=== PATIENT | male | born 1950 | race Caucasian/White ===

== ENCOUNTER 2017-10-17 14:59 | Emergency (ER) | payer OTHER ==
[~2017-10-17] VITALS: Ht 177.8 cm; Wt 132.4 kg
[~2017-10-17 14:59] MED LIST: AUGMENTIN PO; SKINCRE34 TOP; WARF-246 PO
[2017-10-17 15:04] VITALS: TEMP 36.5; Ht 177.8 cm; Wt 132.4 kg
[2017-10-17] MEDS ORDERED: ONDANSETRON INJ 2 MG/ML 2 ML VIAL IV STA (15:18)
[2017-10-17] MEDS ORDERED: MoRPHine SULFATE 10 MG/ML CARP/VIAL IV STA (15:18)
[2017-10-17] MEDS ORDERED: MoRPHine SULFATE 2 MG/ML CARP ONE (15:22)
[2017-10-17] MEDS ORDERED: MoRPHine SULFATE 4 MG/ML 1 ML CARP\\VIAL ONE (15:23)
[2017-10-17] MEDS ORDERED: WARF5TAB7 PO (15:37)
[2017-10-17] MEDS ORDERED: WARF10TA4 PO (15:37)
[2017-10-17 15:54] LABS: BASO % 0.4 %; BASO ABS # 0.03 K/uL (0-0.2); EOS % 2.2 %; EOS ABS # 0.17 K/uL (0-0.5); HEMATOCRIT 41.7 % (42-52); HEMOGLOBIN 13.4 g/dL (14.0-18.0); IG# 0.02 K/uL (0.00-0.02); LYMPH ABS # 1.06 K/uL (1.2-3.4); MEAN CELL VOLUME 94.6 fL (80-100); MEAN CORPUSCULAR HEMOGLOBIN 30.4 pg (25-34); MEAN CORPUSCULAR HGB CONC 32.1 g/dl (32-36); MEAN PLATELET VOLUME 9.9 fL (7.4-10.4); MONO % 7.3 %; MONO ABS # 0.55 K/uL (0.11-0.59); NEUT % 75.8 %; NEUT ABS # 5.75 K/uL (1.4-6.5); PLATELET COUNT 375 K/uL (130-400); RED CELL DISTRIBUTION WIDTH CV 13.1 % (11.5-14.5); RED CELL DISTRIBUTION WIDTH SD 45.7 fL (36.4-46.3); WHITE BLOOD COUNT 7.58 K/uL (4.8-10.8)
[2017-10-17 16:11] LABS: CALCIUM 9.2 mg/dl (8.5-10.1); CREATININE 1.72 mg/dl (0.60-1.40); POTASSIUM 4.3 mmol/L (3.5-5.1)
[2017-10-17 16:19] LABS: INR 3.7 (0.9-1.1)
[2017-10-17 16:23] LABS: PTT PATIENT 69.5 SECONDS (21.0-31.0)
--- NOTE | 2017-10-17 16:25 | DIAGNOSTIC IMAGING REPORT ---
RIGHT LOWER EXTREMITY VENOUS DOPPLER CLINICAL HISTORY: Right leg pain and swelling. COMPARISON STUDY: Right lower extremity venous Doppler January 27 2013. TECHNIQUE: Sonography of the deep venous system of the right lower extremity was performed. Compression and augmentation were evaluated. FINDINGS: Note is made of nonocclusive thrombus within the right femoral vein. Of note, thrombus was shown within this vessel on exam of January 27, 2013. This vessel is not distended. This thrombus is age indeterminate. No additional sites of deep venous thrombus were identified within the right lower extremity although evaluation was difficult given suboptimal penetration related to body habitus. IMPRESSION: Nonocclusive deep venous thrombus within the right femoral vein. This thrombus is age indeterminate as thrombus was shown within this vessel on exam of January 27, 2013. Electronically signed by: Ramin Conley M.D. 10/17/2017 4:24 PM Dictated Date/Time: 10/17/2017 4:22 PM
[2017-10-17] MEDS ORDERED: CEFTRIAXONE SOD INJ 1 GM ADDVIAL IV STA (16:38)
--- NOTE | 2017-10-17 16:46 | EMERGENCY ROOM VISIT NOTE ---
ED Visit Note First contact with patient: 15:09 Patient was seen by our PA/RESOURCE DIRECTOR. I was involved in the patient's care and did evaluate the patient myself. I was involved in the care throughout the ER stay. The patient presents with right leg swelling and pain. Ultrasound of the leg does not show any new DVT. There is no current fever and there is no leukocytosis. Clinically he appears to have an early right leg cellulitis. He will be treated with antibiotics and will have close outpatient follow-up. If worsening, he should return.
[2017-10-17 16:51] VITALS: BP 145/82; PULSE 65; O2SAT 97
[2017-10-17] MEDS ORDERED: CEPH500C2 PO (17:02)
[2017-10-17] MEDS ORDERED: HYDR-5688 PO (17:02)
--- NOTE | 2017-10-17 17:03 | EMERGENCY ROOM VISIT NOTE ---
History First contact with patient: 15:09 Chief Complaint: LEG PAIN,LEG INJURY Stated Complaint: PAIN IN R LOWER LEG,REFERRED BY MD History of Present Illness The patient is a 67 year old male who presents to the Emergency Room being referred here by Dr. Rodriguez with complaints of right lower leg pain and swelling. The patient states he always has swelling in his right lower leg. He admits to history of clots in that leg for which she is on Coumadin. He does not know when his last clot was diagnosed. The patient states that his last INR was October 12 and states he thought it was low but does not know the actual number. The patient states that since October 05 he has noticed increased swelling and pain in his right lower leg which has been getting progressively worse. He went to his family doctor today who sent him over here to the emergency room for further evaluation. The patient denies any fever, chest pain or shortness of breath. Review of Systems 10 system review was performed and was negative unless stated otherwise history of present illness. Past Medical/Surgical History Medical Problems: (1) ABDOMINAL SURGERY (2) Chronic kidney disease stage 3 (3) Deep venous thrombosis (4) Germ cell tumor (5) Hernia repair (6) Mass of testicle Family History Patient reports no known family medical history. Social History Smoking Status: Never Smoker Alcohol Use: occasionally Drug Use: none Marital Status: single Housing Status: lives alone Occupation Status: employed Current/Historical Medications Scheduled Warfarin Sod (Jantoven), 5 MG PO DIRECTED Warfarin Sod (Jantoven), 10 MG PO DIRECTED Physical Exam Vital Signs Date Time Temp Pulse Resp B/P (MAP) Pulse Ox O2 Delivery O2 Flow Rate FiO2 10/17/17 16:51 65 20 145/82 97 Room Air 10/17/17 15:04 36.5 73 20 149/101 97 Room Air 10.0 Physical Exam GENERAL: Morbidly obese 67-year-old male appears in no acute distress. MENTAL Status: Alert and oriented 3. NECK: Supple, no lymphadenopathy noted. No carotid bruits noted. LUNGS: Clear auscultation without wheezes rales or rhonchi. CARDIAC: Regular rate and rhythm without murmur. Pulses is full and equal throughout. LOWER EXTREMITIES: Left lower leg without erythema or edema. Calf is nontender. Right lower leg with significant erythema and edema extending from the ankle up to the knee. There is also noted discoloration and dry skin consistent with venous stasis. There is some dry cracked open areas. Patient has tenderness to palpation throughout the entire lower leg with increased tenderness to palpation over the proximal posterior aspect. Medical Decision & Procedures ER Provider Diagnostic Interpretation: RIGHT LOWER EXTREMITY VENOUS DOPPLER CLINICAL HISTORY: Right leg pain and swelling. COMPARISON STUDY: Right lower extremity venous Doppler January 27 2013. TECHNIQUE: Sonography of the deep venous system of the right lower extremity was performed. Compression and augmentation were evaluated. FINDINGS: Note is made of nonocclusive thrombus within the right femoral vein. Of note, thrombus was shown within this vessel on exam of January 27, 2013. This vessel is not distended. This thrombus is age indeterminate. No additional sites of deep venous thrombus were identified within the right lower extremity although evaluation was difficult given suboptimal penetration related to body habitus. IMPRESSION: Nonocclusive deep venous thrombus within the right femoral vein. This thrombus is age indeterminate as thrombus was shown within this vessel on exam of January 27, 2013. Electronically signed by: Ramin Conley M.D. 10/17/2017 4:24 PM Laboratory Results 10/17/17 15:30 Red Blood Count 4.41, Mean Corpuscular Volume 94.6, Mean Corpuscular Hemoglobin 30.4, Mean Corpuscular Hemoglobin Concent 32.1, Mean Platelet Volume 9.9, Neutrophils (%) (Auto) 75.8, Lymphocytes (%) (Auto) 14.0, Monocytes (%) (Auto) 7.3, Eosinophils (%) (Auto) 2.2, Basophils (%) (Auto) 0.4, Neutrophils # (Auto) 5.75, Lymphocytes # (Auto) 1.06, Monocytes # (Auto) 0.55, Eosinophils # (Auto) 0.17, Basophils # (Auto) 0.03 10/17/17 15:30 Test 10/17/17 15:30 White Blood Count 7.58 K/uL (4.8-10.8) Red Blood Count 4.41 M/uL (4.7-6.1) Hemoglobin 13.4 g/dL (14.0-18.0) Hematocrit 41.7 % (42-52) Mean Corpuscular Volume 94.6 fL (80-100) Mean Corpuscular Hemoglobin 30.4 pg (25-34) Mean Corpuscular Hemoglobin Concent 32.1 g/dl (32-36) Platelet Count 375 K/uL (130-400) Mean Platelet Volume 9.9 fL (7.4-10.4) Neutrophils (%) (Auto) 75.8 % Lymphocytes (%) (Auto) 14.0 % Monocytes (%) (Auto) 7.3 % Eosinophils (%) (Auto) 2.2 % Basophils (%) (Auto) 0.4 % Neutrophils # (Auto) 5.75 K/uL (1.4-6.5) Lymphocytes # (Auto) 1.06 K/uL (1.2-3.4) Monocytes # (Auto) 0.55 K/uL (0.11-0.59) Eosinophils # (Auto) 0.17 K/uL (0-0.5) Basophils # (Auto) 0.03 K/uL (0-0.2) RDW Standard Deviation 45.7 fL (36.4-46.3) RDW Coefficient of Variation 13.1 % (11.5-14.5) Immature Granulocyte % (Auto) 0.3 % Immature Granulocyte # (Auto) 0.02 K/uL (0.00-0.02) Prothrombin Time 37.5 SECONDS (9.0-12.0) Prothromb Time International Ratio 3.7 (0.9-1.1) Activated Partial Thromboplast Time 69.5 SECONDS (21.0-31.0) Partial Thromboplastin Ratio 2.7 Anion Gap 9.0 mmol/L (3-11) Est Creatinine Clear Calc Drug Dose 58.6 ml/min Estimated GFR () 47.3 Estimated GFR (Non- 40.8 BUN/Creatinine Ratio 12.6 (10-20) Calcium Level 9.2 mg/dl (8.5-10.1) Medications Administered Medications (Trade) Dose Ordered Sig/[place] Route Start Time Stop Time Status Last Admin Dose Admin Morphine Sulfate (MoRPHine SULFATE INJ) 6 mg NOW STAT IV 10/17/17 15:18 10/17/17 15:20 DC 10/17/17 15:18 6 MG Ondansetron HCl (Zofran Inj) 4 mg NOW STAT IV 10/17/17 15:18 10/17/17 15:20 DC 10/17/17 15:18 4 MG Ceftriaxone Sodium (Rocephin Inj) 1 gm NOW STAT IV 10/17/17 16:38 10/17/17 16:41 DC 10/17/17 16:50 1 GM ED Course The patient was evaluated. The patient's EMR medication list were reviewed. IV access was obtained. CBC and differential, renal profile and coags were ordered. The patient was given morphine 6 mg IV for pain and morphine 4 mg IV for associated nausea. Venous Doppler of the right lower extremity was ordered interpreted by the radiologist as above with a nonocclusive thrombus noted in the femoral vein which was there on prior ultrasound of 2012. Limited exam secondary to patient's size.. Labs are reviewed. The patient's white count was normal. Hemoglobin and hematocrit were slightly low. Patient's BUN was elevated at 20 and creatinine elevated at 1.7 to consistent with the patient's renal failure. INR was 3.7. The patient was independently evaluated by Dr. Lyman who agree with treatment plan. The patient was given Rocephin 1 g IV. The patient was discharged home in stable condition. Medical Decision Differential diagnosis include cellulitis, DVT, superficial phlebitis, venous stasis, stasis dermatitis [place] Drug Monitoring Program Search Results: patient reviewed within database Medication Reconcilliation Current Medication List: was personally reviewed by wi Blood Pressure Screening Patient's blood pressure: Elevated blood pressure Blood pressure disposition: Elevated BP felt to be situational Impression Primary Impression: Cellulitis of right leg Departure Information Dispostion Home / Self-Care Condition GOOD Prescriptions Cephalexin Monohydrate (KEFLEX) 500 Mg Cap 500 MG PO QID for 10 Days, #40 CAP Prov: Debbie Sarabia PA-C 10/17/17 Hydrocodone/Acetaminophen 5MG/325MG ([place] 5MG/325MG) Tab 1-2 TABLET PO Q6 Y for Pain, #20 TAB For Initial Treatment Prov: Debbie Sarabia PA-C 10/17/17 Referrals Rosalie Rosales DO (PCP) Forms HOME CARE DOCUMENTATION FORM, IMPORTANT VISIT INFORMATION Patient Instructions Cellulitis - [facility], [facility] Additional Instructions Keep leg elevated above heart as much as possible. Take [place] as needed for pain. Do not drive while taking the [place]. Call the Coumadin clinic or whoever follows her Coumadin levels and tell them that your INR was 3.7 for further directions on how to take your Coumadin. Take Keflex as prescribed. Follow-up with Dr. Rodriguez in 2 days for recheck. If you experience any high fevers, worsening of symptoms, return to the ER. Off work until evaluated by Dr. Rodriguez.
== END 2017-10-17 17:30 | disposition home or self-care (01) ==
LOC: C.EDB 15:00
DX: L03.115 Cellulitis of right lower limb (principal); Z86.718 Personal history of other venous thrombosis and embolism; N18.3 Chronic kidney disease, stage 3 (moderate); Z79.01 Long term (current) use of anticoagulants

== ENCOUNTER 2018-10-11 11:00 | Inpatient (IN) ==
[2018-10-11 11:40] LABS: Basophils # (auto) 0.01 K/uL (0-0.2); Basophils % (auto) 0.1 %; Hematocrit (blood only) 43.3 % (42-52); Hemoglobin 13.7 g/dL (14.0-18.0); Immature Granulocytes # (auto) 0.01 K/uL (0.00-0.02); Immature Granulocytes % (auto) 0.1 %; Lymphocytes # (auto) 0.45 K/uL (1.2-3.4); Lymphocytes % (auto) 5.3 %; Mean Corpuscular Hgb Conc 31.6 g/dL (32-36); Mean Corpuscular Volume 95.4 fL (80-100); Mean Platelet Volume 10.5 fL (7.4-10.4); Monocytes # (auto) 0.58 K/uL (0.11-0.59); Monocytes % (auto) 6.8 %; Neutrophils # (auto) 7.42 K/uL (1.4-6.5); Neutrophils % (auto) 87.7 %; Platelet Count 206 K/uL (130-400); RDW Coefficient of Variation 13.3 % (11.5-14.5); RDW Standard Deviation 46.1 fL (36.4-46.3); Red Blood Count 4.54 M/uL (4.7-6.1); White Blood Count 8.47 K/uL (4.8-10.8)
[2018-10-11 11:47] LABS: Alanine Aminotransferase 35 U/L (12-78); Albumin Level 3.6 gm/dl (3.4-5.0); Aspartate Aminotransferase 81 U/L (15-37); BUN Creatinine Ratio 11.9 (10-20); Blood Urea Nitrogen 18 mg/dl (7-18); Calcium 8.9 mg/dl (8.5-10.1); Carbon Dioxide 27 mmol/L (21-32); Chloride 104 mmol/L (98-107); Est GFR (African American) 53.7; Est GFR (Non-African American) 46.3; Glucose 145 mg/dl (70-99); Sodium 138 mmol/L (136-145)
[2018-10-11 11:49] LABS: INR 1.3 (0.9-1.1); Partial Thromboplastin Ratio 1.2; Partial Thromboplastin Time 30.8 Seconds (21.0-31.0); Prothrombin Time 13.2 Seconds (9.0-12.0)
--- NOTE | 2018-10-11 11:50 | XRay Report ---
XR chest 1V portable CLINICAL HISTORY: chest pain dyspnea COMPARISON STUDY: 07/14/2015 FINDINGS: Mild stable cardiomegaly. Prominent pulmonary vasculature. Diaphragms smooth. IMPRESSION: Developing congestive heart failure. The above report was generated using voice recognition software. It may contain grammatical, syntax or spelling errors. Electronically signed by: Jamil Sarabia M.D. 10/11/2018 11:49 AM
[2018-10-11 11:57] LABS: Albumin Globulin Ratio 0.8 (0.9-2); Alkaline Phosphatase 65 U/L (45-117); Bilirubin,Total 0.5 mg/dl (0.2-1); Globulin 4.5 gm/dl (2.5-4.0); Total Protein 8.1 gm/dl (6.4-8.2)
[2018-10-11] MEDS ORDERED: ONDANSETRON INJ 2 MG/ML 2 ML VIAL IV STA (12:05)
[2018-10-11] MEDS ORDERED: MoRPHine SULFATE 2 MG/ML CARP IV STA (12:05)
[2018-10-11] MEDS ORDERED: FUROSEMIDE 40 MG/4 ML VIAL IV STA (12:05)
[2018-10-11] MEDS ORDERED: NITROGLYCERIN 2% OINTMENT 30GM TUBE EXT STA (12:05)
[2018-10-11] MEDS ORDERED: HEPARIN 25000 UNIT/500 ML D5W IV ONE (12:41)
[2018-10-11] MEDS ORDERED: HEPARIN SQ 5000 UNIT HEART ALERT CARP ONE (12:41)
[2018-10-11] MEDS ORDERED: MIDAZOLAM HCL 1 MG/ML 2ML VIAL ONE (13:33)
[2018-10-11] MEDS ORDERED: HEPARIN (PORCINE) 1000 UNIT/ML 10 ML (CATH LAB USE ONLY) ONE (13:33)
[2018-10-11] MEDS ORDERED: fentaNYL citrate 100 MCG/2 ML VIAL ONE (13:33)
[2018-10-11] MEDS ORDERED: NiCARDipine HCL INJ 2.5 MG/ML 10 ML AMP ONE (13:33)
[2018-10-11] MEDS ORDERED: NITROGLYCERIN/D5W 100MCG/ML 20ML SYR ONE (13:33)
--- NOTE | 2018-10-11 13:34 | History & Physical Report ---
Date of Service October 11, 2018 Assessment & Plan (1) Myocardial infarct: Pt presents with worsening chest pain over past week, constant over past 24 hours with markedly elevated troponin at 39.9 consistent with a NSTEMI. Discussed case with Dr. Bryant - pt to go to photo lab manager today. - Await further recommendations after cath - likely will go to ICU for observation post-cath but defer to interventional cardiology - Heparin drip started in ED - Received aspirin, nitro, morphine - Received furosemide 20 mg IV in ED due to evidence of CHF Present on Admission?: Yes (2) Cardiomyopathy: Likely ischemic cardiomyopathy. Cont current medical management per cardiology. (3) Lymphedema: Ongoing chronic issue - per pt unchanged from baseline Present on Admission?: Yes (4) Chronic deep vein thrombosis (DVT) of right lower extremity: On Coumadin outpatient but INR subtherapeutic - Continue heparin drip as above - Restart Coumadin after cath Present on Admission?: Yes (5) CKD (chronic kidney disease) stage 3, GFR 30-59 ml/min: Creatinine slightly elevated above baseline of 1.3-1.4 today - will need to monitor closely after dye load from cath today - Repeat labs in AM Present on Admission?: Yes (1) Cardiomyopathy: Plan: Plan - Chhaya Kevin PA-C: Patient discussed with attending physician, Dr. Pereyra. Plan of care reviewed and as outlined above. Pt for cardiac cath this afternoon. Additional recommendations to follow. Jennifer Kevin PA-C History of Present Illness Primary Care Provider: PCP - Rosalie Rosales 68 y/o male presents to the ED today with constant chest pain x 24 hours, intermittent chest pain x 1 week, found to have an elevated troponin of 39.9, and now being admitted with a diagnosis of NSTEMI. Pt reports intermittent chest pain in the left substernal area that he attributed to heartburn for the past week - pain would occur after eating or with exertion then resolve with rest. Over the past few days he has developed dyspnea on exertion as well as cough productive of white foamy phlegm. Yesterday, the chest pain became constant and has slowly been worsening since then. Associated malaise, lightheadedness, nausea, bloating and loss of appetite. Due to the severity of symptoms, he came in for evaluation this morning although admits he should have come in last night as "it was a rough night" due to the symptoms. Pt denies prior history of cardiac disease, hypertension, dyslipidemia, CVA, DM. He does have a history of chronic RLE DVT with associated lymphedema. He is on chronic Coumadin therapy but INR in the ED is subtherapeutic. This RLE edema has apparently not been any worse than usual. Denies fevers, sweats, vomiting, diarrhea, constipation, hematochezia, hematuria, dysuria. He did have some chills last night. He denies any family history of cardiac disease. Allergies Allergy/AdvReac Type Severity Reaction Status Date / Time No Known Allergies Allergy Unverified 10/17/17 15:37 Home Medications Home Medications Medication Instructions Recorded Confirmed Type warfarin 5 mg PO 3XWK 10/11/18 10/11/18 History warfarin 5 mg PO Q OTHER DAY 10/11/18 10/11/18 History Past Med/Surg History Medical History GENEVA (acute kidney injury) (Acute) Abnormal liver enzymes (Acute) Germ cell tumor (Chronic 01/27/13) Mass of testicle (Resolved 01/27/13) "REMOVED " CKD (chronic kidney disease) stage 3, GFR 30-59 ml/min (Chronic) Chronic deep vein thrombosis (DVT) of right lower extremity (Chronic) Lymphedema (Chronic) Peripheral vascular disease (Chronic) Surgical History History of colonoscopy with polypectomy (Chronic) adenomatous polyp, diverticulosis - Oct 2015 History of orchiectomy (Chronic) History of umbilical hernia repair (Chronic) Social History Current Living Situation: Alone current occupational status: employed Other Information That Helps Us Care for You: No Feels Safe at Home: Yes Safety Concerns: Feels Safe At This Time Smoking Status: Never smoker Hx Alcohol Use: Yes Alcohol type: beer Alcohol Intake Frequency: a few times a week Hx Substance Use: No Beliefs That Will Affect Care: None Preferred Language: Marshallese Communication Ability: Effective Review of Systems All systems reviewed & are unremarkable except as noted in HPI & below Constitutional: + chills, + fatigue, + malaise, + weakness and + anorexia; no fever and no sweats Eyes: no diplopia, not seeing flashes and no worsening vision Ear, Nose, Mouth, Throat: no nasal congestion, no epistaxis, no sore throat and no dysphagia Respiratory: + cough, + dyspnea on exertion, + sputum production and + wheezing ; no hemoptysis Cardiovascular: + chest pain at rest, + chest pain with activity, + orthopnea, + lightheadedness and + edema; no paroxysmal nocturnal dyspnea, no palpitations and no syncope Gastrointestinal: + abdominal pain (generalized abdominal discomfort), + bloating, + heartburn and + nausea; no vomiting, no hematemesis, no dysphagia, no diarrhea/loose stools, no blood in stools and no melena Genitourinary (Male): no dysuria, no urinary frequency and no hematuria Musculoskeletal: + swelling (chronic RLE edema); no back pain Neurologic: + generalized weakness; no tingling, no numbness, no syncope, no headache(s) and no confusion Chronic anticoagulation due to history of chronic RLE DVT Physical Exam 2 Vital Signs (Past 24 Hours): Last Vital Signs Temp 36.5 C 10/11/18 11:04 Pulse 78 10/11/18 13:02 Resp 20 10/11/18 13:02 BP 120/85 10/11/18 13:02 Pulse Ox 93 10/11/18 13:02 Constitutional: well developed, well nourished and + obese; no acute distress Eyes: PERRL, conjunctivae normal, anicteric sclerae ENMT: external ear and nose normal, oropharynx normal Neck: trachea midline Respiratory: able to speak in complete sentences Auscultation: + crackles ( bibasilar); no rales and no rhonchi Cardiovascular: Distant heart sounds but regular. No murmur, gallop or rub. Gastrointestinal (Abdomen): Inspection/Auscultation: + abdomen distended and normal bowel sounds Percussion/Palpation: + abdomen tender (mild diffuse) Musculoskeletal: RLE with chronic stasis changes and pitting edema - no calf tenderness bilaterally. Neurologic: no focal motor deficits Results & Data Laboratory Results Laboratory Results - last 24 hr 10/11/18 10/11/18 10/11/18 11:15 11:15 11:15 WBC 8.47 RBC 4.54 L Hgb 13.7 L Hct 43.3 MCV 95.4 MCH 30.2 MCHC 31.6 L RDW Std Deviation 46.1 RDW Coeff of Juan 13.3 Plt Count 206 MPV 10.5 H Immature Gran % (Auto) 0.1 Neut % (Auto) 87.7 Lymph % (Auto) 5.3 [place] % (Auto) 6.8 Eos % (Auto) 0.0 Baso % (Auto) 0.1 Immature Gran # (Auto) 0.01 Neut # (Auto) 7.42 H Lymph # (Auto) 0.45 L [place] # (Auto) 0.58 Eos # (Auto) 0.00 Baso # (Auto) 0.01 PT 13.2 H INR 1.3 H APTT 30.8 PTT Ratio 1.2 Sodium 138 Potassium 4.0 Chloride 104 Carbon Dioxide 27 Anion Gap 8.0 BUN 18 Creatinine 1.54 H Est Cr Clr Drug Dosing Not Reportable Est GFR ( Amer) 53.7 Est GFR (Non-Af Amer) 46.3 BUN/Creatinine Ratio 11.9 Glucose 145 H Calcium 8.9 Total Bilirubin 0.5 AST 81 H ALT 35 Alkaline Phosphatase 65 Troponin I 39.900 H* Total Protein 8.1 Albumin 3.6 Globulin 4.5 H Albumin/Globulin Ratio 0.8 L Diagnostic Findings Chest X-ray 10/11/18 - IMPRESSION: Developing congestive heart failure. Medications Administered Discontinued Medications Furosemide (Lasix) 20 mg IV NOW STA Stop: 10/11/18 12:06 Last Admin: 10/11/18 12:27 Dose: 20 mg Heparin Sodium (Beef Lung) (Heparin Sod 5000u Heart Alert) Confirm Administered Dose 5,000 units .ROUTE .STK-MED ONE Stop: 10/11/18 12:42 Last Admin: 10/11/18 12:45 Dose: 5,000 units Heparin Sodium/Dextrose (Heparin Sodium/Dextrose) Confirm Administered Dose 25, 000 units IV .STK-MED ONE Stop: 10/11/18 12:42 Last Admin: 10/11/18 12:45 Dose: 1,850 units Morphine Sulfate (Morphine Sulfate) 2 mg IV NOW STA Stop: 10/11/18 12:06 Last Admin: 10/11/18 12:26 Dose: 2 mg Nitroglycerin (Nitro-Bid 2%) 0.5 inch EXT NOW STA Stop: 10/11/18 12:06 Last Admin: 10/11/18 12:25 Dose: 0.5 inch Ondansetron HCl (Zofran) 4 mg IV NOW STA Stop: 10/11/18 12:06 Last Admin: 10/11/18 12:27 Dose: 4 mg Code Status & VTE Plan Code Status Full resuscitation VTE Prophylaxis Plan VTE Prophylaxis will be ordered: Yes Critical Care Time Critical Care Time: No Supervising Physician Co-Signing Physician Notes I have seen the patient and have discussed the care plan with the provider above. I agree with the assessment and plan as stated. Cont to monitor overnight in the ICU post SE to prox LAD lesion. Follow Cardiology recs. ICU team to manage any initial issues with volume overload. DO Roddy _ (1) Myocardial infarct Myocardial infarction type: non-ST elevation myocardial infarction Qualified Code(s): I21.4 - Non-ST elevation (NSTEMI) myocardial infarction (2) Chronic deep vein thrombosis (DVT) of right lower extremity Affected thrombotic vein of extremity: other lower extremity vein Qualified Code(s): I82.591 - Chronic embolism and thrombosis of other specified deep vein of right lower extremity
[2018-10-11] MEDS ORDERED: ASPIRIN 81 MG CHEW ONE (13:46)
--- NOTE | 2018-10-11 13:48 | Cardiology Consultation ---
Date of Consultation October 11, 2018 Assessment & Plan (1) Myocardial infarct: Patient presents with stuttering history of chest pressure and chest tightness of one weeks duration with significantly elevated troponins echocardiogram consistent with type III LAD distribution wall motion abnormality. He continues to have chest pressure symptoms or complaints EKGs do not demonstrate acute ST elevation no developing Q waves are present in the anterior leads. Plan continue heparin refer to [facility] Blanking Press Adjuster today for further diagnostic imaging and intervention as warranted. Plan on initiating beta-katelyn as course progresses. Will follow renal function regarding initiation of BOBBI inhibitor, lipid-lowering therapy to follow (2) CKD (chronic kidney disease): History of Present Illness Reason for Consultation: Myocardial infarction History of Present Illness Patient is a 68-year-old male with past history of DVT, chronic right lower extremity lymphedema, obesity and chronic renal insufficiency. 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 Presented to the emergency room due to chest pain and shortness of breath initial troponin elevated at 39.9 EKGs reflecting Q waves anteriorly. Patient continues to have chest discomfort described as a tightness across his chest rated 6-8 out of 10 with mild dyspnea. Further review of systems he notes low-grade cough no overt orthopnea. Denies prior history of cardiac disease rheumatic fever scarlet fever heart murmur notes no history of TIA or stroke notes no bleeding difficulties he is chronically anticoagulated with warfarin but INR on presentation was subtherapeutic. Feels his weight has been gradually increasing but no acute change since July. Notes no fevers chills overtly productive cough notes no melena hematochezia dysuria hematuria. Review of records reveals elevated lipids in the past no prior history of diabetes or hypertension. 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) Mass of testicle (Resolved 01/27/13) "REMOVED " Social History Current Living Situation: Alone current occupational status: employed Other Information That Helps Us Care for You: No Feels Safe at Home: Yes Safety Concerns: Feels Safe At This Time Smoking Status: Never smoker Hx Alcohol Use: Yes Alcohol type: beer Alcohol Intake Frequency: a few times a week Hx Substance Use: No Beliefs That Will Affect Care: None Preferred Language: Croatian Communication Ability: Effective Review of Systems Are as per HPI and otherwise negative Physical Exam 2 Vital Signs (Past 24 Hours): Last Vital Signs Temp 36.5 C 10/11/18 11:04 Pulse 76 10/11/18 13:10 Resp 18 10/11/18 13:10 BP 111/78 10/11/18 13:10 Pulse Ox 93 10/11/18 13:10 Constitutional: + obese ENMT: external ear and nose normal, oropharynx normal Neck: + thick neck No distinct jugular venous distention Respiratory: Auscultation: + crackles (Few scattered crackles basilar) Cardiovascular: Rate/Rhythm: regular rate and regular rhythm Heart sounds are distant there is no audible murmur rub Gastrointestinal (Abdomen): Obese no palpable aortic enlargement or hepatosplenomegaly Musculoskeletal: no cyanosis or clubbing, extremities motor strength 5/5 Skin: Chronic stasis changes of the right lower extremity with intact pulses Neurologic: PERRL, EOMI, accommodation nl, no face palsy, no dysarthria Results & Data Laboratory Results Laboratory Results - last 24 hr 10/11/18 10/11/18 10/11/18 11:15 11:15 11:15 WBC 8.47 RBC 4.54 L Hgb 13.7 L Hct 43.3 MCV 95.4 MCH 30.2 MCHC 31.6 L RDW Std Deviation 46.1 RDW Coeff of Juan 13.3 Plt Count 206 MPV 10.5 H Immature Gran % (Auto) 0.1 Neut % (Auto) 87.7 Lymph % (Auto) 5.3 [place] % (Auto) 6.8 Eos % (Auto) 0.0 Baso % (Auto) 0.1 Immature Gran # (Auto) 0.01 Neut # (Auto) 7.42 H Lymph # (Auto) 0.45 L [place] # (Auto) 0.58 Eos # (Auto) 0.00 Baso # (Auto) 0.01 PT 13.2 H INR 1.3 H APTT 30.8 PTT Ratio 1.2 Sodium 138 Potassium 4.0 Chloride 104 Carbon Dioxide 27 Anion Gap 8.0 BUN 18 Creatinine 1.54 H Est Cr Clr Drug Dosing Not Reportable Est GFR ( Amer) 53.7 Est GFR (Non-Af Amer) 46.3 BUN/Creatinine Ratio 11.9 Glucose 145 H Calcium 8.9 Total Bilirubin 0.5 AST 81 H ALT 35 Alkaline Phosphatase 65 Troponin I 39.900 H* Total Protein 8.1 Albumin 3.6 Globulin 4.5 H Albumin/Globulin Ratio 0.8 L Diagnostic Findings Echocardiogram 10/11/2018: The left ventricle is borderline dilated. There is normal left ventricular wall thickness. There is extensive wall motion abnormality present consistent with type III LAD distribution injury There is a large sized apical, septal, anteroseptal, and inferior wall motion abnormality with hypokinesis to akinesis of the segments. There is no significant valvular disease Mild aortic root dilatation. There is no pericardial effusion
[2018-10-11] MEDS ORDERED: EPTIFIBATIDE 2 MG/ML 10 ML VIAL (CATH LAB USE ONLY) ONE (14:54)
[2018-10-11] MEDS ORDERED: EPTIFIBATIDE 0.75 MG/ML 75MG VIAL (CATH LAB USE ONLY) ONE (14:54)
[2018-10-11] MEDS ORDERED: TICAGRELOR 90 MG TAB PO ONE (15:04)
--- NOTE | 2018-10-11 15:09 | Post Anesthesia Assessment ---
Date of Service October 11, 2018 Post Sedation Assessment Vital Signs Temp Pulse Pulse Resp BP BP Pulse Ox 10/11/18 13:10 76 18 111/78 93 10/11/18 13:02 78 20 120/85 93 10/11/18 11:29 93 10/11/18 11:04 36.5 C 76 20 136/92 99 Recovery Score Activity: Moves 4 extremities Respiration: Deep Breath/Cough Circulation: +/-20% PreAnes Value Consciousness: Fully Awake Oxygen Saturation: O2 needed for >90% Discharge Sedation Level of Care: Fast Track Phase II Post Sedation Plan On clinical assessment, the patient appears to have tolerated the sedation without complications. Patient is recovering as anticipated. Patient will continue to be monitored by nursing and may be discharged when sedation discharge criteria are met per below protocol. Upon Completions of procedure and additional 15 minutes continue every 5 minute vital signs and the P.A.R. score; then discharge to a Phase I or Fast Track to Phase II per the following guidelines: * Discharge Patient to appropriate Phase II area if PAR is 8 or greater or return to pre- procedure baseline. The post - procedure orders will be as directed. * If PAR score is less than 8 or not return to pre-procedure baseline then patient will follow Phase I monitoring till PAR is reached for Phase II. The Phase I may be done in procedure room or may call to secure a Phase I area. * �If naloxone or flumazenil are used for reversal, hold in Phase I for continued monitoring from when last reversal dose was given for a minimum of 60 minutes or longer pending the nurse and/or physician discretion of patient condition before discharge to Phase II.� Please call the Sedation Physician to re-evaluate and complete post-note for discharge to Phase II area. Do NOT discharge from procedure sedation or Phase 1 until post- sedation evaluation note is complete by procedure /sedation MD Sedation Discharge Instructions to be given to the patient at discharge to home.
--- NOTE | 2018-10-11 15:09 | Pre Anesthesia Assessment ---
Date of Service October 11, 2018 Pre Sedation Assessment Vital Signs Temp Pulse Pulse Resp BP BP Pulse Ox 10/11/18 13:10 76 18 111/78 93 10/11/18 13:02 78 20 120/85 93 10/11/18 11:29 93 10/11/18 11:04 36.5 C 76 20 136/92 99 Cardiovascular RRR, no murmur, no edema Respiratory normal respiratory effort, lungs clear to auscultation Pre-Sedation Airway Assessment Smoking Status: Never smoker Procedure Planning Contraindications for Sedation: none Current Medications Reviewed: Yes Notes The planned sedation has been discussed with the patient. Informed Consent was obtained. I have identified the patient, determined the appropriateness of sedation and have assessed the patient immediately prior to the procedure. All medicine(s) and interventions are by my order.
--- NOTE | 2018-10-11 15:22 | Cardiac Catheterization ---
Cardiac Cath Procedure Full Procedure Date October 11, 2018 Pre-Procedure Diagnosis Pre-Procedure Diagnosis: Non STEMI AUC Score AUC Score: 9 Post-Procedure Diagnosis Post-Procedure Diagnosis: Severe CAD, Successful PCI and Elevated Intracardiac Pressures Procedure(s) Performed Procedure(s) Performed: Coronary Angiography, Left Heart Cath, Drug Eluting Stent and IVUS Stone Planer Dong Elliott MD Scroll Assembler(s) Diaz Estimated Blood Loss Estimated Blood Loss: 20 Medication(s) Medication(s): Aspirin, Fentanyl, Heparin, Integrilin, Lidocaine 1%, Nitroglycerin and Versed Summary of Findings Indication: High-risk NSTEMI Access: 6 [place] right radial artery Catheters: [place], EBU 3.5 guide Findings: LM -large caliber vessel, angiographically normal LAD -large caliber vessel, 100% proximal occlusion. Mild to moderate mid segment disease after reestablished flow Circumflex -large caliber vessel gives off large, high first OM, luminal irregularities RCA -dominant, mild diffuse proximal disease, 4050% mid segment disease at takeoff of acute marginal, distal luminal irregularities LVEDP -37 -- PCI -- Antithrombotic therapy: Heparin, Integrilin, ticagrelor Procedure: Left main cannulated with EBU 3.5 guide Some difficulty passing wire across organized clot, attempts made with BMW, ferry pilot 50. Eventually able to cross the lesion with long whisper wire with the aid of 2.0 over the wire balloon. Wire passed into distal vessel and intracoronary position confirmed with injection through over the wire balloon Proximal LAD lesion predilated with 2.0 and 2.5 compliant balloons Dilated lesion stented with 4.0 x 22 [place] drug-eluting stent Post stent DIANA II flow with mild to moderate stenosis in the mid segment. IVUS confirmed no edge dissection, moderate mildly calcified plaque in the mid segment. Stent well apposed, underexpanded proximally Stent post-dilated with 4.5 noncompliant balloon IC vasodilators administered for spasm. Integrilin started for thrombus burden Post procedure DIANA 3 flow, stent well expanded with minimal residual stenosis and no apparent cardiac complications. Arterial Closure: TR band Summary: 1. Late presenting High-risk NSTEMI/Occluded proximal LAD 2. Mild to moderate single-vessel non-culprit coronary artery disease -40-50% mid RCA 3. Elevated intracardiac filling pressure 4. Successful PCI of proximal to mid LAD with single drug-eluting stent (4.0 x 22 mm [place]; postdilated with 4.5 NC balloon). Recommendations: Admit to ICU for continued monitoring Continue Integrilin for 8 hours Loaded with ticagrelor 180 mg in cytogenetics laboratory manager Continue dual-antiplatelet therapy for at least 1 year. IV diuretics for elevated filling pressures Trend troponins until peak, Check Echo Uptitrate beta-katelyn/BOBBI as BP allows High-dose statin Consult cardiac Rehab Hemodynamics Rest Ao:: 106/77/91 Final Ao: 98/70/83 LV: 105/37 Recommendations Recommendations: PCI without planned CABG Specimens Specimens: None Radiation Exposure (mGy) 5715 Contrast (mls) 175 visi Fluids (cc crystalloids) Fluids (cc crystalloids): 17 Drains Drains: None Anesthesia moderate Procedural Complication(s) None Disposition ICU ACC Data: Injection Maintenance Technician Cardiac Status Clinical evaluation leading to the procedure CAD Presenation: STEMI Anginal Classification: CCS IV Heart Failure: NYHA Class: CCS II Cardiogenic Shock within 24 Hours: No Cardiac Arrest within 24 Hours: No Imaging Studies Past 6 Months: No Stress Studies Past 6 Months: No Diagnostic Physicians Name: Dong Elliott MD Status: Emergency Closure Device Percutaneous Entry Location: Radial Closure Device: Radial Band Recommendations: PCI without planned CABG PCI Indication: PCI for STEMI - Stable First Noted: Subsequent EKG Lesion Segment Name: Proximal LAD Culprit Artery: Yes Stenosis Prior to Rx (%): 100 Chronic Total Occlusion: No IVUS: Yes FFR: No Pre-Procedure DIANA Flow: 0 Previously Treated Lesion: No Lesion Complexity: Non-High/Non-C Lesion Length (mm): 18 Thrombus Present: Yes Bifurcation Lesion: No Guidewire Across Lesion: Post-Procedure DIANA Flow: 3 Devices(s) Deployed: Yes Yes Intraprocedure Events Significant Disection: No Perforation: No
[2018-10-11] MEDS ORDERED: ONDANSETRON INJ 2 MG/ML 2 ML VIAL IV PRN (15:27)
[2018-10-11] MEDS ORDERED: EPTIFIBATIDE BOLUS/DRIP IV STA (15:27)
[2018-10-11] MEDS ORDERED: ACETAMINOPHEN 325 MG TAB PO PRN ×2 (15:32→15:45)
[2018-10-11] MEDS ORDERED: HEPARIN STANDARD DEXTROSE 25,000 UNITS/500 ML IV SCH (15:39)
[2018-10-11] MEDS ORDERED: HEPARIN IV BOLUS 8,000 UNITS in SYRINGE 0 ML IV ONE (15:41)
[2018-10-11] MEDS ORDERED: EPTIFIBATIDE 75 MG/100 ML VIAL IV SCH ×2 (16:00→16:45)
--- NOTE | 2018-10-11 19:20 | Critical Care Consultation ---
Date of Consultation October 11, 2018 Assessment & Plan (1) Myocardial infarct: Impression: 1. ST elevation SD, status post SE to the LAD. 2. History of DVT, maintained on Coumadin prior to this admission. 3. Acute chest pain syndrome due to acute SD, currently the patient chest pain is improving. 4. Morbid obesity. 5. Chronic lower extremity edema. Likely related to cardiomyopathy. 6. History of germ cell tumor. 7. History of recurrent cellulitis. Plan: 1. Continue post PCI care per Dr. Elliott, appreciated. 2. Antiplatelet therapy. 3. Beta-blockers once tolerable. 4. Restart Coumadin once approved by cardiology. 5. Oral intake. 6. Bowel regimen. 7. Monitor in the ICU. 8. Discussed with the staff on rounds. All data been reviewed personally. Critical care time spent with the patient was 45 minutes. History of Present Illness Reason for Consultation: ST elevation SD. Requesting Physician: Dr. Elliott. Attending Physician: Dong Elliott MD History of Present Illness Dear Dr. Elliott: Thank you for the kind referral Mr. Odell to critical care service. This is 68- year-old gentleman with a history of morbid obesity, lower extremity edema with recurrent cellulitis, history of germ cells tumor status post orchiectomy, history of recurrent DVT on Coumadin, presented to the hospital with chest pain , accompanied with increasing shortness of breath and difficulty ambulating. The patient was found to have pulmonary edema positive troponin and elevated ST segment in the lateral lead. The patient underwent a PCI and had SE to the LAD. The patient brought back again to the ICU on Integrilin which was finished , and started on antiplatelet therapy. When I interviewed the patient, denies any shortness of breath, he is feeling much better, he does not have any discomfort but chest pain has been down to 4 out of 10 from 10 out of 10. No cough no hemoptysis, he did not have any bowel movement but he feels bloated. He denies any abdominal pain. He does have chronic increased swelling in his lower extremities. No dizziness or near syncopal episodes, no rash, no swelling in other joints. The patient denies any weakness in part of his body and no neurosensory deficit. His past medical history as mentioned above. His surgical history including orchiectomy. And family history does not contribute to his current illness, both parents lived until the age of 92 and his mother still alive. He is non-smoker, not diabetic and does not have a history of hypertension. He still working 2 jobs as a part-time. Review of system apart from the above was unremarkable including 14 systems. 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 (Chronic) Lymphedema (Chronic) Peripheral vascular disease (Chronic) Surgical History History of colonoscopy with polypectomy (Chronic) adenomatous polyp, diverticulosis - Oct 2015 History of orchiectomy (Chronic) History of umbilical hernia repair (Chronic) Social History Current Living Situation: Alone current occupational status: employed Other Information That Helps Us Care for You: No Feels Safe at Home: Yes Safety Concerns: Feels Safe At This Time Smoking Status: Never smoker Hx Alcohol Use: Yes Alcohol type: beer Alcohol Intake Frequency: a few times a week Hx Substance Use: No Beliefs That Will Affect Care: None Preferred Language: French Communication Ability: Effective Review of Systems See above. Physical Exam 2 Vital Signs (Past 24 Hours): Last Vital Signs Temp 36.5 C 10/11/18 15:31 Pulse 79 10/11/18 17:31 Resp 26 H 10/11/18 17:31 BP 93/74 L 10/11/18 17:31 Pulse Ox 96 10/11/18 17:31 Physical Exam: Vital signs are stable, S1-S2 regular rate and rhythm, distant breath sounds bilaterally, abdomen obese tympanic but soft, nontender, bowel sounds are positive, edema in the periphery noted. Neurologically he is nonfocal. No rash. No visual disturbances. Results & Data Laboratory Results His labs were reviewed personally. Diagnostic Findings Chest x-ray consistent with increased cardiac silhouette and pulmonary vascular congestion. _ (1) Myocardial infarct Myocardial infarction type: non-ST elevation myocardial infarction Involved coronary artery: Qualified Code(s): I21.4 - Non-ST elevation (NSTEMI) myocardial infarction
--- NOTE | 2018-10-11 19:22 | Emergency Department Note ---
Entered by Rolando Davis acting as a scribe for ED Provider Note CHIEF COMPLAINT: Chest Pain HISTORY OF PRESENT ILLNESS: The patient is a 68 year old male who presents to the Emergency Room with complaints of intermittent chest pain for the past several days. The patient states that he first experienced a discomfort in his chest about 1 week ago after he got home from work. He describes the sensation as a "tightness" but thought the pain could be related to GERD. He adds that he works evening shifts and gets home and eats dinner at 12 o'clock midnight, this is when his pain has onset the majority of the time. The pain onset last night, and was still present when he woke up this morning. The tightness has persisted throughout the day and is still currently present. The patient is on Coumadin. Pt denies LOC, headache, fevers, chills, diaphoresis, visual changes, neck pain , vomiting, abdominal pain, back pain, melena, hematochezia, urinary symptoms, numbness, weakness, lymphadenopathy, rash, or other complaints. REVIEW OF SYSTEMS: See HPI for pertinent positives and negatives. A total of ten systems were reviewed and were otherwise negative. PMHx/PSHx: GENEVA Cellulitis Germ cell tumor Testicle mass SOCIAL HISTORY: Patient lives at home. PHYSICAL EXAM: GENERAL: Awake, alert, well-appearing, in no distress HENT: Normocephalic, atraumatic. Oropharynx unremarkable. EYES: PERRL. Normal conjunctiva. Sclera non-icteric. NECK: Inspection normal. Non-tender. Supple. No nuchal rigidity. FROM. No masses. RESPIRATORY: Clear to auscultation. No wheezes. No rales. Normal respiratory effort. CARDIAC: Normal rate. Normal rhythm. No murmurs. No rubs. Extremities warm and well perfused. Pulses equal. No JVD. GI: Soft, non-distended. No tenderness to palpation. No rebound or guarding. No masses. RECTAL: Deferred. MUSCULOSKELETAL: Atraumatic. Chest examination reveals no tenderness. The back is symmetrical on inspection without obvious abnormality. There is no CVA tenderness to palpation. No joint edema. LOWER EXTREMITIES: There is 2+ edema on the right, 1+ on the left. There is chronic venous stasis changes on the right. baseline per patient. NEURO: Normal sensorium. No sensory or motor deficits noted. SKIN: No rash or jaundice noted. EMERGENCY DEPARTMENT COURSE: 1200: Past medical records reviewed. The patient was evaluated in room C8, and a complete history and physical examination were performed. 1214: I discussed the case with Chhaya [facility] Hospitalist SHARI. She evaluate the patient for further treatment. 1216: I reviewed the patient's case with Dr. Manny Manning Cardiology. He will evaluate the patient for further management. 1234: Dr. Bryant is at bedside. The patient states that he has no pain at this time. He is agreeable to inpatient stay for further work-up. MEDICAL DECISION MAKING: Prior records/ancillary studies reviewed. Triage Nursing notes reviewed and agree them. The patient's history was concerning for chest pain. Differential diagnosis: Etiologies such as cardiac ischemia, aortic dissection, pulmonary embolism, pneumonia, pneumothorax, musculoskeletal, infections, pericarditis, myocarditis , esophageal rupture, gastrointestinal, as well as others were entertained. Physical examination: As above. ER treatment provided: IV morphine IV Zofran IV heparin IV Lasix On reassessment the patient felt better. Diagnostic interpretation by me: The electrocardiogram was negative for pathologic change. The labs revealed a market elevation of his cardiac troponin at 39. This is concerning for myocardial infarction. CBC unremarkable. Chemistry panel unremarkable except for mild hyperglycemia. Imaging studies: Chest x-ray shows some mild pulmonary edema. The patient has suffered a significant myocardial infarction. Further treatment in the hospital will be necessary. Consultation: Consult patient was placed with cardiology. A consultation was placed with the hospitalist. The case was discussed and diagnostics were reviewed. The patient was evaluated in the ER for further treatment. IMPRESSION: NSTEMI PLAN: Admitted to [facility] Service CRITICAL CARE: I have personally spent greater than 30 minutes of critical care time in the direct management of this patient. This includes bedside care, interpretation of diagnostic studies, and testing, discussion with consultants, patient, and other required patient management activities. This 30 minutes is in excess of all separately billable procedures. The scribe's documentation has been prepared under my direction and personally reviewed by me in its entirety. I confirm that the note above accurately reflects all work, treatment, procedures, and medical decision making performed by me. 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) Mass of testicle (Resolved 01/27/13) "REMOVED " CKD (chronic kidney disease) stage 3, GFR 30-59 ml/min (Chronic) Chronic deep vein thrombosis (DVT) of right lower extremity (Chronic) Lymphedema (Chronic) Peripheral vascular disease (Chronic) Surgical History History of colonoscopy with polypectomy (Chronic) adenomatous polyp, diverticulosis - Oct 2015 History of orchiectomy (Chronic) History of umbilical hernia repair (Chronic) Social History Current Living Situation: Alone current occupational status: employed Other Information That Helps Us Care for You: No Feels Safe at Home: Yes Safety Concerns: Feels Safe At This Time Smoking Status: Never smoker Hx Alcohol Use: Yes Alcohol type: beer Alcohol Intake Frequency: a few times a week Hx Substance Use: No Beliefs That Will Affect Care: None Preferred Language: Pashto Communication Ability: Effective Results & Data Vital Signs Vital Signs - 24 hr 10/11/18 11:04 10/11/18 11:21 10/11/18 11:29 Temperature 36.5 C Temperature Source Oral Sepsis Recent Fever Within 48 Hours No Sepsis New/Unexplained Change in Mental Status No Sepsis Action Taken by Nursing No Action Required Pulse Rate 76 Pulse Rate [Left] Respiratory Rate 20 Respiratory Effort / Characteristics Non-Labored Respiratory Depth Normal Respiratory Pattern Regular Blood Pressure 136/92 Blood Pressure [Right Arm] Blood Pressure Mean 106 Blood Pressure Mean [Right Arm] Pulse Oximetry 99 93 Oxygen Delivery Method Room Air Room Air Room Air Oxygen Flow Rate 10/11/18 12:24 10/11/18 13:02 10/11/18 13:10 Temperature Temperature Source Sepsis Recent Fever Within 48 Hours Sepsis New/Unexplained Change in Mental Status Sepsis Action Taken by Nursing Pulse Rate Pulse Rate [Left] 78 76 Respiratory Rate 20 18 Respiratory Effort / Characteristics Non-Labored Spontaneous Respiratory Depth Normal Respiratory Pattern Regular Blood Pressure Blood Pressure [Right Arm] 120/85 111/78 Blood Pressure Mean Blood Pressure Mean [Right Arm] 96 89 Pulse Oximetry 93 93 Oxygen Delivery Method Room Air Room Air Room Air Oxygen Flow Rate 10/11/18 15:14 10/11/18 15:31 10/11/18 15:47 Temperature 36.5 C Temperature Source Sepsis Recent Fever Within 48 Hours Sepsis New/Unexplained Change in Mental Status Sepsis Action Taken by Nursing Pulse Rate 64 75 78 Pulse Rate [Left] Respiratory Rate 14 21 19 Respiratory Effort / Characteristics Non-Labored Spontaneous Respiratory Depth Normal Respiratory Pattern Blood Pressure 94/67 L 94/70 L Blood Pressure [Right Arm] 102/81 Blood Pressure Mean 76 78 Blood Pressure Mean [Right Arm] Pulse Oximetry 94 Oxygen Delivery Method Room Air Oxygen Flow Rate 10/11/18 16:00 10/11/18 16:01 10/11/18 16:16 Temperature Temperature Source Sepsis Recent Fever Within 48 Hours Sepsis New/Unexplained Change in Mental Status Sepsis Action Taken by Nursing Pulse Rate 77 77 Pulse Rate [Left] Respiratory Rate 15 23 Respiratory Effort / Characteristics Non-Labored Spontaneous Respiratory Depth Respiratory Pattern Regular Blood Pressure 90/73 L 96/71 L Blood Pressure [Right Arm] Blood Pressure Mean 78 79 Blood Pressure Mean [Right Arm] Pulse Oximetry 60 L 80 L Oxygen Delivery Method Nasal Cannula Oxygen Flow Rate 2 10/11/18 16:31 10/11/18 16:46 10/11/18 17:02 Temperature Temperature Source Sepsis Recent Fever Within 48 Hours Sepsis New/Unexplained Change in Mental Status Sepsis Action Taken by Nursing Pulse Rate 77 78 90 Pulse Rate [Left] Respiratory Rate 27 H 19 17 Respiratory Effort / Characteristics Respiratory Depth Respiratory Pattern Blood Pressure 108/75 116/79 137/80 Blood Pressure [Right Arm] Blood Pressure Mean 86 91 99 Blood Pressure Mean [Right Arm] Pulse Oximetry 89 L 91 100 Oxygen Delivery Method Oxygen Flow Rate 10/11/18 17:16 10/11/18 17:31 Temperature Temperature Source Sepsis Recent Fever Within 48 Hours Sepsis New/Unexplained Change in Mental Status Sepsis Action Taken by Nursing Pulse Rate 82 79 Pulse Rate [Left] Respiratory Rate 24 26 H Respiratory Effort / Characteristics Respiratory Depth Respiratory Pattern Blood Pressure 107/83 93/74 L Blood Pressure [Right Arm] Blood Pressure Mean 91 80 Blood Pressure Mean [Right Arm] Pulse Oximetry 91 96 Oxygen Delivery Method Oxygen Flow Rate Home Medications Current Medication List: was personally reviewed by me Laboratory Data Attestation: I reviewed the patient's lab results. Result diagrams: 10/11/18 11:15 10/11/18 11:15 Lab Results 10/11/18 10/11/18 10/11/18 Range/Units 11:15 11:15 11:15 WBC 8.47 (4.8-10.8) K/uL RBC 4.54 L (4.7-6.1) M/uL Hgb 13.7 L (14.0-18.0) g/dL Hct 43.3 (42-52) % MCV 95.4 (80-100) fL MCH 30.2 (25-34) pg MCHC 31.6 L (32-36) g/dL RDW Std Deviation 46.1 (36.4-46.3) fL RDW Coeff of Juan 13.3 (11.5-14.5) % Plt Count 206 (130-400) K/uL MPV 10.5 H (7.4-10.4) fL Immature Gran % (Auto) 0.1 % Neut % (Auto) 87.7 % Lymph % (Auto) 5.3 % Divide % (Auto) 6.8 % Eos % (Auto) 0.0 % Baso % (Auto) 0.1 % Immature Gran # (Auto) 0.01 (0.00-0.02) K/uL Neut # (Auto) 7.42 H (1.4-6.5) K/uL Lymph # (Auto) 0.45 L (1.2-3.4) K/uL Divide # (Auto) 0.58 (0.11-0.59) K/uL Eos # (Auto) 0.00 (0-0.5) K/uL Baso # (Auto) 0.01 (0-0.2) K/uL PT 13.2 H (9.0-12.0) Seconds INR 1.3 H (0.9-1.1) APTT 30.8 (21.0-31.0) Seconds PTT Ratio 1.2 Activ Coag Time Kaolin (94-140) SECONDS Sodium 138 (136-145) mmol/L Potassium 4.0 (3.5-5.1) mmol/L Chloride 104 (98-107) mmol/L Carbon Dioxide 27 (21-32) mmol/L Anion Gap 8.0 (3-11) BUN 18 (7-18) mg/dl Creatinine 1.54 H (0.6-1.4) mg/dl Est Cr Clr Drug Dosing Not Reportable Est GFR ( Amer) 53.7 Est GFR (Non-Af Amer) 46.3 BUN/Creatinine Ratio 11.9 (10-20) Glucose 145 H (70-99) mg/dl Calcium 8.9 (8.5-10.1) mg/dl Total Bilirubin 0.5 (0.2-1) mg/dl AST 81 H (15-37) U/L ALT 35 (12-78) U/L Alkaline Phosphatase 65 (45-117) U/L Troponin I 39.900 H* (0-0.045) ng/ml Total Protein 8.1 (6.4-8.2) gm/dl Albumin 3.6 (3.4-5.0) gm/dl Globulin 4.5 H (2.5-4.0) gm/dl Albumin/Globulin Ratio 0.8 L (0.9-2) Nasal Screen MRSA (PCR) (Negative) 10/11/18 10/11/18 Range/Units 14:37 15:20 WBC (4.8-10.8) K/uL RBC (4.7-6.1) M/uL Hgb (14.0-18.0) g/dL Hct (42-52) % MCV (80-100) fL MCH (25-34) pg MCHC (32-36) g/dL RDW Std Deviation (36.4-46.3) fL RDW Coeff of Juan (11.5-14.5) % Plt Count (130-400) K/uL MPV (7.4-10.4) fL Immature Gran % (Auto) % Neut % (Auto) % Lymph % (Auto) % Divide % (Auto) % Eos % (Auto) % Baso % (Auto) % Immature Gran # (Auto) (0.00-0.02) K/uL Neut # (Auto) (1.4-6.5) K/uL Lymph # (Auto) (1.2-3.4) K/uL Divide # (Auto) (0.11-0.59) K/uL Eos # (Auto) (0-0.5) K/uL Baso # (Auto) (0-0.2) K/uL PT (9.0-12.0) Seconds INR (0.9-1.1) APTT (21.0-31.0) Seconds PTT Ratio Activ Coag Time Kaolin 186 H (94-140) SECONDS Sodium (136-145) mmol/L Potassium (3.5-5.1) mmol/L Chloride (98-107) mmol/L Carbon Dioxide (21-32) mmol/L Anion Gap (3-11) BUN (7-18) mg/dl Creatinine (0.6-1.4) mg/dl Est Cr Clr Drug Dosing Est GFR ( Amer) Est GFR (Non-Af Amer) BUN/Creatinine Ratio (10-20) Glucose (70-99) mg/dl Calcium (8.5-10.1) mg/dl Total Bilirubin (0.2-1) mg/dl AST (15-37) U/L ALT (12-78) U/L Alkaline Phosphatase (45-117) U/L Troponin I (0-0.045) ng/ml Total Protein (6.4-8.2) gm/dl Albumin (3.4-5.0) gm/dl Globulin (2.5-4.0) gm/dl Albumin/Globulin Ratio (0.9-2) Nasal Screen MRSA (PCR) Negative (Negative) Administered Medications Eptifibatide (Integrilin) 75 mg in 100 mls @ 20 mls/hr IV .Q5H REPLACED BY [facility]; Protocol Stop: 10/11/18 21:30 Last Admin: 10/11/18 17:28 Dose: 20 ml/hr, 20 mls/hr Discontinued Medications Aspirin (Aspirin) Confirm Administered Dose 324 mg .ROUTE .STK-MED ONE Stop: 10/11/18 13:47 Last Admin: 10/11/18 15:02 Dose: 324 mg Eptifibatide (Integrilin (Customer Experience Professional Use Only)) Confirm Administered Dose 75 mg .ROUTE .STK-MED ONE Stop: 10/11/18 14:55 Last Admin: 10/11/18 15:02 Dose: 75 mg Eptifibatide (Integrilin (Customer Experience Professional Use Only)) Confirm Administered Dose 40 mg .ROUTE .STK-MED ONE Stop: 10/11/18 14:55 Last Admin: 10/11/18 15:03 Dose: 40 mg Fentanyl Citrate (Fentanyl Citrate) Confirm Administered Dose 100 mcg .ROUTE .STK-MED ONE Stop: 10/11/18 13:34 Last Admin: 10/11/18 15:04 Dose: 150 mcg Furosemide (Lasix) 20 mg IV NOW STA Stop: 10/11/18 12:06 Last Admin: 10/11/18 12:27 Dose: 20 mg Heparin Sodium (Beef Lung) (Heparin Sod 5000u Heart Alert) Confirm Administered Dose 5,000 units .ROUTE .STK-MED ONE Stop: 10/11/18 12:42 Last Admin: 10/11/18 12:45 Dose: 5,000 units Heparin Sodium (Porcine) (Heparin Iv Bolus (Customer Experience Professional Use Only)) Confirm Administered Dose 10,000 units .ROUTE .STK-MED ONE Stop: 10/11/18 13:34 Last Admin: 10/11/18 15:03 Dose: 7,000 units Heparin Sodium/Dextrose () 1 ea N/A NOW ; Protocol Stop: 10/11/18 12:06 Last Admin: 10/11/18 16:25 Dose: Not Given Heparin Sodium/Dextrose (Heparin Sodium/Dextrose) Confirm Administered Dose 25, 000 units IV .ST-MED ONE Stop: 10/11/18 12:42 Last Admin: 10/11/18 12:45 Dose: 1,850 units Heparin Sodium/Sodium Chloride (Heparin Sod/Nss 2 Units/Ml) Confirm Administered Dose 3,000 units IV .ST-MED ONE Stop: 10/11/18 13:34 Last Admin: 10/11/18 15:02 Dose: 3,000 units Midazolam HCl (Versed) Confirm Administered Dose 2 mg .ROUTE .STK-MED ONE Stop: 10/11/18 13:34 Last Admin: 10/11/18 15:03 Dose: 4 mg Morphine Sulfate (Morphine Sulfate) 2 mg IV NOW STA Stop: 10/11/18 12:06 Last Admin: 10/11/18 12:26 Dose: 2 mg Nicardipine HCl (Cardene) Confirm Administered Dose 25 mg .ROUTE .STK-MED ONE Stop: 10/11/18 13:34 Last Admin: 10/11/18 15:01 Dose: 25 mg Nitroglycerin (Nitro-Bid 2%) 0.5 inch EXT NOW STA Stop: 10/11/18 12:06 Last Admin: 10/11/18 12:25 Dose: 0.5 inch Nitroglycerin/Dextrose (Nitroglycerin/D5w 100 Mcg/Ml 20ml Syringe) Confirm Administered Dose 2,000 mcg .ROUTE .STK-MED ONE Stop: 10/11/18 13:34 Last Admin: 10/11/18 15:02 Dose: 2,000 mcg Ondansetron HCl (Zofran) 4 mg IV NOW STA Stop: 10/11/18 12:06 Last Admin: 10/11/18 12:27 Dose: 4 mg Ticagrelor (Brilinta) Confirm Administered Dose 180 mg PO .STK-MED ONE Stop: 10/11/18 15:05 Last Admin: 10/11/18 15:05 Dose: 180 mg Imaging Data Attestation: I personally reviewed and interpreted this imaging study as follows : Radiologist's Impression: XR chest 1V portable CLINICAL HISTORY: chest pain dyspnea COMPARISON STUDY: 07/14/2015 FINDINGS: Mild stable cardiomegaly. Prominent pulmonary vasculature. Diaphragms smooth. IMPRESSION: Developing congestive heart failure. The above report was generated using voice recognition software. It may contain grammatical, syntax or spelling errors. Electronically signed by: Jamil Sarabia M.D. 10/11/2018 11:49 AM ECG Data Attestation: I personally reviewed and interpreted this ECG as follows: Indication: chest pain Rate (beats per minute): 72 Rhythm: normal sinus Findings: + Q waves (Anterior) and + T-wave inversion (lateral) Comparison ECG Date: no prior available Blood Pressure Blood Pressure Findings: Normal blood pressure Discharge Plan Visit Data Chief Complaint: Chest Pain Stated Complaint: CHEST PAIN, FLUID BUILD UP, CHILLS ED Provider: Shorty Story Discharge Problem: Non-ST elevation MT (NSTEMI) Patient Disposition: Being Evaluated by Hospitalist Discharge Instructions Interventions: ED Discharge Assessment Last Done: 10/11/18 13:42 The scribe's documentation has been prepared under my direction and personally reviewed by me in its entirety. I confirm that the note above accurately reflects all work, treatment, procedures, and medical decision making performed by me.
[2018-10-11] MEDS: METOPROLOL TARTRATE 25 MG TAB PO SCH (20:49)
[2018-10-12 03:36] LABS: Basophils # (auto) 0.02 K/uL (0-0.2); Basophils % (auto) 0.2 %; Eosinophils # (auto) 0.04 K/uL (0-0.5); Eosinophils % (auto) 0.4 %; Hematocrit (blood only) 41.1 % (42-52); Hemoglobin 12.9 g/dL (14.0-18.0); Immature Granulocytes # (auto) 0.02 K/uL (0.00-0.02); Immature Granulocytes % (auto) 0.2 %; Lymphocytes # (auto) 0.55 K/uL (1.2-3.4); Lymphocytes % (auto) 5.5 %; Mean Corpuscular Hgb Conc 31.4 g/dL (32-36); Mean Platelet Volume 10.2 fL (7.4-10.4); Monocytes # (auto) 1.12 K/uL (0.11-0.59); Monocytes % (auto) 11.2 %; Neutrophils # (auto) 8.21 K/uL (1.4-6.5); Neutrophils % (auto) 82.5 %; Platelet Count 168 K/uL (130-400); RDW Coefficient of Variation 13.5 % (11.5-14.5); Red Blood Count 4.28 M/uL (4.7-6.1); White Blood Count 9.96 K/uL (4.8-10.8)
[2018-10-12 06:25] LABS: Estimated Average Glucose 128 mg/dl
[2018-10-12 07:59] LABS: BUN Creatinine Ratio 12.8 (10-20); Calcium 8.7 mg/dl (8.5-10.1); Creatinine Clr Calc Pharmacy 71.4 ml/min; Est GFR (African American) 57.3; Est GFR (Non-African American) 49.4; Potassium 4.2 mmol/L (3.5-5.1)
[2018-10-12] MEDS ORDERED: CLOPIDOGREL BISULFATE 300 MG TAB PO ONE (08:00)
[2018-10-12] MEDS ORDERED: FUROSEMIDE 40 MG in SYRINGE 0 ML IV ONE (09:00)
[2018-10-12] MEDS ORDERED: LISINOPRIL 5 MG TAB PO SCH (09:00)
[2018-10-12] MEDS ORDERED: TICAGRELOR 90 MG TAB PO SCH (09:00)
[2018-10-12] MEDS: METOPROLOL TARTRATE 25 MG TAB PO SCH ×2 (09:17→21:14)
[2018-10-12] MEDS: ASPIRIN 81 MG ECTAB PO SCH (09:18)
[2018-10-12] MEDS: ATORVASTATIN 40 MG TAB PO SCH (09:18)
--- NOTE | 2018-10-12 09:35 | Cardiology Progress Note ---
Date of Service October 12, 2018 Assessment & Plan (1) Myocardial infarct: Patient to the Reed [employer] yesterday demonstrating bluntly occluded proximal left anterior descending and under went successful stenting. Echocardiogram and cath data demonstrated increased left trigger end-diastolic pressures and significant wall motion abnormality, LV dysfunction Plan initiate therapies as already begun beta-katelyn BOBBI inhibitor single dose of IV furosemide given this morning patient may ultimately require more but blood pressure tentative anticipate hospitalization at least 2-3 days more given size of infarction LV dysfunction (2) CKD (chronic kidney disease): Subjective Patient was seen, examined chart medications telemetry reviewed. Chest pain is eased overnight slept relatively well does feel some breathlessness with minimal movement in bed. Notes abdominal bloating. Notes no tachypalpitations syncope or near syncope notes no fevers or chills bleeding issues. Right radial access sites healing Physical Exam 2 Vital Signs (Past 24 Hours): Last Vital Signs Temp 37.2 C 10/12/18 00:00 Pulse 76 10/12/18 06:01 Resp 21 10/12/18 06:01 BP 101/76 10/12/18 06:01 Pulse Ox 97 10/12/18 06:01 Constitutional: + obese ENMT: external ear and nose normal, oropharynx normal Neck: + thick neck Respiratory: Auscultation: + crackles (Few scattered crackles basilar) and + wheezes (Scattered wheezes anterior) Cardiovascular: Rate/Rhythm: regular rate and regular rhythm Heart Sounds: normal S1 and normal S2; no cardiac rub Gastrointestinal (Abdomen): Soft obese with moderate distention Musculoskeletal: no cyanosis or clubbing, extremities motor strength 5/5 Neurologic: PERRL, EOMI, accommodation nl, no face palsy, no dysarthria _ (1) Myocardial infarct Myocardial infarction type: non-ST elevation myocardial infarction Involved coronary artery: Qualified Code(s): I21.4 - Non-ST elevation (NSTEMI) myocardial infarction
--- NOTE | 2018-10-12 15:46 | Hospitalist Progress Note ---
Date of Service October 12, 2018 Assessment & Plan (1) Cardiomyopathy: Cont current medical management per cardiology incl statin, asa, lis 5, metop 12.5mg bid, Lasix IV. (2) NSTEMI (non-ST elevated myocardial infarction): s/p SE to prox LAD. Cont statin, ASA, ticagrelor, BB, lis. (3) CKD (chronic kidney disease), stage III: AT base, avoid nephrotoxic substances. Cath with contrast yesterday. (4) Chronic deep vein thrombosis (DVT): Likely noncompliant with coumadin as INR was subtherapeutic. DVT was several years ago. Restart warfarin. (5) DVT prophylaxis: Lovenox for prophylaxis of DVT in setting of subtherapeutic INR. Full Code Dispo-cont ICU Laurie Pereyra DO [facility] Hospitalist Subjective 68 yo M nonsmoker who presents with NSTEMI s/p cath with two stents. Difficulty walking around today, denies chest pain or and SOB with exertio. Physical Exam 2 Vital Signs (Past 24 Hours): Last Vital Signs Temp 37.2 C 10/12/18 12:00 Pulse 73 10/12/18 14:00 Resp 22 10/12/18 14:00 BP 84/47 L 10/12/18 14:00 Pulse Ox 92 10/12/18 14:00 GEN: obese, NAD HEENT: MMM CV: reg rate and rhythm, S1/2 heard LUNGS: CTAB ABD: NTND, soft EXT: Lymphedema of the right leg Results & Data Laboratory Results Short CBC 10/12/18 Range/Units 03:25 WBC 9.96 (4.8-10.8) K/uL Hgb 12.9 L (14.0-18.0) g/dL Hct 41.1 L (42-52) % Plt Count 168 (130-400) K/uL BMP 10/12/18 07:28 Sodium 139 Potassium 4.2 Chloride 105 Carbon Dioxide 27 BUN 19 H Creatinine 1.46 H Glucose 119 H Calcium 8.7 Cardiac Enzymes 10/11/18 10/12/18 Range/Units 21:31 03:25 Troponin I > 200.000 H* 145.000 H* (0-0.045) ng/ml Medications Administered Current Inpatient Medications Acetaminophen (Tylenol) 650 mg PO Q4H PRN PRN Reason: Pain or Fever Stop: 11/10/18 15:44 Aspirin (Ecotrin) [facility] [place] Stop: 11/11/18 08:59 Last Admin: 10/12/18 09:18 Dose: 81 mg Atorvastatin Calcium (Lipitor) 80 mg PO QAM [facility] Stop: 11/11/18 08:59 Last Admin: 10/12/18 09:18 Dose: 80 mg Enoxaparin Sodium (Lovenox) 40 mg SQ [facility] Stop: 11/12/18 08:59 Lactulose (Chronulac) 30 gm PO Q8H PRN PRN Reason: bloating Stop: 11/11/18 19:02 Last Admin: 10/12/18 21:13 Dose: 30 gm Lisinopril (Zestril) 5 mg PO [facility] Stop: 11/11/18 08:59 Last Admin: 10/12/18 09:17 Dose: 5 mg Metoprolol Tartrate (Lopressor) 12.5 mg PO BID [facility] Stop: 11/10/18 20:59 Last Admin: 10/12/18 21:14 Dose: Not Given Ondansetron HCl (Zofran) 4 mg IV Q6H PRN PRN Reason: Nausea And Vomiting Stop: 11/10/18 15:26 Warfarin Sodium (Coumadin) 5 mg PO DAILY@1600 [facility] Stop: 11/12/18 15:59 _ (1) Cardiomyopathy Cardiomyopathy type: ischemic Qualified Code(s): I25.5 - Ischemic cardiomyopathy
--- NOTE | 2018-10-12 18:55 | Critical Care Progress Note ---
Date of Service October 12, 2018 Assessment & Plan (1) Myocardial infarct: Impression: 1. ST elevation ND, status post SE to the LAD. 2. History of DVT, maintained on Coumadin prior to this admission. 3. Acute chest pain syndrome due to acute ND, currently the patient chest pain is improving. 4. Morbid obesity. 5. Chronic lower extremity edema. Likely related to cardiomyopathy. 6. History of germ cell tumor. 7. History of recurrent cellulitis. Plan: 1. Continue post PCI care per Dr. Elliott, appreciated. 2. Antiplatelet therapy. 3. The patient blood pressure dropped down to 70 systolic, beta-blockers and BOBBI inhibitor placed on hold. 4. Restart Coumadin once approved by cardiology. 5. Oral intake. 6. Lactulose for bowel movement. 7. Monitor in the ICU. 8. Discussed with the staff on rounds. All data been reviewed personally. Discussed with Dr. Pereyra, appreciated. Critical care time spent with the patient was 45 minutes. Subjective The patient denies any symptoms today in the morning, he does not have any more chest pain, he feels a little bloated, no bowel movement, he has been urinating frequently, no nausea or vomiting, no indigestion. Continues to have swelling in his lower extremities. No new symptoms. Review of system otherwise was unremarkable. Physical Exam 2 Vital Signs (Past 24 Hours): Last Vital Signs Temp 37.1 C 10/12/18 16:00 Pulse 79 10/12/18 17:00 Resp 18 10/12/18 17:00 BP 70/46 L 10/12/18 17:00 Pulse Ox 93 10/12/18 17:00 Physical Exam: Vital signs are stable, blood pressure is borderline, later his blood pressure started going down to 76/48 with a map of 53, respiratory rate remains at 22, he put out approximately 1800 mL of urine after Lasix. Abdomen remains benign soft, S1-S2 systolic ejection murmur, distant breath sounds bilaterally, neurologically he is intact. Results & Data Laboratory Results His labs were reviewed personally, BUN/creatinine has been stable. Diagnostic Findings Chest x-ray was reviewed, showed increased cardiac silhouette. I do not appreciate significant pulmonary vascular congestion. _ (1) Myocardial infarct Myocardial infarction type: non-ST elevation myocardial infarction Involved coronary artery: Qualified Code(s): I21.4 - Non-ST elevation (NSTEMI) myocardial infarction
[2018-10-12] MEDS ORDERED: LACTULOSE SYRUP 30 GM/45 ML UDP PO PRN (19:03)
[2018-10-12] MEDS ORDERED: SODIUM CHLORIDE 0.9% 1000ML 500 ML IV ONE (21:08)
[2018-10-13 05:21] LABS: INR 1.3 (0.9-1.1); Prothrombin Time 13.2 Seconds (9.0-12.0)
[2018-10-13 05:40] LABS: BUN Creatinine Ratio 12.2 (10-20); Calcium 8.4 mg/dl (8.5-10.1); Creatinine Clr Calc Pharmacy 36.3 ml/min; Est GFR (African American) 25.3; Est GFR (Non-African American) 21.8; Potassium 3.9 mmol/L (3.5-5.1)
[2018-10-13] MEDS ORDERED: ENOXAPARIN INJ 40 MG/0.4 ML SYR SQ SCH (09:00)
[2018-10-13] MEDS ORDERED: CLOPIDOGREL BISULFATE 75 MG TAB PO SCH (09:00)
--- NOTE | 2018-10-13 09:01 | Cardiology Progress Note ---
Date of Service October 13, 2018 Assessment & Plan (1) Low cardiac output syndrome: Patient suffered an extensive anteroapical myocardial infarction and now with low blood pressures and poor tolerance of appropriate medical therapies. Renal function has declined after single dose of furosemide and lisinopril. He has marginal pulse pressure exam reflective of mild congestive heart failure I am concerned that patient may further deteriorate and recommended transfer to tertiary care center. Arrangements made through [facility] transfer team , Dr. Angeles, cardiology (2) Myocardial infarct: Patient presented with late presentation chest pain occluded left anterior descending receiving drug-eluting stent to the LAD proximal segment but with slow reflow after flow reestablished Echocardiogram reflects severe LAD distribution infarct with severe LV dysfunction EF 15-20% (3) GENEVA (acute kidney injury): Substantial decline in renal function possibly in response to diuretics and BOBBI inhibitor versus low cardiac output state (4) Chronic deep vein thrombosis (DVT): Previously on Xarelto. Will need chronic anticoagulation either with warfarin or Xarelto in combination with antiplatelet therapies Subjective Breathless today abdominal bloating no further chest pain. Blood pressures been hypotensive throughout the night creatinine has doubled. Low pulse pressure on blood pressures Physical Exam 2 Vital Signs (Past 24 Hours): Last Vital Signs Temp 36.8 C 10/13/18 04:00 Pulse 78 10/13/18 06:04 Resp 20 10/13/18 06:04 BP 78/59 L 10/13/18 06:04 Pulse Ox 93 10/13/18 06:04 Constitutional: + ill appearing and + obese ENMT: external ear and nose normal, oropharynx normal Neck: + thick neck Respiratory: Auscultation: + crackles and + rales (Bibasilar poor inspiratory effort) Cardiovascular: Rate/Rhythm: regular rate and regular rhythm Heart Sounds: + gallop (S3 gallops present) Extremities: + edema (1-2+ edema with chronic stasis changes in the right lower extremity) Gastrointestinal (Abdomen): Percussion/Palpation: abdomen soft; abdomen nontender Results & Data Laboratory Results Laboratory Results - last 24 hr 10/12/18 10/13/18 10/13/18 12:39 04:45 04:45 PT 13.2 H INR 1.3 H Sodium 138 Potassium 3.9 Chloride 106 Carbon Dioxide 27 Anion Gap 5.0 BUN 35 H D Creatinine 2.87 H D Est Cr Clr Drug Dosing 36.3 Est GFR ( Amer) 25.3 Est GFR (Non-Af Amer) 21.8 BUN/Creatinine Ratio 12.2 Glucose 104 H POC Glucose 128 H Calcium 8.4 L _ (1) Myocardial infarct Myocardial infarction type: non-ST elevation myocardial infarction Involved coronary artery: Qualified Code(s): I21.4 - Non-ST elevation (NSTEMI) myocardial infarction
[2018-10-13] MEDS: METOPROLOL TARTRATE 25 MG TAB PO SCH ×2 (09:41→20:44)
[2018-10-13] MEDS: ASPIRIN 81 MG ECTAB PO SCH (09:41)
[2018-10-13] MEDS: ATORVASTATIN 40 MG TAB PO SCH (09:41)
--- NOTE | 2018-10-13 10:58 | Hospitalist Progress Note ---
Date of Service October 13, 2018 Assessment & Plan (1) Low cardiac output syndrome: Hypotension throughout the afternoon and night last night. Not requiring pressors, and had only small doses of lisinopril and lasix. Cardiology prefers transfer to tertiary care center as patient is very high risk for complications and if he deteriorates, may need services that are not available here. Transfer [place] [facility] [place] for today. (2) NSTEMI (non-ST elevated myocardial infarction): s/p SE to prox LAD. Cont statin, ASA, Plavix. (3) GENEVA (acute kidney injury): Worsened cardiac function from STage III CKD at baseline. Concern for developing heart failure as a cause. Transfer to [facility] and recs per cardiology and ICU team. (4) Chronic deep vein thrombosis (DVT): this was diagnosed several years ago, he has had a subtherapeutic inr and cannot receive Lovenox in setting of GENEVA for DVT prophylaxis. Defer to ICU team to add heparin for DVT prophylaxis, and reinstitution of anticoagulation can occur today with warfarin. SCDs Full Code Dispo-transfer to [facility] today DO Nigel Jennings Hospitalist Subjective 68 yo M s/p SE to prox LAD for NSTEMI. Poor EF on echo range of 15%. Pt feels short of breath and states that it is hard to get comfortable. He feels swollen and denies any chest pain. Physical Exam 2 Vital Signs (Past 24 Hours): Last Vital Signs Temp 37.1 C 10/13/18 08:00 Pulse 71 10/13/18 10:00 Resp 16 10/13/18 10:00 BP 106/48 L 10/13/18 10:00 Pulse Ox 93 10/13/18 10:00 GEN: obese, NAD HEENT: MMM CV: reg rate and rhythm, S1/2 heard LUNGS: CTAB ABD: NTND, soft, protuberant EXT: Lymphedema of the right leg, no pitting edema Results & Data Laboratory Results [facility] 10/13/18 04:45 Sodium 138 Potassium 3.9 Chloride 106 Carbon Dioxide 27 BUN 35 H D Creatinine 2.87 H D Glucose 104 H Calcium 8.4 L Medications Administered Current Inpatient Medications Acetaminophen (Tylenol) 650 mg PO Q4H PRN PRN Reason: Pain or Fever Stop: 11/10/18 15:44 Aspirin (Ecotrin) 81 mg PO QAM ANTHONY Stop: 11/11/18 08:59 Last Admin: 10/13/18 09:41 Dose: 81 mg Atorvastatin Calcium (Lipitor) 80 mg PO [facility] Stop: 11/11/18 08:59 Last Admin: 10/13/18 09:41 Dose: 80 mg Clopidogrel Bisulfate (Plavix) 75 mg PO [facility] Stop: 11/12/18 08:59 Last Admin: 10/13/18 09:41 Dose: 75 mg Lactulose (Chronulac) 30 gm PO Q8H PRN PRN Reason: bloating Stop: 11/11/18 19:02 Last Admin: 10/12/18 21:13 Dose: 30 gm Lisinopril (Zestril) 5 mg PO [facility] Stop: 11/11/18 08:59 Last Admin: 10/12/18 09:17 Dose: 5 mg Metoprolol Tartrate (Lopressor) 12.5 mg PO BID [facility] Stop: 11/10/18 20:59 Last Admin: 10/13/18 09:41 Dose: Not Given Ondansetron HCl (Zofran) 4 mg IV Q6H PRN PRN Reason: Nausea And Vomiting Stop: 11/10/18 15:26 Warfarin Sodium (Coumadin) 5 mg PO DAILY@1600 [facility] Stop: 11/12/18 15:59
--- NOTE | 2018-10-13 11:16 | Communication Note ---
Date of Service: October 13, 2018 HOSPITAL COURSE: Current Inpatient Medications Acetaminophen (Tylenol) 650 mg PO Q4H PRN PRN Reason: Pain or Fever Stop: 11/10/18 15:44 [facility] Stop: 11/11/18 08:59 Last Admin: 10/13/18 09:41 Dose: 81 mg Atorvastatin Calcium (Lipitor) [facility] Stop: 11/11/18 08:59 Last Admin: 10/13/18 09:41 Dose: 80 mg Clopidogrel Bisulfate (Plavix) [facility] Stop: 11/12/18 08:59 Last Admin: 10/13/18 09:41 Dose: 75 mg Lactulose (Chronulac) 30 gm PO Q8H PRN PRN Reason: bloating Stop: 11/11/18 19:02 Last Admin: 10/12/18 21:13 Dose: 30 gm Lisinopril (Zestril) [facility] Stop: 11/11/18 08:59 Last Admin: 10/12/18 09:17 Dose: 5 mg Metoprolol Tartrate (Lopressor) 12.5 mg PO BID [facility] Stop: 11/10/18 20:59 Last Admin: 10/13/18 09:41 Dose: Not Given Ondansetron HCl (Zofran) 4 mg IV Q6H PRN PRN Reason: Nausea And Vomiting Stop: 11/10/18 15:26 Warfarin Sodium (Coumadin) 5 mg PO DAILY@1600 [facility] Stop: 11/12/18 15:59 68 yo M presented to the ER with one week of chest pressure associated with shortness of breath, which had become progressively worse. Troponin on arrival was 39.9. EKGs reflected q waves anteriorly. He reported some weight gain gradually over the past couple of months. He was hemodynamically stable and afebrile but with persistent chest pain. CBC was normal, INR was 1.3 despite being on coumadin for chronic DVT of the leg, BMP was normal with a creatinine around his baseline at 1.5. Cardiology was consulted and performed an echo revealing extensive wall motion abnormality in the LAD distribution and large apical, septal, anteroseptal and inferior wall motion abnormalities with hypokinesis to akinesis of the segments; significant LV dysfunction was present in the range of 15%. No significant valvular disease was noted. He was immediately taken to cardiac catheterization where he received a SE to the proximal LAD. He was recovered in the ICU. Medical management was initiated with a beta katelyn, ACEI and one dose of IV furosemide. He became notably hypotensive in response, dropping to 70 systolic but not requiring pressor therapy. With low blood pressure and poor tolerance of appropriate medical therapies in addition to renal function decline to creat 2.87 on HD2, there was concern that he would further deteriorate. Transfer to a tertiary care center was recommended. His chronic anticoagulation with warfarin was restarted without bridging therapy on HD2 and transfer was set up to [facility].
[2018-10-13] MEDS ORDERED: WARFARIN SOD 5 MG TAB PO SCH ×2 (16:00)
[2018-10-13 17:03] VITALS: TEMP 98.2
--- NOTE | 2018-10-13 17:46 | Critical Care Progress Note ---
Date of Service October 13, 2018 Assessment & Plan (1) Myocardial infarct: Impression: 1. ST elevation SC, status post SE to the LAD. 2. History of DVT, maintained on Coumadin prior to this admission. 3. Acute chest pain syndrome due to acute SC, currently the patient chest pain is improving. 4. Morbid obesity. 5. Chronic lower extremity edema. Likely related to cardiomyopathy. 6. History of germ cell tumor. 7. History of recurrent cellulitis. Plan: 1. Continue post PCI care per Dr. Elliott, appreciated. 2. Antiplatelet therapy. 3. Support the blood pressure with boluses of fluid. 4. Continue Coumadin for history of DVT. 5. Oral intake. 6. Lactulose for bowel movement. 7. Monitor in the ICU. 8. Discussed with Dr. Bryant, plan to transfer the patient to [facility] in case he would need left ventricular assisted device given his poor cardiomyopathy post SC. 9. GI prophylaxis. 10. Discussed with the staff on rounds and details. Critical care time spent with the patient was 35 minutes. Subjective The patient remains asymptomatic, he continues to have bloating in his abdomen, he does not have any nausea or vomiting, he did have a bowel movement. No chest pain and no shortness of breath, no sputum production or cough. Physical Exam 2 Vital Signs (Past 24 Hours): Last Vital Signs Temp 36.8 C 10/13/18 16:01 Pulse 67 10/13/18 17:00 Resp 20 10/13/18 17:00 BP 88/62 L 10/13/18 17:00 Pulse Ox 95 10/13/18 17:00 Physical Exam: Vital signs are stable, blood pressure has been drifting down although responsive to IV fluid. S1-S2 regular rate and rhythm, distant breath sounds bilaterally, abdomen is soft but tympanic, nontender, edema 1+ in the periphery. Neurologically he is intact. Results & Data Laboratory Results His labs were reviewed. Diagnostic Findings Chest x-ray showed pulmonary vascular congestion is minimal but cardiomegaly was noted. Echocardiogram showed dilated cardiomyopathy post SC. _ (1) Myocardial infarct Myocardial infarction type: non-ST elevation myocardial infarction Involved coronary artery: Qualified Code(s): I21.4 - Non-ST elevation (NSTEMI) myocardial infarction
[2018-10-13 21:08] VITALS: BP 97/70; PULSE 73; O2SAT 93
--- NOTE | 2018-10-19 13:56 | Discharge Summary ---
Date of Service October 19, 2018 Admission HPI Per Admitting Provider 68 y/o male presents to the ED today with constant chest pain x 24 hours, intermittent chest pain x 1 week, found to have an elevated troponin of 39.9, and now being admitted with a diagnosis of NSTEMI. Pt reports intermittent chest pain in the left substernal area that he attributed to heartburn for the past week - pain would occur after eating or with exertion then resolve with rest. Over the past few days he has developed dyspnea on exertion as well as cough productive of white foamy phlegm. Yesterday, the chest pain became constant and has slowly been worsening since then. Associated malaise, lightheadedness, nausea, bloating and loss of appetite. Due to the severity of symptoms, he came in for evaluation this morning although admits he should have come in last night as "it was a rough night" due to the symptoms. Pt denies prior history of cardiac disease, hypertension, dyslipidemia, CVA, DM. He does have a history of chronic RLE DVT with associated lymphedema. He is on chronic Coumadin therapy but INR in the ED is subtherapeutic. This RLE edema has apparently not been any worse than usual. Denies fevers, sweats, vomiting, diarrhea, constipation, hematochezia, hematuria, dysuria. He did have some chills last night. He denies any family history of cardiac disease. Admission Exam Per Admitting Provider GEN: well developed, well nourished and + obese; no acute distress Eyes: PERRL, conjunctivae normal, anicteric sclerae ENMT: external ear and nose normal, oropharynx normal Neck: trachea midline Respiratory: able to speak in complete sentences Auscultation: + crackles ( bibasilar); no rales and no rhonchi Cardiovascular: Distant heart sounds but regular. No murmur, gallop or rub. Gastrointestinal (Abdomen): Inspection/Auscultation: + abdomen distended and normal bowel sounds Percussion/Palpation: + abdomen tender (mild diffuse) Musculoskeletal: RLE with chronic stasis changes and pitting edema - no calf tenderness bilaterally. Neurologic: no focal motor deficits Principal Diagnosis Low cardiac output syndrome NSTEMI 2/2 CAD, s/p SE to prox LAD chronic DVT Discharge Exam GEN: obese, NAD HEENT: MMM CV: reg rate and rhythm, S1/2 heard LUNGS: CTAB ABD: NTND, soft, protuberant EXT: Lymphedema of the right leg, no pitting edema Discharge Data Allergies Allergy/AdvReac Type Severity Reaction Status Date / Time No Known Allergies Allergy Unverified 10/17/17 15:37 Consultations 10/11/18 13:34 ED Decision to Admit Stat 10/11/18 14:44 Consult Mercantile Agent Routine 10/11/18 15:34 Consult Cardiac Rehabilitation Routine 10/11/18 15:45 Consult Cardiology Routine 10/13/18 11:09 Burn CD for patient Stat Procedures Performed Operation Date: 10/11/18 13:00 Actual Procedures p Cath, Left with Cors and Vent - Dong Elliott MD s Cineradiography w/Routine Exam - Dong Elliott MD s Aspiration/PCI w/SE for Stemi - Dong Elliott MD s IVUS Coronary Single Vessel - Dong Elliott MD Ordered Studies 10/11/18 13:23 CL Cath Imgs for PACS use only Stat 10/11/18 15:20 CL IVUS Coronary Single Vessel Routine Hospital Course (1) Low cardiac output syndrome: (2) NSTEMI (non-ST elevated myocardial infarction): (3) GENEVA (acute kidney injury): (4) Chronic deep vein thrombosis (DVT): INPATIENT MEDS AT TIME OF TRANSFER: Acetaminophen (Tylenol) 650 mg PO Q4H PRN PRN Reason: Pain or Fever Stop: 11/10/18 15:44 Aspirin (Ecotrin) 81 mg PO [facility] Stop: 11/11/18 08:59 Last Admin: 10/13/18 09:41 Dose: 81 mg Atorvastatin Calcium (Lipitor) 80 mg PO [facility] Stop: 11/11/18 08:59 Last Admin: 10/13/18 09:41 Dose: 80 mg Clopidogrel Bisulfate (Plavix) 75 mg PO [facility] Stop: 11/12/18 08:59 Last Admin: 10/13/18 09:41 Dose: 75 mg Lactulose (Chronulac) 30 gm PO Q8H PRN PRN Reason: bloating Stop: 11/11/18 19:02 Last Admin: 10/12/18 21:13 Dose: 30 gm Lisinopril (Zestril) 5 mg PO [facility] Stop: 11/11/18 08:59 Last Admin: 10/12/18 09:17 Dose: 5 mg Metoprolol Tartrate (Lopressor) 12.5 mg PO BID [facility] Stop: 11/10/18 20:59 Last Admin: 10/13/18 09:41 Dose: Not Given Ondansetron HCl (Zofran) 4 mg IV Q6H PRN PRN Reason: Nausea And Vomiting Stop: 11/10/18 15:26 Warfarin Sodium (Coumadin) 5 mg PO DAILY@1600 [facility] Stop: 11/12/18 15:59 HOSPITAL COURSE: 68 yo M presented to the ER with one week of chest pressure associated with shortness of breath, which had become progressively worse. Troponin on arrival was 39.9. EKGs reflected q waves anteriorly. He reported some weight gain gradually over the past couple of months. He was hemodynamically stable and afebrile but with persistent chest pain. CBC was normal, INR was 1.3 despite being on coumadin for chronic DVT of the leg, BMP was normal with a creatinine around his baseline at 1.5. Cardiology was consulted and performed an echo revealing extensive wall motion abnormality in the LAD distribution and large apical, septal, anteroseptal and inferior wall motion abnormalities with hypokinesis to akinesis of the segments; significant LV dysfunction was present in the range of 15%. No significant valvular disease was noted. He was immediately taken to cardiac catheterization where he received a SE to the proximal LAD. He was recovered in the ICU. Medical management was initiated with a beta katelyn, ACEI and one dose of IV furosemide. He became notably hypotensive in response, dropping to 70 systolic but not requiring pressor therapy. With low blood pressure and poor tolerance of appropriate medical therapies in addition to renal function decline to creat 2.87 on HD2, there was concern that he would further deteriorate. Transfer to a tertiary care center was recommended. His chronic anticoagulation with warfarin was restarted without bridging therapy on HD2 and transfer was set up to [facility]. Total Time Total Time Spent Total Time Spent (In Minutes): 60 Total Time Includes: Examination of the Patient, Discharge Planning, Medication Reconciliation and Communication With Other Providers Discharge Plan Discharge Items Patient Disposition: Transfer Acute Care Hospital Reason For Visit: CATH Discharge Diagnosis: Low cardiac output syndrome NSTEMI 2/2 CAD, s/p SE to prox LAD chronic DVT Condition: Fair Discharge Goals: Improve disease control and Therapeutic intervention Activity: As commented below Activity Comment: per receiving institution Lifting: Gradually increase as tolerated Exercise/Sports: Gradually increase as tolerated Non-emergency contact: Primary Care Provider and Head Wood Grinder Call non-emergency contact if: you have any medication questions, your symptoms worsen, your pain is not controlled and you have a fever Follow-up/Referrals: Rosalie Rosales [Primary Care Provider] - Diet: Heart Healthy Addtl Provider Instructions: Please refer to Hospital Course note regarding discharge medication list. New prescriptions were not called in at this time, as you are being transferred to another facility where changes might happen. It is recommended that you follow-up with your primary care provider within one week of discharge from the hospital. It was a pleasure taking care of you! Please call if you have any questions or problems. You can reach a [facility] hospitalist on duty at [facility] 24 hours a day by calling [phone]. Take care of yourself. Laurie Pereyra DO [facility] Hospitalist Prescriptions: Continue warfarin 10 mg Tablet 5 mg PO [id number] RF: 0 warfarin 5 mg Tablet 5 mg PO Q OTHER DAY RF: 0 Stand-Alone Forms: Call Back Authorization, [facility] Discharge Orders: Discharge Order (Routine); Ordered 10/13/18 Ordered By: Laurie Pereyra Admission Data Admit Date/Time: 10/11/18 14:42 Attending Provider: Dong Elliott Admit Provider: Dong Elliott Primary Care Provider: Rosalie Rosales Other Providers: Laurie Pereyra ; Tito Bryant ; Lizabeth Olivares Service: Intensive Care Unit Other Interventions: Discharge Summary Assessment (RN) Last Done: 10/13/18 13:50 DC Date/Time DO NOT enter until pt leaves facility: 10/13/18 22:13
== END 2018-10-13 22:13 | disposition short-term general hospital (02) | DRG 247 ==
LOC: ED 11:00 → CC 13:45 → 1E 13:59

== ENCOUNTER 2021-02-09 10:47 | Inpatient (IN) ==
--- NOTE | 2021-02-09 11:33 | XRay Report ---
XR chest 1V portable HISTORY: 70 years-old Male weakness acute weakness COMPARISON: Chest radiograph 10/11/2018 TECHNIQUE: Portable AP view of the chest FINDINGS: Cardiac silhouette is enlarged. Single lead left subclavian pacer/AICD. No pneumothorax, pleural effu caio, airspace consolidation or overt pulmonary edema. Healed remote right-sided rib fractures. Degen erative changes of the shoulders and spine. IMPRESSION: Cardiomegaly without acute process. ACT 112: Negative or not required by law. The above report was generated using voice recognition software. It may contain grammatical, syntax o r spelling errors. Electronically signed by: Miguelito Tabares M.D. 02/09/2021 11:31 AM
[2021-02-09 11:40] LABS: Basophils # (auto) 0.02 K/uL (0-0.2); Basophils % (auto) 0.4 %; Hematocrit (blood only) 51.4 % (42-52); Hemoglobin 16.7 g/dL (14.0-18.0); Immature Granulocytes # (auto) 0.01 K/uL (0.00-0.02); Immature Granulocytes % (auto) 0.2 %; Lymphocytes # (auto) 0.76 K/uL (1.2-3.4); Lymphocytes % (auto) 16.9 %; Mean Corpuscular Hemoglobin 30.2 pg (25-34); Mean Corpuscular Hgb Conc 32.5 g/dL (32-36); Mean Corpuscular Volume 92.9 fL (80-100); Mean Platelet Volume 10.8 fL (7.4-10.4); Monocytes # (auto) 0.68 K/uL (0.11-0.59); Monocytes % (auto) 15.1 %; Neutrophils # (auto) 3.03 K/uL (1.4-6.5); Neutrophils % (auto) 67.4 %; Platelet Count 145 K/uL (130-400); RDW Coefficient of Variation 14.2 % (11.5-14.5); RDW Standard Deviation 48.5 fL (36.4-46.3); Red Blood Count 5.53 M/uL (4.7-6.1)
[2021-02-09 11:56] LABS: Albumin Level 3.5 gm/dl (3.4-5.0); BUN Creatinine Ratio 10.8 (10-20); Calcium 8.6 mg/dl (8.5-10.1); Creatinine Clr Calc Pharmacy 46.7 ml/min; Est GFR (African American) 37.2; Est GFR (Non-African American) 32.1; Potassium 4.2 mmol/L (3.5-5.1)
[2021-02-09] MEDS ORDERED: SODIUM CHLORIDE 0.9% 1000ML 1,000 ML IV ONE (12:07)
--- NOTE | 2021-02-09 12:11 | Emergency Department Note ---
Impression & Plan COVID-19, Leukopenia, Elevated troponin, GENEVA (acute kidney injury) ED Provider Note NAME: DOUG LOPEZ AGE: 70 SEX: M : 1950 ARRIVES VIA: Walk-In INFORMANT: Patient ED PROVIDER(S): Don Roach DO CHIEF COMPLAINT: Weak HPI: Patient is a 70-year-old male with a past medical history CKD, NSTEMI, cardiomyopathy with a pacemaker, previous DVTs, A. fib on Coumadin presents the ER for weakness. Symptoms started on around the with a cough and congestio n. He denies any chest pain or shortness of breath. No belly pain but admits to diarrhea. No fevers. No dysuria, urgency, or frequency. He notes has been gradually getting weaker over the past several days. He is extremely tired when walking around. His son came to visit and now that his son has the same symptoms. Has not been tested for Covid. Admits right calf is always larger than left. ROS: See above HPI for pertinent positives & negatives. A total of 10 systems reviewed and were otherwise negative. PAST MEDICAL HISTORY:See Below PAST SURGICAL HISTORY:See Below FAMILY HISTORY:See Below SOCIAL HISTORY:See Below HOME MEDICATIONS:See Below ALLERGIES:See Below VITALS:See Below PHYSICAL EXAMINATION: GENERAL: Sitting up in bed, alert, well appearing, well nourished, no distress, non-toxic EYE EXAM: normal conjunctiva. OROPHARYNX: no exudate, no erythema, lips, buccal mucosa, and tongue normal and mucous membranes are dry NECK: supple, no nuchal rigidity, no adenopathy, non-tender LUNGS: Clear to auscultation. Normal chest wall mechanics HEART: no murmurs, S1 normal and S2 normal ABDOMEN: abdomen soft, non-tender, normo-active bowel sounds, no masses, no rebound or guarding. UPPER EXTREMITIES: upper extremities are grossly normal. LOWER EXTREMITIES: No pitting edema. Right calf larger than left NEURO EXAM: Normal sensorium, cranial nerves II-XII grossly intact, normal speech, no gross weakness of arms, no gross weakness of legs. MEDICAL DECISION MAKING: Patient is a 70-year-old male who presents the ER for cough, congestion and incr eased weakness. IV was established blood was obtained. EKG showed A. fib. He has been in since 2019. Patient was interrogated. Labs show mild leukopenia 4.5 thousand. No significant anemia. INR was unremarkable. BMP with a creatinine of 2 slightly up from baseline of 1.5. LFTs bilirubin was unremarkable. Troponin was detectable at 0.14. TSH was unremarkable. UA was unremarkable. Covid was positive. Patient was given fluids. Updated bedside discussed with hospitalist for further evaluation. Patient was given oral aspirin as well. Triage Nursing notes reviewed. Limited review of prior medical records performed Vital Signs: reviewed and remarkable for no significant abnormalities Differential diagnosis: Infection, dehydration, metabolic abnormality, hypo/hyperglycemia, electrolyte disturbance, anemia, hypoxia, cardiac sources, intracerebral event, toxicologic, neurologic, as well as other pathologies. ER treatment provided: See below Diagnostics interpreted by me: ECG: A. fib rate of 68 Left axis No PVCs T wave inversion in the septal leads QTC 414 Cardiac Monitoring: An order was placed for continuous cardiac monitoring. The monitor shows a rate of 62 with sinus rhythm. Laboratory studies: As stated above and show below. 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) Lymphedema Mass of testicle (01/27/13) "REMOVED " NSTEMI (non-ST elevated myocardial infarction) Peripheral vascular disease Permanent atrial fibrillation Pre-diabetes Surgical History (Updated 02/09/21 @ 13:25 by Nemo Dyer PA-C) AICD (automatic cardioverter/defibrillator) present History of colonoscopy with polypectomy adenomatous polyp, diverticulosis - Oct 2015 History of orchiectomy History of umbilical hernia repair Family History Father Pulmonary embolism Sister Thyroid cancer Social History (Updated 02/09/21 @ 14:05 by Nemo Dyer PA-C) Smoking Status: Never smoker Hx Alcohol Use: No Hx Substance Use: No Preferred Language: Mohawk Communication Ability: Effective Beliefs That Will Affect Care: None marital status: Current Living Situation: Alone current occupational status: employed Other Information That Helps Us Care for You: No Feels Safe at Home: Yes Safety Concerns: Feels Safe At This Time Assistive Devices: Denture - Upper and Denture - Lower Allergies Allergies Allergy/AdvReac Type Severity Reaction Status Date / Time No Known Allergies Allergy Unverified 02/09/21 13:35 Home Meds Home Medications Medication Instructions Recorded Confirmed aspirin 81 mg PO QAM 02/09/21 02/09/21 atorvastatin 80 mg PO QDL 02/09/21 02/09/21 furosemide 40 mg PO QAM 02/09/21 02/09/21 metoprolol succinate 25 mg PO QAM 02/09/21 02/09/21 warfarin 5 mg PO SUTUTHSA 02/09/21 02/09/21 warfarin 10 mg PO MOWEFR 02/09/21 02/09/21 Results & Data (ED) Vital Signs Vital Signs - 24 hr 02/09/21 10:51 02/09/21 11:53 02/09/21 11:56 Temperature 36.8 C Temperature Source Temporal Artery Scan Pulse Rate 89 76 77 Pulse Rate from SpO2 Sensor 73 73 Respiratory Rate 20 19 19 Blood Pressure 125/76 109/70 Blood Pressure Mean 92 83 Pulse Oximetry 95 94 91 Oxygen Delivery Method Room Air Sepsis Recent Fever Within 48 Hours No Sepsis New/Unexplained Change in Mental Status N/A Sepsis Action Taken by Nursing No Action Required 02/09/21 12:00 02/09/21 12:30 02/09/21 12:31 Temperature 37.1 C Temperature Source Pulse Rate 68 88 73 Pulse Rate from SpO2 Sensor 73 75 71 Respiratory Rate 17 22 18 Blood Pressure 110/73 113/75 Blood Pressure Mean 85 87 Pulse Oximetry 91 94 96 Oxygen Delivery Method Room Air Sepsis Recent Fever Within 48 Hours Sepsis New/Unexplained Change in Mental Status Sepsis Action Taken by Nursing 02/09/21 12:32 02/09/21 13:00 Temperature Temperature Source Pulse Rate 99 H 72 Pulse Rate from SpO2 Sensor 71 70 Respiratory Rate 22 18 Blood Pressure 103/68 Blood Pressure Mean 79 Pulse Oximetry 94 96 Oxygen Delivery Method Sepsis Recent Fever Within 48 Hours Sepsis New/Unexplained Change in Mental Status Sepsis Action Taken by Nursing Laboratory Data Result diagrams: 02/09/21 11:23 02/09/21 11:23 Lab Results 02/09/21 02/09/21 02/09/21 Range/Units 11:23 11:23 11:23 WBC 4.50 L (4.8-10.8) K/uL RBC 5.53 (4.7-6.1) M/uL Hgb 16.7 (14.0-18.0) g/dL Hct 51.4 (42-52) % MCV 92.9 (80-100) fL MCH 30.2 (25-34) pg MCHC 32.5 (32-36) g/dL RDW Std Deviation 48.5 H (36.4-46.3) fL RDW Coeff of Juan 14.2 (11.5-14.5) % Plt Count 145 (130-400) K/uL MPV 10.8 H (7.4-10.4) fL Immature Gran % (Auto) 0.2 % Neut % (Auto) 67.4 % Lymph % (Auto) 16.9 % Eagle % (Auto) 15.1 % Eos % (Auto) 0.0 % Baso % (Auto) 0.4 % Neut # (Auto) 3.03 (1.4-6.5) K/uL Lymph # (Auto) 0.76 L (1.2-3.4) K/uL Eagle # (Auto) 0.68 H (0.11-0.59) K/uL Eos # (Auto) 0.00 (0-0.5) K/uL Baso # (Auto) 0.02 (0-0.2) K/uL Immature Gran # (Auto) 0.01 (0.00-0.02) K/uL ESR (0-20) mm/hr PT 10.9 (9.0-12.0) Seconds INR 1.1 (0.9-1.1) Sodium 137 (136-145) mmol/L Potassium 4.2 (3.5-5.1) mmol/L Chloride 102 (98-107) mmol/L Carbon Dioxide 27 (21-32) mmol/L Anion Gap 8.0 (3-11) BUN 22 H (7-18) mg/dl Creatinine 2.06 H (0.6-1.4) mg/dl Est Cr Clr Drug Dosing 46.7 ml/min Est GFR ( Amer) 37.2 Est GFR (Non-Af Amer) 32.1 BUN/Creatinine Ratio 10.8 (10-20) Glucose 120 H (70-99) mg/dl Calcium 8.6 (8.5-10.1) mg/dl Total Bilirubin 0.9 (0.2-1) mg/dl AST 23 (15-37) U/L ALT 22 (12-78) U/L Alkaline Phosphatase 71 (45-117) U/L Troponin I 0.140 H* (0-0.045) ng/ml C-Reactive Protein (0-0.29) mg/dl Total Protein 7.8 (6.4-8.2) gm/dl Albumin 3.5 (3.4-5.0) gm/dl Globulin 4.3 H (2.5-4.0) gm/dl Albumin/Globulin Ratio 0.8 L (0.9-2) Procalcitonin TSH 2.310 (0.300-4.500) uIu/ml Urine Color Urine Appearance (Clear) Urine pH (4.5-7.5) Ur Specific Langley (1.000-1.030) Urine Protein (Negative) Urine Glucose (UA) (Negative) Urine Ketones (Negative) Urine Blood (Negative) Urine Nitrite (Negative) Urine Bilirubin (Negative) Urine Urobilinogen (Negative) Ur Leukocyte Esterase (Negative) Urine WBC (Auto) (0-5) /hpf Urine RBC (Auto) (0-4) /hpf U Hyaline Cast (Auto) (0-5) /lpf U Epithel Cells (Auto) (0-5) /lpf Urine Bacteria (Auto) (Negative) Ur Renal Epithelial Cell COVID-19 Eval Order SARS-CoV-2 (PCR) (Negative) Influenza Type A (PCR) (Neg) Influenza Type B (PCR) (Neg) RSV (RT-PCR) (Neg) 02/09/21 02/09/21 02/09/21 Range/Units 11:23 11:23 11:30 WBC (4.8-10.8) K/uL RBC (4.7-6.1) M/uL Hgb (14.0-18.0) g/dL Hct (42-52) % MCV (80-100) fL MCH (25-34) pg MCHC (32-36) g/dL RDW Std Deviation (36.4-46.3) fL RDW Coeff of Juan (11.5-14.5) % Plt Count (130-400) K/uL MPV (7.4-10.4) fL Immature Gran % (Auto) % Neut % (Auto) % Lymph % (Auto) % Eagle % (Auto) % Eos % (Auto) % Baso % (Auto) % Neut # (Auto) (1.4-6.5) K/uL Lymph # (Auto) (1.2-3.4) K/uL Eagle # (Auto) (0.11-0.59) K/uL Eos # (Auto) (0-0.5) K/uL Baso # (Auto) (0-0.2) K/uL Immature Gran # (Auto) (0.00-0.02) K/uL ESR 65 H (0-20) mm/hr PT (9.0-12.0) Seconds INR (0.9-1.1) Sodium (136-145) mmol/L Potassium (3.5-5.1) mmol/L Chloride (98-107) mmol/L Carbon Dioxide (21-32) mmol/L Anion Gap (3-11) BUN (7-18) mg/dl Creatinine (0.6-1.4) mg/dl Est Cr Clr Drug Dosing ml/min Est GFR ( Amer) Est GFR (Non-Af Amer) BUN/Creatinine Ratio (10-20) Glucose (70-99) mg/dl Calcium (8.5-10.1) mg/dl Total Bilirubin (0.2-1) mg/dl AST (15-37) U/L ALT (12-78) U/L Alkaline Phosphatase (45-117) U/L Troponin I (0-0.045) ng/ml C-Reactive Protein 2.35 H (0-0.29) mg/dl Total Protein (6.4-8.2) gm/dl Albumin (3.4-5.0) gm/dl Globulin (2.5-4.0) gm/dl Albumin/Globulin Ratio (0.9-2) Procalcitonin Cancelled TSH (0.300-4.500) uIu/ml Urine Color Urine Appearance (Clear) Urine pH (4.5-7.5) Ur Specific Langley (1.000-1.030) Urine Protein (Negative) Urine Glucose (UA) (Negative) Urine Ketones (Negative) Urine Blood (Negative) Urine Nitrite (Negative) Urine Bilirubin (Negative) Urine Urobilinogen (Negative) Ur Leukocyte Esterase (Negative) Urine WBC (Auto) (0-5) /hpf Urine RBC (Auto) (0-4) /hpf U Hyaline Cast (Auto) (0-5) /lpf U Epithel Cells (Auto) (0-5) /lpf Urine Bacteria (Auto) (Negative) Ur Renal Epithelial Cell COVID-19 Eval Order SARS-CoV-2 (PCR) (Negative) Influenza Type A (PCR) (Neg) Influenza Type B (PCR) (Neg) RSV (RT-PCR) (Neg) 02/09/21 02/09/21 02/09/21 Range/Units 12:25 12:25 12:25 WBC (4.8-10.8) K/uL RBC (4.7-6.1) M/uL Hgb (14.0-18.0) g/dL Hct (42-52) % MCV (80-100) fL MCH (25-34) pg MCHC (32-36) g/dL RDW Std Deviation (36.4-46.3) fL RDW Coeff of Juan (11.5-14.5) % Plt Count (130-400) K/uL MPV (7.4-10.4) fL Immature Gran % (Auto) % Neut % (Auto) % Lymph % (Auto) % Eagle % (Auto) % Eos % (Auto) % Baso % (Auto) % Neut # (Auto) (1.4-6.5) K/uL Lymph # (Auto) (1.2-3.4) K/uL Eagle # (Auto) (0.11-0.59) K/uL Eos # (Auto) (0-0.5) K/uL Baso # (Auto) (0-0.2) K/uL Immature Gran # (Auto) (0.00-0.02) K/uL ESR (0-20) mm/hr PT (9.0-12.0) Seconds INR (0.9-1.1) Sodium (136-145) mmol/L Potassium (3.5-5.1) mmol/L Chloride (98-107) mmol/L Carbon Dioxide (21-32) mmol/L Anion Gap (3-11) BUN (7-18) mg/dl Creatinine (0.6-1.4) mg/dl Est Cr Clr Drug Dosing ml/min Est GFR ( Amer) Est GFR (Non-Af Amer) BUN/Creatinine Ratio (10-20) Glucose (70-99) mg/dl Calcium (8.5-10.1) mg/dl Total Bilirubin (0.2-1) mg/dl AST (15-37) U/L ALT (12-78) U/L Alkaline Phosphatase (45-117) U/L Troponin I (0-0.045) ng/ml C-Reactive Protein (0-0.29) mg/dl Total Protein (6.4-8.2) gm/dl Albumin (3.4-5.0) gm/dl Globulin (2.5-4.0) gm/dl Albumin/Globulin Ratio (0.9-2) Procalcitonin TSH (0.300-4.500) uIu/ml Urine Color Dark Yellow Urine Appearance Clear (Clear) Urine pH 5.5 (4.5-7.5) Ur Specific Langley 1.016 (1.000-1.030) Urine Protein 1+ H (Negative) Urine Glucose (UA) Negative (Negative) Urine Ketones Trace H (Negative) Urine Blood Negative (Negative) Urine Nitrite Negative (Negative) Urine Bilirubin Negative (Negative) Urine Urobilinogen Negative (Negative) Ur Leukocyte Esterase Negative (Negative) Urine WBC (Auto) 5-10 H (0-5) /hpf Urine RBC (Auto) 0-4 (0-4) /hpf U Hyaline Cast (Auto) 1-5 (0-5) /lpf U Epithel Cells (Auto) >30 H (0-5) /lpf Urine Bacteria (Auto) Negative (Negative) Ur Renal Epithelial Cell Not Reportable COVID-19 Eval Order CovFluRsv at [facility] SARS-CoV-2 (PCR) POSITIVE A* (Negative) Influenza Type A (PCR) Negative (Neg) Influenza Type B (PCR) Negative (Neg) RSV (RT-PCR) Negative (Neg) Administered Medications Heparin Sodium/Dextrose (Heparin Sodium/Dextrose) 25,000 units in 500 mls @ 35 mls/hr IV .[id number] ANTHONY; Protocol Stop: 03/11/21 13:58 Last Admin: 02/09/21 15:20 Dose: 1,750 units/hr, 35 mls/hr Documented by: [id number] Cosigned by: [id number] Warfarin Sodium (Warfarin Sod 10 Mg Tab) 10 mg PO [id number] ANTHONY Stop: 03/11/21 15:59 Last Admin: 02/09/21 16:07 Dose: 10 mg Documented by: [id number] Discontinued Medications Aspirin (Aspirin Chew 324 Mg) 324 mg PO NOW STA Stop: 02/09/21 12:14 Last Admin: 02/09/21 12:25 Dose: 324 mg Documented by: [id number] Heparin Sodium/Dextrose (Heparin Iv Adult Wt-Based Standard *No* Bolus Protocol) 1 ea IV ONE ONE; Protocol Stop: 02/09/21 13:45 Last Admin: 02/09/21 15:20 Dose: Not Given Documented by: [id number] Sodium Chloride (Nss 1000ml) 1,000 mls @ 999 mls/hr IV .[id number] ONE Stop: 02/09/21 13:07 Last Infusion: 02/09/21 13:32 Dose: 0 mls/hr Documented by: [id number] Admin: 02/09/21 12:22 Dose: 999 mls/hr Documented by: [id number] Imaging Data Radiologist's Impression: Chest X-Ray 02/09/21 10:54 XR chest 1V portable HISTORY: 70 years-old Male weakness acute weakness COMPARISON: Chest radiograph 10/11/2018 TECHNIQUE: Portable AP view of the chest FINDINGS: Cardiac silhouette is enlarged. Single lead left subclavian pacer/AICD. No pneumothorax, pleural effusion, airspace consolidation or overt pulmonary edema. Healed remote right-sided rib fractures. Degenerative changes of the shoulders and spine. IMPRESSION: Cardiomegaly without acute process. ACT 112: Negative or not required by law. The above report was generated using voice recognition software. It may contain grammatical, syntax or spelling errors. Electronically signed by: Miguelito Tabares M.D. 02/09/2021 11:31 AM Discharge Plan Visit Data Chief Complaint: Weakness Stated Complaint: VERY WEAK ED Provider: Don Roach Discharge Problem: COVID-19, Leukopenia, Elevated troponin, GENEVA (acute kidney injury) Patient Disposition: Admitted As Inpatient Discharge Instructions Interventions: ED Discharge Assessment Last Done: 02/09/21 14:18 Discharge Problem: Leukopenia Qualifiers: Leukopenia type: unspecified Qualified Code(s): D72.819 - Decreased white blood cell count, unspecified
[2021-02-09 12:12] LABS: Albumin Globulin Ratio 0.8 (0.9-2); Bilirubin,Total 0.9 mg/dl (0.2-1); Globulin 4.3 gm/dl (2.5-4.0); Thyroid Stimulating Hormone 2.31 uIu/ml (0.300-4.500); Total Protein 7.8 gm/dl (6.4-8.2); Troponin I 0.14 ng/ml (0-0.045)
[2021-02-09] MEDS ORDERED: ASPIRIN CHEW 324 MG PO STA (12:13)
[2021-02-09 12:23] LABS: INR 1.1 (0.9-1.1); Prothrombin Time 10.9 Seconds (9.0-12.0)
[2021-02-09 12:43] LABS: Appearance Urine Clear (Clear); Bacteria Urine Automated Negative (Negative); Bilirubin Urine Negative (Negative); Blood Urine Negative (Negative); Color Urine Dark Yellow; Epithelial Cell Urine Auto >30 /lpf (0-5); Glucose Urine UA Negative (Negative); Ketones Urine Trace (Negative); Leukocyte Esterase Urine Negative (Negative); Nitrite Urine Negative (Negative); Protein Urine 1+ (Negative); RBC Urine Automated 0-4 /hpf (0-4); Specific Gravity Urine 1.016 (1.000-1.030); Urobilinogen Urine Negative (Negative); pH Urine 5.5 (4.5-7.5)
--- NOTE | 2021-02-09 12:46 | Electrocardiogram Report ---
Test Reason : Blood Pressure : / mmHG Vent. 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
[2021-02-09 13:20] LABS: Influenza A virus by PCR Negative (Neg); Influenza B virus by PCR Negative (Neg); RSV by PCR Negative (Neg)
--- NOTE | 2021-02-09 13:28 | History & Physical Report ---
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 Pt presents with covid like illness x 9-10 days with cough, sinus congestion, general malaise and weakness. Overall Poor appetite. Denies aubrey CP or SOB, no ecg changes. Pt is to be on warfarin for afib and dvt although has not taken for ~ 7 days. Admit to PCU - covid unit Pt does not meet criteria for covid-19 treatment monitor o2 saturations, encourage incentive spirometry tessalon perles and muccinex for cough cycle troponins consult cardiology - they will determine need for echo repeat ekg recent pacer/aicd interrogation done 01/27 start IV Heparin bridge - resume warfarin (4) Acute worsening of stage 3 chronic kidney disease: baseline cr 1.4-1.5 in early 2018, no previous lab work bun/cr 2 and 2.06 received 1 L of IVF in ED hold lasix - repeat bmp in a.m. will not give any additional fluid at this this time due to HRrEF and COVID (5) CAD (coronary artery disease): (6) Chronic HFrEF (heart failure with reduced ejection fraction): Last echo 11/20/2018 revealed LVEF 30%, large sized apical, anteroseptal, anterior septal, anterior, inferior and lateral wall motion abnormality with hypokinesis to akinesis, moderate mitral regurg Follows Dr. Torres, but appears in EPIC pt noncompliant in follow ups AICD in place, recent interrogation on 01/27 revealed 100% burden of atrial fibrillation hx of SE to LAD no aubrey chest pain, ecg unchanged except for afib continue metoprolol, ASA hold lasix 2/2 to GENEVA cycle trops daily weights, strict I and O (7) Permanent atrial fibrillation: rate controlled on metoprolol prescribed coumadin; however INR 1.1 today - noncompliant start IV heparin gtt resume warfarin 10mg MoWeFR and 5mg all other days (8) Pre-diabetes: last a1c 10/30/18 6.2 obtain a1c bsg 120 in ED monitor fbs (9) Chronic deep vein thrombosis (DVT): with chronic RLE lymphedema heparin gtt/ bridge to warfarin as above (10) DVT prophylaxis: Heparin gtt/warfarin Dispo:PCU PCP: Connie FULL CODE Pt was seen and collaborated with Dr. Ortiz, please see addendum History of Present Illness Chief Complaint: Weakness times several days. 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 Patient complains of upper respiratory-like symptoms that began on January 31 with a cough and sinus congestion. Cough is productive of purulent sputum and sinus congestion with white drainage. He further complains of chest discomfort when he coughs. He denies any chest pain at rest, SOB, VALENTINE or orthopnea. He complaints of getting weak over the past several days. His son at home has similar symptoms. He has not yet had a Covid testing. Overall poor appetite and poor liquid intake. He states he has been eating popsicles, drinking water and grapefruit juice, but much less than usual. He denies any loss of taste or smell. He further denies any lightheadedness, dizziness, syncope, palpitations, nausea, vomiting, diarrhea and abdominal pain. He admits to not taking his coumadin for ~ 7 days stating he was out of it. He admits to taking his metoprolol and lasix this morning but missed those for a few days as well. In ED patient remained hemodynamically stable. Lab work notable for mild leukopenia 4.5k, elevated BUN and creatinine at 22 and 2.06, troponin 0.140. Urinalysis was negative for infection. Chest x-ray revealed cardiomegaly but no acute process. COVID screen was +. Allergies Allergy/AdvReac Type Severity Reaction Status Date / Time No Known Allergies Allergy Unverified 02/09/21 13:35 Home Medications Medication Instructions Recorded Confirmed Type aspirin 81 mg PO QAM 02/09/21 02/09/21 History atorvastatin 80 mg PO QDL 02/09/21 02/09/21 History furosemide 40 mg PO QAM 02/09/21 02/09/21 History metoprolol succinate 25 mg PO QAM 02/09/21 02/09/21 History warfarin 5 mg PO SUTUTHSA 02/09/21 02/09/21 History warfarin 10 mg PO MOWEFR 02/09/21 02/09/21 History Past Med/Surg History Medical History Abnormal liver enzymes CAD (coronary artery disease) Chronic deep vein thrombosis (DVT) of right lower extremity Chronic HFrEF (heart failure with reduced ejection fraction) CKD (chronic kidney disease) stage 3, GFR 30-59 ml/min Generalized weakness 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) Lymphedema Mass of testicle (01/27/13) R testicular Germ cell tumor removed 2009 NSTEMI (non-ST elevated myocardial infarction) Peripheral vascular disease Permanent atrial fibrillation Pre-diabetes Surgical History AICD (automatic cardioverter/defibrillator) present History of colonoscopy with polypectomy adenomatous polyp, diverticulosis - Oct 2015 History of orchiectomy R 2009 History of umbilical hernia repair Mass of kidney of unknown nature s/p 2009 excision, lupe- renal by report Family History Father Pulmonary embolism Sister Thyroid cancer Social History Smoking Status: Never smoker Hx Alcohol Use: No Hx Substance Use: No Preferred Language: Zambian Communication Ability: Effective Beliefs That Will Affect Care: None marital status: Current Living Situation: Alone current occupational status: employed Other Information That Helps Us Care for You: No Feels Safe at Home: Yes Safety Concerns: Feels Safe At This Time Assistive Devices: Denture - Upper and Denture - Lower Review of Systems Review of Systems: All systems reviewed & are unremarkable except as noted in HPI & below Physical Exam Physical Exam: Physical exam: General: Ill-appearing, no apparent distress, alert awake winded x3 HEENT: PERRLA, EOMI, Heart: Irregular no carotid bruit, no JVD, no lower extremity edema Lungs: Diminished breath sound, no wheeze or rales Abdomen: Soft nontender, no organomegaly Extremity: No cyanosis, no deformity, generalized weakness er Neuro: No focal neurological deficit normal speech, normal visual field, Psych: Alert awake oriented x3, normal affect Results & Data Results & Data ([facility]) Vital Signs (Past 12 Hours) Vital Signs Temp Pulse Resp BP Pulse Ox 02/09/21 12:31 73 18 113/75 96 02/09/21 12:30 88 22 94 02/09/21 12:00 37.1 C 68 17 110/73 91 02/09/21 11:56 77 19 91 02/09/21 11:53 76 19 109/70 94 02/09/21 10:51 36.8 C 89 20 125/76 95 Diagnostic Findings Chest X-Ray 02/09/21 10:54 XR chest 1V portable HISTORY: 70 years-old Male weakness acute weakness COMPARISON: Chest radiograph 10/11/2018 TECHNIQUE: Portable AP view of the chest FINDINGS: Cardiac silhouette is enlarged. Single lead left subclavian pacer/AICD. No pneumothorax, pleural effusion, airspace consolidation or overt pulmonary edema. Healed remote right-sided rib fractures. Degenerative changes of the shoulders and spine. IMPRESSION: Cardiomegaly without acute process. ACT 112: Negative or not required by law. The above report was generated using voice recognition software. It may contain grammatical, syntax or spelling errors. Electronically signed by: Miguelito Tabares M.D. 02/09/2021 11:31 AM Medications Administered Discontinued Medications Aspirin (Aspirin Chew 324 Mg) 324 mg PO NOW STA Stop: 02/09/21 12:14 Last Admin: 02/09/21 12:25 Dose: 324 mg Documented by: [id number] Sodium Chloride (Nss 1000ml) 1,000 mls @ 999 mls/hr IV .Q1H1M ONE Stop: 02/09/21 13:07 Last Admin: 02/09/21 12:22 Dose: 999 mls/hr Documented by: [id number] ECG Rate (beats per minute): 68 Rhythm: atrial fibrillation Findings: + LAFB COVID-19 Results Results COVID-19 Adm Lab Results: RBC 5.23 M/uL (4.7-6.1) 02/10/21 WBC 4.12 K/uL (4.8-10.8) L 02/10/21 Hgb 15.4 g/dL (14.0-18.0) 02/10/21 Hct 48.6 % (42-52) 02/10/21 Plt Count 107 K/uL (130-400) L 02/10/21 Neutrophils (%) (Auto) 72.2 % 02/10/21 Lymphocytes (%) (Auto) 15.5 % 02/10/21 Monocytes # (Auto) 0.50 K/uL (0.11-0.59) 02/10/21 Eosinophils # (Auto) 0.00 K/uL (0-0.5) 02/10/21 Immature Granulocyte % (Auto) 0.0 % 02/10/21 Neutrophils # (Auto) 2.97 K/uL (1.4-6.5) 02/10/21 Lymphocytes # (Auto) 0.64 K/uL (1.2-3.4) L 02/10/21 Monocytes # (Auto) 0.50 K/uL (0.11-0.59) 02/10/21 Eosinophils # (Auto) 0.00 K/uL (0-0.5) 02/10/21 Basophils # (Auto) 0.01 K/uL (0-0.2) 02/10/21 Immature Granulocyte # (Auto) 0.00 K/uL (0.00-0.02) 02/10/21 Na 137 mmol/L (136-145) 02/10/21 K 3.9 mmol/L (3.5-5.1) 02/10/21 Cl 103 mmol/L (98-107) 02/10/21 CO2 27 mmol/L (21-32) 02/10/21 Anion Gap 7.0 (3-11) 02/10/21 BUN 23 mg/dl (7-18) H 02/10/21 Creatinine 1.72 mg/dl (0.6-1.4) H 02/10/21 BUN/Creatinine Ratio 13.4 (10-20) 02/10/21 Glucose Level 105 mg/dl (70-99) H 02/10/21 Ca 8.3 mg/dl (8.5-10.1) L 02/10/21 Total Bilirubin 0.7 mg/dl (0.2-1) 02/10/21 AST/SGOT 24 U/L (15-37) 02/10/21 ALT/SGPT 19 U/L (12-78) 02/10/21 Alkaline Phosphatase 58 U/L (45-117) 02/10/21 Total Protein 6.7 gm/dl (6.4-8.2) 02/10/21 Albumin 2.9 gm/dl (3.4-5.0) L 02/10/21 Globulin 3.8 gm/dl (2.5-4.0) 02/10/21 Albumin/Globulin Ratio 0.8 (0.9-2) L 02/10/21 Troponin I 0.125 ng/ml (0-0.045) H* 02/09/21 CRP 2.35 mg/dl (0-0.29) H 02/09/21 Procalcitonin < 0.05 ng/ml (0-0.5) 02/09/21 PTT 69.1 Seconds (21.0-31.0) H* 02/10/21 INR 1.2 (0.9-1.1) H 02/10/21 Triglycerides Level 71 mg/dl (0-150) 02/10/21 COVID-19 PCR POSITIVE (Negative) A* 02/09/21 Influenza Virus Type A (PCR) Negative (Neg) 02/09/21 Influenza Virus Type B (PCR) Negative (Neg) 02/09/21 Chest X-Ray 02/09/21 Code Status & VTE Plan Code Status Full Code VTE Prophylaxis Plan VTE Prophylaxis will be ordered: No Supervising Physician Co-Signing Physician Notes Patient seen and examined, care coordinated with Nemo Romero PA-C This is a 70-year-old male with complex past medical history of severe ischemic cardiomyopathy, status post AICD, chronic A. fib, on Coumadin anticoagulation, Presented to ER with past several days of flulike symptoms poor p.o. intake. Noted to be COVID-19 positive, patient is not hypoxic chest x-ray shows no evidence of infiltrate, Physical exam: As outlined above Assessment plan: Acute renal failure/on CKD stage III: Possible secondary to poor p.o. intake, viral illness Patient reports he has not been eating or drinking for last 7 days Patient received 1 L of IV fluids in ER, given underlying ischemic cardiomyopathy we will hold any further IV fluid infusion Hold patient's home diuretics dose Repeat BMP in a.m., nephrology consulted Avoid NSAIDs and contrast studies Chronic CHF with ischemic cardiomyopathy/systolic dysfunction does not appear to be volume overloaded, more clinically dry secondary to poor p.o. 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 fib, DVT: Has not been able to take Coumadin for past several days, her p.o. fluid intake, INR 1 Started on Coumadin and IV heparin bridge Code status: Full code PT OT evaluation ordered for significant deconditioning Please refer to further documentation by Nemo Romero PA-C for the documentation of other medical issues Ekta Ortiz MD
[2021-02-09] MEDS ORDERED: Heparin IV Adult Wt-Based Standard *NO* Bolus Protocol IV ONE (13:44)
[2021-02-09 13:45] LABS: SARS CoV2 RNA(COVID-19) InHosp POSITIVE (Negative)
[2021-02-09] MEDS ORDERED: ONDANSETRON INJ 2 MG/ML 2 ML VIAL IV PRN (14:43)
[2021-02-09] MEDS ORDERED: ALBUTEROL HFA 8 GM INHALER INH PRN (14:43)
[2021-02-09] MEDS ORDERED: POLYETHYLENE (MIRALAX) 17 GM PACK PO PRN (14:43)
[2021-02-09] MEDS: HEPARIN SODIUM/DEXTROSE 25,000 UNITS/500 ML BAG IV SCH (15:20)
[2021-02-09] MEDS: WARFARIN SOD 10 MG TAB PO SCH (16:07)
[2021-02-09] MEDS ORDERED: MAGNESIUM SULFATE / D5W 1 GM/100 ML BAG IV ONE (18:52)
[2021-02-09] MEDS ORDERED: POTASSIUM CHLORIDE 10 MEQ TABCR PO STA (18:52)
[2021-02-09] MEDS: BENZONATATE 100 MG CAPSULE PO SCH (21:07)
[2021-02-09] MEDS: guaiFENesin 600 MG TABCR PO SCH (21:07)
[2021-02-09 23:29] LABS: Partial Thromboplastin Ratio 3.7
[2021-02-09 23:31] LABS: Partial Thromboplastin Time 98.5 Seconds (21.0-31.0)
[2021-02-10] MEDS ORDERED: ZOLPIDEM TARTRATE 5 MG TAB PO STA ×2 (00:45→21:55)
[2021-02-10] MEDS: HEPARIN SODIUM/DEXTROSE 25,000 UNITS/500 ML BAG IV SCH (05:39)
[2021-02-10 07:03] LABS: Basophils # (auto) 0.01 K/uL (0-0.2); Basophils % (auto) 0.2 %; Hematocrit (blood only) 48.6 % (42-52); Hemoglobin 15.4 g/dL (14.0-18.0); Lymphocytes # (auto) 0.64 K/uL (1.2-3.4); Lymphocytes % (auto) 15.5 %; Mean Corpuscular Hemoglobin 29.4 pg (25-34); Mean Corpuscular Hgb Conc 31.7 g/dL (32-36); Mean Corpuscular Volume 92.9 fL (80-100); Mean Platelet Volume 10.8 fL (7.4-10.4); Monocytes % (auto) 12.1 %; Neutrophils # (auto) 2.97 K/uL (1.4-6.5); Neutrophils % (auto) 72.2 %; Platelet Count 107 K/uL (130-400); RDW Coefficient of Variation 14.2 % (11.5-14.5); RDW Standard Deviation 48.5 fL (36.4-46.3); Red Blood Count 5.23 M/uL (4.7-6.1); White Blood Count 4.12 K/uL (4.8-10.8)
[2021-02-10 07:31] LABS: Albumin Level 2.9 gm/dl (3.4-5.0); BUN Creatinine Ratio 13.4 (10-20); Calcium 8.3 mg/dl (8.5-10.1); Est GFR (African American) 46.3; Potassium 3.9 mmol/L (3.5-5.1)
[2021-02-10 07:32] LABS: INR 1.2 (0.9-1.1); Partial Thromboplastin Ratio 4.6; Prothrombin Time 11.8 Seconds (9.0-12.0)
[2021-02-10 07:35] LABS: Albumin Globulin Ratio 0.8 (0.9-2); Bilirubin,Total 0.7 mg/dl (0.2-1); Globulin 3.8 gm/dl (2.5-4.0); Total Protein 6.7 gm/dl (6.4-8.2)
[2021-02-10 07:38] LABS: Partial Thromboplastin Time 120.3 Seconds (21.0-31.0)
[2021-02-10 08:02] LABS: Estimated Average Glucose 128 mg/dl; Hemoglobin A1C 6.1 % (4.5-5.6)
[2021-02-10] MEDS: guaiFENesin 600 MG TABCR PO SCH ×2 (08:41→20:02)
[2021-02-10] MEDS: ASPIRIN 81 MG ECTAB PO SCH (08:42)
[2021-02-10] MEDS: BENZONATATE 100 MG CAPSULE PO SCH ×3 (08:42→20:06)
[2021-02-10] MEDS: METOPROLOL SUCC 25MG EXT REL TAB PO SCH (08:42)
[2021-02-10] MEDS ORDERED: LOPERAMIDE HCL 2 MG CAP PO PRN (08:44)
--- NOTE | 2021-02-10 10:37 | Nephrology Consultation ---
Date of Consultation February 10, 2021 Assessment & Plan (1) Acute worsening of stage 3 chronic kidney disease: little recent data on which to assess his current baseline; last known one was mid to high ones. presented w/ creatinine 2.1, down to 1.7 today. prerenal GENEVA on CKD 3B. chemistries and voluem status acceptble urine remarkable for no uti, for ketones, for scant inflammation. -continue supportive care, including continuing to avoid nephrotoxins -will follow with you and ensure outpatient CKD clinic f/u -daily bmp -avoid BP extremes Present on Admission?: Yes (2) COVID-19: C19 + with sx >> continue supportive care; monitor particularly for hypoxia Present on Admission?: Yes History of Present Illness Reason for Consultation: Acute on chronic renal failure Requesting Physician: Dr. Ortiz Attending Physician: Ekta Ortiz MD History of Present Illness 70-year-old male whom I am asked to evaluate for acute on chronic renal failure was admitted yesterday with positive Covid testing after presenting with several days of generalized weakness, cough, poor p.o. intake. His presenting creatinine was 2.1. Few recent outpatient data available but generally in the mid to high ones at baseline (most recent labs 2018). He does not currently meet criteria for Covid therapy but is being watched closely in the Covid unit. Past medical history includes coronary artery disease status post 2018 STEMI with LAD recannulation and drug-eluting stent complicated by reduced ejection fraction initially 15% then improved to 30 to 35% more recently, paroxysmal atrial fibrillation, class II obesity, historically nonproteinuric CKD 3A attributed to chemotherapy for a 2010 germ cell tumor in his testicle status post right orchiectomy and excision of R perirenal mass (not a partial nephrectomy) w/ R renal atrophy, chronic lymphedema due in part to chronic DVTs on anticoagulation with Coumadin. This morning his creatinine is 1.7. He is on room air. His systolics have ranged from 80s and 90s since yesterday afternoon after presenting with systolics in the 110s. He had not taken his Coumadin for several days prior to admission and is currently on a heparin drip. He still feels exhausted at the time I evaluated him just after noon today. no sob, no worsening edema, no voiding concerns. Allergies Allergy/AdvReac Type Severity Reaction Status Date / Time No Known Allergies Allergy Unverified 02/09/21 13:35 Home Medications Medication Instructions Recorded Confirmed Type aspirin 81 mg PO QAM 02/09/21 02/09/21 History atorvastatin 80 mg PO QDL 02/09/21 02/09/21 History furosemide 40 mg PO QAM 02/09/21 02/09/21 History metoprolol succinate 25 mg PO QAM 02/09/21 02/09/21 History warfarin 5 mg PO SUTUTHSA 02/09/21 02/09/21 History warfarin 10 mg PO MOWEFR 02/09/21 02/09/21 History Patient History Medical History Abnormal liver enzymes CAD (coronary artery disease) Chronic deep vein thrombosis (DVT) of right lower extremity Chronic HFrEF (heart failure with reduced ejection fraction) CKD (chronic kidney disease) stage 3, GFR 30-59 ml/min Generalized weakness 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) Lymphedema Mass of testicle (01/27/13) R testicular Germ cell tumor removed 2009 NSTEMI (non-ST elevated myocardial infarction) Peripheral vascular disease Permanent atrial fibrillation Pre-diabetes Surgical History AICD (automatic cardioverter/defibrillator) present History of colonoscopy with polypectomy adenomatous polyp, diverticulosis - Oct 2015 History of orchiectomy R 2009 History of umbilical hernia repair Mass of kidney of unknown nature s/p 2009 excision, lupe- renal by report Family History Father Pulmonary embolism Sister Thyroid cancer Social History Smoking Status: Never smoker Hx Alcohol Use: No Hx Substance Use: No Preferred Language: Chilean Communication Ability: Effective Beliefs That Will Affect Care: None marital status: Current Living Situation: Alone current occupational status: employed Other Information That Helps Us Care for You: No Feels Safe at Home: Yes Safety Concerns: Feels Safe At This Time Assistive Devices: Denture - Upper and Denture - Lower Review of Systems Review of Systems: All systems reviewed & are unremarkable except as noted in HPI & below Physical Exam Constitutional: well developed and well nourished; no acute distress on RA, looks tired Eyes: EOM intact bilaterally ENMT: Ears: no external ear abnormality Nose: no external nose abnormality Mouth: + dry oral mucous membranes Neck: no nuchal rigidity Respiratory: normal respiratory effort Auscultation: lungs clear to auscultation bilaterally and + diminished lung sounds Cardiovascular: Rate/Rhythm: regular rate and regular rhythm Extremities: + edema (trace R indurated edema in sleeve) Gastrointestinal (Abdomen): Inspection/Auscultation: normal bowel sounds; a bdomen not distended Percussion/Palpation: abdomen soft; abdomen nontender Musculoskeletal: Extremities: strength 5/5 throughout Skin: no rashes, warm and dry Neurologic: bedoya, fluent speech, no tremor Psychiatric: Orientation: alert and oriented x 3 Speech: normal rate/rhythm/volume of speech Affect: + flat affect Results & Data ([facility]) Vital Signs (Past 12 Hours) Vital Signs Temp Pulse Resp BP BP Pulse Ox 02/10/21 07:53 37.7 C H 74 20 96/66 L 93 02/10/21 03:27 38.8 C H 80 20 111/70 89 L 02/09/21 23:01 37.5 C 71 20 82/48 L 92 Laboratory Results 02/10/21 06:27 02/10/21 06:27 Urinalysis from admission: Clear dark yellow urine specific gravity 1016, pH 5.5, 1+ protein, trace ketones, 5-10 WBC per high-powered field and greater than 30 epithelial cells per low powered field. All other indices negative
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
[2021-02-10] MEDS: ATORVASTATIN 40 MG TAB PO SCH (12:00)
[2021-02-10 15:49] LABS: Partial Thromboplastin Ratio 2.6
[2021-02-10 15:53] LABS: Partial Thromboplastin Time 69.1 Seconds (21.0-31.0)
[2021-02-10] MEDS: WARFARIN SOD 5 MG TAB PO SCH (16:11)
--- NOTE | 2021-02-10 16:23 | Hospitalist Progress Note ---
Date of Service February 10, 2021 Assessment & Plan (1) SARS-CoV-2 positive: No complaint of cough or hypoxia no fever or chills, chest x-ray shows no evidence of infiltrate No indication for treatment (2) Generalized weakness: Possible secondary to viral illness poor p.o. intake. PT OT evaluation (3) Elevated troponin: Acute renal failure/on CKD stage III: Due to secondary to poor p.o. intake, viral illness Patient reports he has not been eating or drinking for last 7 days Home diuretics dose kept on hold Avoid NSAIDs and contrast studies Neurology consulted, appreciate input Chronic CHF with ischemic cardiomyopathy/systolic dysfunction does not appear to be volume overloaded, clinically dry secondary to poor p.o. intake/dehydration Received IV fluids in ER, will monitor volume status, hold diuretics Echo is not ordered to limit Covid infection, also it will not spinning frame changer [facility] consulted patient is well-known to the service Mild elevation of troponin: Chronically elevated, no complaint chest pain, doubt any acute coronary event ordered for serial level, Without any anginal symptoms, echo is not ordered Appreciate input from cardiology, no evidence of acute coronary event Fever: Blood culture and urine culture ordered, Procalcitonin negative, will hold off antibiotic now, As needed Tylenol, continue to monitor History of A. fib, DVT: Has not been able to take Coumadin for past several days, her p.o. fluid intake, INR 1 Continue on Coumadin and IV heparin bridge Patient will need in-hospital stay till INR is therapeutic, history of noncompliance, cannot do Lovenox bridge secondary to renal failure Code status: Full code Disposition: Expected to be discharged home when medically stable PT OT evaluation ordered for significant deconditioning Social service consult for discharge planning (4) Acute worsening of stage 3 chronic kidney disease: baseline cr 1.4-1.5 in early 2018, no previous lab work bun/cr 2 and 2.06 received 1 L of IVF in ED hold lasix - repeat bmp in a.m. will not give any additional fluid at this this time due to HRrEF and COVID (5) CAD (coronary artery disease): (6) Chronic HFrEF (heart failure with reduced ejection fraction): Last echo 11/20/2018 revealed LVEF 30%, large sized apical, anteroseptal, anterior septal, anterior, inferior and lateral wall motion abnormality with hypokinesis to akinesis, moderate mitral regurg Follows Dr. Torres, but appears in EPIC pt noncompliant in follow ups AICD in place, recent interrogation on 01/27 revealed 100% burden of atrial fibrillation hx of SE to LAD no aubrey chest pain, ecg unchanged except for afib continue metoprolol, ASA hold lasix 2/2 to GENEVA cycle trops daily weights, strict I and O (7) Permanent atrial fibrillation: rate controlled on metoprolol prescribed coumadin; however INR 1.1 today - noncompliant start IV heparin gtt resume warfarin 10mg MoWeFR and 5mg all other days (8) Pre-diabetes: last a1c 10/30/18 6.2 obtain a1c bsg 120 in ED monitor fbs (9) Chronic deep vein thrombosis (DVT): with chronic RLE lymphedema heparin gtt/ bridge to warfarin as above (10) DVT prophylaxis: Heparin gtt/warfarin Dispo:PCU PCP: Connie FULL CODE Pt was seen and collaborated with Dr. Ortiz, please see addendum Admission and Anticipated Discharge Date Admission Date: February 09, 2021 Supervising Physician Co-Signing Physician Notes Patient seen and examined, care coordinated with Nemo Romero PA-C This is a 70-year-old male with complex past medical history of severe ischemic cardiomyopathy, status post AICD, chronic A. fib, on Coumadin anticoagulation, Presented to ER with past several days of flulike symptoms poor p.o. intake. Noted to be COVID-19 positive, patient is not hypoxic chest x-ray shows no evidence of infiltrate, Physical exam: As outlined above Assessment plan: Acute renal failure/on CKD stage III: Possible secondary to poor p.o. intake, viral illness Patient reports he has not been eating or drinking for last 7 days Patient received 1 L of IV fluids in ER, given underlying ischemic cardiomyopathy we will hold any further IV fluid infusion Hold patient's home diuretics dose Repeat BMP in a.m., nephrology consulted Avoid NSAIDs and contrast studies Chronic CHF with ischemic cardiomyopathy/systolic dysfunction does not appear to be volume overloaded, more clinically dry secondary to poor p.o. intake/dehydration Received IV fluids, will monitor volume status, hold diuretics Echo is not ordered to limit Covid infection, also it will not spinning frame changer [facility] consulted patient is well-known to the service Mild elevation of troponin: Chronically elevated, no complaint chest pain, doubt any acute coronary event ordered for serial level, Without any anginal symptoms, echo is not ordered Cardiology consulted History of A. fib, DVT: Has not been able to take Coumadin for past several days, her p.o. fluid intake, INR 1 Started on Coumadin and IV heparin bridge Code status: Full code PT OT evaluation ordered for significant deconditioning Please refer to further documentation by Nemo Romero PA-C for the documentation of other medical issues Ekta Ortiz MD Subjective Patient reports feeling well, no complaint of orthopnea, no shortness of breath no cough, Intermittent episodes of temperature spike/fever noted, Does not have any body aches or pain, had 2-3 episodes of loose watery diarrhea, without any abdominal pain Procalcitonin is negative, ordered for blood culture, urine culture Review of Systems Review of Systems: All systems reviewed & are unremarkable except as noted in Subjective Physical Exam Physical Exam: Physical exam: General: Ill-appearing, no apparent distress, alert awake winded x3 HEENT: PERRLA, EOMI, Heart: Irregular no carotid bruit, no JVD, no lower extremity edema Lungs: Diminished breath sound, no wheeze or rales Abdomen: Soft nontender, no organomegaly Extremity: No cyanosis, no deformity, generalized weakness er Neuro: No focal neurological deficit normal speech, normal visual field, Psych: Alert awake oriented x3, normal affect Results & Data Results & Data ([facility]) Vital Signs (Past 12 Hours) Vital Signs Temp Pulse Resp BP BP Pulse Ox 02/10/21 15:09 37.6 C H 64 20 107/75 89 L 02/10/21 11:26 37.2 C 79 20 105/68 90 02/10/21 07:53 37.7 C H 74 20 96/66 L 93
[2021-02-10] MEDS: ACETAMINOPHEN 325 MG TAB PO PRN (17:20)
[2021-02-10] MEDS ORDERED: ACETAMINOPHEN 500 MG TAB PO ONE (17:30)
[2021-02-10 23:46] LABS: Partial Thromboplastin Ratio 3.2
[2021-02-10 23:48] LABS: Partial Thromboplastin Time 83.4 Seconds (21.0-31.0)
[2021-02-11] MEDS ORDERED: ZOLPIDEM TARTRATE 5 MG TAB ONE (00:46)
[2021-02-11] MEDS: HEPARIN SODIUM/DEXTROSE 25,000 UNITS/500 ML BAG IV SCH ×2 (05:58→15:15)
[2021-02-11 06:17] LABS: Basophils # (auto) 0.01 K/uL (0-0.2); Basophils % (auto) 0.2 %; Eosinophils # (auto) 0.01 K/uL (0-0.5); Eosinophils % (auto) 0.2 %; Hemoglobin 15.8 g/dL (14.0-18.0); Immature Granulocytes # (auto) 0.01 K/uL (0.00-0.02); Immature Granulocytes % (auto) 0.2 %; Lymphocytes % (auto) 13.9 %; Mean Corpuscular Hemoglobin 29.9 pg (25-34); Mean Corpuscular Hgb Conc 32.2 g/dL (32-36); Mean Corpuscular Volume 92.6 fL (80-100); Monocytes # (auto) 0.41 K/uL (0.11-0.59); Monocytes % (auto) 9.5 %; Neutrophils # (auto) 3.27 K/uL (1.4-6.5); Platelet Count 106 K/uL (130-400); RDW Coefficient of Variation 14.1 % (11.5-14.5); RDW Standard Deviation 48.4 fL (36.4-46.3); Red Blood Count 5.29 M/uL (4.7-6.1); White Blood Count 4.31 K/uL (4.8-10.8)
[2021-02-11 06:31] LABS: INR 1.4 (0.9-1.1); Prothrombin Time 13.6 Seconds (9.0-12.0)
[2021-02-11 06:37] LABS: RBC Morphology Unremarkable
[2021-02-11 06:42] LABS: Partial Thromboplastin Ratio 3.2
[2021-02-11 06:49] LABS: Calcium 8.1 mg/dl (8.5-10.1); Creatinine Clr Calc Pharmacy 58.6 ml/min; Est GFR (African American) 50.9; Potassium 4.2 mmol/L (3.5-5.1)
[2021-02-11] MEDS: ASPIRIN 81 MG ECTAB PO SCH (08:49)
[2021-02-11] MEDS: METOPROLOL SUCC 25MG EXT REL TAB PO SCH (08:50)
[2021-02-11] MEDS: guaiFENesin 600 MG TABCR PO SCH ×2 (08:50→19:52)
[2021-02-11] MEDS: BENZONATATE 100 MG CAPSULE PO SCH ×3 (08:52→19:51)
--- NOTE | 2021-02-11 10:04 | XRay Report ---
XR chest 1V portable CLINICAL HISTORY: Hypoxia COMPARISON STUDY: Chest radiograph February 09, 2021. FINDINGS: Left subclavian pacer/AICD is in place. Moderate cardiomegaly is unchanged. There is no pne umothorax or pleural effusion. Patient is rotated. There is no evidence for pulmonary edema or pneumo wil. The appearance of the chest is unchanged. IMPRESSION: No acute cardiopulmonary findings. No change in appearance of the chest. ACT 112: Negative or not required by law. Electronically signed by: Ramin Conley M.D. 02/11/2021 10:03 AM
[2021-02-11] MEDS: ATORVASTATIN 40 MG TAB PO SCH (12:25)
[2021-02-11 15:04] LABS: Partial Thromboplastin Ratio 2.9
[2021-02-11 15:14] LABS: Partial Thromboplastin Time 76.5 Seconds (21.0-31.0)
[2021-02-11] MEDS ORDERED: FUROSEMIDE 20 MG in SYRINGE 0 ML IV ONE (15:28)
[2021-02-11] MEDS ORDERED: REMDESIVIR 200 MG in SODIUM CHLORIDE 0.9% 210 ML IV ONE (15:30)
[2021-02-11] MEDS ORDERED: traZODone HCL 50 MG TAB PO PRN (15:32)
--- NOTE | 2021-02-11 15:33 | Hospitalist Progress Note ---
Date of Service February 11, 2021 Assessment & Plan (1) SARS-CoV-2 positive: COVID 19 infection Hypoxia secondary to above CXR:No acute cardiopulmonary findings. No change in appearance of the chest. Presented with fever, cough, diarrhea, poor oral intake Blood Cx: pending Started on remdesivir, dexamethasone Monitor inflammatory markers Supplemental oxygen as needed Patient agrees with current management (2) Generalized weakness: secondary to viral illness poor p.o. intake. PT OT (3) Elevated troponin: Acute Kidney Injury on CKD III Baseline Cr Likely mid to high 1s Cr: 2.06>1.59 Avoid Nephrotoxic agents as able Monitor renal function Appreciate Nephrology Input Chronic systolic CHF H/O Ischemic cardiomyopathy S/P AICD Echo not requested given Covid infection Appreciate Cardiology Input Monitor volume status Mild elevation of troponin: Chronically elevated In setting of renal insufficiency, CHF Denies anginal symptoms Appreciate Cardiology Input H/O A. fib, DVT: Patient has not been able to take Coumadin for past several days Continue metoprolol Continue IV heparin drip INR in therapeutic range Continue Coumadin Monitor INR on plan for (4) Acute worsening of stage 3 chronic kidney disease: Management as above (5) CAD (coronary artery disease): H/O SE to LAD Continue aspirin, Lipitor, metoprolol (6) Chronic HFrEF (heart failure with reduced ejection fraction): Last echo 11/20/2018 revealed LVEF 30%, large sized apical, anteroseptal, anterior septal, anterior, inferior and lateral wall motion abnormality with hypokinesis to akinesis, moderate mitral regurg Follows Dr. Torres Continue diuretics as per nephrology Appreciate cardiology, nephrology input Monitor I's and O's, daily weight, volume status (7) Permanent atrial fibrillation: Management (8) Pre-diabetes: HbA1c 6.1 (9) Chronic deep vein thrombosis (DVT): Management as above (10) DVT prophylaxis: Coumadin CODE STATUS FULL CODE Admission and Anticipated Discharge Date Admission Date: February 10, 2021 Subjective Patient is seen and examined at bedside States having non expectorant cough Reports having [id number] times per day Also states having insomnia Denies chest pain, shortness of breath, dizziness, abdominal pain Offers no other complaints Review of Systems Review of Systems: All systems reviewed & are unremarkable except as noted in HPI & below Physical Exam Physical Exam: Physical Exam: Vitals signs as noted above General Appearance:Obese, no apparent distress Head: normocephalic, Atraumatic Eyes: normal inspection, EOMI Neck: supple, Trachea midline Respiratory/Chest: Decreased breath sounds, CTA Cardiovascular: Irregularly irregular, no murmur Abdomen/GI:Soft, Non tender, Bowel sounds present Extremities/Musculoskeletal:normal inspection, B/L LE edema, RLE chronic venous stasis changes, + lymphedema Neurologic/Psych:AAOX3, grossly no focal neurological deficits Skin: normal color, warm Results & Data Results & Data ([facility]) Vital Signs (Past 12 Hours) Vital Signs Temp Pulse Pulse Resp BP Pulse Ox 02/11/21 15:21 37.8 C H 75 20 104/72 90 02/11/21 11:40 37.3 C 73 20 104/76 90 02/11/21 07:48 36.7 C 73 20 98/71 L 87 L 02/11/21 07:00 77 Laboratory Results Short CBC 02/11/21 Range/Units 05:56 WBC 4.31 L (4.8-10.8) K/uL Hgb 15.8 (14.0-18.0) g/dL Hct 49.0 (42-52) % Plt Count 106 L (130-400) K/uL BMP 02/11/21 05:56 Sodium 136 Potassium 4.2 Chloride 105 Carbon Dioxide 26 BUN 21 H Creatinine 1.59 H Glucose 116 H Calcium 8.1 L
[2021-02-11] MEDS ORDERED: FUROSEMIDE 40 MG/4 ML VIAL IV ONE (15:45)
[2021-02-11] MEDS: SODIUM CHLORIDE 0.9% 10ML FLUSH IV SCH (16:00)
[2021-02-11] MEDS: dexAMETHasone 6 MG in SYRINGE 0 ML IV SCH (16:00)
[2021-02-11] MEDS: WARFARIN SOD 10 MG TAB PO SCH (16:06)
[2021-02-11] MEDS: ACETAMINOPHEN 325 MG TAB PO PRN (16:33)
[2021-02-11 18:26] LABS: Appearance Urine Clear (Clear); Bacteria Urine Automated Negative (Negative); Bilirubin Urine Negative (Negative); Blood Urine Trace (Negative); Color Urine Yellow; Epithelial Cell Urine Auto 0-5 /lpf (0-5); Glucose Urine UA Negative (Negative); Ketones Urine Negative (Negative); Leukocyte Esterase Urine Trace (Negative); Nitrite Urine Negative (Negative); Protein Urine Negative (Negative); RBC Urine Automated 0-4 /hpf (0-4); Urobilinogen Urine Negative (Negative); pH Urine 5.5 (4.5-7.5)
[2021-02-11 20:53] LABS: Partial Thromboplastin Ratio 2.8
[2021-02-11 21:16] LABS: Partial Thromboplastin Time 73.5 Seconds (21.0-31.0)
[2021-02-12 04:35] LABS: Hematocrit (blood only) 50.6 % (42-52); Hemoglobin 16.7 g/dL (14.0-18.0); Mean Corpuscular Hemoglobin 30.3 pg (25-34); Mean Corpuscular Volume 91.8 fL (80-100); Mean Platelet Volume 11.7 fL (7.4-10.4); Platelet Count 125 K/uL (130-400); RDW Coefficient of Variation 13.8 % (11.5-14.5); RDW Standard Deviation 46.7 fL (36.4-46.3); Red Blood Count 5.51 M/uL (4.7-6.1); White Blood Count 1.94 K/uL (4.8-10.8)
[2021-02-12 04:53] LABS: BUN Creatinine Ratio 14.6 (10-20); C Reactive Protein 4.57 mg/dl (0-0.29); Calcium 8.1 mg/dl (8.5-10.1); Creatinine Clr Calc Pharmacy 54.8 ml/min; Est GFR (Non-African American) 40.5; Potassium 4.4 mmol/L (3.5-5.1)
[2021-02-12 04:55] LABS: Partial Thromboplastin Ratio 2.8
[2021-02-12 05:10] LABS: Partial Thromboplastin Time 74.6 Seconds (21.0-31.0)
[2021-02-12] MEDS ORDERED: HEPARIN GTT~STOP ORDER ONE (08:45)
[2021-02-12] MEDS: FUROSEMIDE 40 MG TAB PO SCH (08:53)
[2021-02-12] MEDS: guaiFENesin 600 MG TABCR PO SCH ×2 (08:53→21:14)
[2021-02-12] MEDS: dexAMETHasone 6 MG in SYRINGE 0 ML IV SCH (08:53)
[2021-02-12] MEDS: ASPIRIN 81 MG ECTAB PO SCH (08:53)
[2021-02-12] MEDS: BENZONATATE 100 MG CAPSULE PO SCH ×3 (08:55→21:14)
[2021-02-12] MEDS: HEPARIN SODIUM/DEXTROSE 25,000 UNITS/500 ML BAG IV SCH (10:12)
[2021-02-12] MEDS: METOPROLOL SUCC 25MG EXT REL TAB PO SCH (10:22)
[2021-02-12 12:18] LABS: Partial Thromboplastin Ratio 1.6; Partial Thromboplastin Time 41.4 Seconds (21.0-31.0)
[2021-02-12] MEDS: ATORVASTATIN 40 MG TAB PO SCH (12:52)
[2021-02-12] MEDS: REMDESIVIR 100 MG in SODIUM CHLORIDE 0.9% 230 ML IV SCH (12:53)
[2021-02-12] MEDS: WARFARIN SOD 5 MG TAB PO SCH (16:30)
[2021-02-12] MEDS: SODIUM CHLORIDE 0.9% 10ML FLUSH IV SCH (16:32)
--- NOTE | 2021-02-12 17:20 | Hospitalist Progress Note ---
Date of Service February 12, 2021 Assessment & Plan (1) SARS-CoV-2 positive: COVID 19 infection Hypoxia secondary to above CXR:No acute cardiopulmonary findings. No change in appearance of the chest. Presented with fever, cough, diarrhea, poor oral intake Blood Cx: No growth to date Continue remdesivir, dexamethasone Day #2 Monitor inflammatory markers Supplemental oxygen as needed Monitor LFTs, renal function (2) Generalized weakness: secondary to viral illness poor p.o. intake. PT OT (3) Elevated troponin: Acute Kidney Injury on CKD III Baseline Cr Likely mid to high 1s Cr: 2.06>1.59>1.7 Avoid Nephrotoxic agents as able Monitor renal function Appreciate Nephrology Input Chronic systolic CHF H/O Ischemic cardiomyopathy S/P AICD Echo not requested given Covid infection Appreciate Cardiology Input Monitor volume status Continue Lasix Mild elevation of troponin: Chronically elevated In setting of renal insufficiency, CHF Denies anginal symptoms Appreciate Cardiology Input H/O A. fib, DVT: Patient has not been able to take Coumadin for past several days Continue metoprolol Continue Coumadin Monitor INR:2.0 (4) Acute worsening of stage 3 chronic kidney disease: Management as above (5) CAD (coronary artery disease): H/O SE to LAD Continue aspirin, Lipitor, metoprolol (6) Chronic HFrEF (heart failure with reduced ejection fraction): Last echo 11/20/2018 revealed LVEF 30%, large sized apical, anteroseptal, anterior septal, anterior, inferior and lateral wall motion abnormality with hypokinesis to akinesis, moderate mitral regurg Follows Dr. Torres Continue diuretics as per nephrology Appreciate cardiology, nephrology input Monitor I's and O's, daily weight, volume status (7) Permanent atrial fibrillation: Management (8) Pre-diabetes: HbA1c 6.1 (9) Chronic deep vein thrombosis (DVT): Management as above (10) DVT prophylaxis: Coumadin CODE STATUS FULL CODE Admission and Anticipated Discharge Date Admission Date: February 10, 2021 Subjective Patient is seen and examined at bedside States feeling better today Afebrile today Cough, diarrhea improving Appetite improving as well Denies chest pain, shortness of breath, dizziness, abdominal pain Offers no other complaints Review of Systems Review of Systems: All systems reviewed & are unremarkable except as noted in HPI & below Physical Exam Physical Exam: Physical Exam: Vitals signs as noted above General Appearance:Obese, no apparent distress Head: normocephalic, Atraumatic Eyes: normal inspection, EOMI Neck: supple, Trachea midline Respiratory/Chest: Decreased breath sounds, CTA Cardiovascular: Irregularly irregular, no murmur Abdomen/GI:Soft, Non tender, Bowel sounds present Extremities/Musculoskeletal:normal inspection, B/L LE edema, RLE chronic venous stasis changes, + lymphedema Neurologic/Psych:AAOX3, grossly no focal neurological deficits Skin: normal color, warm Results & Data Results & Data ([facility]) Vital Signs (Past 12 Hours) Vital Signs Temp Pulse Resp BP BP Pulse Ox 02/12/21 15:41 36.3 C L 52 L 20 115/83 93 02/12/21 11:19 36.6 C 65 20 128/79 90 02/12/21 07:47 36.3 C L 63 18 112/72 90 Laboratory Results Short CBC 02/12/21 Range/Units 03:55 WBC 1.94 L (4.8-10.8) K/uL Hgb 16.7 (14.0-18.0) g/dL Hct 50.6 (42-52) % Plt Count 125 L (130-400) K/uL BMP 02/12/21 03:55 Sodium 137 Potassium 4.4 Chloride 107 Carbon Dioxide 26 BUN 25 H Creatinine 1.70 H Glucose 137 H Calcium 8.1 L Urine 02/11/21 Range/Units 18:00 Urine Color Yellow Urine Appearance Clear (Clear) Urine pH 5.5 (4.5-7.5) Ur Specific [place] 1.010 (1.000-1.030) Urine Protein Negative (Negative) Urine Glucose (UA) Negative (Negative)
[2021-02-13 06:46] LABS: Hematocrit (blood only) 50.5 % (42-52); Hemoglobin 16.6 g/dL (14.0-18.0); Mean Corpuscular Hemoglobin 30.3 pg (25-34); Mean Corpuscular Hgb Conc 32.9 g/dL (32-36); Mean Corpuscular Volume 92.2 fL (80-100); Mean Platelet Volume 11.7 fL (7.4-10.4); Platelet Count 133 K/uL (130-400); RDW Coefficient of Variation 13.7 % (11.5-14.5); RDW Standard Deviation 46.3 fL (36.4-46.3); Red Blood Count 5.48 M/uL (4.7-6.1); White Blood Count 4.89 K/uL (4.8-10.8)
[2021-02-13 06:52] LABS: INR 2.9 (0.9-1.1); Prothrombin Time 27.2 Seconds (9.0-12.0)
[2021-02-13 07:19] LABS: Calcium 8.3 mg/dl (8.5-10.1); Creatinine Clr Calc Pharmacy 54.4 ml/min; Est GFR (African American) 45.4; Est GFR (Non-African American) 39.1; Potassium 4.5 mmol/L (3.5-5.1)
[2021-02-13] MEDS: dexAMETHasone 6 MG in SYRINGE 0 ML IV SCH (07:43)
[2021-02-13] MEDS: METOPROLOL SUCC 25MG EXT REL TAB PO SCH (07:43)
[2021-02-13] MEDS: guaiFENesin 600 MG TABCR PO SCH ×2 (07:44→19:36)
[2021-02-13] MEDS: FUROSEMIDE 40 MG TAB PO SCH (07:44)
[2021-02-13] MEDS: ASPIRIN 81 MG ECTAB PO SCH (07:45)
[2021-02-13] MEDS: BENZONATATE 100 MG CAPSULE PO SCH ×3 (07:49→19:39)
[2021-02-13] MEDS: REMDESIVIR 100 MG in SODIUM CHLORIDE 0.9% 230 ML IV SCH (11:38)
[2021-02-13] MEDS: SODIUM CHLORIDE 0.9% 10ML FLUSH IV SCH (11:40)
[2021-02-13] MEDS: ATORVASTATIN 40 MG TAB PO SCH (11:43)
[2021-02-13] MEDS ORDERED: WARFARIN SOD 2.5 MG TAB PO SCH (16:00)
[2021-02-13] MEDS ORDERED: FUROSEMIDE 20 MG TAB PO ONE (17:05)
--- NOTE | 2021-02-13 17:07 | Hospitalist Progress Note ---
Date of Service February 13, 2021 Assessment & Plan (1) SARS-CoV-2 positive: COVID 19 infection Hypoxia secondary to above CXR:No acute cardiopulmonary findings. No change in appearance of the chest. Presented with fever, cough, diarrhea, poor oral intake Blood Cx: No growth to date Continue remdesivir, dexamethasone Day #3 Monitor inflammatory markers Supplemental oxygen as needed Monitor LFTs, renal function Plan to get 2 step tomorrow Encouraged to prone (2) Generalized weakness: secondary to viral illness poor p.o. intake. PT OT (3) Elevated troponin: Acute Kidney Injury on CKD III Baseline Cr Likely mid to high 1s Cr: 2.06>1.59>1.7 Avoid Nephrotoxic agents as able Monitor renal function Appreciate Nephrology Input Chronic systolic CHF H/O Ischemic cardiomyopathy S/P AICD Echo not requested given Covid infection Appreciate Cardiology Input Monitor volume status Continue Lasix Will give additional 20 mg Lasix today Mild elevation of troponin: Chronically elevated In setting of renal insufficiency, CHF Denies anginal symptoms Appreciate Cardiology Input H/O A. fib, DVT: Patient has not been able to take Coumadin for past several days Continue metoprolol Monitor INR:2.9 Decrease Coumadin to 2.5 mg today (4) Acute worsening of stage 3 chronic kidney disease: Management as above (5) CAD (coronary artery disease): H/O SE to LAD Continue aspirin, Lipitor, metoprolol (6) Chronic HFrEF (heart failure with reduced ejection fraction): Last echo 11/20/2018 revealed LVEF 30%, large sized apical, anteroseptal, anterior septal, anterior, inferior and lateral wall motion abnormality with hypokinesis to akinesis, moderate mitral regurg Follows Dr. Torres Continue diuretics as per nephrology Appreciate cardiology, nephrology input Monitor I's and O's, daily weight, volume status (7) Permanent atrial fibrillation: Management (8) Pre-diabetes: HbA1c 6.1 (9) Chronic deep vein thrombosis (DVT): Management as above (10) DVT prophylaxis: Coumadin CODE STATUS FULL CODE Admission and Anticipated Discharge Date Admission Date: February 10, 2021 Subjective Patient is seen and examined at bedside No diarrhea today Continues to have poor sleep Has intermittent cough Denies chest pain, shortness of breath, dizziness, abdominal pain Review of Systems Review of Systems: All systems reviewed & are unremarkable except as noted in HPI & below Physical Exam Physical Exam: Physical Exam: Vitals signs as noted above General Appearance:Obese, no apparent distress Head: normocephalic, Atraumatic Eyes: normal inspection, EOMI Neck: supple, Trachea midline Respiratory/Chest: Decreased breath sounds, CTA Cardiovascular: Irregularly irregular, no murmur Abdomen/GI:Soft, Non tender, Bowel sounds present Extremities/Musculoskeletal:normal inspection, B/L LE edema, RLE chronic venous stasis changes, + lymphedema Neurologic/Psych:AAOX3, grossly no focal neurological deficits Skin: normal color, warm Results & Data Results & Data ([facility]) Vital Signs (Past 12 Hours) Vital Signs Temp Pulse Resp BP BP Pulse Ox 02/13/21 16:27 36.4 C L 60 18 122/80 92 02/13/21 11:19 36.5 C 65 16 118/80 92 02/13/21 08:14 36.6 C 63 18 111/87 93 Laboratory Results Short CBC 02/13/21 Range/Units 05:39 WBC 4.89 (4.8-10.8) K/uL Hgb 16.6 (14.0-18.0) g/dL Hct 50.5 (42-52) % Plt Count 133 (130-400) K/uL BMP 02/13/21 05:39 Sodium 141 Potassium 4.5 Chloride 108 H Carbon Dioxide 27 BUN 37 H Creatinine 1.75 H Glucose 129 H Calcium 8.3 L Liver Function 02/13/21 Range/Units 05:39 AST 30 (15-37) U/L ALT 27 (12-78) U/L
[2021-02-14 06:32] LABS: Hematocrit (blood only) 50.6 % (42-52); Hemoglobin 16.5 g/dL (14.0-18.0); Mean Corpuscular Hgb Conc 32.6 g/dL (32-36); Platelet Count 147 K/uL (130-400); RDW Coefficient of Variation 13.6 % (11.5-14.5); RDW Standard Deviation 45.9 fL (36.4-46.3); White Blood Count 6.98 K/uL (4.8-10.8)
[2021-02-14 06:50] LABS: INR 3.1 (0.9-1.1); Prothrombin Time 28.7 Seconds (9.0-12.0)
[2021-02-14 07:00] LABS: Calcium 8.1 mg/dl (8.5-10.1); Creatinine Clr Calc Pharmacy 60.5 ml/min; Est GFR (African American) 51.3; Est GFR (Non-African American) 44.3; Potassium 4.3 mmol/L (3.5-5.1)
[2021-02-14] MEDS: FUROSEMIDE 40 MG TAB PO SCH (07:55)
[2021-02-14] MEDS: ASPIRIN 81 MG ECTAB PO SCH (07:55)
[2021-02-14] MEDS: METOPROLOL SUCC 25MG EXT REL TAB PO SCH (07:56)
[2021-02-14] MEDS: guaiFENesin 600 MG TABCR PO SCH (07:56)
[2021-02-14] MEDS: BENZONATATE 100 MG CAPSULE PO SCH ×2 (07:59→13:37)
[2021-02-14] MEDS: dexAMETHasone 6 MG in SYRINGE 0 ML IV SCH (08:02)
[2021-02-14] MEDS: ATORVASTATIN 40 MG TAB PO SCH (11:14)
[2021-02-14] MEDS: REMDESIVIR 100 MG in SODIUM CHLORIDE 0.9% 230 ML IV SCH (11:14)
[2021-02-14] MEDS: SODIUM CHLORIDE 0.9% 10ML FLUSH IV SCH (12:16)
--- NOTE | 2021-02-14 12:36 | Hospitalist Progress Note ---
Date of Service February 14, 2021 Assessment & Plan (1) SARS-CoV-2 positive: COVID 19 infection Hypoxia secondary to above CXR:No acute cardiopulmonary findings. No change in appearance of the chest. Presented with fever, cough, diarrhea, poor oral intake Blood Cx: No growth to date Continue remdesivir, dexamethasone Day #4 Monitor inflammatory markers Supplemental oxygen as needed Monitor LFTs, renal function 2 step: Did not qualify for oxygen (2) Generalized weakness: secondary to viral illness poor p.o. intake. PT OT (3) Elevated troponin: Acute Kidney Injury on CKD III Baseline Cr Likely mid to high 1s Cr: 2.06>1.59>1.7> 1.5 Avoid Nephrotoxic agents as able Monitor renal function Appreciate Nephrology Input Chronic systolic CHF H/O Ischemic cardiomyopathy S/P AICD Echo not requested given Covid infection Appreciate Cardiology Input Monitor volume status Continue Lasix Mild elevation of troponin: Chronically elevated In setting of renal insufficiency, CHF Denies anginal symptoms Appreciate Cardiology Input H/O A. fib, DVT: Patient has not been able to take Coumadin for past several days Continue metoprolol Monitor INR: 3.1 Adjust Coumadin dosing as needed Advised to follow-up with Coumadin clinic upon discharge (4) Acute worsening of stage 3 chronic kidney disease: Management as above (5) CAD (coronary artery disease): H/O SE to LAD Continue aspirin, Lipitor, metoprolol (6) Chronic HFrEF (heart failure with reduced ejection fraction): Last echo 11/20/2018 revealed LVEF 30%, large sized apical, anteroseptal, anterior septal, anterior, inferior and lateral wall motion abnormality with hypokinesis to akinesis, moderate mitral regurg Follows Dr. Torres Continue diuretics as per nephrology Appreciate cardiology, nephrology input Monitor I's and O's, daily weight, volume status (7) Permanent atrial fibrillation: Management (8) Pre-diabetes: HbA1c 6.1 (9) Chronic deep vein thrombosis (DVT): Management as above (10) DVT prophylaxis: Coumadin CODE STATUS FULL CODE Admission and Anticipated Discharge Date Admission Date: February 10, 2021 Subjective Patient is seen and examined at bedside States feeling well No new complaints Saturating well on room air Had 2 step earlier today: Did not qualify for supplemental oxygen Cough continues to improve Denies chest pain, shortness of breath, dizziness, abdominal pain Review of Systems Review of Systems: All systems reviewed & are unremarkable except as noted in HPI & below Physical Exam Physical Exam: Physical Exam: Vitals signs as noted above General Appearance:Obese, no apparent distress Head: normocephalic, Atraumatic Eyes: normal inspection, EOMI Neck: supple, Trachea midline Respiratory/Chest: Decreased breath sounds, CTA Cardiovascular: Irregularly irregular, no murmur Abdomen/GI:Soft, Non tender, Bowel sounds present Extremities/Musculoskeletal:normal inspection, B/L LE edema, RLE chronic venous stasis changes, + lymphedema Neurologic/Psych:AAOX3, grossly no focal neurological deficits Skin: normal color, warm Results & Data Results & Data ([facility]) Vital Signs (Past 12 Hours) Vital Signs Temp Pulse Pulse Pulse Pulse Pulse Resp 02/14/21 11:38 36.5 C 64 20 02/14/21 08:11 111 H 109 H 87 02/14/21 08:00 60 02/14/21 07:16 36.7 C 53 L 20 02/14/21 03:59 36.9 C 62 18 Resp Resp Resp BP BP Pulse Ox Pulse Ox 02/14/21 11:38 106/67 94 02/14/21 08:11 26 H 24 20 89 L 02/14/21 08:00 02/14/21 07:16 107/71 93 02/14/21 03:59 126/82 90 Pulse Ox Pulse Ox 02/14/21 11:38 02/14/21 08:11 90 93 02/14/21 08:00 02/14/21 07:16 02/14/21 03:59 Laboratory Results Short CBC 02/14/21 Range/Units 05:49 WBC 6.98 (4.8-10.8) K/uL Hgb 16.5 (14.0-18.0) g/dL Hct 50.6 (42-52) % Plt Count 147 (130-400) K/uL BMP 02/14/21 05:49 Sodium 140 Potassium 4.3 Chloride 109 H Carbon Dioxide 26 BUN 40 H Creatinine 1.58 H Glucose 125 H Calcium 8.1 L Liver Function 02/14/21 Range/Units 05:49 AST 30 (15-37) U/L ALT 32 (12-78) U/L
--- NOTE | 2021-02-14 14:26 | Discharge Summary ---
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 Patient complains of upper respiratory-like symptoms that began on January 31 with a cough and sinus congestion. Cough is productive of purulent sputum and sinus congestion with white drainage. He further complains of chest discomfort when he coughs. He denies any chest pain at rest, SOB, VALENTINE or orthopnea. He complaints of getting weak over the past several days. His son at home has similar symptoms. He has not yet had a Covid testing. Overall poor appetite and poor liquid intake. He states he has been eating popsicles, drinking water and grapefruit juice, but much less than usual. He denies any loss of taste or smell. He further denies any lightheadedness, dizziness, syncope, palpitations, nausea, vomiting, diarrhea and abdominal pain. He admits to not taking his coumadin for ~ 7 days stating he was out of it. He admits to taking his metoprolol and lasix this morning but missed those for a few days as well. In ED patient remained hemodynamically stable. Lab work notable for mild leukopenia 4.5k, elevated BUN and creatinine at 22 and 2.06, troponin 0.140. Urinalysis was negative for infection. Chest x-ray revealed cardiomegaly but no acute process. COVID screen was +. Admission Exam Per Admitting Provider Physical Exam Physical Exam: Physical exam: General: Ill-appearing, no apparent distress, alert awake winded x3 HEENT: PERRLA, EOMI, Heart: Irregular no carotid bruit, no JVD, no lower extremity edema Lungs: Diminished breath sound, no wheeze or rales Abdomen: Soft nontender, no organomegaly Extremity: No cyanosis, no deformity, generalized weakness er Neuro: No focal neurological deficit normal speech, normal visual field, Psych: Alert awake oriented x3, normal affect Principal Diagnosis COVID 19 infection Hypoxia Acute Kidney Injury Chronic systolic CHF Discharge Data Allergies Allergy/AdvReac Type Severity Reaction Status Date / Time No Known Allergies Allergy Unverified 02/09/21 13:35 Consultations 02/09/21 13:18 Consult Cardiology Routine 02/09/21 13:55 ED Decision to Admit Stat 02/09/21 14:43 Consult Nephrology Routine Procedures Performed CXR:No acute cardiopulmonary findings. No change in appearance of the chest. Hospital Course (1) SARS-CoV-2 positive: COVID 19 infection Hypoxia secondary to above CXR:No acute cardiopulmonary findings. No change in appearance of the chest. Presented with fever, cough, diarrhea, poor oral intake Blood Cx: No growth to date Continue remdesivir, dexamethasone Day #4 Monitor inflammatory markers Supplemental oxygen as needed Monitor LFTs, renal function 2 step: Did not qualify for oxygen (2) Generalized weakness: secondary to viral illness poor p.o. intake. PT OT (3) Elevated troponin: Acute Kidney Injury on CKD III Baseline Cr Likely mid to high 1s Cr: 2.06>1.59>1.7> 1.5 Avoid Nephrotoxic agents as able Monitor renal function Appreciate Nephrology Input Chronic systolic CHF H/O Ischemic cardiomyopathy S/P AICD Echo not requested given Covid infection Appreciate Cardiology Input Monitor volume status Continue Lasix Mild elevation of troponin: Chronically elevated In setting of renal insufficiency, CHF Denies anginal symptoms Appreciate Cardiology Input H/O A. fib, DVT: Patient has not been able to take Coumadin for past several days Continue metoprolol Monitor INR: 3.1 Adjust Coumadin dosing as needed Advised to follow-up with Coumadin clinic upon discharge (4) Acute worsening of stage 3 chronic kidney disease: Management as above (5) CAD (coronary artery disease): H/O SE to LAD Continue aspirin, Lipitor, metoprolol (6) Chronic HFrEF (heart failure with reduced ejection fraction): Last echo 11/20/2018 revealed LVEF 30%, large sized apical, anteroseptal, anterior septal, anterior, inferior and lateral wall motion abnormality with hypokinesis to akinesis, moderate mitral regurg Follows Dr. Torres Continue diuretics as per nephrology Appreciate cardiology, nephrology input Monitor I's and O's, daily weight, volume status (7) Permanent atrial fibrillation: Management (8) Pre-diabetes: HbA1c 6.1 (9) Chronic deep vein thrombosis (DVT): Management as above (10) DVT prophylaxis: Coumadin CODE STATUS FULL CODE Total Time Total Time Spent Total Time Spent (In Minutes): 43 minutes Total Time Includes: Examination of the Patient, Discharge Planning, Medication Reconciliation, Communication With Other Providers and Other Discharge Plan Discharge Items Patient Disposition: Home - Self-Care Reason For Visit: WEAKNESS, ELEVATED TROPONIN Discharge Diagnosis: COVID 19 infection Hypoxia Acute Kidney Injury Chronic systolic CHF Activity: Per Instructions section Exercise/Sports: Wait until after follow-up appointment Non-emergency contact: Primary Care Provider Call non-emergency contact if: you have any medication questions, your symptoms worsen, your pain is concerning for you and you have a fever Follow-up/Referrals: Rosalie Rosales DO [Primary Care Provider] - 02/19/21 1:00 pm (Date & Time 02/19/2021 1:00 PM Provider Rosalie Rosales DO [facility] PLEASE NOTE THAT THIS IS A TELEPHONE APPOINTMENT. YOUR PROVIDER WILL CALL YOU AT THE APPOINTMENT TIME. IF YOU HAVE ANY QUESTIONS REGARDING THIS APPOINTMENT, PLEASE CALL ) Diet: Heart Healthy and Low Sodium (2gm) Addtl Attending Provider Instructions: Follow-up with your primary care physician Dr. Rosales on 02/19/2021 1:00 PM Follow-up with your dredge captain in 4 weeks Follow-up with Coumadin clinic on 02/16/21 for further adjustment of your Coumadin dosing. Take Coumadin 2.5 mg today (02/14/21) and Tomorrow (02/15/21). Follow-up with Coumadin clinic for further dosing as advised. Your PT/INR is 3.1 today (02/14/21). Target PT/INR is between 2.0-3.0. Seek immediate medical attention if your symptoms reoccur or worsen Please take all medications as instructed on discharge list below. Please call if you have any questions or problems. You can reach a [facility] hospitalist on duty at [facility] 24 hours a day by calling [phone] Coronavirus disease 2019 (COVID-19) is a virus that causes a respiratory illness. It is caused by a coronavirus called 2019 novel coronavirus (2019- nCoV). There are many types of coronavirus. Coronaviruses are a very common cause of bronchitis. They may sometimes cause lung infection(pneumonia). Symptoms can range from mild to severe respiratory illness. These viruses are also foundin some animals. COVID-19 was first found in people in [facility], in late 2019. In 2020, several cases of COVID-19 have been confirmed in the [place] Public health officials are working to find the source. How the virus spreads is not yet fully known. It may be spread through droplets of fluid that a person coughs or sneezes into the air. It may be spread if you touch a surface with virus on it, such as a handle or object, and then touch your mouth. What are the symptoms of COVID-19? Some people have no symptoms or mild symptoms. Symptoms may appear 2 to 14 days after contact with the virus. Symptoms can include: Fever Coughing Trouble breathing What are possible complications from COVID-19? In many cases, this virus can cause infection (pneumonia) in both lungs. In some cases, this can cause . How is COVID-19 diagnosed? Your healthcare provider will ask about your symptoms. He or she will also ask about your recent travel and contact with sick people. Testing for the virus is only done through the CDC. If yourhealthcare provider thinks you may have COVID- 19, he or she will work with your local health department and the CDC on testing. Follow all instructions from your healthcare provider. COVID-19 is diagnosed by: Nasal and throat swab. A cotton-tipped swab is wiped inside your nose or throat. This is done to check for viruses in your nasal mucus. Sputum culture. A small sample of mucus coughed from your lungs (sputum) is collected if you have a cough. It is checked for the virus. How is COVID-19 treated? There is currently no medicine to treat the virus. Treatment is done to help your body while it fights the virus. This is known as supportive care. Supportive care may include: Pain medicine. These include acetaminophen and ibuprofen. They are used to help ease pain and reduce fever. Bed rest. This helps your body fight the illness. For severe illness, you may need to stay in the hospital. Care during severe illness may include: IV (intravenous) fluids.These are given through a vein to help keep your body hydrated. Oxygen. Supplemental oxygen or ventilation with a breathing machine (ventilator) may be given. This is done to keep enough oxygen in your body. Are you at risk for COVID-19? If youve been to a place where people have been sick with this virus, you are at risk for infection. You are at risk if you: Recently traveled to an affected area Had contact with a sick person who recently traveled to this area Had contact with a person who was diagnosed with COVID-19 How can COVID-19 be prevented? There is no vaccine yet. The best prevention is to not have contact with the virus. The CDC advises that people should not travel to areas where there are COVID-19 outbreaks right now for any reason that is not urgent. To help prevent spreading the infection, wash your hands often, or use an alcohol-basedhand convention services director. If you are in an area with COVID-19: Wash your hands often. Or use an alcohol-based hand convention services director often. Only touch your eyes, nose, or mouth with clean hands. Dont have contact with people who are sick. Follow local instructions about being in public. For example, you may be told to not use public transport for a period of time. Stay away from markets that have live or animals. Wash your hands after touching any animals. Don't touch animals that may be sick. Dont share eating or drinking tools with sick people. Dont kiss someone who is sick. Clean surfaces often with disinfectant. If you were in an area with COVID-19 in the last 14 days: Call your healthcare provider. He or she can talk with local health staff to see what action may be needed. Follow all instructions from your provider. Take your temperature every morning and evening for at least 14 days. This is to check for fever. Keep a record of the readings. Keep watch for symptoms of the virus. Tell your provider right away if you have symptoms. If you were in an area with COVID-19 and have a fever or other symptoms: Dont panic. Keep in mind that other illnesses can cause similar symptoms. Stay away from work, school, and public places. Limit physical contact with family members. Don't kiss anyone or share eating or drinking utensils. Clean surfaces you touch with disinfectant. This is to help prevent the virus from spreading. Call your healthcare provider. Explain that you have been exposed to COVID-19 and have symptoms. Do this before going to any hospital. Wait for instructions. Keep in mind that healthcare staff may wear protective equipment such as masks, gowns, gloves, and eye protection. You may be put in a separate room. This is to prevent the possible virus from spreading. Tell the healthcare staff about recent travel. This includes local travel on public transport. Staff may need to find other people you have been in contact with. Follow all instructions the healthcare staff give you. If you have been diagnosed with COVID-19 Follow all instructions from your healthcare provider. Dont leave your home, except to get medical care. Call your healthcare providers office before going. They can prepare and give you instructions. This will help prevent the virus from spreading. Dont go to work, school, or public areas. Dont use public transport or taxis. Stay away from other people in your home. Have them wear face masks around you. Dont share household items or food. Wear a face mask if you can. This includes at home or in a medical facility. Cover your face with a tissue when you cough or sneeze. Throw the tissue away. Wash your hands. Wash your hands often. Caregivers should: Follow all instructions from healthcare staff. Wear a face mask and protective clothing as advised. Wash hands often. Keep track of the sick persons symptoms. Clean surfaces, fabrics, and laundry thoroughly. Keep other people away from the sick person. When to call your healthcare provider Call your healthcare provider: If youve recently traveled and have symptoms If you have been diagnosed with COVID-19 and your symptoms are worse To learn more To find out more about COVID-19, visit the CDC website at www.cdc.gov/portillo virus/2019-ncov/index.html. [employer]. [address] [place] [address]. All rights reserved. This information is not intended as a substitute for professional medical care. Always follow your healthcare professional's instructions. This information has been adapted from [employer] Home Isolation COVID-19 Instructions The following information about Home Isolation is from the CDC Website: https://www.cdc.gov/coronavirus/2019-ncov/hcp/aktuwjrs-ozlwspo-wnrxrg.html Stay home except to get medical care People who are mildly ill with COVID-19 are able to isolate at home during their illness. You should restrict activities outside your home, except for getting medical care. Do not go to work, school, or public areas. Avoid using public transportation, ride-sharing, or taxis. Separate yourself from other people and animals in your home People: As much as possible, you should stay in a specific room and away from other people in your home. Also, you should use a separate bathroom, if available. Animals: You should restrict contact with pets and other animals while you are sick with COVID-19, just like you would around other people. Although there have not been reports of pets or other animals becoming sick with COVID-19, it is still recommended that people sick with COVID-19 limit contact with animals until more information is known about the virus. When possible, have another member of your household care for your animals while you are sick. If you are sick with COVID-19, avoid contact with your pet, including petting, snuggling, being kissed or licked, and sharing food. If you must care for your pet or be around animals while you are sick, wash your hands before and after you interact with pets and wear a face mask. Call ahead before visiting your doctor If you have a medical appointment, call the healthcare provider and tell them that you have or may have COVID-19. This will help the healthcare providers office take steps to keep other people from getting infected or exposed. Wear a face mask You should wear a face mask when you are around other people (e.g., sharing a room or vehicle) or pets and before you enter a healthcare providers office. If you are not able to wear a face mask (for example, because it causes trouble breathing), then people who live with you should not stay in the same room with you, or they should wear a face mask if they enter your room. Cover your coughs and sneezes Cover your mouth and nose with a tissue when you cough or sneeze. Throw used tissues in a lined trash can. Immediately wash your hands with soap and water for at least 20 seconds or, if soap and water are not available, clean your hands with an alcohol-based hand convention services director that contains at least 60% alcohol. Clean your hands often Wash your hands often with soap and water for at least 20 seconds, especially after blowing your nose, coughing, or sneezing; going to the bathroom; and before eating or preparing food. If soap and water are not readily available, use an alcohol-based hand convention services director with at least 60% alcohol, covering all surfaces of your hands and rubbing them together until they feel dry. Soap and water are the best option if hands are visibly dirty. Avoid touching your eyes, nose, and mouth with unwashed hands. Avoid sharing personal household items You should not share dishes, drinking glasses, cups, eating utensils, towels, or bedding with other people or pets in your home. After using these items, they should be washed thoroughly with soap and water. Clean all high-touch surfaces everyday High touch surfaces include counters, tabletops, doorknobs, bathroom fixtures, toilets, phones, keyboards, tablets, and bedside tables. Also, clean any surfaces that may have blood, stool, or body fluids on them. Use a household cleaning spray or wipe, according to the label instructions. Labels contain ins tructions for safe and effective use of the cleaning product including precautions you should take when applying the product, such as wearing gloves and making sure you have good ventilation during use of the product. Monitor your symptoms Seek prompt medical attention if your illness is worsening (e.g., difficulty breathing).Beforeseeking care, call your healthcare provider and tell them that you have, or are being evaluated for, COVID-19. Put on a face mask before you enter the facility. These steps will help the healthcare providers office to keep other people in the office or waiting room from getting infected or exposed. Ask your healthcare provider to call the local or state health department. Persons who are placed under active monitoring or facilitated self- monitoring should follow instructions provided by their local health department or occupational health professionals, as appropriate. When working with your local health department check their available hours. If you have a medical emergency and need to call 911, notify the dispatch personnel that you have, or are being evaluated for COVID-19. If possible, put on a face mask before emergency medical services arrive. Discontinuing home isolation Patients with confirmed COVID-19 should remain under home isolation precautions until the risk of secondary transmission to others is thought to be low. The decision to discontinue home isolation precautions should be made on a [id number] basis, in consultation with healthcare providers and state and local health departments. Pending Studies at Discharge: No Stand-Alone Forms: My [facility], Smoking Cessation Medications and DC Order Prescriptions: Continued furosemide 40 mg tablet 40 mg PO QAM RF: 0 atorvastatin 80 mg tablet 80 mg PO QDL RF: 0 aspirin 81 mg Tablet,Delayed Release (Dr/Ec) 81 mg PO QAM RF: 0 warfarin 5 mg tablet 10 mg PO MOWEFR RF: 0 metoprolol succinate 25 mg tablet extended release 24 hr 25 mg PO QAM RF: 0 warfarin 5 mg Tablet 5 mg PO SUTUTHSA RF: 0 Discharge Orders: Discharge Order (Routine); Ordered 02/14/21 Ordered By: Van Delgado/Other Patient Handouts: Prediabetes, 5 Steps for Eating Healthier, A1C Admission Data Admit Date/Time: 02/10/21 16:21 Attending Provider: Van Dietz Admit Provider: Ekta Ortiz Primary Care Provider: Rosalie Rosales Other Providers: John Paul Torres ; Ekta Ortiz ; Dedra Salazar Other Interventions: Discharge Summary Assessment (RN) Last Done: 02/14/21 13:50
== END 2021-02-14 15:13 | disposition home or self-care (01) | DRG 178 ==
LOC: ED 10:47 → 2E 10:47 → SUATTDRO 02-10 16:21

== ENCOUNTER 2021-06-22 11:00 | Observation (INO) ==
[2021-06-22 11:46] LABS: Basophils # (auto) 0.02 K/uL (0-0.2); Basophils % (auto) 0.3 %; Eosinophils # (auto) 0.09 K/uL (0-0.5); Eosinophils % (auto) 1.5 %; Hemoglobin 14.6 g/dL (14.0-18.0); Immature Granulocytes # (auto) 0.01 K/uL (0.00-0.02); Immature Granulocytes % (auto) 0.2 %; Lymphocytes # (auto) 0.73 K/uL (1.2-3.4); Lymphocytes % (auto) 12.3 %; Mean Corpuscular Hemoglobin 31.2 pg (25-34); Mean Corpuscular Hgb Conc 31.7 g/dL (32-36); Mean Corpuscular Volume 98.3 fL (80-100); Mean Platelet Volume 10.5 fL (7.4-10.4); Monocytes # (auto) 0.65 K/uL (0.11-0.59); Monocytes % (auto) 10.9 %; Neutrophils # (auto) 4.44 K/uL (1.4-6.5); Neutrophils % (auto) 74.8 %; Platelet Count 162 K/uL (130-400); RDW Standard Deviation 49.7 fL (36.4-46.3); Red Blood Count 4.68 M/uL (4.7-6.1); White Blood Count 5.94 K/uL (4.8-10.8)
[2021-06-22 12:09] LABS: Partial Thromboplastin Ratio 2.2; Prothrombin Time 61.8 Seconds (9.0-12.0)
[2021-06-22 12:18] LABS: INR 7.1 (0.9-1.1); Partial Thromboplastin Time 58.7 Seconds (21.0-31.0)
[2021-06-22 12:29] LABS: BUN Creatinine Ratio 13.3 (10-20); Calcium 9.3 mg/dl (8.5-10.1); Creatinine Clr Calc Pharmacy 65.6 ml/min; Est GFR (African American) 56.1 ml/min; Est GFR (Non-African American) 48.4 ml/min; Troponin I 0.185 ng/ml (0-0.045)
[2021-06-22] MEDS ORDERED: FUROSEMIDE 40 MG/4 ML VIAL IV STA (12:32)
--- NOTE | 2021-06-22 12:34 | XRay Report ---
XR chest 2V PA/lateral CLINICAL HISTORY: Shortness of breath. COMPARISON STUDY: Chest radiograph February 11, 2021. FINDINGS: A left subclavian Pacer/AICD is unchanged in position. Cardiomegaly is unchanged. There is no evidence for pulmonary edema. No consolidation is identified. There is slight blunting of the post erior costophrenic angles. Old right seventh rib fracture is incidentally noted. IMPRESSION: No acute cardiopulmonary findings. Cardiomegaly. ACT 112: Negative or not required by law. Electronically signed by: Ramin Conley M.D. 06/22/2021 12:33 PM
[2021-06-22 13:02] LABS: iSTAT Creatinine 1.3 mg/dl (0.6-1.3); iSTAT Hemoglobin 15.3 g/dl (14.0-18.0); iSTAT Ionized Calcium 1.2 mmol/l (1.12-1.32); iSTAT Potassium 4.3 mmol/L (3.3-5.0)
--- NOTE | 2021-06-22 14:15 | History & Physical Report ---
Date of Service June 22, 2021 Assessment & Plan (1) Acute on chronic HFrEF (heart failure with reduced ejection fraction): (2) Ischemic cardiomyopathy: (3) AICD (automatic cardioverter/defibrillator) present: Plan: -admit to tele -patient presenting from home with reports of worsening exertional shortness of breath, lower extremity edema, and weight gain -hx of ischemic cardiomyopathy EF 30-34%, s/p AICD -in the ED, trop 0.185, proBNP 2600 -acute CHF likely due to recent dietary indiscretions -s/p Lasix 40mg IV in the ED, continue with Lasix 40mg IV BID -update echo -daily weights, low Na+ diet, I/Os -cardio consult, input appreciated (4) Elevated troponin: Plan: -trop 0.185 -no reports of chest pain, EKG without acute ST changes -likely due to demand ischemic from acute CHF -continue to trend trop (5) Permanent atrial fibrillation: Plan: -rate controlled on metoprolol, continue -on Coumadin, INR 7.1 - so signs of bleeding, hold Coumadin, check INR daily (6) Chronic deep vein thrombosis (DVT): Plan: -Coumadin as above (7) CKD (chronic kidney disease) stage 3, GFR 30-59 ml/min: Plan: -baseline creat ~ 1.5 -creat 1.4 today -monitor renal functions (8) Pre-diabetes: Plan: -hgb a1c 6.7 02/2021 -update a1c -monitor BSGs (9) DVT prophylaxis: Plan: -on Coumadin with supra therapuetic INR History of Present Illness Chief Complaint: Shortness of Breath, Lower Extremity Swelling Primary Care Provider: Rosalie Rosales, 71 year old male with PMH CAD s/p STEMI and SE to LAD in 2018, ishcemic cardiomyopathy EF 30-34% s/p AICD, CKD stage III, testicular cancer s/p chemo, DVT on Coumadin, permanent afib on Coumadin, CKD stage III, RLE lymphedema, and other problems listed below who presents to the ED for evaluation of shortness of breath and lower extremity edema. Patient was hospitalized in February for COVID 19. He believes that over the past few weeks he has gained at least 20lb. He recently went on vacation to the beach and admits to dietary indiscretions with faroese fries and beer. He reports progressive worsenig lower extremity edema and exertional shortness of breath. He states his legs are swollen up to his hips and he feels abdominal bloating. He denies chest pain. No lightheadedness, dizziness, diaphporesis, or syncopal event. Denies fever and chills. No urinary symptoms. In the ED, labs show trop 0.185, proBNP 2600. INR 7.1. Otherwise unremarkable/at patient's baseline. Patient was given IV Lasix 40mg. Allergies Allergy/AdvReac Type Severity Reaction Status Date / Time No Known Allergies Allergy Verified 06/22/21 13:06 Home Medications Medication Instructions Recorded Confirmed Type aspirin 81 mg tablet,delayed 81 mg PO QAM 02/09/21 06/22/21 History release atorvastatin 80 mg tablet 80 mg PO QDL 02/09/21 06/22/21 History furosemide 40 mg tablet 40 mg PO QAM 02/09/21 06/22/21 History metoprolol succinate 25 mg 25 mg PO QAM 02/09/21 06/22/21 History tablet,extended release 24 hr warfarin 5 mg tablet 5 mg PO SUTUTH 02/09/21 06/22/21 History warfarin 5 mg tablet 10 mg PO MOWEFRSA 02/09/21 06/22/21 History multivitamin 1 tab PO DAILY 06/22/21 06/22/21 History prednisolone acetate 1 % eye 1 drp OPHTHALMIC (EYE) TID 06/22/21 06/22/21 History drops,suspension triamcinolone acetonide 0.1 % 1 applic TOPICAL BID PRN 06/22/21 06/22/21 History topical cream Past Med/Surg History Medical History CAD (coronary artery disease) 2018 - STEMI, s/p SE to LAD Chronic deep vein thrombosis (DVT) of right lower extremity Chronic HFrEF (heart failure with reduced ejection fraction) CKD (chronic kidney disease) stage 3, GFR 30-59 ml/min 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 Elliott with 1 stent placed History of colonoscopy with polypectomy adenomatous polyp, diverticulosis - Oct 2015 History of heart artery stent (~10/2018) @ [facility] History of orchiectomy R 2009 History of umbilical hernia repair History of vitrectomy (~04/20/21) right Mass of kidney of unknown nature s/p 2010 excision, lupe- renal by report Family History Father Pulmonary embolism Sister Thyroid cancer Social History Smoking Status: Never smoker Second Hand Exposure: No; Hx Alcohol Use: Yes Alcohol type: beer Hx Substance Use: No Preferred Language: Swedish Communication Ability: Effective Cloth Spreader Required: No Beliefs That Will Affect Care: None marital status: Current Living Situation: Alone current occupational status: employed Feels Safe at Home: Yes Assistive Devices: Denture - Upper Review of Systems Review of Systems: ROS per HPI, all other systems reviewed and negative Physical Exam Constitutional: WD/WN, vitals as above + obese; no acute distress Eyes: PERRL, conjunctivae normal, anicteric sclerae ENMT: external ear and nose normal, oropharynx normal Respiratory: normal respiratory effort; no respiratory distress Auscultation: + diminished lung sounds Cardiovascular: Rate/Rhythm: regular rate and + irregularly irregular Vessels: normal peripheral pulses Extremities: + edema (+2-3 edema BLLE, R > L ) Gastrointestinal (Abdomen): normal bowel sounds, soft, nontender, no hepatosplenomegaly Musculoskeletal: no cyanosis or clubbing, extremities motor strength 5/5 Skin: no rashes, warm and dry Neurologic: PERRL, EOMI, accommodation nl, no face palsy, no dysarthria Psychiatric: A+Ox3, euthymic affect Results & Data Results & Data ([facility]) Vital Signs (Past 12 Hours) Vital Signs Temp Pulse Pulse Resp BP BP Pulse Ox 06/22/21 13:30 60 18 121/83 96 06/22/21 13:00 77 16 132/89 96 06/22/21 12:30 61 18 121/76 97 06/22/21 12:01 62 16 134/86 95 06/22/21 11:57 66 16 139/92 93 06/22/21 11:03 36.4 C L 101 H 18 155/100 H 98 Laboratory Results Short CBC 06/22/21 Range/Units 11:32 WBC 5.94 (4.8-10.8) K/uL Hgb 14.6 (14.0-18.0) g/dL Hct 46.0 (42-52) % Plt Count 162 (130-400) K/uL BMP 06/22/21 11:32 Sodium 140 Potassium Chloride 106 Carbon Dioxide 30 BUN 19 H Creatinine 1.46 H Glucose 132 H Calcium 9.3 Cardiac Enzymes 06/22/21 Range/Units 11:32 Troponin I 0.185 H* (0-0.045) ng/ml Diagnostic Findings Chest X-Ray 06/22/21 11:18 XR chest 2V PA/lateral CLINICAL HISTORY: Shortness of breath. COMPARISON STUDY: Chest radiograph February 11, 2021. FINDINGS: A left subclavian Pacer/AICD is unchanged in position. Cardiomegaly is unchanged. There is no evidence for pulmonary edema. No consolidation is identified. There is slight blunting of the posterior costophrenic angles. Old right seventh rib fracture is incidentally noted. IMPRESSION: No acute cardiopulmonary findings. Cardiomegaly. ACT 112: Negative or not required by law. Electronically signed by: Ramin Conley M.D. 06/22/2021 12:33 PM Code Status & VTE Plan VTE Prophylaxis Plan VTE Prophylaxis will be ordered: No Supervising Physician Co-Signing Physician Notes 71 year old male with PMH CAD s/p STEMI and SE to LAD in 2018, ishcemic cardiomyopathy EF 30-34% s/p AICD, CKD stage III, testicular cancer s/p chemo, DVT on Coumadin, permanent afib on Coumadin, CKD stage III, RLE lymphedema came in 06/22 to our ED with complaint of increasing swelling BLE and difficulty ambulation. Per patient he has been having swelling BLE since almost 1 month, and was advised to take double dose of Lasix by his cardiology clinic which he did for 3 days and then went on to vacation for 6 days where he took only regular dose of his Lasix. Yesterday when he was traveling back, he did not take Lasix to avoid stopping driving. He will be managed for acute exacerbation of chronic heart failure. Put him on IV Lasix. Upon examination: GENERAL: Alert and oriented x3. NAD, on RA. Morbidly obese. HEENT: No pallor, no icterus. Pupils equal, round and reactive to light. Oral mucosa moist. NECK: No JVD, no neck masses. HEART: S1 and S2 heard. Regular rate and rhythm. No murmur, no gallop. RESPIRATORY SYSTEM: Normal AP diameter. No accessory muscle use. No wheezing, bibasilar crackles ABDOMEN: Soft, bowel sounds present, nontender, no distention. CENTRAL NERVOUS SYSTEM: Alert and oriented x3. No facial droop. Speech is clear. Obeys simple commands. Moves extremities. EXTREMITIES: RLE lymphedema present, LLE 2+ edema present, no erythema seen. I have seen and examined the patient and have discussed the case with the provider above. I agree with the assessment and plan as stated. .
--- NOTE | 2021-06-22 16:04 | Electrocardiogram Report ---
Test Reason : Blood Pressure : / mmHG Vent. Rate : 072 BPM Atrial Rate : 067 BPM P-R Int : 000 ms QRS Dur : 084 ms QT Int : 418 ms P-R-T Axes : 000 -74 037 degrees QTc Int : 457 ms Atrial fibrillation with premature ventricular or aberrantly conducted complexes Left axis deviation Inferior infarct (cited on or before 11-OCT-2018) Anterolateral infarct (cited on or before 11-OCT-2018) Abnormal ECG When compared with ECG of 11-FEB-2021 05:28, No significant change was found Confirmed by Ambrocio Aleman ([id number]) on 06/22/2021 4:04:27 PM Referred By: REFERRED SELF Confirmed By:Ambrocio Aleman
--- NOTE | 2021-06-22 16:55 | Emergency Department Note ---
History of Present Illness General Chief Complaint: Swelling/Edema to Extremity Stated Complaint: SWOLLEN LEGS, EXCESSIVE FLUID, SOB Time Seen by Provider: 06/22/21 11:17 History of Present Illness Provider Complaint: shortness of breath Onset (ago): week(s) (2) Severity: moderate Consistency/Duration: + constant and + progressively worsening Relieved By: + upright position Exacerbated By: + lying flat and + exertion; not by new medication, not by movement, not by coughing, not by inspiration, not by talking, not by allergies, not by warm air or not by humidity Context: no recent illness, no choking/aspiration, no medication noncompliance, no smoke/fume exposure or no elevated blood glucose Known history of: congestive heart failure Associated symptoms: + orthopnea; no chest pain, no pain with inspiration, no fever, no cough, no wheezing, no sputum production, no lower extremity pain, no polyuria, no polydipsia, no paresthesias, no palpitations, no hemoptysis, no diaphoresis, no nausea/vomiting, no syncope, no abdominal pain, no rash, no sense of impending doom, no chest congestion or no dizziness HPI Narrative: Patient reports he is on Coumadin for blood clot in his lung and has been taking his medications as prescribed. Patient reports he spoke with his rodding anode worker at [facility] who told him to increase his Lasix from 40 mg to 80 mg and has been doing that for the last 3 days with is not been helping. Patient reports he has not been following a good diet eating lots of Upper Sor[place] fries and drinking lots of beer while he was on vacation at the beach. Home Medications Medication Instructions Recorded Confirmed Type aspirin 81 mg tablet,delayed 81 mg PO QAM 02/09/21 06/22/21 History release atorvastatin 80 mg tablet 80 mg PO QDL 02/09/21 06/22/21 History furosemide 40 mg tablet 40 mg PO QAM 02/09/21 06/22/21 History metoprolol succinate 25 mg 25 mg PO QAM 02/09/21 06/22/21 History tablet,extended release 24 hr warfarin 5 mg tablet 5 mg PO SUTUTH 02/09/21 06/22/21 History warfarin 5 mg tablet 10 mg PO MOWEFRSA 02/09/21 06/22/21 History multivitamin 1 tab PO DAILY 06/22/21 06/22/21 History prednisolone acetate 1 % eye 1 drp OPHTHALMIC (EYE) TID 06/22/21 06/22/21 History drops,suspension triamcinolone acetonide 0.1 % 1 applic TOPICAL BID PRN 06/22/21 06/22/21 History topical cream Allergies Allergy/AdvReac Type Severity Reaction Status Date / Time No Known Allergies Allergy Verified 06/22/21 13:06 Past Med/Surg History Medical History CAD (coronary artery disease) 2018 - STEMI, s/p SE to LAD Chronic deep vein thrombosis (DVT) of right lower extremity Chronic HFrEF (heart failure with reduced ejection fraction) CKD (chronic kidney disease) stage 3, GFR 30-59 ml/min 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 Elliott with 1 stent placed History of colonoscopy with polypectomy adenomatous polyp, diverticulosis - Oct 2015 History of heart artery stent (~10/2018) @ [facility] [place] History of orchiectomy R 2009 History of umbilical hernia repair History of vitrectomy (~04/20/21) right Mass of kidney of unknown nature s/p 2009 excision, lupe- renal by report Family History Father Pulmonary embolism Sister Thyroid cancer Social History Smoking Status: Never smoker Second Hand Exposure: No; Hx Alcohol Use: Yes Alcohol type: beer Hx Substance Use: No Preferred Language: Georgian Communication Ability: Effective Editorial Director Required: No Beliefs That Will Affect Care: None marital status: Current Living Situation: Alone current occupational status: employed Feels Safe at Home: Yes Assistive Devices: Denture - Upper Review of Systems A total of 10 systems reviewed and were otherwise negative Physical Exam Vital Signs: Vital Signs - 24 hr 06/22/21 11:03 06/22/21 11:57 06/22/21 12:01 Temperature 36.4 C L Temperature Source Temporal Artery Sc an Pulse Rate 101 H 62 Pulse Rate [Apical ] 66 Respiratory Rate 18 16 16 Respiratory Effort / Characteristics Non-Labored Sponta neous Non-Labored Respiratory Depth Normal Normal Blood Pressure 155/100 H 134/86 Blood Pressure [Ri ght Arm] 139/92 Blood Pressure Codie n 118 102 Blood Pressure Codie n [Right Arm] 107 Pulse Oximetry 98 93 95 Oxygen Delivery Me thod Room Air Room Air Sepsis Recent Feve r Within 48 Hours No Sepsis New/Unexpla ined Change in Men yary Status No Sepsis Action Take n by Nursing No Action Required 06/22/21 12:30 06/22/21 13:00 06/22/21 13:30 Temperature Temperature Source Pulse Rate 61 77 60 Pulse Rate [Apical ] Respiratory Rate 18 16 18 Respiratory Effort / Characteristics Respiratory Depth Blood Pressure 121/76 132/89 121/83 Blood Pressure [Ri ght Arm] Blood Pressure Codie n 91 103 95 Blood Pressure Codie n [Right Arm] Pulse Oximetry 97 96 96 Oxygen Delivery Me thod Sepsis Recent Feve r Within 48 Hours Sepsis New/Unexpla ined Change in Men yary Status Sepsis Action Take n by Nursing 06/22/21 14:02 06/22/21 15:48 Temperature Temperature Source Pulse Rate 63 77 Pulse Rate [Apical ] Respiratory Rate 18 18 Respiratory Effort / Characteristics Respiratory Depth Blood Pressure 130/78 Blood Pressure [Ri ght Arm] Blood Pressure Codie n 95 Blood Pressure Codie n [Right Arm] Pulse Oximetry 94 95 Oxygen Delivery Me thod Sepsis Recent Feve r Within 48 Hours Sepsis New/Unexpla ined Change in Men yary Status Sepsis Action Take n by Nursing Physical Exam: Physical Exam GENERAL: He is oriented to person, place, and time. He appears well-developed and well-nourished. He does not appear distressed. HENT: Exam performed. - Head: Normocephalic and atraumatic. - Right Ear: External ear normal. No mastoid tenderness. - Left Ear: External ear normal. No mastoid tenderness. - Mouth/Throat: The oropharynx is clear and moist. No trismus in the jaw. No dental abscesses or uvula swelling. No oropharyngeal exudate or tonsillar abscesses. EYES: Conjunctivae and EOM are normal. Pupils are equal, round, and reactive to light. Right eye exhibits no discharge. Left eye exhibits no discharge. No scleral icterus. NECK: Normal range of motion. Neck supple. No JVD present. No spinous process tenderness present. No carotid bruit present. No rigidity. No tracheal deviation and normal range of motion present. No Brudzinski's sign and no Kernig's sign noted. CV: Normal rate, irregular rhythm, normal heart sounds and intact distal pulses. Palpable radial pulses bue. PULM/CHEST: Rales at the bases bilaterally. - Chest Wall: He exhibits no tenderness. ABD: The abdomen is soft and obese. Bowel sounds are normal. He has no distension. No mass is present. There is no tenderness. There is no rebound, no guarding, no Mcgill's sign and no tenderness at McBurney's point. Rovsig negative. MUSC/SKEL: 3+ pitting edema of the bilateral lower extremities. LYMPH: No cervical adenopathy. NEURO: He is alert and oriented to person, place, and time. He has normal strength. No cranial nerve deficit or sensory deficit. Coordination and gait normal. GCS eye subscore is 4. GCS verbal subscore is 5. GCS motor subscore is 6. Cerebellar tests wnl. SKIN: Skin is warm and dry. He is not diaphoretic. PSYCH: He has a normal mood and affect. Behavior is normal. Judgment and thought content normal. Course Course 1117: The patient was evaluated in room C6. A complete history and physical exam was performed Cardiac monitoring: An order was placed for continuous cardiac monitoring. The monitor shows a rate of 80 with sinus rhythm 1245: Vital signs stable. Labs show a elevated INR of 7.1. proBNP elevated 2617. Troponin elevated 0.185. Patient is reporting no chest pain at this time. [facility]. Administered Medications Discontinued Medications Furosemide (Furosemide 40 Mg/4 Ml Vial) 40 mg IV NOW STA Stop: 06/22/21 12:33 Last Admin: 06/22/21 13:01 Dose: 40 mg Documented by: [id number] Medical Decision Making Laboratory Data Result diagrams: 06/22/21 11:32 06/22/21 11:32 Lab Results 09/13/21 09/13/21 09/13/21 Range/Units 11:32 11:32 11:32 WBC 5.94 (4.8-10.8) K/uL RBC 4.68 L (4.7-6.1) M/uL Hgb 14.6 (14.0-18.0) g/dL POC Hgb (14.0-18.0) g/dl Hct 46.0 (42-52) % POC Hct (42-52) % MCV 98.3 (80-100) fL MCH 31.2 (25-34) pg MCHC 31.7 L (32-36) g/dL RDW Std Deviation 49.7 H (36.4-46.3) fL RDW Coeff of Juan 14.0 (11.5-14.5) % Plt Count 162 (130-400) K/uL MPV 10.5 H (7.4-10.4) fL Immature Gran % (Auto) 0.2 % Neut % (Auto) 74.8 % Lymph % (Auto) 12.3 % [place] % (Auto) 10.9 % Eos % (Auto) 1.5 % Baso % (Auto) 0.3 % Neut # (Auto) 4.44 (1.4-6.5) K/uL Lymph # (Auto) 0.73 L (1.2-3.4) K/uL [place] # (Auto) 0.65 H (0.11-0.59) K/uL Eos # (Auto) 0.09 (0-0.5) K/uL Baso # (Auto) 0.02 (0-0.2) K/uL Immature Gran # (Auto) 0.01 (0.00-0.02) K/uL PT 61.8 H (9.0-12.0) Seconds INR 7.1 H* (0.9-1.1) APTT 58.7 H* (21.0-31.0) Seconds PTT Ratio 2.2 POC Sodium (135-144) mmol/L Sodium 140 (136-145) mmol/L POC Potassium (3.3-5.0) mmol/L Potassium (3.5-5.1) mmol/L POC Chloride (101-112) mmol/L Chloride 106 (98-107) mmol/L Carbon Dioxide 30 (21-32) mmol/L POC Total CO2 (24-31) mmol/L Anion Gap 4.0 (3-11) POC Anion Gap (16-25) mmol/L POC BUN (7-18) mg/dl BUN 19 H (7-18) mg/dl Creatinine 1.46 H (0.6-1.4) mg/dl POC Creatinine (0.6-1.3) mg/dl Est Cr Clr Drug Dosing 65.6 ml/min Est GFR ( Amer) 56.1 ml/min Est GFR (Non-Af Amer) 48.4 ml/min BUN/Creatinine Ratio 13.3 (10-20) Glucose 132 H (70-99) mg/dl POC Glucose (other) (70-99) mg/dl Calcium 9.3 (8.5-10.1) mg/dl POC Ioniz Calcium Mary (1.12-1.32) mmol/l Troponin I 0.185 H* (0-0.045) ng/ml NT-Pro-B Natriuret Pep 2617 H (0-900) pg/ml Lipase 253 (73-393) U/L COVID-19 Eval Order SARS-CoV-2 (PCR) (Negative) 06/22/21 06/22/21 06/22/21 Range/Units 12:50 12:50 12:50 WBC (4.8-10.8) K/uL RBC (4.7-6.1) M/uL Hgb (14.0-18.0) g/dL POC Hgb 15.3 (14.0-18.0) g/dl Hct (42-52) % POC Hct 45 (42-52) % MCV (80-100) fL MCH (25-34) pg MCHC (32-36) g/dL RDW Std Deviation (36.4-46.3) fL RDW Coeff of Juan (11.5-14.5) % Plt Count (130-400) K/uL MPV (7.4-10.4) fL Immature Gran % (Auto) % Neut % (Auto) % Lymph % (Auto) % [place] % (Auto) % Eos % (Auto) % Baso % (Auto) % Neut # (Auto) (1.4-6.5) K/uL Lymph # (Auto) (1.2-3.4) K/uL [place] # (Auto) (0.11-0.59) K/uL Eos # (Auto) (0-0.5) K/uL Baso # (Auto) (0-0.2) K/uL Immature Gran # (Auto) (0.00-0.02) K/uL PT (9.0-12.0) Seconds INR (0.9-1.1) APTT (21.0-31.0) Seconds PTT Ratio POC Sodium 142 (135-144) mmol/L Sodium (136-145) mmol/L POC Potassium 4.3 (3.3-5.0) mmol/L Potassium (3.5-5.1) mmol/L POC Chloride 100 L (101-112) mmol/L Chloride (98-107) mmol/L Carbon Dioxide (21-32) mmol/L POC Total CO2 30 (24-31) mmol/L Anion Gap (3-11) POC Anion Gap 17.0 (16-25) mmol/L POC BUN 20 H (7-18) mg/dl BUN (7-18) mg/dl Creatinine (0.6-1.4) mg/dl POC Creatinine 1.3 (0.6-1.3) mg/dl Est Cr Clr Drug Dosing ml/min Est GFR ( Amer) ml/min Est GFR (Non-Af Amer) ml/min BUN/Creatinine Ratio (10-20) Glucose (70-99) mg/dl POC Glucose (other) 119 H (70-99) mg/dl Calcium (8.5-10.1) mg/dl POC Ioniz Calcium Mary 1.20 (1.12-1.32) mmol/l Troponin I (0-0.045) ng/ml NT-Pro-B Natriuret Pep (0-900) pg/ml Lipase (73-393) U/L COVID-19 Eval Order Covid19 at [facility] [place] SARS-CoV-2 (PCR) NEGATIVE (Negative) Imaging Data Radiologist's Impression: Chest X-Ray 06/22/21 11:18 XR chest 2V PA/lateral CLINICAL HISTORY: Shortness of breath. COMPARISON STUDY: Chest radiograph February 11, 2021. FINDINGS: A left subclavian Pacer/AICD is unchanged in position. Cardiomegaly is unchanged. There is no evidence for pulmonary edema. No consolidation is identified. There is slight blunting of the posterior costophrenic angles. Old right seventh rib fracture is incidentally noted. IMPRESSION: No acute cardiopulmonary findings. Cardiomegaly. ACT 112: Negative or not required by law. Electronically signed by: Ramin Conley M.D. 06/22/2021 12:33 PM ECG Data Interpretation: Atrial fibrillation with rate of 72. QRS [address] elevation or ST depression. [facility] Narrative 1117: The patient was evaluated in room C6. A complete history and physical exam was performed Cardiac monitoring: An order was placed for continuous cardiac monitoring. The monitor shows a rate of 80 with sinus rhythm 1245: Vital signs stable. Labs show a elevated INR of 7.1. proBNP elevated 2617. Troponin elevated 0.185. Patient is reporting no chest pain at this time. Patient will be admitted to the [facility] hospitalist team and given Lasix IV push. Impression & Plan CHF exacerbation Discharge Plan Visit Data Chief Complaint: Swelling/Edema to Extremity Stated Complaint: SWOLLEN LEGS, EXCESSIVE FLUID, SOB Discharge Problem: CHF exacerbation Patient Disposition: Being Evaluated by Hospitalist Forms Stand Alone Forms: [facility] Prescriptions Prescriptions: No Action furosemide 40 mg tablet 40 mg PO QAM RF: 0 atorvastatin 80 mg tablet 80 mg PO QDL RF: 0 aspirin 81 mg Tablet,Delayed Release (Dr/Ec) 81 mg PO QAM RF: 0 warfarin 5 mg tablet 10 mg PO MOWEFRSA RF: 0 metoprolol succinate 25 mg tablet extended release 24 hr 25 mg PO QAM RF: 0 warfarin 5 mg Tablet 5 mg PO SUTUTH RF: 0 multivitamin Tablet 1 tab PO DAILY RF: 0 triamcinolone acetonide 0.1 % cream 1 applic TOPICAL BID PRN (Reason: Skin Irritation) RF: 0 prednisolone acetate 1 % drops,suspension 1 drp ophthalmic (eye) TID RF: 0 Referrals Referrals: Rosalie Rosales, [Primary Care Provider] -
[2021-06-22] MEDS ORDERED: ACETAMINOPHEN 325 MG TAB PO PRN (20:43)
[2021-06-22] MEDS ORDERED: FUROSEMIDE 40 MG/4 ML VIAL IV SCH (21:00)
[2021-06-22] MEDS: FUROSEMIDE 40 MG in SYRINGE 0 ML IV SCH (22:45)
[2021-06-22] MEDS: prednisoLONE acetate 1% OP SUSP 5 ML BTL OP SCH (22:46)
[2021-06-23 02:52] LABS: Hematocrit (blood only) 47.8 % (42-52); Hemoglobin 15.1 g/dL (14.0-18.0); Mean Corpuscular Hemoglobin 31.9 pg (25-34); Mean Corpuscular Hgb Conc 31.6 g/dL (32-36); Mean Corpuscular Volume 101.1 fL (80-100); Mean Platelet Volume 10.2 fL (7.4-10.4); Platelet Count 156 K/uL (130-400); RDW Coefficient of Variation 13.9 % (11.5-14.5); RDW Standard Deviation 52.3 fL (36.4-46.3); Red Blood Count 4.73 M/uL (4.7-6.1); White Blood Count 5.71 K/uL (4.8-10.8)
[2021-06-23 03:09] LABS: BUN Creatinine Ratio 13.7 (10-20); Calcium 8.7 mg/dl (8.5-10.1); Est GFR (African American) 56.5 ml/min; Est GFR (Non-African American) 48.8 ml/min; Magnesium 1.9 mg/dl (1.8-2.4); Potassium 3.5 mmol/L (3.5-5.1)
[2021-06-23 03:14] LABS: Prothrombin Time 64.8 Seconds (9.0-12.0)
[2021-06-23 03:20] LABS: Troponin I 0.172 ng/ml (0-0.045)
[2021-06-23 03:37] LABS: INR 7.5 (0.9-1.1)
[2021-06-23] MEDS ORDERED: PHYTONADIONE 2.5 MG in SODIUM CHLORIDE 0.9% 50 ML IV ONE (04:00)
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
[2021-06-23] MEDS ORDERED: PHYTONADIONE 5 MG TAB PO STA (09:24)
[2021-06-23] MEDS: METOPROLOL SUCC 25MG EXT REL TAB PO SCH (09:31)
[2021-06-23] MEDS: FUROSEMIDE 40 MG in SYRINGE 0 ML IV SCH ×2 (09:31→16:29)
[2021-06-23] MEDS: ASPIRIN 81 MG ECTAB PO SCH (09:31)
[2021-06-23] MEDS: prednisoLONE acetate 1% OP SUSP 5 ML BTL OP SCH ×3 (09:32→21:00)
[2021-06-23] MEDS: SACUBITRIL-VALSARTAN 24-26 MG TAB PO SCH ×2 (10:27→19:45)
[2021-06-23] MEDS: ATORVASTATIN 40 MG TAB PO SCH (11:47)
[2021-06-23 11:49] LABS: Prothrombin Time 28.2 Seconds (9.0-12.0)
--- NOTE | 2021-06-23 16:02 | Hospitalist Progress Note ---
Date of Service June 23, 2021 Assessment & Plan (1) Acute on chronic HFrEF (heart failure with reduced ejection fraction): (2) Ischemic cardiomyopathy: Plan: 11 year old male with PMH CAD s/p STEMI and SE to LAD in 2018, ishcemic cardiomyopathy EF 30-34% s/p AICD, CKD stage III, testicular cancer s/p chemo, DVT on Coumadin, permanent afib on Coumadin, CKD stage III, RLE lymphedema came in 06/22 to our ED with complaint of increasing swelling BLE and difficulty ambulation. Per patient he has been having swelling BLE since almost 1 month, and was advised to take double dose of Lasix by his cardiology clinic which he did for 3 days and then went on to vacation for 6 days where he took only regular dose of his Lasix. 1 day [employer] when he was traveling back, he did not take Lasix to avoid stopping driving. He has been managed for the following: #. Acute on chronic heart failure with reduced ejection fraction #. Ischemic cardiomyopathy s/p AICD #. Extensive coronary artery disease Patient presented with increasing BLE swelling making it difficult to walk for him. proBNP at presentation 2617; chest x-ray at presentationno evidence of pulmonary edema. Cardiomegaly present. 06/23 echo: EF 2024%; severe septal hypokinesis, LV mildly dilated, severe anterior wall hypokinesis, apical akinesis, severe TR, moderate P HTN Patient still fluid overloaded, continue with IV diuresis Cardiology on board: Plan to start him on Entresto or BOBBI/ARB depending upon insurance. Closely monitor blood pressure, monitor electrolytes daily, continue with Entresto at home medications.# #. Supratherapeutic INR INR at presentation 7.1, up trended to 7.5 next day Patient received IV vitamin K on 06/23 and also small oral dose. Patient was taking multivitamins which he stopped lately which could be the re ason of his INR being elevated despite on his regular doselikely no vitamin K intake as a part of multivitamins. Patient plans to go back on multivitamins, will put him on multivitamins while inpatient and resume his warfarin when appropriate Monitor daily INR #. Elevated troponin EKG without acute ST changes, troponin flat trend Likely secondary to demand ischemia from acute CHF versus CKD #. Permanent A. fib #. DVT Rate controlled, continue home medication Continue Coumadin when able #. CKD Baseline creatinine around 1.5 Currently at baseline #. Prediabetes A1c 6.7 on February 2021 Blood glucose under control, continue to monitor Admission and Anticipated Discharge Date Admission Date: June 22, 2021 Subjective Patient was sitting up in chair, on room air, NAD, no acute issues overnight. Patient reports making a lot of urine. Currently on IV diuretics. Denies shortness of breath or any other review of symptoms. Physical Exam Physical Exam: GENERAL: Alert and oriented x3. NAD, on RA. Morbidly obese. HEENT: No pallor, no icterus. Pupils equal, round and reactive to light. Oral mucosa moist. NECK: No JVD, no neck masses. HEART: S1 and S2 heard. Regular rate and rhythm. No murmur, no gallop. RESPIRATORY SYSTEM: Normal AP diameter. No accessory muscle use. No wheezing, bilateral diffuse crackles present. ABDOMEN: Soft, bowel sounds present, nontender, no distention. CENTRAL NERVOUS SYSTEM: Alert and oriented x3. No facial droop. Speech is clear. Obeys simple commands. Moves extremities. EXTREMITIES: RLE lymphedema present, LLE 2+ edema present, no erythema seen. Results & Data Results & Data ([facility]) Vital Signs (Past 12 Hours) Vital Signs Temp Pulse Resp BP Pulse Ox 06/23/21 15:13 36.8 C 57 L 20 99/64 L 96 06/23/21 12:00 36.8 C 78 18 128/76 97 06/23/21 08:00 36.9 C 78 18 134/69 96 06/23/21 04:00 36.8 C 78 16 130/78 95
[2021-06-24 06:32] LABS: Hematocrit (blood only) 52.3 % (42-52); Hemoglobin 16.4 g/dL (14.0-18.0); Mean Corpuscular Hemoglobin 31.7 pg (25-34); Mean Corpuscular Hgb Conc 31.4 g/dL (32-36); Mean Corpuscular Volume 101.2 fL (80-100); Mean Platelet Volume 10.2 fL (7.4-10.4); Platelet Count 161 K/uL (130-400); RDW Coefficient of Variation 13.8 % (11.5-14.5); RDW Standard Deviation 51.4 fL (36.4-46.3); Red Blood Count 5.17 M/uL (4.7-6.1); White Blood Count 6.14 K/uL (4.8-10.8)
[2021-06-24 06:42] LABS: INR 1.6 (0.9-1.1)
[2021-06-24 07:11] LABS: BUN Creatinine Ratio 14.3 (10-20); Calcium 8.8 mg/dl (8.5-10.1); Creatinine Clr Calc Pharmacy 70.8 ml/min; Est GFR (African American) 61.1 ml/min; Est GFR (Non-African American) 52.7 ml/min; Potassium 3.4 mmol/L (3.5-5.1)
[2021-06-24] MEDS: ASPIRIN 81 MG ECTAB PO SCH (07:56)
[2021-06-24] MEDS: SACUBITRIL-VALSARTAN 24-26 MG TAB PO SCH ×2 (07:56→20:59)
[2021-06-24] MEDS: METOPROLOL SUCC 25MG EXT REL TAB PO SCH (07:56)
[2021-06-24] MEDS: FUROSEMIDE 40 MG in SYRINGE 0 ML IV SCH ×2 (07:57→16:09)
[2021-06-24] MEDS: prednisoLONE acetate 1% OP SUSP 5 ML BTL OP SCH ×3 (07:57→21:00)
[2021-06-24] MEDS: MULTIVITAMIN TAB PO SCH (07:57)
[2021-06-24] MEDS ORDERED: POTASSIUM CHLORIDE CRTAB 20 MEQ TABCR PO STA (08:49)
--- NOTE | 2021-06-24 10:01 | Cardiology Progress Note ---
Date of Service June 24, 2021 Assessment & Plan (1) Acute on chronic HFrEF (heart failure with reduced ejection fraction): (2) Ischemic cardiomyopathy: (3) Chronic deep vein thrombosis (DVT): (4) CAD (coronary artery disease): (5) Permanent atrial fibrillation: (6) AICD (automatic cardioverter/defibrillator) present: Plan: The patient is tolerating his medications. I would continue IV diuresis through today. He is anxious to return home and I explained to him that it the day by day process and hopefully he will not be too aggressive about being discharged early. He is tolerating the Entresto. Warfarin has been restarted. Potassium has been supplemented. Admission and Anticipated Discharge Date Admission Date: June 22, 2021 Subjective The patient has no additional complaints today. He is feeling better after diuresis. Review of Systems Review of Systems: Review of Systems: See HPI for pertinent positives. All other 10 point review of systems are negative. Physical Exam Physical Exam: General: no acute distress and stated age Head: normocephalic, no masses, lesions, tenderness or abnormalities Eyes: conjunctiva are pink and non-injected, sclera clear Neck: supple, no adenopathy, no bruits, normal jugular venous pulse, no hepatojugular reflux Chest: normal shape and normal respiratory effort Lungs: clear to auscultation and percussion Cardiac Exam: - irregular rate & rhythm, no murmurs gallops or rubs - normal S1, normal S2 Pulses: 2(+) throughout Abdomen: abdomen soft, non-tender, no abnormal masses and no hepatosplenomegaly Musculoskeletal: no gait disturbance, no joint inflammation, no deforming arthritis Extremities: Improving lower extremity edema, chronic venous stasis changes Neuro: grossly normal exam Results & Data ([facility]) Vital Signs (Past 12 Hours) Vital Signs Temp Pulse Pulse Pulse Resp BP Pulse Ox 06/24/21 07:45 36.4 C L 65 18 111/76 90 06/24/21 04:55 36.4 C L 74 20 95/63 L 96 06/24/21 00:00 56 L Laboratory Results Laboratory Results - last 24 hr 06/23/21 06/24/21 06/24/21 11:25 06:24 06:24 WBC 6.14 RBC 5.17 Hgb 16.4 Hct 52.3 H MCV 101.2 H MCH 31.7 MCHC 31.4 L RDW Std Deviation 51.4 H RDW Coeff of Juan 13.8 Plt Count 161 MPV 10.2 PT 28.2 H INR 3.0 H Sodium 141 Potassium 3.4 L Chloride 105 Carbon Dioxide 33 H Anion Gap 3.0 BUN 20 H Creatinine 1.36 Est Cr Clr Drug Dosing 70.8 Est GFR ( Amer) 61.1 Est GFR (Non-Af Amer) 52.7 BUN/Creatinine Ratio 14.3 Glucose 106 H Calcium 8.8 Magnesium 2.0 06/24/21 06:24 WBC RBC Hgb Hct MCV MCH MCHC RDW Std Deviation RDW Coeff of Juan Plt Count MPV PT 16.0 H INR 1.6 H Sodium Potassium Chloride Carbon Dioxide Anion Gap BUN Creatinine Est Cr Clr Drug Dosing Est GFR ( Amer) Est GFR (Non-Af Amer) BUN/Creatinine Ratio Glucose Calcium Magnesium Medications Administered Current Inpatient Medications Acetaminophen (Acetaminophen 325 Mg Tab) 650 mg PO Q4H PRN PRN Reason: Pain or Fever Stop: 07/22/21 20:42 Aspirin (Aspirin 81 Mg Ectab) 81 mg PO [facility] Stop: 07/23/21 08:59 Last Admin: 06/24/21 07:56 Dose: 81 mg Documented by: Atorvastatin Calcium (Atorvastatin 40 Mg Tab) 80 mg PO QDL [facility] Stop: 07/23/21 11:29 Last Admin: 06/23/21 11:47 Dose: 80 mg Documented by: Furosemide 40 mg/ Syringe 4 mls @ 4 mls/min IV BID17 [facility] Stop: 07/22/21 20:59 Last Admin: 06/24/21 07:57 Dose: 4 mls/min Documented by: Metoprolol Succinate (Metoprolol Succ 25mg Ext Rel Tab) [facility] Stop: 07/23/21 08:59 Last Admin: 06/24/21 07:56 Dose: 25 mg Documented by: Multivitamins (Multivitamin Tab) 1 tab PO [facility] Stop: 07/24/21 08:59 Last Admin: 06/24/21 07:57 Dose: 1 tab Documented by: Prednisolone Acetate (Prednisolone Acetate 1% Op Susp 5 Ml Btl) 1 drops OP TID [facility] Stop: 07/22/21 20:59 Last Admin: 06/24/21 07:57 Dose: 1 drops Documented by: Sacubitril/Valsartan (Sacubitril-Valsartan 24-26 Mg Tab) 1 tab PO BID [facility] Stop: 07/23/21 09:29 Last Admin: 06/24/21 07:56 Dose: 1 tab Documented by: Warfarin Sodium (Warfarin Sod 10 Mg Tab) 10 mg PO [email or web address]@1600 [facility] Stop: 07/24/21 15:59 Warfarin Sodium (Warfarin Sod 5 Mg Tab) 5 mg PO [email or web address]@1600 [facility] Stop: 07/25/21 15:59
[2021-06-24] MEDS: ATORVASTATIN 40 MG TAB PO SCH (11:41)
--- NOTE | 2021-06-24 13:30 | Hospitalist Progress Note ---
Date of Service June 24, 2021 Assessment & Plan (1) Acute on chronic HFrEF (heart failure with reduced ejection fraction): (2) Ischemic cardiomyopathy: Plan: 11 year old male with PMH CAD s/p STEMI and SE to LAD in 2018, ishcemic cardiomyopathy EF 30-34% s/p AICD, CKD stage III, testicular cancer s/p chemo, DVT on Coumadin, permanent afib on Coumadin, CKD stage III, RLE lymphedema came in 06/22 to our ED with complaint of increasing swelling BLE and difficulty ambulation. Per patient he has been having swelling BLE since almost 1 month, and was advised to take double dose of Lasix by his cardiology clinic which he did for 3 days and then went on to vacation for 6 days where he took only regular dose of his Lasix. 1 day DESULF[employer]ER [employer] when he was traveling back, he did not take Lasix to avoid stopping driving. He has been managed for the following: #. Acute on chronic heart failure with reduced ejection fraction #. Ischemic cardiomyopathy s/p AICD #. Extensive coronary artery disease Patient presented with increasing BLE swelling making it difficult to walk for him. proBNP at presentation 2617; chest x-ray at presentationno evidence of pulmonary edema. Cardiomegaly present. 06/23 echo: EF 2024%; severe septal hypokinesis, LV mildly dilated, severe anterior wall hypokinesis, apical akinesis, severe TR, moderate P HTN Patient still fluid overloaded, continue with IV diuresis Cardiology on board: Patient is started on Entresto, continue with IV diuresis. Patient anxious to get home early, await cardiology recommendation. Monitor electrolytes, supplement as appropriate. Closely monitor blood pressure, monitor electrolytes daily, continue with Entresto at home medications.# #. Supratherapeutic INR INR at presentation 7.1, up trended to 7.5 next day Patient received IV vitamin K on 06/23 and also small oral dose. Patient was taking multivitamins which he stopped lately which could be the reason of his INR being elevated despite on his regular doselikely no vitamin K intake as a part of multivitamins. Patient plans to go back on multivitamins, will put him on multivitamins while inpatient and resume his warfarin when appropriate INR subtherapeutic today, resume home dose. Monitor daily INR #. Elevated troponin EKG without acute ST changes, troponin flat trend Likely secondary to demand ischemia from acute CHF versus CKD #. Permanent A. fib #. DVT Rate controlled, continue home medication Continue with home dose of Coumadin #. CKD Baseline creatinine around 1.5 Currently at baseline #. Prediabetes A1c 6.7 on February 2021 Blood glucose under control, continue to monitor Full code DVT prophylaxis: On Coumadin Disposition: Likely discharge to home in next 1 to 2 days with cardiology recommendation unless no new issues arises. Patient very anxious to go home. Admission and Anticipated Discharge Date Admission Date: June 22, 2021 Subjective Patient was sitting up in bed, NAD, on room air, no issues overnight. Patient denies shortness of breath/chest pain/other review of symptoms. Feels somewhat improved. Eating and bowel. Physical Exam Physical Exam: GENERAL: Alert and oriented x3. NAD, on RA. Morbidly obese. HEENT: No pallor, no icterus. Pupils equal, round and reactive to light. Oral mucosa moist. NECK: No JVD, no neck masses. HEART: S1 and S2 heard. Regular rate and rhythm. No murmur, no gallop. RESPIRATORY SYSTEM: Normal AP diameter. No accessory muscle use. No wheezing, crackles seems to have improved.. ABDOMEN: Soft, bowel sounds present, nontender, no distention. CENTRAL NERVOUS SYSTEM: Alert and oriented x3. No facial droop. Speech is clear. Obeys simple commands. Moves extremities. EXTREMITIES: RLE lymphedema present, LLE 2+ edema present, no erythema seen. Results & Data Results & Data ([facility]) Vital Signs (Past 12 Hours) Vital Signs Temp Pulse Pulse Resp BP Pulse Ox 06/24/21 11:47 36.5 C 45 L 18 138/79 94 06/24/21 11:42 59 L 06/24/21 07:45 36.4 C L 65 18 111/76 90 06/24/21 04:55 36.4 C L 74 20 95/63 L 96
[2021-06-24] MEDS ORDERED: WARFARIN SOD 10 MG TAB PO SCH (16:00)
[2021-06-25] MEDS: FUROSEMIDE 40 MG in SYRINGE 0 ML IV SCH (07:52)
[2021-06-25] MEDS: MULTIVITAMIN TAB PO SCH (07:53)
[2021-06-25] MEDS: SACUBITRIL-VALSARTAN 24-26 MG TAB PO SCH (07:53)
[2021-06-25] MEDS: METOPROLOL SUCC 25MG EXT REL TAB PO SCH (07:53)
[2021-06-25] MEDS: ASPIRIN 81 MG ECTAB PO SCH (07:53)
[2021-06-25] MEDS: prednisoLONE acetate 1% OP SUSP 5 ML BTL OP SCH (07:54)
[2021-06-25 08:36] LABS: INR 1.8 (0.9-1.1); Prothrombin Time 17.4 Seconds (9.0-12.0)
[2021-06-25 08:44] LABS: BUN Creatinine Ratio 12.8 (10-20); Calcium 9.3 mg/dl (8.5-10.1); Creatinine Clr Calc Pharmacy 59.7 ml/min; Est GFR (African American) 50.2 ml/min; Est GFR (Non-African American) 43.3 ml/min; Magnesium 1.9 mg/dl (1.8-2.4); Potassium 4.2 mmol/L (3.5-5.1)
[2021-06-25] MEDS ORDERED: MAGNESIUM OXIDE 400 MG TAB PO SCH (09:00)
--- NOTE | 2021-06-25 09:01 | Cardiology Progress Note ---
Date of Service June 25, 2021 Assessment & Plan (1) Acute on chronic HFrEF (heart failure with reduced ejection fraction): (2) Ischemic cardiomyopathy: (3) Chronic deep vein thrombosis (DVT): (4) CAD (coronary artery disease): (5) Permanent atrial fibrillation: (6) AICD (automatic cardioverter/defibrillator) present: Plan: From a cardiology standpoint the patient can be discharged today. He should remain on Lasix 40 mg p.o. twice daily through the weekend and then go back to his previous dose of 40 mg daily. I have arranged for him to have follow-up with us next week at our heart failure clinic. He should have a BMP drawn next week to monitor his renal function and electrolytes. Admission and Anticipated Discharge Date Admission Date: June 22, 2021 Subjective And had an uneventful night. He has no new cardiac complaints and feels well. He is anxious to return home. Review of Systems Review of Systems: Review of Systems: See HPI for pertinent positives. All other 10 point review of systems are negative. Physical Exam Physical Exam: General: no acute distress and stated age Head: normocephalic, no masses, lesions, tenderness or abnormalities Eyes: conjunctiva are pink and non-injected, sclera clear Neck: supple, no adenopathy, no bruits, normal jugular venous pulse, no hepatojugular reflux Chest: normal shape and normal respiratory effort Lungs: clear to auscultation and percussion Cardiac Exam: - irregular rate & rhythm, no murmurs gallops or rubs - normal S1, normal S2 Pulses: 2(+) throughout Abdomen: abdomen soft, non-tender, no abnormal masses and no hepatosplenomegaly Musculoskeletal: no gait disturbance, no joint inflammation, no deforming arthritis Extremities: Most of the lower extremity edema has resolved, still some chronic lymphedema and chronic venous stasis changes Neuro: grossly normal exam Results & Data ([facility]) Vital Signs (Past 12 Hours) Vital Signs Temp Pulse Pulse Pulse Resp BP BP 06/25/21 07:45 36.4 C L 65 20 113/69 06/25/21 05:27 101/68 06/25/21 03:13 37.0 C 57 L 12 90/51 L 06/25/21 01:55 69 06/24/21 23:11 36.7 C 79 20 102/66 Pulse Ox 06/25/21 07:45 92 09/16/21 05:27 06/25/21 03:13 92 06/25/21 01:55 06/24/21 23:11 93 Laboratory Results Laboratory Results - last 24 hr 06/25/21 06/25/21 08:00 08:00 PT 17.4 H INR 1.8 H Sodium 142 Potassium 4.2 D Chloride 104 Carbon Dioxide 33 H Anion Gap 5.0 BUN 21 H Creatinine 1.60 H Est Cr Clr Drug Dosing 59.7 Est GFR ( Amer) 50.2 Est GFR (Non-Af Amer) 43.3 BUN/Creatinine Ratio 12.8 Glucose 118 H Calcium 9.3 Magnesium 1.9 Diagnostic Findings I reviewed the telemetry and he is 100% atrial fibrillation. At night he has occasional paced beats from his ICD which appear to be bradycardic events however, it is because the paced beats are not registered by the telemetry thus falsely appearing like the patient is having heart rates in the 30 bpm range. They are isolated single and not continuous events. Medications Administered Current Inpatient Medications Acetaminophen (Acetaminophen 325 Mg Tab) 650 mg PO Q4H PRN PRN Reason: Pain or Fever Stop: 07/22/21 20:42 Aspirin (Aspirin 81 Mg Ectab) 81 mg PO QAM [facility] Stop: 07/23/21 08:59 Last Admin: 06/25/21 07:53 Dose: 81 mg Documented by: Atorvastatin Calcium (Atorvastatin 40 Mg Tab) 80 mg PO QDL [facility] Stop: 07/23/21 11:29 Last Admin: 06/24/21 11:41 Dose: 80 mg Documented by: Furosemide (Furosemide 40 Mg Tab) 40 mg PO [id number] [facility] Stop: 07/25/21 16:59 Magnesium Oxide (Magnesium Oxide 400 Mg Tab) 400 mg PO BID ANTHONY Stop: 06/25/21 21:01 Metoprolol Succinate (Metoprolol Succ 25mg Ext Rel Tab) 25 mg PO QAM [facility] Stop: 07/23/21 08:59 Last Admin: 06/25/21 07:53 Dose: 25 mg Documented by: Multivitamins (Multivitamin Tab) 1 tab PO QAM [facility] Stop: 07/24/21 08:59 Last Admin: 06/25/21 07:53 Dose: 1 tab Documented by: Prednisolone Acetate (Prednisolone Acetate 1% Op Susp 5 Ml Btl) 1 drops OP TID [facility] Stop: 07/22/21 20:59 Last Admin: 06/25/21 07:54 Dose: Not Given Documented by: Sacubitril/Valsartan (Sacubitril-Valsartan 24-26 Mg Tab) 1 tab PO BID [facility] Stop: 07/23/21 09:29 Last Admin: 06/25/21 07:53 Dose: 1 tab Documented by: Warfarin Sodium (Warfarin Sod 10 Mg Tab) 10 mg PO [id number]@1600 [facility] Stop: 07/24/21 15:59 Last Admin: 06/24/21 16:09 Dose: 10 mg Documented by: Warfarin Sodium (Warfarin Sod 5 Mg Tab) 5 mg PO [id number]@1600 [facility] Stop: 07/25/21 15:59
[2021-06-25] MEDS: ATORVASTATIN 40 MG TAB PO SCH (12:18)
[2021-06-25] MEDS ORDERED: WARFARIN SOD 5 MG TAB PO SCH (16:00)
[2021-06-25] MEDS ORDERED: FUROSEMIDE 40 MG TAB PO SCH (17:00)
--- NOTE | 2021-06-25 18:29 | Discharge Summary ---
Date of Service June 25, 2021 Admission HPI Per Admitting Provider 71 year old male with PMH CAD s/p STEMI and SE to LAD in 2018, ishcemic cardiomyopathy EF 30-34% s/p AICD, CKD stage III, testicular cancer s/p chemo, DVT on Coumadin, permanent afib on Coumadin, CKD stage III, RLE lymphedema, and other problems listed below who presents to the ED for evaluation of shortness of breath and lower extremity edema. Patient was hospitalized in February for COVID 19. He believes that over the past few weeks he has gained at least 20lb. He recently went on vacation to the beach and admits to dietary indiscretions with tunisian fries and beer. He reports progressive worsenig lower extremity edema and exertional shortness of breath. He states his legs are swollen up to his hips and he feels abdominal bloating. He denies chest pain. No lightheadedness, dizziness, diaphporesis, or syncopal event. Denies fever and chills. No urinary symptoms. In the ED, labs show trop 0.185, proBNP 2600. INR 7.1. Otherwise unremarkable/at patient's baseline. Patient was given IV Lasix 40mg. Admission Exam Per Admitting Provider GENERAL: Alert and oriented x3. NAD, on RA. Morbidly obese. HEENT: No pallor, no icterus. Pupils equal, round and reactive to light. Oral mucosa moist. NECK: No JVD, no neck masses. HEART: S1 and S2 heard. Regular rate and rhythm. No murmur, no gallop. RESPIRATORY SYSTEM: Normal AP diameter. No accessory muscle use. No wheezing, bibasilar crackles ABDOMEN: Soft, bowel sounds present, nontender, no distention. CENTRAL NERVOUS SYSTEM: Alert and oriented x3. No facial droop. Speech is clear. Obeys simple commands. Moves extremities. EXTREMITIES: RLE lymphedema present, LLE 2+ edema present, no erythema seen. Principal Diagnosis Acute on chronic heart failure with reduced ejection fraction Discharge Exam GENERAL: Alert and oriented x3. NAD, on RA. Morbidly obese. HEENT: No pallor, no icterus. Pupils equal, round and reactive to light. Oral mucosa moist. NECK: No JVD, no neck masses. HEART: S1 and S2 heard. Regular rate and rhythm. No murmur, no gallop. RESPIRATORY SYSTEM: Normal AP diameter. No accessory muscle use. No wheezing, no crackles appreciated ABDOMEN: Soft, bowel sounds present, nontender, no distention. CENTRAL NERVOUS SYSTEM: Alert and oriented x3. No facial droop. Speech is clear. Obeys simple commands. Moves extremities. EXTREMITIES: RLE lymphedema present, LLE 1-2+ edema present, no erythema seen. Discharge Data Allergies Allergy/AdvReac Type Severity Reaction Status Date / Time No Known Allergies Allergy Verified 06/22/21 13:06 Consultations 06/22/21 12:46 ED Decision to Admit Stat 06/22/21 13:24 Consult Cardiology Routine Hospital Course (1) Acute on chronic HFrEF (heart failure with reduced ejection fraction): (2) Ischemic cardiomyopathy: 11 year old male with PMH CAD s/p STEMI and SE to LAD in 2018, ishcemic cardiomyopathy EF 30-34% s/p AICD, CKD stage III, testicular cancer s/p chemo, DVT on Coumadin, permanent afib on Coumadin, CKD stage III, RLE lymphedema came in 06/22 to our ED with complaint of increasing swelling BLE and difficulty ambulation. Per patient he has been having swelling BLE since almost 1 month, and was advised to take double dose of Lasix by his cardiology clinic which he did for 3 days and then went on to vacation for 6 days where he took only regular dose of his Lasix. 1 day [employer] when he was traveling back, he did not take Lasix to avoid stopping driving. He has been managed for the following: #. Acute on chronic heart failure with reduced ejection fraction #. Ischemic cardiomyopathy s/p AICD #. Extensive coronary artery disease Patient presented with increasing BLE swelling making it difficult to walk for him. proBNP at presentation 2617; chest x-ray at presentationno evidence of pulmonary edema. Cardiomegaly present. 06/23 echo: EF 2025%; severe septal hypokinesis, LV mildly dilated, severe anterior wall hypokinesis, apical akinesis, severe TR, moderate P HTN Cardiology on board: Patient is started on Entresto, transition to oral diuresis Patient discharged to home with specific recommendation on Lasix dosing which was communicated at the bedside exam #. Supratherapeutic INR INR at presentation 7.1, up trended to 7.5 next day Patient received IV vitamin K on 06/23 and also small oral dose. Patient was taking multivitamins which he stopped lately which could be the reason of his INR being elevated despite on his regular doselikely no vitamin K intake as a part of multivitamins. Patient plans to go back on multivitamins, will put him on multivitamins while inpatient and resume his warfarin when appropriate Patient resumed on home dose, advised to follow-up with INR clinic and get INR done in 3 days for close monitoring and readjustment of his warfarin dose as shakeel ropriate. #. Elevated troponin EKG without acute ST changes, troponin flat trend Likely secondary to demand ischemia from acute CHF versus CKD #. Permanent A. fib #. DVT Rate controlled, continue home medication Continue with home dose of Coumadin #. CKD Baseline creatinine around 1.5 Currently at baseline #. Prediabetes A1c 6.7 on February 2021 Blood glucose under control, continue to monitor Full code DVT prophylaxis: On Coumadin Patient discharged to home with the following instruction at the time of discharge: Take medications as directed. Follow-up with your primary care physician within a week time. Follow-up with your cardiology clinic as scheduled. Follow-up with Coumadin clinic and get INR done in 3 days. You will have to get BMP and magnesium level in a week time. You will have to take double the dose of your regular home dose of Lasix up to Tuesday that is 06/28 as discussed at bedside and then begin your regular dose. You were started on new medication Entresto during this admission. Continue to take your multivitamins as you have been taking in the past so that there is not much fluctuation with Coumadin dose adjustment. If you have any question/concern regarding medications please call hospital 02/05. Total Time Total Time Spent Total Time Spent (In Minutes): 45 Discharge Plan Discharge Items Patient Disposition: Home - Self-Care Reason For Visit: CHF Discharge Diagnosis: Acute on chronic heart failure with reduced ejection fraction Supratherapeutic INR Elevated troponin Activity: Resume your previous activity Non-emergency contact: Primary Care Provider Call non-emergency contact if: you have any medication questions, your symptoms worsen, your pain is worsening and your rectal temperature is above 100.4 Follow-up/Referrals: Rosalie Rosales, [Primary Care Provider] - 07/01/21 12:20 pm (Date & Time 07/01/2021 12:20 PM Provider Candy Capone PA-C Department Family [facility] ) Lala Peralta PA-C [Physician Arm Maker] - 07/02/21 3:00 pm (Date & Time 07/02/2021 3:00 PM Provider [facility] Diet: Heart Healthy Addtl Attending Provider Instructions: Take medications as directed. Follow-up with your primary care physician within a week time. Follow-up with your cardiology clinic as scheduled. Follow-up with Coumadin clinic and get INR done in 3 days. You will have to get BMP and magnesium level in a week time. You will have to take double the dose of your regular home dose of Lasix up to Tuesday that is 06/28 as discussed at bedside and then begin your regular dose. You were started on new medication Entresto during this admission. Continue to take your multivitamins as you have been taking in the past so that there is not much fluctuation with Coumadin dose adjustment. If you have any question/concern regarding medications please call hospital 02/05. Call 911 and go to the Emergency Room if: * You have tightness or pain in your chest that does not go away with rest or Nitroglycerin * You are very short of breath even with rest Call your doctor if any of the following symptoms or problems start or get worse: * Shortness of breath or difficulty breathing * Wake up at night short of breath * Chest pain * Cough * Swelling of your hands, fee, or legs * More fatigued or tired with your normal activity * Palpitations - sudden fast heart beats WEIGHT * Weigh yourself every morning after using the bathroom. * Use the same scale. * Wear the same amount of clothing. * Write your weight down on your chart. * Call your doctor if you gain more than 2-3 pounds in 1-2 days. MEDICATIONS * Use this discharge instruction sheet for instructions. * Take your medications at the time your doctor ordered. * Do not skip a dose of your medicines. * If you miss a dose of medicine, take as soon as possible, but DO NOT DOUBLE A DOSE. * Read your medicine information when you get home. * Know all of the side effects of your medicine. * Call your doctor's office if you have any side effects. * Be sure all of your doctors know what medicine and herbs you take (including cold, flu, and herbal medicine). * Pain Medicine: If you do not get relief from your pain, please call your doctor for help. Take the following with you to your follow-up doctor appointments: * Weight Chart * Medication List * List of questions Do not drink excessive alcohol, beer or wine. Pending Studies at Discharge: No Stand-Alone Forms: My [facility], Smoking Cessation Medications and DC Order Prescriptions: New Entresto 24-26 mg Tablet 1 tab PO BID 30 Days Qty: 60 RF: 0 Continued furosemide 40 mg tablet 40 mg PO QAM RF: 0 atorvastatin 80 mg tablet 80 mg PO QDL RF: 0 aspirin 81 mg Tablet,Delayed Release (Dr/Ec) 81 mg PO QAM RF: 0 warfarin 5 mg tablet 10 mg PO MOWEFRSA RF: 0 metoprolol succinate 25 mg tablet extended release 24 hr 25 mg PO QAM RF: 0 warfarin 5 mg Tablet 5 mg PO SUTUTH RF: 0 multivitamin Tablet 1 tab PO DAILY RF: 0 triamcinolone acetonide 0.1 % cream 1 applic TOPICAL BID PRN (Reason: Skin Irritation) RF: 0 prednisolone acetate 1 % drops,suspension 1 drp ophthalmic (eye) TID RF: 0 Discharge Orders: Discharge Order (Routine); Ordered 06/25/21 Ordered By: Jp Chung Admission Data Admit Date/Time: 06/22/21 13:01 Attending Provider: Jp Chung Admit Provider: Jp Chung Primary Care Provider: Rosalie Rosales Other Providers: Dakota Chow Rishikesh Other Interventions: Discharge Summary Assessment (RN) Last Done: 06/25/21 11:11
== END 2021-06-25 12:19 | disposition home or self-care (01) | DRG 292 ==
LOC: ED 11:00 → EDINP 13:01 → INTOOBSV 13:01 → EDINP 18:05 → 2S 06-23 13:41

== ENCOUNTER 2023-01-03 14:38 | Observation (INO) ==
--- NOTE | 2023-01-03 14:59 | ED Triage Note ---
Date of Service January 03, 2023 History of Present Illness This patient was briefly evaluated while in triage. An abbreviated physical exam was performed. This patient is a 72-year-old Male who presents to the ED for evaluation of severe swelling all over. He reports prominent swelling in his legs and feet. He also reports tingling in his thighs. He does report mild shortness of breath. Patient does report a history of heart issues. He rates his overall discomfort a 7 out of 10. 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 Patient does not appear in any acute distress HEENT: Normocephalic, atraumatic. NECK: Full active range of motion without discomfort. RESPIRATORY: Clear to auscultation bilaterally with no wheezing, crackles, rhonchi or stridor. CARDIOVASCULAR: Regular rate and rhythm with no murmurs, rubs or gallops. MUSCULOSKELETAL: Full range of motion of all joints without discomfort. Examination does show 2+ tibial pitting edema INTEGUMENTARY: No rash or other significant dermatologic conditions noted. HEMATOLOGIC: No ecchymosis or petechiae. PSYCHIATRIC: Positive affect. NEUROLOGIC: No focal neurologic deficits noted. Initial orders for labs and / or imaging were placed and patient was placed in the waiting area until a bed is available. Please see further documentation for the full ED course. MDM / Impression Impression Impression: CHF exacerbation, Bilateral edema of lower extremity, Subtherapeutic inte rnational normalized ratio (INR), Noncompliance with medication regimen, Hypoxia Impression: CHF exacerbation Qualifiers: Heart failure type: unspecified Qualified Code(s): I50.9 - Heart failure, unspecified
--- NOTE | 2023-01-03 16:09 | XRay Report ---
SINGLE VIEW CHEST CLINICAL HISTORY: Atypical chest pain. FINDINGS: An AP, portable, upright chest radiograph is compared to study dated 06/22/2021. A single le ad cardiac AICD is unchanged in position and partially obscures the left upper chest. The heart is en larged noting atherosclerotic calcification of the thoracic aorta. The pulmonary vasculature is nonco ngested. Chronic interstitial thickening is similar to previous. The lungs and pleural spaces are cherri ar noting bibasilar scarring/atelectasis. No pneumothorax is seen. The skeletal structures are osteop enic. There are healed right-sided rib fractures. IMPRESSION: 1. Cardiomegaly and the ICD without radiographic evidence of congestive failure. 2. No airspace consolidation or large pleural effusion is identified. ACT 112: Negative or not required by law. Electronically signed by: Ismael Garza M.D. 01/03/2023 4:07 PM
[2023-01-03 16:31] LABS: Basophils # (auto) 0.02 K/uL (0-0.2); Basophils % (auto) 0.3 %; Eosinophils % (auto) 1.3 %; Hemoglobin 15.8 g/dl (14.0-18.0); Immature Granulocytes # (auto) 0.02 K/uL (0.01-0.20); Immature Granulocytes % (auto) 0.3 %; Lymphocytes # (auto) 0.75 K/uL (1.2-3.4); Lymphocytes % (auto) 9.5 %; Mean Corpuscular Hemoglobin 31.7 pg (25.0-34.0); Mean Corpuscular Hgb Conc 32.2 g/dL (32.0-36.0); Mean Corpuscular Volume 98.4 fL (80.0-100.0); Mean Platelet Volume 10.1 fL (9.4-12.4); Monocytes # (auto) 0.68 K/uL (0.11-0.59); Monocytes % (auto) 8.6 %; Neutrophils # (auto) 6.34 K/uL (1.40-6.50); Platelet Count 156 K/uL (130-400); RDW Coefficient of Variation 13.3 % (11.5-14.5); RDW Standard Deviation 48.3 fL (36.4-46.3); Red Blood Count 4.98 M/uL (4.70-6.10); White Blood Count 7.91 K/ul (4.8-10.8)
[2023-01-03 16:45] LABS: INR 1.1 (0.9-1.1); Partial Thromboplastin Time 27.8 Seconds (21.0-31.0); Prothrombin Time 11.9 Seconds (9.0-12.0)
[2023-01-03 16:57] LABS: Albumin Globulin Ratio 1.3 (0.9-2); Albumin Level 4.3 gm/dl (3.4-5.0); Bilirubin,Total 1.2 mg/dl (0.2-1.0); Calcium 9.6 mg/dl (8.6-10.3); Creatinine Clr Calc Pharmacy 53.2 ml/min; Est GFR (African American) 49.5 ml/min; Est GFR (Non-African American) 42.7 ml/min; Globulin 3.3 gm/dl (2.5-4.0); Potassium 3.9 mmol/L (3.5-5.1); Total Protein 7.6 gm/dl (6.0-8.3)
[2023-01-03 17:11] LABS: Troponin I High Sensitivity 62.9 pg/ml (0-20)
--- NOTE | 2023-01-03 18:02 | Emergency Department Note ---
Impression & Plan CHF exacerbation, Bilateral edema of lower extremity, Subtherapeutic international normalized ratio (INR), Noncompliance with medication regimen, Hypoxia Admit to the [facility] ED Provider Note NAME: DOUG LOPEZ AGE: 72 SEX: M ARRIVES VIA: Walk-In INFORMANT: Patient ED PROVIDER(S): Flaca Rodriguez DO CHIEF COMPLAINT: Extremity edema and shortness of breath PLAN: Disposition: Admit to [facility] Condition: Good MEDICAL DECISION MAKING: This is a 72-year-old male patient with history of atrial fibrillation and congestive heart failure who presents to the emergency department with increasing shortness of breath and extremity edema. The patient has not taken his Coumadin over the past month. Patient was noted to have an O2 saturation of 85% on room air. He was placed on supplemental oxygen. He was significantly hypertensive. On EKG he was in atrial fibrillation at a rate of 86. Laboratory studies revealed a creatinine of 1.61. BNP was 312. Troponin of 62.9. Chest x-ray shows evidence of congestive heart failure. Patient was bolused with IV Lasix. INR of course was 1 and therefore he went for CT scan of his chest to rule out a PE. This was negative and showed only evidence of CHF. Triage Nursing notes reviewed and agree with them. External medical records were reviewed from [facility] Vital Signs: reviewed and remarkable for hypertension and hypoxia Differential diagnosis: DVT, PE, CHF, NSTEMI, STEMI ER treatment provided: monitoring tech Twelve-lead EKG IV Lasix Supplemental oxygen Diagnostics interpreted by me: ECG: A-fib at a rate of [address] segment elevation or signs of ischemia. There was T wave inversion in leads I and aVL. Cardiac Monitoring: A-fib at a rate of 70 Laboratory studies: See below Imaging studies: As per my independent interpretation Portable chest x-ray: Cardiomegaly with congestive heart failure HPI: 72/M arrives for evaluation of extremity edema and shortness of breath. ROS: See above HPI for pertinent positives & negatives. A total of 10 systems reviewed and were otherwise negative. PAST MEDICAL HISTORY:See Below PAST SURGICAL HISTORY:See Below FAMILY HISTORY:See Below SOCIAL HISTORY:See Below HOME MEDICATIONS:See list ALLERGIES:None VITALS:See Below PHYSICAL EXAMINATION: HEENT: Head - normocephalic and atraumatic. Pupils are equal, round, and reactive to light. Extraocular eye muscles are intact, and sclera are anicteric. Nose - moist nasal mucosa without discharge. Mouth - moist buccal mucosa. Oropharynx is nonerythematous and there is no tonsillar exudate or edema noted. Neck: Supple; no JVD, nuchal rigidity, cervical lymphadenopathy, or auscultated bruits. Heart: Irregularly irregular rhythm with a controlled rate. There is a normal S1 and S2 with no murmurs, clicks, or gallops appreciated. Lungs: Diminished breath sounds in all lung rivera with rales at both bases. Abdomen: Soft, completely nontender, nondistended, with good bowel sounds. There are no palpable pulsatile masses or hepatosplenomegaly. There is no guarding, rigidity, or rebound noted. Extremities: Patient has 4+ pitting edema noted in both lower extremities. Skin: warm and dry with good turgor and no rashes. ED COURSE: Times/Reassessments: 1630: The patient was evaluated in room C1. An order was placed for continuous cardiac monitoring. The patient was in atrial fibrillation at a rate of 70. A twelve-lead EKG was obtained as described above. A portable chest x-ray was performed and showed evidence of congestive heart failure. O2 saturations were in the mid 80s and the patient was placed on supplemental oxygen. Patient was given a dose of IV Lasix. He went for CT scan of the chest to rule out PE. I discussed the case with the [facility] hospitalist group. I have personally spent greater than 30 minutes of critical care time in the direct management of this patient. This includes bedside care, interpretation of diagnostic studies, and testing, discussion with consultants, patient, and family members, and other required patient management activities. This 30 minutes is in excess of all separately billable procedures. Flaca Rodriguez DO Past Med/Surg History Medical History CAD (coronary artery disease) 2018 - STEMI, s/p SE to LAD Chronic deep vein thrombosis (DVT) of right lower extremity ? 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 Permanent atrial fibrillation PT NOT SURE Poor historian Pre-diabetes PT DENIES Surgical History AICD (automatic cardioverter/defibrillator) present ? REASON...DECEMBER 2018 PLACED, FEW MONTHS AGO LAST CHECK History of cardiac cath @ [facility] 10/[address] Elliott with 1 stent placed History of colonoscopy with polypectomy adenomatous polyp, diverticulosis - Oct 2015 History of heart artery stent (~10/2018) @ [facility] History of orchiectomy R 2010 History of umbilical hernia repair History of vitrectomy (~04/20/21) right Mass of kidney of unknown nature s/p 2010 excision, lupe- renal by report Family History Father Pulmonary embolism Sister Thyroid cancer Social History Smoking Status: Never smoker Second Hand Exposure: No; Do You Dip or Chew Tobacco: No; Tobacco Cessation Education Requested by Patient: No Hx Alcohol Use: Yes Alcohol type: beer Hx Substance Use: No Preferred Language: Hungarian Communication Ability: Effective Crane Service Technician Required: No Beliefs That Will Affect Care: None marital status: Current Living Situation: Alone current occupational status: employed Other Information That Helps Us Care for You: No Feels Safe at Home: Yes Safety Concerns: Feels Safe At This Time Assistive Devices: Denture - Upper and Glasses Allergies Allergies Allergy/AdvReac Type Severity Reaction Status Date / Time No Known Allergies Allergy Verified 01/03/23 19:08 Home Meds Home Medications Medication Instructions Recorded Confirmed aspirin 81 mg tablet,delayed 81 mg PO QAM 02/09/21 01/03/23 release atorvastatin 80 mg tablet 80 mg PO QDL 02/09/21 01/03/23 furosemide 40 mg tablet 40 mg PO QAM 02/09/21 01/03/23 metoprolol succinate 25 mg 25 mg PO QAM 02/09/21 01/03/23 tablet,extended release 24 hr warfarin 5 mg tablet 5 mg PO [id number] 02/09/21 01/03/23 warfarin 5 mg tablet 10 mg PO WK 02/09/21 01/03/23 triamcinolone acetonide 0.1 % 1 applic topical BID PRN Skin 06/22/21 01/03/23 topical cream Irritation sacubitril 49 mg-valsartan 51 mg 1 tab PO QAM 12/04/21 01/03/23 tablet (Entresto) Results & Data (ED) Vital Signs Vital Signs - 24 hr 01/03/23 14:57 01/03/23 17:53 01/03/23 17:53 Temperature 36.2 C L Temperature Source Temporal Artery Scan Pulse Rate 83 70 Pulse Rate [Right Apical] Pulse Rhythm Regular Irregular Pulse Strength Normal Respiratory Rate 20 18 Respiratory Effort / Characteristics Non-Labored Spontaneous Respiratory Depth Normal Respiratory Pattern Regular Blood Pressure 168/96 H Blood Pressure [Right Arm] Blood Pressure Mean 120 Blood Pressure Mean [Right Arm] Blood Pressure Position Sitting Pulse Oximetry 92 84 L 94 Oxygen Delivery Method Room Air Room Air Nasal Cannula Sepsis Recent Fever Within 48 Hours No Sepsis New/Unexplained Change in Mental Status No Sepsis Action Taken by Nursing No Action Required 01/03/23 17:57 01/03/23 18:06 Temperature Temperature Source Pulse Rate 72 Pulse Rate [Right Apical] 78 Pulse Rhythm Pulse Strength Respiratory Rate 18 Respiratory Effort / Characteristics Non-Labored Spontaneous Respiratory Depth Normal Respiratory Pattern Regular Blood Pressure Blood Pressure [Right Arm] 145/98 H Blood Pressure Mean Blood Pressure Mean [Right Arm] 113 Blood Pressure Position Pulse Oximetry 98 Oxygen Delivery Method Room Air Sepsis Recent Fever Within 48 Hours Sepsis New/Unexplained Change in Mental Status Sepsis Action Taken by Nursing Laboratory Data 01/03/23 16:13 01/03/23 16:13 Lab Results 01/03/23 01/03/23 01/03/23 Range/Units 16:13 16:13 16:13 WBC 7.91 (4.8-10.8) K/ul RBC 4.98 (4.70-6.10) M/uL Hgb 15.8 (14.0-18.0) g/dl Hct 49.0 (42.0-52.0) % MCV 98.4 (80.0-100.0) fL MCH 31.7 (25.0-34.0) pg MCHC 32.2 (32.0-36.0) g/dL RDW Std Deviation 48.3 H (36.4-46.3) fL RDW Coeff of Juan 13.3 (11.5-14.5) % Plt Count 156 (130-400) K/uL MPV 10.1 (9.4-12.4) fL Immature Gran % (Auto) 0.3 % Neut % (Auto) 80.0 % Lymph % (Auto) 9.5 % Hood % (Auto) 8.6 % Eos % (Auto) 1.3 % Baso % (Auto) 0.3 % Neut # (Auto) 6.34 (1.40-6.50) K/uL Lymph # (Auto) 0.75 L (1.2-3.4) K/uL Hood # (Auto) 0.68 H (0.11-0.59) K/uL Eos # (Auto) 0.10 (0-0.50) K/uL Baso # (Auto) 0.02 (0-0.2) K/uL Immature Gran # (Auto) 0.02 (0.01-0.20) K/uL PT 11.9 (9.0-12.0) Seconds INR 1.1 (0.9-1.1) APTT 27.8 (21.0-31.0) Seconds PTT Ratio 1.0 Sodium 141 (136-145) mmol/L Potassium 3.9 (3.5-5.1) mmol/L Chloride 101 (98-107) mmol/L Carbon Dioxide 32 (21-32) mmol/L Anion Gap 8 (3-11) BUN 21 (6-23) mg/dl Creatinine 1.61 H (0.6-1.4) mg/dl Est Cr Clr Drug Dosing 53.2 ml/min Est GFR ( Amer) 49.5 ml/min Est GFR (Non-Af Amer) 42.7 ml/min BUN/Creatinine Ratio 13.0 (10-20) Glucose 110 H (70-99(Fasting)) mg/dl Calcium 9.6 (8.6-10.3) mg/dl Total Bilirubin 1.2 H (0.2-1.0) mg/dl AST 22 (13-39) U/L ALT 29 (7-52) U/L Alkaline Phosphatase 71 (34-104) U/L Troponin I High Sens 62.9 H* (0-20) pg/ml B-Natriuretic Peptide (0-100) pg/ml Total Protein 7.6 (6.0-8.3) gm/dl Albumin 4.3 (3.4-5.0) gm/dl Globulin 3.3 (2.5-4.0) gm/dl Albumin/Globulin Ratio 1.3 (0.9-2) Lipase 33 (11-82) U/L SARS-CoV-2, RNA, NAAT (NEGATIVE) 01/03/23 01/03/23 Range/Units 16:13 18:04 WBC (4.8-10.8) K/ul RBC (4.70-6.10) M/uL Hgb (14.0-18.0) g/dl Hct (42.0-52.0) % MCV (80.0-100.0) fL MCH (25.0-34.0) pg MCHC (32.0-36.0) g/dL RDW Std Deviation (36.4-46.3) fL RDW Coeff of Juan (11.5-14.5) % Plt Count (130-400) K/uL MPV (9.4-12.4) fL Immature Gran % (Auto) % Neut % (Auto) % Lymph % (Auto) % Hood % (Auto) % Eos % (Auto) % Baso % (Auto) % Neut # (Auto) (1.40-6.50) K/uL Lymph # (Auto) (1.2-3.4) K/uL Hood # (Auto) (0.11-0.59) K/uL Eos # (Auto) (0-0.50) K/uL Baso # (Auto) (0-0.2) K/uL Immature Gran # (Auto) (0.01-0.20) K/uL PT (9.0-12.0) Seconds INR (0.9-1.1) APTT (21.0-31.0) Seconds PTT Ratio Sodium (136-145) mmol/L Potassium (3.5-5.1) mmol/L Chloride (98-107) mmol/L Carbon Dioxide (21-32) mmol/L Anion Gap (3-11) BUN (6-23) mg/dl Creatinine (0.6-1.4) mg/dl Est Cr Clr Drug Dosing ml/min Est GFR ( Amer) ml/min Est GFR (Non-Af Amer) ml/min BUN/Creatinine Ratio (10-20) Glucose (70-99(Fasting)) mg/dl Calcium (8.6-10.3) mg/dl Total Bilirubin (0.2-1.0) mg/dl AST (13-39) U/L ALT (7-52) U/L Alkaline Phosphatase (34-104) U/L Troponin I High Sens (0-20) pg/ml B-Natriuretic Peptide 312 H (0-100) pg/ml Total Protein (6.0-8.3) gm/dl Albumin (3.4-5.0) gm/dl Globulin (2.5-4.0) gm/dl Albumin/Globulin Ratio (0.9-2) Lipase (11-82) U/L SARS-CoV-2, RNA, NAAT NEGATIVE (NEGATIVE) Administered Medications Aspirin (Aspirin 81 Mg Ectab) 81 mg PO QAM [facility] Stop: 02/03/23 08:59 Last Admin: 01/04/23 09:49 Dose: 81 mg Documented By: NATALIA Atorvastatin Calcium (Atorvastatin 40 Mg Tab) 80 mg PO QDL ANTHONY Stop: 02/03/23 11:29 Last Admin: 01/04/23 12:12 Dose: 80 mg Documented By: MARK Furosemide (Furosemide 40 Mg/4 Ml Vial) 40 mg IV DAILY ANTHONY Stop: 02/03/23 08:59 Last Admin: 01/04/23 09:49 Dose: 40 mg Documented By: NATALIA Heparin Sodium (Porcine) (Heparin Sod 5,000 Unit/0.5 Ml Vial) 5,000 units SQ Q8 ANTHONY Stop: 02/02/23 21:59 Last Admin: 01/04/23 13:28 Dose: 5,000 units Documented By: Admin: 01/04/23 06:12 Dose: 5,000 units Documented By: aerial photogrammetrist: 01/03/23 22:29 Dose: 5,000 units Documented By: HUYEN Metoprolol Succinate (Metoprolol Succ 25mg Ext Rel Tab) 25 mg PO QAM [facility] Stop: 02/03/23 08:59 Last Admin: 01/04/23 09:48 Dose: 25 mg Documented By: NATALIA Discontinued Medications Furosemide (Furosemide 40 Mg/4 Ml Vial) 40 mg IV ONE ONE Stop: 01/03/23 18:07 Last Admin: 01/03/23 19:32 Dose: 40 mg Documented By: HUYEN Ioversol (Optiray 320 500ml) 116 ml IV ONCE ONE Stop: 01/03/23 19:16 Last Admin: 01/03/23 19:19 Dose: 116 ml Documented By: DA Warfarin Sodium (Warfarin Sod 7.5 Mg Tab) 7.5 mg PO ONE ONE Stop: 01/03/23 21:46 Last Admin: 01/03/23 22:29 Dose: 7.5 mg Documented By: HUYEN Imaging Data Radiologist's Impression: Chest X-Ray 01/03/23 14:59 SINGLE VIEW CHEST CLINICAL HISTORY: Atypical chest pain. FINDINGS: An AP, portable, upright chest radiograph is compared to study dated 06/22/2021. A single lead cardiac AICD is unchanged in position and partially obscures the left upper chest. The heart is enlarged noting atherosclerotic calcification of the thoracic aorta. The pulmonary vasculature is noncongested. Chronic interstitial thickening is similar to previous. The lungs and pleural spaces are clear noting bibasilar scarring/atelectasis. No pneumothorax is seen. The skeletal structures are osteopenic. There are healed right-sided rib f ractures. IMPRESSION: 1. Cardiomegaly and the ICD without radiographic evidence of congestive failure. 2. No airspace consolidation or large pleural effusion is identified. ACT 112: Negative or not required by law. Electronically signed by: Ismael Garza M.D. 01/03/2023 4:07 PM Discharge Plan Visit Data Chief Complaint: Edema To Extremity Stated Complaint: EDEMA, SWELLING ED Provider: Flaca Rodriguez Discharge Problem: CHF exacerbation, Bilateral edema of lower extremity, Subtherapeutic international normalized ratio (INR), Noncompliance with medication regimen, Hypoxia Patient Disposition: Admitted As Inpatient Discharge Instructions Interventions: ED Discharge Assessment Last Done: 01/03/23 21:12
[2023-01-03] MEDS ORDERED: FUROSEMIDE 40 MG/4 ML VIAL IV ONE (18:06)
[2023-01-03] MEDS ORDERED: OPTIRAY 320 500ml IV ONE (19:15)
--- NOTE | 2023-01-03 19:18 | History & Physical Report ---
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 Possible related to volume overload BNP 312 Received Lasix 40mg IV on admission Continue IV lasix 40mg IV daily Monitor I's and O's, daily weight, volume status Hypoxia CHF exacerbation Denies any SOB CTA chest showed no evidence for PE. Cardiomegaly with mild pulmonary edema. Small right pleural effusion with subsegmental bibasilar atelectasis. Continue Lasix IV 40mg daily Will get an echo Will consult cardiology Continue oxygen supplement Monitor BMP while on IV lasix Chronic systolic CHF H/O Ischemic cardiomyopathy Chronic HFrEF (heart failure with reduced ejection fraction): S/P AICD Pt has not been taking the metoprolol and entresto for weeks Cardiology consult Will get an echo Continue IV lasix 40mg daily Will resume metoprolol Entresto on hold while getting IV lasix and contrast from CTA chest Elevated troponin Troponin on admission 62.9 EKG reviewed by me showed no acute ischemic changes Denies any chest pain We will trend troponin Resting echo order Will resume metoprolol, aspirin and statin. We will monitor closely in telemetry Depression Patient said during winter season he feels depressed Denies any suicidal thoughts Discussed about starting on antidepressant med, but refused Not interested to start on any med since there is only 5 weeks left for the cold weather Alcohol abuse Patient said he only drinks 1 large cup of beer daily Denies any history of alcohol withdrawal or DT Continue monitor for sign of alcohol withdrawal Continue thiamine and folic acid Counseling on alcohol cessation CKD recommended creatinine 1.6 on admission, baseline e between 1.5-1.6 Continue monitor BMP while on IV Lasix We will hold Entresto for now due to recent contrast and IV Lasix H/O A. fib, DVT: Patient has not been taking coumadin for past few months rate control Will resume coumadin and Metoprolol Will discuss with cardiology tomorrow about transition to eliquis since pt he is not compliance with coumadin and INR monitoring Continue monitor in telemetry CAD (coronary artery disease): H/O SE to LAD Continue aspirin, Lipitor, metoprolol Pre-diabetes: Will check Hba1c Chronic deep vein thrombosis (DVT): Will resume coumadin Will discuss with cardiology to transition to Eliquis DVT prophylaxis: Resume Coumadin Continue heparin subq CODE STATUS FULL CODE History of Present Illness Chief Complaint: B/L LE edema Primary Care Provider: Rosalie Rosales, 72-year-old male with significant past medical history of CAD, ischemic cardiomyopathy, AICD in place, permanent atrial fibrillation on warfarin, history of chronic right lower extremity DVT on warfarin, CKD stage III, right lower extremity lymphedema, 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 Pt said that for the last few weeks he has been having lower extremities edema. He said that in the last few days swelling got worst. He said that he can feels the fluid in the back of his legs that extended to his thighs area. He said that he feels a tingling in his left leg. Pt said that he has not been taking his coumadin for about 2 months and the entresto an metoprolol for more than 2 weeks. He said that he is very active and he is not having any SOB. He said that his main problem that he has is the swelling and that he is the reason he came. He said that he has been taking the Lasix daily. He said that he drinks a large cup of beer at the end of the day on his workday. His last alcohol drink was Tuesday. He said that he has been feeling depressed that is the reason he has not been taking care of his health. He said that he usually gets depressed every winter; then during summer time he is happy. Denies any history of alcohol withdrawal symptoms in the past. Denies any chest pain, palpitation, dizziness and SOB. Allergies Allergy/AdvReac Type Severity Reaction Status Date / Time No Known Allergies Allergy Verified 01/03/23 19:08 Home Medications Medication Instructions Recorded Confirmed Type aspirin 81 mg tablet,delayed 81 mg PO QAM 02/09/21 01/03/23 History release atorvastatin 80 mg tablet 80 mg PO QDL 02/09/21 01/03/23 History furosemide 40 mg tablet 40 mg PO QAM 02/09/21 01/03/23 History metoprolol succinate 25 mg 25 mg PO QAM 02/09/21 01/03/23 History tablet,extended release 24 hr warfarin 5 mg tablet 5 mg PO [id number] 02/09/21 01/03/23 History warfarin 5 mg tablet 10 mg PO WK 02/09/21 01/03/23 History triamcinolone acetonide 0.1 % 1 applic topical BID PRN Skin 06/22/21 01/03/23 History topical cream Irritation sacubitril 49 mg-valsartan 51 mg 1 tab PO QAM 12/04/21 01/03/23 History tablet (Entresto) Past Med/Surg History Medical History CAD (coronary artery disease) 2018 - STEMI, s/p SE to LAD Chronic deep vein thrombosis (DVT) of right lower extremity ? Chronic HFrEF (heart failure with reduced ejection fraction) PT REPORTS HEART FAILURE RESOLVED CKD (chronic kidney disease) stage 3, GFR 30-59 ml/min 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) HX History of COVID-19 Ischemic cardiomyopathy PT NOT SURE Mass of testicle (01/27/13) R testicular Germ cell tumor removed 2009 NSTEMI (non-ST elevated myocardial infarction) HX CT On anticoagulant therapy Peripheral vascular disease ? Permanent atrial fibrillation PT NOT SURE Poor historian Pre-diabetes PT DENIES Surgical History AICD (automatic cardioverter/defibrillator) present ? REASON...DECEMBER 2018 PLACED, FEW MONTHS AGO LAST CHECK History of cardiac cath @ [facility] 10/[address] Elliott with 1 stent placed History of colonoscopy with polypectomy adenomatous polyp, diverticulosis - Oct 2015 History of heart artery stent (~10/2018) @ 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 Required: No Beliefs That Will Affect Care: None marital status: Current Living Situation: Alone current occupational status: employed Other Information That Helps Us Care for You: No Feels Safe at Home: Yes Safety Concerns: Feels Safe At This Time Assistive Devices: Denture - Upper and Glasses Review of Systems Review of Systems: All systems reviewed & are unremarkable except as noted in HPI & below Physical Exam Physical Exam: General: No acute distress, obese HEENT: PERRLA, EOMI, Heart: Irregular no carotid bruit, no JVD, no lower extremity edema Lungs: Diminished breath sound, no wheeze or rales Abdomen: Soft nontender, no organomegaly Extremity: +edema B/L Neuro: No focal neurological deficit normal speech, normal visual field, Psych: Alert awake oriented x3, normal affect Results & Data Results & Data Vital Signs (Past 12 Hours) Vital Signs Temp Pulse Pulse Resp BP BP Pulse Ox 01/03/23 18:06 72 01/03/23 17:57 78 18 145/98 H 98 01/03/23 17:53 70 18 94 01/03/23 17:53 84 L 01/03/23 14:57 36.2 C L 83 20 168/96 H 92 O2 Del Method 01/03/23 18:06 01/03/23 17:57 Room Air 01/03/23 17:53 Nasal Cannula 01/03/23 17:53 Room Air 01/03/23 14:57 Room Air Diagnostic Findings Laboratory Results WBC 7.91 K/ul (4.8-10.8) 01/03/23 16:13 RBC 4.98 M/uL (4.70-6.10) 01/03/23 16:13 Hgb 15.8 g/dl (14.0-18.0) 01/03/23 16:13 Hct 49.0 % (42.0-52.0) 01/03/23 16:13 MCV 98.4 fL (80.0-100.0) 01/03/23 16:13 MCH 31.7 pg (25.0-34.0) 01/03/23 16:13 MCHC 32.2 g/dL (32.0-36.0) 01/03/23 16:13 RDW Std Deviation 48.3 fL (36.4-46.3) H 01/03/23 16:13 RDW Coeff of Juan 13.3 % (11.5-14.5) 01/03/23 16:13 Plt Count 156 K/uL (130-400) 01/03/23 16:13 MPV 10.1 fL (9.4-12.4) 01/03/23 16:13 Immature Gran % (Auto) 0.3 % 01/03/23 16:13 Neut % (Auto) 80.0 % 01/03/23 16:13 Lymph % (Auto) 9.5 % 01/03/23 16:13 George % (Auto) 8.6 % 01/03/23 16:13 Eos % (Auto) 1.3 % 01/03/23 16:13 Baso % (Auto) 0.3 % 01/03/23 16:13 Neut # (Auto) 6.34 K/uL (1.40-6.50) 01/03/23 16:13 Lymph # (Auto) 0.75 K/uL (1.2-3.4) L 01/03/23 16:13 George # (Auto) 0.68 K/uL (0.11-0.59) H 01/03/23 16:13 Eos # (Auto) 0.10 K/uL (0-0.50) 01/03/23 16:13 Baso # (Auto) 0.02 K/uL (0-0.2) 01/03/23 16:13 Immature Gran # (Auto) 0.02 K/uL (0.01-0.20) 01/03/23 16:13 PT 11.9 Seconds (9.0-12.0) 01/03/23 16:13 INR 1.1 (0.9-1.1) 01/03/23 16:13 APTT 27.8 Seconds (21.0-31.0) 01/03/23 16:13 PTT Ratio 1.0 01/03/23 16:13 Sodium 141 mmol/L (136-145) 01/03/23 16:13 Potassium 3.9 mmol/L (3.5-5.1) 01/03/23 16:13 Chloride 101 mmol/L (98-107) 01/03/23 16:13 Carbon Dioxide 32 mmol/L (21-32) 01/03/23 16:13 Anion Gap 8 (3-11) 01/03/23 16:13 BUN 21 mg/dl (6-23) 01/03/23 16:13 Creatinine 1.61 mg/dl (0.6-1.4) H 01/03/23 16:13 Est Cr Clr Drug Dosing 53.2 ml/min 01/03/23 16:13 Est GFR ( Amer) 49.5 ml/min 01/03/23 16:13 Est GFR (Non-Af Amer) 42.7 ml/min 01/03/23 16:13 BUN/Creatinine Ratio 13.0 (10-20) 01/03/23 16:13 Glucose 110 mg/dl (70-99(Fasting)) H 01/03/23 16:13 Calcium 9.6 mg/dl (8.6-10.3) 01/03/23 16:13 Total Bilirubin 1.2 mg/dl (0.2-1.0) H 01/03/23 16:13 AST 22 U/L (13-39) 01/03/23 16:13 ALT 29 U/L (7-52) 01/03/23 16:13 Alkaline Phosphatase 71 U/L (34-104) 01/03/23 16:13 Troponin I High Sens 62.9 pg/ml (0-20) H* 01/03/23 16:13 B-Natriuretic Peptide 312 pg/ml (0-100) H 01/03/23 16:13 Total Protein 7.6 gm/dl (6.0-8.3) 01/03/23 16:13 Albumin 4.3 gm/dl (3.4-5.0) 01/03/23 16:13 Globulin 3.3 gm/dl (2.5-4.0) 01/03/23 16:13 Albumin/Globulin Ratio 1.3 (0.9-2) 01/03/23 16:13 Lipase 33 U/L (11-82) 01/03/23 16:13 SARS-CoV-2, RNA, NAAT NEGATIVE (NEGATIVE) 01/03/23 18:04 Impressions Chest X-Ray 01/03/23 14:59 SINGLE VIEW CHEST CLINICAL HISTORY: Atypical chest pain. FINDINGS: An AP, portable, upright chest radiograph is compared to study dated 06/22/2021. A single lead cardiac AICD is unchanged in position and partially obscures the left upper chest. The heart is enlarged noting atherosclerotic calcification of the thoracic aorta. The pulmonary vasculature is noncongested. Chronic interstitial thickening is similar to previous. The lungs and pleural spaces are clear noting bibasilar scarring/atelectasis. No pneumothorax is seen. The skeletal structures are osteopenic. There are healed right-sided rib fractures. IMPRESSION: 1. Cardiomegaly and the ICD without radiographic evidence of congestive failure. 2. No airspace consolidation or large pleural effusion is identified. ACT 112: Negative or not required by law. Electronically signed by: Ismael Garza M.D. 01/03/2023 4:07 PM Code Status & VTE Plan VTE Prophylaxis Plan VTE Prophylaxis will be ordered: Yes
--- NOTE | 2023-01-03 19:34 | CT Scan Report ---
CT angio chest PE protocol CT DOSE: 1009.37 mGy.cm HISTORY: 72 years-old Male with PE. Acute chest pain with shortness of breath TECHNIQUE: Multiple CTA images of the chest were obtained after the intravenous administration of 116 ml Optiray. Coronal and sagittal MIPS were obtained from the axial data set and were submitted for review. All measurements were obtained according to NASCET criteria. A dose lowering technique was u tilized adhering to the principles of ALARA. COMPARISON: Chest radiograph of same day FINDINGS: CTA: Moderate cardiomegaly. Mural fibrofatty changes of the left ventricular apex suggestive of prior infa rct. Extensive coronary artery calcifications. No pericardial effusion. Left subclavian pacer/AICD. U nfused from dilation of the ascending thoracic aorta, 4.3 cm. Mild to moderate associated atheroscler osis. Suboptimal opacification of the pulmonary artery secondary to contrast bolus timing. The majori ty of the contrast bolus is present within the SVC. No central filling defects identified. Opacified venous collaterals of the left chest wall. CT CHEST: No thyroid nodule or lymphadenopathy identified. Small right pleural effusion. Mild intralobular and bronchial wall thickening. Subsegmental dependent bibasilar atelectasis. 7 mm subpleural solid nodule in the right lung apex on image 237. Mild tracheobronchial secretions. No acute process of the imaged upper abdomen. Hepatic steatosis. Gynecomastia. Mild generalized body wall edema. No acute fracture. Degenerative changes of the shoulders and spine. IMPRESSION: 1. Cardiomegaly with mild pulmonary edema. 2. Small right pleural effusion with subsegmental bibasilar atelectasis. 3. Limited exam as above. No central pulmonary emboli identified. 4. Mild fusiform dilation of the ascending thoracic aorta, 4.3 cm. ACT 112: Negative or not required by law. The above report was generated using voice recognition software. It may contain grammatical, syntax o r spelling errors. Electronically signed by: Heath Tabares M.D. 01/03/2023 7:32 PM
[2023-01-03] MEDS ORDERED: WARFARIN SOD 7.5 MG TAB PO ONE (21:45)
[2023-01-03] MEDS: HEPARIN SOD 5,000 UNIT/0.5 ML VIAL SQ SCH (22:29)
[2023-01-04 05:09] LABS: Hematocrit (blood only) 44.3 % (42.0-52.0); Mean Corpuscular Hemoglobin 32.2 pg (25.0-34.0); Mean Corpuscular Hgb Conc 31.6 g/dL (32.0-36.0); Mean Corpuscular Volume 101.8 fL (80.0-100.0); Mean Platelet Volume 10.1 fL (9.4-12.4); Platelet Count 130 K/uL (130-400); RDW Coefficient of Variation 13.3 % (11.5-14.5); RDW Standard Deviation 50.6 fL (36.4-46.3); Red Blood Count 4.35 M/uL (4.70-6.10); White Blood Count 6.26 K/ul (4.8-10.8)
[2023-01-04 05:13] LABS: INR 1.2 (0.9-1.1); Prothrombin Time 12.3 Seconds (9.0-12.0)
[2023-01-04 05:25] LABS: BUN Creatinine Ratio 12.9 (10-20); Calcium 8.8 mg/dl (8.6-10.3); Chol HDL Ratio 2.1 (0-5); Creatinine Clr Calc Pharmacy 55.3 ml/min; Est GFR (African American) 51.8 ml/min; Est GFR (Non-African American) 44.7 ml/min; Potassium 3.9 mmol/L (3.5-5.1)
[2023-01-04 05:35] LABS: Troponin I High Sensitivity 40.3 pg/ml (0-20)
[2023-01-04] MEDS: HEPARIN SOD 5,000 UNIT/0.5 ML VIAL SQ SCH ×2 (06:12→13:28)
[2023-01-04 07:43] LABS: Estimated Average Glucose 128 mg/dl; Hemoglobin A1C 6.1 % (4.5-5.6)
--- NOTE | 2023-01-04 08:52 | Cardiology Consultation ---
Date of Consultation January 04, 2023 History of Present Illness Reason for Consultation: LE edema Requesting Physician: NE Attending Physician: Rose Mary Frazier MD History of Present Illness Mr. Odell is a 72-year-old gentleman who has not followed up with our outpatient cardiology practice since 2020, PCP since 06/30, last outpatient INR check 08/30 and the last device transmission in May 2022. He presents to [facility] ED on 01/03/23 with complaints of LE edema. PMHX: 1. CAD s/p PCI to LAD 2. Ischemic cardiomyopathy, EF 20-25% s/p ICD 3. Hx DVT on warfarin 4. Lymphedema 5. Testicular carcinoma 6. CKD 7. PVD 8. DM2 9. Medication noncompliance 10. Medical follow up noncompliance 11. Pulmonary hypertension Allergies Allergy/AdvReac Type Severity Reaction Status Date / Time No Known Allergies Allergy Verified 01/03/23 19:08 Home Medications Medication Instructions Recorded Confirmed Type aspirin 81 mg tablet,delayed 81 mg PO QAM 02/09/21 01/03/23 History release atorvastatin 80 mg tablet 80 mg PO QDL 02/09/21 01/03/23 History furosemide 40 mg tablet 40 mg PO QAM 02/09/21 01/03/23 History metoprolol succinate 25 mg 25 mg PO QAM 02/09/21 01/03/23 History tablet,extended release 24 hr warfarin 5 mg tablet 5 mg PO [id number] 02/09/21 01/03/23 History warfarin 5 mg tablet 10 mg PO WK 02/09/21 01/03/23 History triamcinolone acetonide 0.1 % 1 applic topical BID PRN Skin 06/22/21 01/03/23 History topical cream Irritation sacubitril 49 mg-valsartan 51 mg 1 tab PO QAM 12/04/21 01/03/23 History tablet (Entresto) Patient History Medical History CAD (coronary artery disease) 2018 - STEMI, s/p SE to LAD Chronic deep vein thrombosis (DVT) of right lower extremity ? Chronic HFrEF (heart failure with reduced ejection fraction) PT REPORTS HEART FAILURE RESOLVED CKD (chronic kidney disease) stage 3, GFR 30-59 ml/min 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) HX History of COVID-19 Ischemic cardiomyopathy PT NOT SURE Mass of testicle (01/27/13) R testicular Germ cell tumor removed 2009 NSTEMI (non-ST elevated myocardial infarction) HX AR On anticoagulant therapy Peripheral vascular disease ? Permanent atrial fibrillation PT NOT SURE Poor historian Pre-diabetes PT DENIES Surgical History AICD (automatic cardioverter/defibrillator) present ? REASON...DECEMBER 2018 PLACED, FEW MONTHS AGO LAST CHECK History of cardiac cath @ [facility] 10/[address] Elliott with 1 stent placed History of colonoscopy with polypectomy adenomatous polyp, diverticulosis - Oct 2015 History of heart artery stent (~10/2018) @ [facility] History of orchiectomy R 2010 History of umbilical hernia repair History of vitrectomy (~04/20/21) right Mass of kidney of unknown nature s/p 2010 excision, lupe- renal by report Family History Father Pulmonary embolism Sister Thyroid cancer Social History Smoking Status: Never smoker Second Hand Exposure: No; Hx Alcohol Use: Yes Alcohol type: beer Hx Substance Use: No Preferred Language: Emirati Communication Ability: Effective Ld Teacher Required: No Beliefs That Will Affect Care: None marital status: Current Living Situation: Alone current occupational status: employed Feels Safe at Home: Yes Assistive Devices: None Results & Data Vital Signs (Past 12 Hours) Vital Signs Pulse Pulse Resp BP Pulse Ox Pulse Ox O2 Del Method 01/04/23 07:03 78 15 91 Nasal Cannula 01/04/23 06:59 67 01/04/23 06:17 65 22 114/81 97 Nasal Cannula 01/04/23 01:09 98 01/04/23 01:08 83 20 120/88 97 Room Air 01/03/23 23:00 65 O2 Del Method O2 Flow Rate 01/04/23 07:03 2 01/04/23 06:59 01/04/23 06:17 01/04/23 01:09 Room Air 01/04/23 01:08 01/03/23 23:00
[2023-01-04] MEDS: METOPROLOL SUCC 25MG EXT REL TAB PO SCH (09:48)
[2023-01-04] MEDS: ASPIRIN 81 MG ECTAB PO SCH (09:49)
[2023-01-04] MEDS: FUROSEMIDE 40 MG/4 ML VIAL IV SCH (09:49)
[2023-01-04] MEDS: ATORVASTATIN 40 MG TAB PO SCH (12:12)
--- NOTE | 2023-01-04 12:46 | Electrocardiogram Report ---
Test Reason : Blood Pressure : / mmHG Vent. Rate : 086 BPM Atrial Rate : 088 BPM P-R Int : 000 ms QRS Dur : 102 ms QT Int : 376 ms P-R-T Axes : 000 -73 075 degrees QTc Int : 449 ms Poor data quality, interpretation may be adversely affected Atrial fibrillation Left axis deviation Inferior infarct (cited on or before 11-OCT-2018) Anterolateral infarct (cited on or before 11-OCT-2018) Abnormal ECG When compared with ECG of 22-JUN-2021 11:43, Non-specific change in ST segment in Anterior leads Inverted T waves have replaced nonspecific T wave abnormality in Lateral leads Confirmed by Ambrocio Aleman ([id number]) on 01/04/2023 12:46:13 PM Referred By: REFERRED SELF Confirmed By:Ambrocio Aleman
[2023-01-04] MEDS ORDERED: LORazepam 1 MG TAB PO PRN (13:38)
--- NOTE | 2023-01-04 17:00 | Hospitalist Progress Note ---
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 Possible related to volume overload BNP 312 Received Lasix 40mg IV on admission Continue IV lasix 40mg IV daily Monitor I's and O's, daily weight, volume status Hypoxia CHF exacerbation Denies any SOB CTA chest showed no evidence for PE. Cardiomegaly with mild pulmonary edema. Small right pleural effusion with subsegmental bibasilar atelectasis. Continue Lasix IV 40mg daily Saturated well on RA Cardiology on board Case discussed with cardiology that recommended to continue IV lasix Continue Monitor BMP while on IV lasix Chronic systolic CHF H/O Ischemic cardiomyopathy Chronic HFrEF (heart failure with reduced ejection fraction): S/P AICD Pt has not been taking the metoprolol and entresto for weeks Cardiology consult ECHO showed severe hypokinesis to akinesis of the anteroseptal and anterior and apical layne, otherwise moderate global hypokinesis Severe reduced LV systolic function with EF 20 to 25% Continue IV lasix 40mg daily Continue metoprolol Entresto on hold while onIV lasix and recent contrast from CTA chest Will defer to cardio when to resume ENTRESTO Elevated troponin Troponin on admission 62.9, then trending down to 40.3 EKG reviewed by me showed no acute ischemic changes Denies any chest pain ECHO showed severe hypokinesis to akinesis of the anteroseptal and anterior and apical layne, otherwise moderate global hypokinesis Continue metoprolol, aspirin and statin. Depression Patient said during winter season he feels depressed Denies any suicidal thoughts Discussed about starting on antidepressant med, but refused Not interested to start on any med since there is only 5 weeks left for the cold weather Alcohol abuse Patient said he only drinks 1 large cup of beer daily Denies any history of alcohol withdrawal or DT Continue monitor for sign of alcohol withdrawal Continue thiamine and folic acid Counseling on alcohol cessation CKD creatinine 1.6 on admission, baseline e between 1.5-1.6 Creatinine 1.5 today Continue monitor BMP while on IV Lasix Continue to hold Entresto for now due to recent contrast and IV Lasix H/O A. fib, DVT: Patient has not been taking coumadin for past few months rate control Continue metoprolol Case discussed with cardiology about transition to eliquis since pt he is non compliance with coumadin and INR monitoring Will transition to Eliquis Continue monitor in telemetry CAD (coronary artery disease): H/O SE to LAD Continue aspirin, Lipitor, metoprolol Pre-diabetes: Most recent Hba1c 6.1 Counseling on weight loss, diet and exercise Chronic deep vein thrombosis (DVT): Will transition to Eliquis DVT prophylaxis on Eliquis CODE STATUS FULL CODE Admission and Anticipated Discharge Date Admission Date: January 03, 2023 Subjective Pt was seen and examined for follow up Sitting in chair with no acute distress watching TV He said that he feels fine today He is saturated well on RA He said that he has been diuresis well Denies any chest pain, palpitation, dizziness and SOB Review of Systems Review of Systems: All systems reviewed & are unremarkable except as noted in Subjective Physical Exam Physical Exam: General: No acute distress, obese HEENT: PERRLA, EOMI, Heart: Irregular no carotid bruit, no JVD, no lower extremity edema Lungs: Diminished breath sound, no wheeze or rales Abdomen: Soft nontender, no organomegaly Extremity: +edema B/L Neuro: No focal neurological deficit normal speech, normal visual field, Psych: Alert awake oriented x3, normal affect Results & Data Results & Data Vital Signs (Past 12 Hours) Vital Signs Temp Pulse Pulse Pulse Resp BP BP 01/04/23 16:03 37.1 C 65 20 117/71 01/04/23 12:06 01/04/23 11:56 70 01/04/23 11:56 01/04/23 11:56 36.2 C L 68 22 131/94 152/103 H 01/04/23 07:03 78 15 01/04/23 06:59 67 01/04/23 06:17 65 22 114/81 Pulse Ox O2 Del Method O2 Flow Rate 01/04/23 16:03 92 Room Air 01/04/23 12:06 Room Air 01/04/23 11:56 01/04/23 11:56 Room Air 01/04/23 11:56 90 Room Air 01/04/23 07:03 91 Nasal Cannula 2 01/04/23 06:59 01/04/23 06:17 97 Nasal Cannula
[2023-01-04] MEDS: APIXABAN 5 MG TABLET PO SCH (20:18)
[2023-01-05 08:12] LABS: BUN Creatinine Ratio 14.5 (10-20); Calcium 9.1 mg/dl (8.6-10.3); Creatinine Clr Calc Pharmacy 58.7 ml/min; Est GFR (African American) 47.7 ml/min; Est GFR (Non-African American) 41.1 ml/min; Potassium 3.9 mmol/L (3.5-5.1)
[2023-01-05] MEDS: APIXABAN 5 MG TABLET PO SCH ×2 (08:14→20:21)
[2023-01-05] MEDS: FUROSEMIDE 40 MG/4 ML VIAL IV SCH ×2 (09:54→16:10)
[2023-01-05] MEDS: METOPROLOL SUCC 25MG EXT REL TAB PO SCH (09:57)
[2023-01-05] MEDS: THIAMINE HCL 100 MG TAB PO SCH (09:57)
[2023-01-05] MEDS: ASPIRIN 81 MG ECTAB PO SCH (09:57)
[2023-01-05] MEDS: FOLIC ACID 1 MG TAB PO SCH (09:57)
[2023-01-05] MEDS: ATORVASTATIN 40 MG TAB PO SCH (12:26)
--- NOTE | 2023-01-05 13:06 | Hospitalist Progress Note ---
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 Possible related to volume overload BNP 312 Received Lasix 40mg IV on admission Continue IV lasix 40mg BID Monitor I's and O's, daily weight, volume status Hypoxia CHF exacerbation Denies any SOB CTA chest showed no evidence for PE. Cardiomegaly with mild pulmonary edema. Small right pleural effusion with subsegmental bibasilar atelectasis. Continue IV Lasix Currently on RA Cardiology consulted Continue Monitor BMP while on IV lasix Chronic systolic CHF H/O Ischemic cardiomyopathy Chronic HFrEF (heart failure with reduced ejection fraction): S/P AICD Pt has not been taking the metoprolol and entresto for weeks Cardiology consult ECHO showed severe hypokinesis to akinesis of the anteroseptal and anterior and apical layne, otherwise moderate global hypokinesis Severe reduced LV systolic function with EF 20 to 25% Continue IV lasix 40mg BID (dose increased to improve diuresis) Continue metoprolol Entresto on hold while on IV lasix and recent contrast from CTA chest Will defer to cardiology when to resume ENTRESTO Elevated troponin Troponin on admission 62.9, then trending down to 40.3 EKG reviewed by me showed no acute ischemic changes Denies any chest pain ECHO showed severe hypokinesis to akinesis of the anteroseptal and anterior and apical layne, otherwise moderate global hypokinesis Continue metoprolol, aspirin and statin. Depression Patient said during winter season he feels depressed Denies any suicidal thoughts Discussed about starting on antidepressant med, but refused Not interested to start on any med since there is only 5 weeks left for the cold weather Alcohol abuse Patient said he only drinks 1 large cup of beer daily Denies any history of alcohol withdrawal or DT Continue monitor for sign of alcohol withdrawal Continue thiamine and folic acid Counseling on alcohol cessation CKD creatinine 1.6 on admission, baseline e between 1.5-1.6 Creatinine 1.6 today Continue monitor BMP while on IV Lasix Continue to hold Entresto for now due to recent contrast and IV Lasix H/O A. fib, DVT: Patient has not been taking coumadin for past few months rate control Continue metoprolol Case discussed with cardiology about transition to eliquis as pt is non compliant with coumadin and INR monitoring Started on Eliquis (pt also received coupon and mandujano check ~$47) Continue monitor in telemetry CAD (coronary artery disease): H/O SE to LAD Continue aspirin, Lipitor, metoprolol Pre-diabetes: Most recent Hba1c 6.1 Counseling on weight loss, diet and exercise Chronic deep vein thrombosis (DVT): Started on Eliquis (instead of coumadin) DVT prophylaxis on Eliquis CODE STATUS FULL CODE Admission and Anticipated Discharge Date Admission Date: January 03, 2023 Subjective Pt seen in follow up of LE edema, CHF Sitting in chair in no acute distress watching TV He is saturating well on RA Continues to have significant LE edema Denies any chest pain, palpitation, dizziness or shortness of breath Review of Systems Review of Systems: All systems reviewed & are unremarkable except as noted in Subjective Physical Exam Physical Exam: General: No acute distress, obese HEENT: PERRLA, EOMI, Heart: Irregular, no JVD, no lower extremity edema Lungs: Diminished breath sounds at bases, no wheeze or rales Abdomen: Soft nontender, no organomegaly Extremity: +edema B/L Neuro/psych: awake alert oriented, no facial asymmetry, speech fluent, moves extremities Results & Data Results & Data Vital Signs (Past 12 Hours) Vital Signs Temp Pulse Pulse Resp BP BP Pulse Ox 01/05/23 08:15 01/05/23 11:00 36.5 C 61 18 114/78 90 01/05/23 07:23 36.9 C 64 18 115/75 91 01/05/23 06:03 61 01/05/23 04:15 90 01/05/23 04:03 36.6 C 74 20 118/78 87 L O2 Del Method 01/05/23 08:15 Room Air 01/05/23 11:00 Room Air 01/05/23 07:23 Room Air 01/05/23 06:03 01/05/23 04:15 Room Air 01/05/23 04:03 Room Air Laboratory Results 01/05/23 Range/Units 06:48 Sodium 141 (136-145) mmol/L Potassium 3.9 (3.5-5.1) mmol/L Chloride 100 (98-107) mmol/L Carbon Dioxide 34 H (21-32) mmol/L Anion Gap 7 (3-11) BUN 24 H (6-23) mg/dl Creatinine 1.66 H (0.6-1.4) mg/dl Est Cr Clr Drug Dosing 58.7 ml/min Est GFR ( Amer) 47.7 ml/min Est GFR (Non-Af Amer) 41.1 ml/min BUN/Creatinine Ratio 14.5 (10-20) Glucose 112 H (70-99(Fasting)) mg/dl Calcium 9.1 (8.6-10.3) mg/dl Medications Administered Current Inpatient Medications Apixaban (Apixaban 5 Mg Tablet) 5 mg PO BID [facility] Stop: 02/03/23 20:59 Last Admin: 01/05/23 08:14 Dose: 5 mg Aspirin (Aspirin 81 Mg Ectab) [facility] [place]: 02/03/23 08:59 Last Admin: 01/05/23 09:57 Dose: 81 mg Atorvastatin Calcium (Atorvastatin 40 Mg Tab) 80 mg PO QDL [facility] Stop: 02/03/23 11:29 Last Admin: 01/05/23 12:26 Dose: 80 mg Folic Acid (Folic Acid 1 Mg Tab) [facility] [place] Stop: 02/04/23 08:59 Last Admin: 01/05/23 09:57 Dose: 1 mg Furosemide (Furosemide 40 Mg/4 Ml Vial) 40 mg IV BID17 [facility] Stop: 02/04/23 16:59 Lorazepam (Lorazepam 1 Mg Tab) 1 mg PO ONE PRN; Protocol PRN Reason: EtoH Withdrawal AWSS 6,7,8,9,10 Metoprolol Succinate (Metoprolol Succ 25mg Ext Rel Tab) [facility] [place] Stop: 02/03/23 08:59 Last Admin: 01/05/23 09:57 Dose: 25 mg Thiamine HCl (Thiamine Hcl 100 Mg Tab) [facility] [place] Stop: 02/04/23 08:59 Last Admin: 01/05/23 09:57 Dose: 100 mg
[2023-01-06 07:03] LABS: Hematocrit (blood only) 46.3 % (42.0-52.0); Hemoglobin 14.6 g/dl (14.0-18.0); Mean Corpuscular Hemoglobin 31.8 pg (25.0-34.0); Mean Corpuscular Hgb Conc 31.5 g/dL (32.0-36.0); Mean Corpuscular Volume 100.9 fL (80.0-100.0); Mean Platelet Volume 10.2 fL (9.4-12.4); Platelet Count 133 K/uL (130-400); RDW Coefficient of Variation 13.2 % (11.5-14.5); RDW Standard Deviation 48.3 fL (36.4-46.3); Red Blood Count 4.59 M/uL (4.70-6.10); White Blood Count 6.62 K/ul (4.8-10.8)
[2023-01-06 07:35] LABS: Calcium 9.1 mg/dl (8.6-10.3); Creatinine Clr Calc Pharmacy 57.2 ml/min; Est GFR (Non-African American) 39.7 ml/min; Phosphorus 3.5 mg/dl (2.5-4.9); Potassium 3.9 mmol/L (3.5-5.1)
[2023-01-06] MEDS: APIXABAN 5 MG TABLET PO SCH ×2 (09:27→20:43)
[2023-01-06] MEDS: ASPIRIN 81 MG ECTAB PO SCH (09:28)
[2023-01-06] MEDS: FOLIC ACID 1 MG TAB PO SCH (09:28)
[2023-01-06] MEDS: THIAMINE HCL 100 MG TAB PO SCH (09:28)
[2023-01-06] MEDS: ATORVASTATIN 40 MG TAB PO SCH (09:28)
[2023-01-06] MEDS: METOPROLOL SUCC 25MG EXT REL TAB PO SCH (09:28)
[2023-01-06] MEDS: FUROSEMIDE 40 MG/4 ML VIAL IV SCH ×2 (09:29→16:40)
--- NOTE | 2023-01-06 11:46 | Hospitalist Progress Note ---
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 Possible related to volume overload BNP 312 Received Lasix 40mg IV on admission Continue IV lasix 40mg BID Monitor I's and O's, daily weight, volume status Hypoxia CHF exacerbation Denies any SOB CTA chest showed no evidence for PE. Cardiomegaly with mild pulmonary edema. Small right pleural effusion with subsegmental bibasilar atelectasis. Continue IV Lasix Currently on RA Cardiology consulted - plan for device interrogation today specifically to check KENY given lack of follow-up with device clinic Continue Monitor BMP while on IV lasix Chronic systolic CHF H/O Ischemic cardiomyopathy Chronic HFrEF (heart failure with reduced ejection fraction): S/P AICD Pt has not been taking the metoprolol and entresto for weeks Cardiology consult ECHO showed severe hypokinesis to akinesis of the anteroseptal and anterior and apical layne, otherwise moderate global hypokinesis Severe reduced LV systolic function with EF 20 to 25% Continue IV lasix 40mg BID (dose increased to improve diuresis) Continue metoprolol Entresto on hold while on IV lasix and recent contrast from CTA chest Will defer to cardiology when to resume ENTRESTO - possibly today Elevated troponin Troponin on admission 62.9, then trending down to 40.3 EKG reviewed by me showed no acute ischemic changes Denies any chest pain ECHO showed severe hypokinesis to akinesis of the anteroseptal and anterior and apical layne, otherwise moderate global hypokinesis Continue metoprolol, aspirin and statin. Depression Patient said during winter season he feels depressed Denies any suicidal thoughts Discussed about starting on antidepressant med, but refused Not interested to start on any med since there is only 5 weeks left for the cold weather Alcohol abuse Patient said he only drinks 1 large cup of beer daily Denies any history of alcohol withdrawal or DT Continue monitor for sign of alcohol withdrawal Continue thiamine and folic acid Counseling on alcohol cessation CKD creatinine 1.6 on admission, baseline e between 1.5-1.6 Creatinine 1.6 today Continue monitor BMP while on IV Lasix H/O A. fib, DVT: Patient has not been taking coumadin for past few months rate control Continue metoprolol Case discussed with cardiology about transition to eliquis as pt is non compliant with coumadin and INR monitoring Started on Eliquis (pt also received coupon and mandujano check ~$47) Continue monitor in telemetry CAD (coronary artery disease): H/O SE to LAD Continue aspirin, Lipitor, metoprolol Pre-diabetes: Most recent Hba1c 6.1 Counseling on weight loss, diet and exercise Chronic deep vein thrombosis (DVT): Started on Eliquis (instead of coumadin) DVT prophylaxis on Eliquis CODE STATUS FULL CODE Admission and Anticipated Discharge Date Admission Date: January 03, 2023 Subjective Pt seen in follow up of LE edema, CHF Sitting up in chair in no acute distress watching TV He is saturating well on RA Reports some improvement w/ LE edema Diuresing well Denies any chest pain, palpitation, dizziness or shortness of breath Review of Systems Review of Systems: All systems reviewed & are unremarkable except as noted in Subjective Physical Exam Physical Exam: General: No acute distress, obese HEENT: PERRLA, EOMI, Heart: Irregular, no JVD, no lower extremity edema Lungs: Diminished breath sounds at bases, no wheeze or rales Abdomen: Soft nontender, no organomegaly Extremity: +edema B/L Neuro/psych: awake alert oriented, no facial asymmetry, speech fluent, moves extremities Results & Data Results & Data Vital Signs (Past 12 Hours) Vital Signs Temp Pulse Pulse Pulse Resp BP BP 01/06/23 11:12 36.8 C 56 L 18 114/80 01/06/23 08:22 60 01/06/23 07:54 01/06/23 07:53 36.3 C L 72 18 120/75 01/06/23 03:10 36.3 C L 63 18 119/74 Pulse Ox O2 Del Method 01/06/23 11:12 90 Room Air 01/06/23 08:22 01/06/23 07:54 Room Air 01/06/23 07:53 90 Room Air 01/06/23 03:10 91 Room Air Laboratory Results 01/06/23 01/06/23 Range/Units 06:38 06:38 WBC 6.62 (4.8-10.8) K/ul RBC 4.59 L (4.70-6.10) M/uL Hgb 14.6 (14.0-18.0) g/dl Hct 46.3 (42.0-52.0) % MCV 100.9 H (80.0-100.0) fL MCH 31.8 (25.0-34.0) pg MCHC 31.5 L (32.0-36.0) g/dL RDW Std Deviation 48.3 H (36.4-46.3) fL RDW Coeff of Juan 13.2 (11.5-14.5) % Plt Count 133 (130-400) K/uL MPV 10.2 (9.4-12.4) fL Sodium 142 (136-145) mmol/L Potassium 3.9 (3.5-5.1) mmol/L Chloride 101 (98-107) mmol/L Carbon Dioxide 37 H (21-32) mmol/L Anion Gap 4 (3-11) BUN 24 H (6-23) mg/dl Creatinine 1.71 H (0.6-1.4) mg/dl Est Cr Clr Drug Dosing 57.2 ml/min Est GFR ( Amer) 46.0 ml/min Est GFR (Non-Af Amer) 39.7 ml/min BUN/Creatinine Ratio 14.0 (10-20) Glucose 122 H (70-99(Fasting)) mg/dl Calcium 9.1 (8.6-10.3) mg/dl Phosphorus 3.5 (2.5-4.9) mg/dl Magnesium 2.0 (1.7-2.4) mg/dl Medications Administered Current Inpatient Medications Apixaban (Apixaban 5 Mg Tablet) 5 mg PO BID [facility] Stop: 02/03/23 20:59 Last Admin: 01/06/23 09:27 Dose: 5 mg Aspirin (Aspirin 81 Mg Ectab) 81 mg PO QAM [facility] Stop: 02/03/23 08:59 Last Admin: 01/06/23 09:28 Dose: 81 mg Atorvastatin Calcium (Atorvastatin 40 Mg Tab) 80 mg PO QDL [facility] Stop: 02/03/23 11:29 Last Admin: 01/06/23 09:28 Dose: 80 mg Folic Acid (Folic Acid 1 Mg Tab) 1 mg PO QAM [facility] Stop: 02/04/23 08:59 Last Admin: 01/06/23 09:28 Dose: 1 mg Furosemide (Furosemide 40 Mg/4 Ml Vial) 40 mg IV BID17 [facility] Stop: 02/04/23 16:59 Last Admin: 01/06/23 09:29 Dose: 40 mg Lorazepam (Lorazepam 1 Mg Tab) 1 mg PO ONE PRN; Protocol PRN Reason: EtoH Withdrawal AWSS 6,7,8,9,10 Metoprolol Succinate (Metoprolol Succ 25mg Ext Rel Tab) [facility] [place] Stop: 02/03/23 08:59 Last Admin: 01/06/23 09:28 Dose: 25 mg Thiamine HCl (Thiamine Hcl 100 Mg Tab) 100 mg PO [facility] Stop: 02/04/23 08:59 Last Admin: 01/06/23 09:28 Dose: 100 mg
--- NOTE | 2023-01-06 16:47 | Cardiology Progress Note ---
Date of Service January 06, 2023 Assessment & Plan (1) Acute on chronic HFrEF (heart failure with reduced ejection fraction): (2) Noncompliance with medication regimen: (3) Hypoxia: (4) Subtherapeutic international normalized ratio (INR): (5) Bilateral edema of lower extremity: (6) Chronic deep vein thrombosis (DVT): (7) CAD (coronary artery disease): Plan Continues to diurese well with improvement of lower extremity edema Tolerating resumption of medical regimen without issues Would restart Entresto at this time We will ask for device interrogation today specifically to check KENY given lack of follow-up with device clinic Continue IV diuresis at this time Follow and replete lites as necessary Admission and Anticipated Discharge Date Admission Date: January 03, 2023 Subjective Patient seen and examined. Chart reviewed. Telemetry reviewed. States lower extremity edema is improving but not yet back to baseline. Otherwise feels well. Review of Systems Review of Systems: All systems reviewed & are unremarkable except as noted in HPI & below Physical Exam Physical Exam: General: Awake, alert and oriented x 3. No acute distress. HEENT: Normocephalic, atraumatic. Pupils equal, round and reactive to light and accommodation. Extraocular muscles are intact. Anicteric sclera. Moist mucous membranes. Neck: No JVD. No bruit. Cardiovascular: Regular. Positive S-4. Normal S-1 and S-2. No S-3. No murmurs or rubs. Pulmonary: Clear to auscultation B/L. No rales, rhonchi or wheezing Abdomen: Bowel sounds x 4, soft. No rebound, guarding or tenderness. No o rganomegaly. Extremities: No clubbing, cyanosis. +1 bilateral lower extremity pitting edema. +2 pedal pulses bilaterally. Skin: Warm and dry. Results & Data Vital Signs (Past 12 Hours) Vital Signs Temp Pulse Pulse Pulse Resp BP BP 01/06/23 11:12 36.8 C 56 L 18 114/80 01/06/23 08:22 60 01/06/23 07:54 01/06/23 07:53 36.3 C L 72 18 120/75 01/06/23 03:10 36.3 C L 63 18 119/74 Pulse Ox O2 Del Method 01/06/23 11:12 90 Room Air 01/06/23 08:22 01/06/23 07:54 Room Air 01/06/23 07:53 90 Room Air 01/06/23 03:10 91 Room Air
--- NOTE | 2023-01-07 08:43 | Hospitalist Progress Note ---
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 Possible related to volume overload BNP 312 Received Lasix 40mg IV on admission Continue IV lasix 40mg BID Monitor I's and O's, daily weight, volume status Hypoxia -resolved CHF exacerbation Denies any SOB CTA chest showed no evidence for PE. Cardiomegaly with mild pulmonary edema. Small right pleural effusion with subsegmental bibasilar atelectasis. Continue IV Lasix Currently on RA Cardiology consulted - plan for device interrogation today specifically to check KENY given lack of follow-up with device clinic Continue Monitor BMP while on IV lasix Chronic systolic CHF H/O Ischemic cardiomyopathy Chronic HFrEF (heart failure with reduced ejection fraction): S/P AICD Pt has not been taking the metoprolol and entresto for weeks Cardiology consult ECHO showed severe hypokinesis to akinesis of the anteroseptal and anterior and apical layne, otherwise moderate global hypokinesis Severe reduced LV systolic function with EF 20 to 25% Continue IV lasix 40mg BID (dose increased to improve diuresis) Continue metoprolol Entresto on hold while on IV lasix and recent contrast from CTA chest Will defer to cardiology when to resume Entresto - possibly today Elevated troponin Troponin on admission 62.9, then trending down to 40.3 EKG reviewed by me showed no acute ischemic changes Denies any chest pain ECHO showed severe hypokinesis to akinesis of the anteroseptal and anterior and apical layne, otherwise moderate global hypokinesis Continue metoprolol, aspirin and statin. Depression Patient said during winter season he feels depressed Denies any suicidal thoughts Discussed about starting on antidepressant med, but refused Not interested to start on any med since there is only 5 weeks left for the cold weather Alcohol abuse Patient said he only drinks 1 large cup of beer daily Denies any history of alcohol withdrawal or DT Continue monitor for sign of alcohol withdrawal Continue thiamine and folic acid Counseling on alcohol cessation CKD creatinine 1.6 on admission, baseline e between 1.5-1.6 Creatinine 1.67 today Continue monitor BMP while on IV Lasix H/O A. fib, DVT: Patient has not been taking coumadin for past few months rate control Continue metoprolol Case discussed with cardiology about transition to eliquis as pt is non compliant with coumadin and INR monitoring Started on Eliquis (pt also received coupon and mandujano check ~$47) Continue monitor in telemetry CAD (coronary artery disease): H/O SE to LAD Continue aspirin, Lipitor, metoprolol Pre-diabetes: Most recent Hba1c 6.1 Counseling on weight loss, diet and exercise Chronic deep vein thrombosis (DVT): Started on Eliquis (instead of coumadin) DVT prophylaxis on Eliquis CODE STATUS FULL CODE Admission and Anticipated Discharge Date Admission Date: January 03, 2023 Subjective Pt seen in follow up of LE edema, CHF Sitting up in chair in no acute distress watching TV He is saturating well on RA Reports some improvement w/ LE edema but not back to baseline Diuresing well Denies any chest pain, palpitation, dizziness or shortness of breath Review of Systems Review of Systems: All systems reviewed & are unremarkable except as noted in Subjective Physical Exam Physical Exam: General: No acute distress, obese HEENT: PERRLA, EOMI, Heart: Irregular Lungs: Diminished breath sounds at bases, no wheeze or rales Abdomen: Soft nontender, no organomegaly Extremity: +edema B/L (somewhat improved) Neuro/psych: awake alert oriented, no facial asymmetry, speech fluent, moves extremities Results & Data Results & Data Vital Signs (Past 12 Hours) Vital Signs Temp Pulse Pulse Resp BP BP Pulse Ox 01/07/23 08:20 36.6 C 58 L 20 123/80 90 01/07/23 07:58 60 01/07/23 07:54 01/07/23 03:17 37.0 C 65 20 109/72 92 01/07/23 00:24 53 L 01/06/23 23:36 36.4 C L 63 20 104/71 92 01/06/23 21:24 O2 Del Method 01/07/23 08:20 Room Air 01/07/23 07:58 01/07/23 07:54 Room Air 01/07/23 03:17 Room Air 01/07/23 00:24 01/06/23 23:36 Room Air 01/06/23 21:24 Room Air Laboratory Results 01/07/23 Range/Units 08:37 Sodium 142 (136-145) mmol/L Potassium 3.7 (3.5-5.1) mmol/L Chloride 102 (98-107) mmol/L Carbon Dioxide 36 H (21-32) mmol/L Anion Gap 4 (3-11) BUN 25 H (6-23) mg/dl Creatinine 1.67 H (0.6-1.4) mg/dl Est Cr Clr Drug Dosing 58.8 ml/min Est GFR ( Amer) 47.3 ml/min Est GFR (Non-Af Amer) 40.8 ml/min BUN/Creatinine Ratio 15.0 (10-20) Glucose 151 H (70-99(Fasting)) mg/dl Calcium 9.3 (8.6-10.3) mg/dl Phosphorus 3.4 (2.5-4.9) mg/dl Magnesium 1.9 (1.7-2.4) mg/dl Medications Administered Current Inpatient Medications Apixaban (Apixaban 5 Mg Tablet) 5 mg PO BID [facility] Stop: 02/03/23 20:59 Last Admin: 01/06/23 20:43 Dose: 5 mg Aspirin (Aspirin 81 Mg Ectab) 81 mg PO QAM [facility] Stop: 02/03/23 08:59 Last Admin: 01/06/23 09:28 Dose: 81 mg Atorvastatin Calcium (Atorvastatin 40 Mg Tab) 80 mg PO QDL [facility] Stop: 02/03/23 11:29 Last Admin: 01/06/23 09:28 Dose: 80 mg Folic Acid (Folic Acid 1 Mg Tab) 1 mg PO QAM [facility] Stop: 02/04/23 08:59 Last Admin: 01/06/23 09:28 Dose: 1 mg Furosemide (Furosemide 40 Mg/4 Ml Vial) 40 mg IV BID17 [facility] Stop: 02/04/23 16:59 Last Admin: 01/06/23 16:40 Dose: 40 mg Lorazepam (Lorazepam 1 Mg Tab) 1 mg PO ONE PRN; Protocol PRN Reason: EtoH Withdrawal AWSS 6,7,8,9,10 Metoprolol Succinate (Metoprolol Succ 25mg Ext Rel Tab) 25 mg PO QAM [facility] Stop: 02/03/23 08:59 Last Admin: 01/06/23 09:28 Dose: 25 mg Thiamine HCl (Thiamine Hcl 100 Mg Tab) 100 mg PO QAM [facility] Stop: 02/04/23 08:59 Last Admin: 01/06/23 09:28 Dose: 100 mg
[2023-01-07 09:16] LABS: Calcium 9.3 mg/dl (8.6-10.3); Creatinine Clr Calc Pharmacy 58.8 ml/min; Est GFR (African American) 47.3 ml/min; Est GFR (Non-African American) 40.8 ml/min; Magnesium 1.9 mg/dl (1.7-2.4); Phosphorus 3.4 mg/dl (2.5-4.9); Potassium 3.7 mmol/L (3.5-5.1)
[2023-01-07] MEDS: ASPIRIN 81 MG ECTAB PO SCH (09:22)
[2023-01-07] MEDS: ATORVASTATIN 40 MG TAB PO SCH (09:22)
[2023-01-07] MEDS: APIXABAN 5 MG TABLET PO SCH ×2 (09:22→21:15)
[2023-01-07] MEDS: FOLIC ACID 1 MG TAB PO SCH (09:22)
[2023-01-07] MEDS: METOPROLOL SUCC 25MG EXT REL TAB PO SCH (09:22)
[2023-01-07] MEDS: FUROSEMIDE 40 MG/4 ML VIAL IV SCH ×2 (09:23→16:49)
[2023-01-07] MEDS: THIAMINE HCL 100 MG TAB PO SCH (09:23)
--- NOTE | 2023-01-07 11:43 | Cardiology Progress Note ---
Date of Service January 07, 2023 Assessment & Plan (1) Acute on chronic HFrEF (heart failure with reduced ejection fraction): (2) Noncompliance with medication regimen: (3) Hypoxia: (4) Subtherapeutic international normalized ratio (INR): (5) Bilateral edema of lower extremity: (6) Chronic deep vein thrombosis (DVT): (7) CAD (coronary artery disease): Plan Continues to diurese well with improvement of lower extremity edema Tolerating resumption of medical regimen without issues Would restart Entresto at this time We will ask for device interrogation today specifically to check KENY given lack of follow-up with device clinic Continue IV diuresis at this time Follow and replete lites as necessary 01/07/2023: Patient diuresing well but not yet back to baseline We will continue diuretics overnight and reevaluate volume status clinically in the a.m. Otherwise, continue all other cardiac medications Admission and Anticipated Discharge Date Admission Date: January 03, 2023 Subjective Patient seen and examined. Chart reviewed. Telemetry reviewed. States that he is starting to feel better, feels as though some of the fluid retention is improving but not yet back to baseline. Review of Systems Review of Systems: All systems reviewed & are unremarkable except as noted in HPI & below Physical Exam Physical Exam: General: Awake, alert and oriented x 3. No acute distress. HEENT: Normocephalic, atraumatic. Pupils equal, round and reactive to light and accommodation. Extraocular muscles are intact. Anicteric sclera. Moist mucous membranes. Neck: No JVD. No bruit. Cardiovascular: Regular. Positive S-4. Normal S-1 and S-2. No S-3. No murmurs or rubs. Pulmonary: Clear to auscultation B/L. No rales, rhonchi or wheezing Abdomen: Bowel sounds x 4, soft. No rebound, guarding or tenderness. No organomegaly. Extremities: No clubbing, cyanosis. +1 bilateral lower extremity pitting edema. +2 pedal pulses bilaterally. Skin: Warm and dry. Results & Data Vital Signs (Past 12 Hours) Vital Signs Temp Pulse Pulse Resp BP BP Pulse Ox 01/07/23 10:50 36.8 C 60 16 110/65 92 01/07/23 08:20 36.6 C 58 L 20 123/80 90 01/07/23 07:58 60 01/07/23 07:54 01/07/23 03:17 37.0 C 65 20 109/72 92 01/07/23 00:24 53 L O2 Del Method 01/07/23 10:50 Room Air 01/07/23 08:20 Room Air 01/07/23 07:58 01/07/23 07:54 Room Air 01/07/23 03:17 Room Air 01/07/23 00:24
[2023-01-08] MEDS: APIXABAN 5 MG TABLET PO SCH ×2 (08:01→20:59)
[2023-01-08] MEDS: METOPROLOL SUCC 25MG EXT REL TAB PO SCH (08:01)
[2023-01-08] MEDS: THIAMINE HCL 100 MG TAB PO SCH (08:01)
[2023-01-08] MEDS: FUROSEMIDE 40 MG/4 ML VIAL IV SCH ×2 (08:01→16:56)
[2023-01-08] MEDS: ASPIRIN 81 MG ECTAB PO SCH (08:01)
[2023-01-08] MEDS: FOLIC ACID 1 MG TAB PO SCH (08:02)
[2023-01-08 08:03] LABS: BUN Creatinine Ratio 14.5 (10-20); Creatinine Clr Calc Pharmacy 56.9 ml/min; Est GFR (African American) 45.4 ml/min; Est GFR (Non-African American) 39.1 ml/min; Magnesium 1.9 mg/dl (1.7-2.4); Potassium 4.1 mmol/L (3.5-5.1)
--- NOTE | 2023-01-08 08:32 | Hospitalist Progress Note ---
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 Possible related to volume overload BNP 312 Received Lasix 40mg IV on admission Continue IV lasix 40mg BID Monitor I's and O's, daily weight, volume status Hypoxia -resolved CHF exacerbation Denies any SOB CTA chest showed no evidence for PE. Cardiomegaly with mild pulmonary edema. Small right pleural effusion with subsegmental bibasilar atelectasis. Continue IV Lasix Currently on RA Cardiology consulted - device interrogation specifically to check KENY given lack of follow-up with device clinic Continue Monitor BMP while on IV lasix Chronic systolic CHF H/O Ischemic cardiomyopathy Chronic HFrEF (heart failure with reduced ejection fraction): S/P AICD Pt has not been taking the metoprolol and entresto for weeks Cardiology consult ECHO showed severe hypokinesis to akinesis of the anteroseptal and anterior and apical layne, otherwise moderate global hypokinesis Severe reduced LV systolic function with EF 20 to 25% Continue IV lasix 40mg BID (dose increased to improve diuresis) Continue metoprolol Entresto on hold initially on IV lasix and recent contrast from CTA chest Deferred to cardiology when to resume Entresto - resume today Elevated troponin Troponin on admission 62.9, then trending down to 40.3 EKG reviewed by me showed no acute ischemic changes Denies any chest pain ECHO showed severe hypokinesis to akinesis of the anteroseptal and anterior and apical layne, otherwise moderate global hypokinesis Continue metoprolol, aspirin and statin. Depression Patient said during winter season he feels depressed Denies any suicidal thoughts Discussed about starting on antidepressant med, but refused Not interested to start on any med since there is only 5 weeks left for the cold weather Alcohol abuse Patient said he only drinks 1 large cup of beer daily Denies any history of alcohol withdrawal or DT Continue monitor for sign of alcohol withdrawal Continue thiamine and folic acid Counseling on alcohol cessation CKD creatinine 1.6 on admission, baseline e between 1.5-1.6 Creatinine 1.7 today Continue monitor BMP while on IV Lasix H/O A. fib, DVT: Patient has not been taking coumadin for past few months rate control Continue metoprolol Case discussed with cardiology about transition to eliquis as pt is non compliant with coumadin and INR monitoring Started on Eliquis (pt also received coupon and mandujano check ~$47) Continue monitor in telemetry CAD (coronary artery disease): H/O SE to LAD Continue aspirin, Lipitor, metoprolol Pre-diabetes: Most recent Hba1c 6.1 Counseling on weight loss, diet and exercise Chronic deep vein thrombosis (DVT): Started on Eliquis (instead of coumadin) DVT prophylaxis on Eliquis CODE STATUS FULL CODE Admission and Anticipated Discharge Date Admission Date: January 03, 2023 Subjective Pt seen in follow up of LE edema, CHF Sitting up in chair in no acute distress watching TV He is saturating well on RA Reports some improvement w/ LE edema but not back to baseline Diuresing well Denies any chest pain, palpitation, dizziness or shortness of breath Review of Systems Review of Systems: All systems reviewed & are unremarkable except as noted in Subjective Physical Exam Physical Exam: General: No acute distress, obese HEENT: PERRLA, EOMI, Heart: Irregular Lungs: Diminished breath sounds at bases, no wheeze or rales Abdomen: Soft nontender, no organomegaly Extremity: +edema B/L ( improved) Neuro/psych: awake alert oriented, no facial asymmetry, speech fluent, moves extremities Results & Data Results & Data Vital Signs (Past 12 Hours) Vital Signs Temp Pulse Pulse Resp BP Pulse Ox O2 Del Method 01/08/23 07:38 63 01/08/23 07:31 Room Air 01/08/23 03:22 36.6 C 64 18 121/81 91 Room Air 01/08/23 00:32 63 01/07/23 23:36 36.4 C L 57 L 18 112/73 91 Room Air 01/07/23 22:09 Room Air Laboratory Results 01/08/23 01/07/23 Range/Units 06:52 08:37 Sodium 143 142 (136-145) mmol/L Potassium 4.1 3.7 (3.5-5.1) mmol/L Chloride 101 102 (98-107) mmol/L Carbon Dioxide 38 H 36 H (21-32) mmol/L Anion Gap 4 4 (3-11) BUN 25 H 25 H (6-23) mg/dl Creatinine 1.73 H 1.67 H (0.6-1.4) mg/dl Est Cr Clr Drug Dosing 56.9 58.8 ml/min Est GFR ( Amer) 45.4 47.3 ml/min Est GFR (Non-Af Amer) 39.1 40.8 ml/min BUN/Creatinine Ratio 14.5 15.0 (10-20) Glucose 104 H 151 H (70-99(Fasting)) mg/dl Calcium 9.0 9.3 (8.6-10.3) mg/dl Phosphorus 3.4 (2.5-4.9) mg/dl Magnesium 1.9 1.9 (1.7-2.4) mg/dl Medications Administered Current Inpatient Medications Apixaban (Apixaban 5 Mg Tablet) 5 mg PO BID [facility] Stop: 02/03/23 20:59 Last Admin: 01/08/23 08:01 Dose: 5 mg Aspirin (Aspirin 81 Mg Ectab) 81 mg PO [facility] Stop: 02/03/23 08:59 Last Admin: 01/08/23 08:01 Dose: 81 mg Atorvastatin Calcium (Atorvastatin 40 Mg Tab) 80 mg PO QDL [facility] Stop: 02/03/23 11:29 Last Admin: 01/07/23 09:22 Dose: 80 mg Folic Acid (Folic Acid 1 Mg Tab) [facility] [place]: 02/04/23 08:59 Last Admin: 01/08/23 08:02 Dose: 1 mg Furosemide (Furosemide 40 Mg/4 Ml Vial) 40 mg IV BID17 [facility] Stop: 02/04/23 16:59 Last Admin: 01/08/23 08:01 Dose: 40 mg Lorazepam (Lorazepam 1 Mg Tab) 1 mg PO ONE PRN; Protocol PRN Reason: EtoH Withdrawal AWSS 6,7,8,9,10 Metoprolol Succinate (Metoprolol Succ 25mg Ext Rel Tab) [facility] [place]: 02/03/23 08:59 Last Admin: 01/08/23 08:01 Dose: 25 mg Thiamine HCl (Thiamine Hcl 100 Mg Tab) [facility] [place]: 02/04/23 08:59 Last Admin: 01/08/23 08:01 Dose: 100 mg
[2023-01-08] MEDS: ATORVASTATIN 40 MG TAB PO SCH (12:12)
--- NOTE | 2023-01-08 12:23 | Cardiology Progress Note ---
Date of Service January 08, 2023 Assessment & Plan (1) Acute on chronic HFrEF (heart failure with reduced ejection fraction): (2) Noncompliance with medication regimen: (3) Hypoxia: (4) Subtherapeutic international normalized ratio (INR): (5) Bilateral edema of lower extremity: (6) Chronic deep vein thrombosis (DVT): (7) CAD (coronary artery disease): Plan The patient is still volume overloaded with edema of the lower extremities. I would continue IV Lasix through today. I have added Entresto which she had been taken at home. Admission and Anticipated Discharge Date Admission Date: January 03, 2023 Subjective The patient is sitting in a chair. No new complaints. Review of Systems Review of Systems: Review of Systems: See HPI for pertinent positives. All other 10 point review of systems are negative. Physical Exam Physical Exam: General: no acute distress and stated age Head: normocephalic, no masses, lesions, tenderness or abnormalities Eyes: conjunctiva are pink and non-injected, sclera clear Neck: supple, no adenopathy, no bruits, normal jugular venous pulse, no hepatojugular reflux Chest: normal shape and normal respiratory effort Lungs: clear to auscultation and percussion Cardiac Exam: - irregular rate & rhythm, no murmurs gallops or rubs - normal S1, normal S2 Pulses: 2(+) throughout Abdomen: abdomen soft, non-tender, no abnormal masses and no hepatosplenomegaly Musculoskeletal: no gait disturbance, no joint inflammation, no deforming arthritis Extremities: Edema bilaterally lower extremity Neuro: grossly normal exam Results & Data Vital Signs (Past 12 Hours) Vital Signs Temp Pulse Pulse Pulse Resp BP Pulse Ox 01/08/23 12:10 36.9 C 61 18 110/68 90 01/08/23 07:38 63 01/08/23 07:31 01/08/23 03:22 36.6 C 64 18 121/81 91 01/08/23 00:32 63 O2 Del Method 01/08/23 12:10 Room Air 01/08/23 07:38 01/08/23 07:31 Room Air 01/08/23 03:22 Room Air 01/08/23 00:32 Laboratory Results Laboratory Results - last 24 hr 01/08/23 06:52 Sodium 143 Potassium 4.1 Chloride 101 Carbon Dioxide 38 H Anion Gap 4 BUN 25 H Creatinine 1.73 H Est Cr Clr Drug Dosing 56.9 Est GFR ( Amer) 45.4 Est GFR (Non-Af Amer) 39.1 BUN/Creatinine Ratio 14.5 Glucose 104 H Calcium 9.0 Magnesium 1.9 Medications Administered Current Inpatient Medications Apixaban (Apixaban 5 Mg Tablet) 5 mg PO BID [facility] Stop: 02/03/23 20:59 Last Admin: 01/08/23 08:01 Dose: 5 mg Aspirin (Aspirin 81 Mg Ectab) [facility] [place] Stop: 02/03/23 08:59 Last Admin: 01/08/23 08:01 Dose: 81 mg Atorvastatin Calcium (Atorvastatin 40 Mg Tab) 80 mg PO QDL [facility] Stop: 02/03/23 11:29 Last Admin: 01/08/23 12:12 Dose: 80 mg Folic Acid (Folic Acid 1 Mg Tab) [facility] [place] Stop: 02/04/23 08:59 Last Admin: 01/08/23 08:02 Dose: 1 mg Furosemide (Furosemide 40 Mg/4 Ml Vial) 40 mg IV BID17 [facility] Stop: 02/04/23 16:59 Last Admin: 01/08/23 08:01 Dose: 40 mg Lorazepam (Lorazepam 1 Mg Tab) 1 mg PO ONE PRN; Protocol PRN Reason: EtoH Withdrawal AWSS 6,7,8,9,10 Metoprolol Succinate (Metoprolol Succ 25mg Ext Rel Tab) 25 mg PO [facility] [place] Stop: 02/03/23 08:59 Last Admin: 01/08/23 08:01 Dose: 25 mg Sacubitril/Valsartan (Valsartan/Sacubitril 26/24mg Tab) 1 tab PO BID [facility] Stop: 02/07/23 12:29 Thiamine HCl (Thiamine Hcl 100 Mg Tab) 100 mg PO [facility] Stop: 02/04/23 08:59 Last Admin: 01/08/23 08:01 Dose: 100 mg
[2023-01-08] MEDS: VALSARTAN/SACUBITRIL 26/24MG TAB PO SCH ×2 (13:32→20:59)
[2023-01-09 07:29] LABS: BUN Creatinine Ratio 16.9 (10-20); Calcium 9.1 mg/dl (8.6-10.3); Est GFR (African American) 44.1 ml/min; Est GFR (Non-African American) 38.1 ml/min; Magnesium 1.9 mg/dl (1.7-2.4); Potassium 3.8 mmol/L (3.5-5.1)
--- NOTE | 2023-01-09 07:42 | Hospitalist Progress Note ---
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 Possible related to volume overload BNP 312 Received Lasix 40mg IV on admission Continued IV lasix 40mg BID -> switch to PO Monitor I's and O's, daily weight, volume status Hypoxia -resolved CHF exacerbation Denies any SOB CTA chest showed no evidence for PE. Cardiomegaly with mild pulmonary edema. Small right pleural effusion with subsegmental bibasilar atelectasis. Continue IV Lasix Currently on RA Cardiology consulted - device interrogation specifically to check KENY given lack of follow-up with device clinic Continue Monitor BMP while on IV lasix -> switch to PO Re-Started Entresto Chronic systolic CHF H/O Ischemic cardiomyopathy Chronic HFrEF (heart failure with reduced ejection fraction): S/P AICD Pt has not been taking the metoprolol and entresto for weeks Cardiology consult ECHO showed severe hypokinesis to akinesis of the anteroseptal and anterior and apical layne, otherwise moderate global hypokinesis Severe reduced LV systolic function with EF 20 to 25% Continued IV lasix 40mg BID -> now switch to PO Continue metoprolol Entresto on hold initially on IV lasix and recent contrast from CTA chest Resumed Entresto yesterday Elevated troponin Troponin on admission 62.9, then trending down to 40.3 EKG reviewed by me showed no acute ischemic changes Denies any chest pain ECHO showed severe hypokinesis to akinesis of the anteroseptal and anterior and apical layne, otherwise moderate global hypokinesis Continue metoprolol, aspirin and statin. Depression Patient said during winter season he feels depressed Denies any suicidal thoughts Discussed about starting on antidepressant med, but refused Not interested to start on any med since there is only 5 weeks left for the cold weather Alcohol abuse Patient said he only drinks 1 large cup of beer daily Denies any history of alcohol withdrawal or DT Continue monitor for sign of alcohol withdrawal Continue thiamine and folic acid Counseling on alcohol cessation CKD creatinine 1.6 on admission, baseline e between 1.5-1.6 Creatinine 1.7 today Continue monitor BMP while on IV Lasix H/O A. fib, DVT: Patient has not been taking coumadin for past few months rate control Continue metoprolol Case discussed with cardiology about transition to eliquis as pt is non compliant with coumadin and INR monitoring Started on Eliquis (pt also received coupon and mandujano check ~$47) Continue monitor in telemetry CAD (coronary artery disease): H/O SE to LAD Continue aspirin, Lipitor, metoprolol Pre-diabetes: Most recent Hba1c 6.1 Counseling on weight loss, diet and exercise Chronic deep vein thrombosis (DVT): Started on Eliquis (instead of coumadin) DVT prophylaxis on Eliquis CODE STATUS FULL CODE Admission and Anticipated Discharge Date Admission Date: January 03, 2023 Subjective Pt seen in follow up of LE edema, CHF Sitting up in chair in no acute distress watching TV He is saturating well on RA Reports improvement w/ LE edema Diuresing well Started on Entresto yesterday Pt denies any chest pain, palpitation, dizziness or shortness of breath Discussed w/ cardiology - given lower BP and improvement in edema w/ diuresis -> plan to switch to PO lasix Review of Systems Review of Systems: All systems reviewed & are unremarkable except as noted in Subjective Physical Exam Physical Exam: General: No acute distress, obese HEENT: PERRLA, EOMI, Heart: Irregular Lungs: Diminished breath sounds at bases, no wheeze or rales Abdomen: Soft nontender, no organomegaly Extremity: +edema B/L ( improved) Neuro/psych: awake alert oriented, no facial asymmetry, speech fluent, moves extremities Results & Data Results & Data Vital Signs (Past 12 Hours) Vital Signs Temp Pulse Pulse Resp BP Pulse Ox O2 Del Method 01/09/23 03:16 36.8 C 64 15 93/58 L 90 Room Air 01/09/23 01:16 60 01/08/23 23:17 36.9 C 58 L 16 102/65 90 Room Air Laboratory Results 01/09/23 01/08/23 Range/Units 06:12 06:52 Sodium 140 143 (136-145) mmol/L Potassium 3.8 4.1 (3.5-5.1) mmol/L Chloride 99 101 (98-107) mmol/L Carbon Dioxide 36 H 38 H (21-32) mmol/L Anion Gap 5 4 (3-11) BUN 30 H 25 H (6-23) mg/dl Creatinine 1.77 H 1.73 H (0.6-1.4) mg/dl Est Cr Clr Drug Dosing 56.0 56.9 ml/min Est GFR ( Amer) 44.1 45.4 ml/min Est GFR (Non-Af Amer) 38.1 39.1 ml/min BUN/Creatinine Ratio 16.9 14.5 (10-20) Glucose 113 H 104 H (70-99(Fasting)) mg/dl Calcium 9.1 9.0 (8.6-10.3) mg/dl Magnesium 1.9 1.9 (1.7-2.4) mg/dl Medications Administered Current Inpatient Medications Apixaban (Apixaban 5 Mg Tablet) 5 mg PO BID [facility] Stop: 02/03/23 20:59 Last Admin: 01/08/23 20:59 Dose: 5 mg Aspirin (Aspirin 81 Mg Ectab) 81 mg PO [facility] Stop: 02/03/23 08:59 Last Admin: 01/08/23 08:01 Dose: 81 mg Atorvastatin Calcium (Atorvastatin 40 Mg Tab) 80 mg PO QDL [facility] Stop: 02/03/23 11:29 Last Admin: 01/08/23 12:12 Dose: 80 mg Folic Acid (Folic Acid 1 Mg Tab) 1 mg PO QAM [facility] Stop: 02/04/23 08:59 Last Admin: 01/08/23 08:02 Dose: 1 mg Furosemide (Furosemide 40 Mg/4 Ml Vial) 40 mg IV BID17 [facility] Stop: 02/04/23 16:59 Last Admin: 01/08/23 16:56 Dose: 40 mg Lorazepam (Lorazepam 1 Mg Tab) 1 mg PO ONE PRN; Protocol PRN Reason: EtoH Withdrawal AWSS 6,7,8,9,10 Metoprolol Succinate (Metoprolol Succ 25mg Ext Rel Tab) 25 mg PO QAM [facility] Stop: 02/03/23 08:59 Last Admin: 01/08/23 08:01 Dose: 25 mg Sacubitril/Valsartan (Valsartan/Sacubitril 26/24mg Tab) 1 tab PO BID [facility] Stop: 02/07/23 12:29 Last Admin: 01/08/23 20:59 Dose: 1 tab Thiamine HCl (Thiamine Hcl 100 Mg Tab) [facility] [place] Stop: 02/04/23 08:59 Last Admin: 01/08/23 08:01 Dose: 100 mg
[2023-01-09] MEDS: VALSARTAN/SACUBITRIL 26/24MG TAB PO SCH ×2 (08:11→20:53)
[2023-01-09] MEDS: FOLIC ACID 1 MG TAB PO SCH (08:12)
[2023-01-09] MEDS: APIXABAN 5 MG TABLET PO SCH ×2 (08:12→20:53)
[2023-01-09] MEDS: FUROSEMIDE 40 MG/4 ML VIAL IV SCH (08:12)
[2023-01-09] MEDS: METOPROLOL SUCC 25MG EXT REL TAB PO SCH (08:12)
[2023-01-09] MEDS: ASPIRIN 81 MG ECTAB PO SCH (08:12)
[2023-01-09] MEDS: THIAMINE HCL 100 MG TAB PO SCH (08:12)
[2023-01-09] MEDS: ATORVASTATIN 40 MG TAB PO SCH (12:10)
--- NOTE | 2023-01-09 12:20 | Cardiology Progress Note ---
Date of Service January 09, 2023 Assessment & Plan (1) Acute on chronic HFrEF (heart failure with reduced ejection fraction): (2) Noncompliance with medication regimen: (3) Hypoxia: (4) Subtherapeutic international normalized ratio (INR): (5) Bilateral edema of lower extremity: (6) Chronic deep vein thrombosis (DVT): (7) CAD (coronary artery disease): Plan I believe we can decrease the patient's diuretics. I have switched him over to Lasix 40 mg twice daily 3 today and then tomorrow he can start 40 mg Lasix daily. I also feel by tomorrow he should be ready for discharge. I do note that he is hypotensive today after starting the Entresto but his hypotension should improve after we decrease his diuretics. Admission and Anticipated Discharge Date Admission Date: January 03, 2023 Subjective The patient had an uneventful night. Review of Systems Review of Systems: Review of Systems: See HPI for pertinent positives. All other 10 point review of systems are negative. Physical Exam Physical Exam: General: no acute distress and stated age Head: normocephalic, no masses, lesions, tenderness or abnormalities Eyes: conjunctiva are pink and non-injected, sclera clear Neck: supple, no adenopathy, no bruits, normal jugular venous pulse, no hepatojugular reflux Chest: normal shape and normal respiratory effort Lungs: clear to auscultation and percussion Cardiac Exam: - irregular rate & rhythm, no murmurs gallops or rubs - normal S1, normal S2 Pulses: 2(+) throughout Abdomen: abdomen soft, non-tender, no abnormal masses and no hepatosplenomegaly Musculoskeletal: no gait disturbance, no joint inflammation, no deforming arthritis Extremities: Edema bilaterally lower extremity Neuro: grossly normal exam Results & Data Vital Signs (Past 12 Hours) Vital Signs Temp Pulse Pulse Resp BP Pulse Ox O2 Del Method 01/09/23 11:16 36.6 C 59 L 20 98/71 L 92 Room Air 01/09/23 09:15 61 01/09/23 07:51 36.5 C 66 18 112/66 92 Room Air 01/09/23 07:37 Room Air 01/09/23 03:16 36.8 C 64 15 93/58 L 90 Room Air 01/09/23 01:16 60 Laboratory Results Laboratory Results - last 24 hr 01/09/23 06:12 Sodium 140 Potassium 3.8 Chloride 99 Carbon Dioxide 36 H Anion Gap 5 BUN 30 H Creatinine 1.77 H Est Cr Clr Drug Dosing 56.0 Est GFR ( Amer) 44.1 Est GFR (Non-Af Amer) 38.1 BUN/Creatinine Ratio 16.9 Glucose 113 H Calcium 9.1 Magnesium 1.9 Medications Administered Current Inpatient Medications Apixaban (Apixaban 5 Mg Tablet) 5 mg PO BID [facility] Stop: 02/03/23 20:59 Last Admin: 01/09/23 08:12 Dose: 5 mg Aspirin ([facility] 81 Mg [facility]ctab) [facility] [place] Stop: 02/03/23 08:59 Last Admin: 01/09/23 08:12 Dose: 81 mg Atorvastatin Calcium (Atorvastatin 40 Mg Tab) 80 mg PO QDL [facility] Stop: 02/03/23 11:29 Last Admin: 01/09/23 12:10 Dose: 80 mg Folic Acid (Folic Acid 1 Mg Tab) [facility] [place] Stop: 02/04/23 08:59 Last Admin: 01/09/23 08:12 Dose: 1 mg Furosemide (Furosemide 40 Mg Tab) 40 mg PO BID17 [facility] Stop: 02/08/23 16:59 Lorazepam (Lorazepam 1 Mg Tab) 1 mg PO ONE PRN; Protocol PRN Reason: EtoH Withdrawal AWSS 6,7,8,9,10 Metoprolol Succinate (Metoprolol Succ 25mg Ext Rel Tab) [facility] [place] Stop: 02/03/23 08:59 Last Admin: 01/09/23 08:12 Dose: 25 mg Sacubitril/Valsartan (Valsartan/Sacubitril 26/24mg Tab) 1 tab PO BID [facility] Stop: 02/07/23 12:29 Last Admin: 01/09/23 08:11 Dose: 1 tab Thiamine HCl (Thiamine Hcl 100 Mg Tab) [facility] [place] Stop: 02/04/23 08:59 Last Admin: 01/09/23 08:12 Dose: 100 mg
[2023-01-09] MEDS: FUROSEMIDE 40 MG TAB PO SCH (16:57)
[2023-01-10] MEDS: METOPROLOL SUCC 25MG EXT REL TAB PO SCH (08:01)
[2023-01-10] MEDS: THIAMINE HCL 100 MG TAB PO SCH (08:25)
[2023-01-10] MEDS: FOLIC ACID 1 MG TAB PO SCH (08:25)
[2023-01-10] MEDS: VALSARTAN/SACUBITRIL 26/24MG TAB PO SCH (08:25)
[2023-01-10] MEDS: APIXABAN 5 MG TABLET PO SCH (08:25)
[2023-01-10] MEDS: ASPIRIN 81 MG ECTAB PO SCH (08:25)
[2023-01-10] MEDS: FUROSEMIDE 40 MG TAB PO SCH (08:25)
--- NOTE | 2023-01-10 08:51 | Cardiology Progress Note ---
Date of Service January 10, 2023 Assessment & Plan (1) Acute on chronic HFrEF (heart failure with reduced ejection fraction): (2) Noncompliance with medication regimen: (3) Hypoxia: (4) Subtherapeutic international normalized ratio (INR): (5) Bilateral edema of lower extremity: (6) Chronic deep vein thrombosis (DVT): (7) CAD (coronary artery disease): Plan I decreased the patient's Lasix to 40 mg p.o. daily which is his usual outside dose. From our standpoint I believe he can be discharged home. I will arrange follow-up through our clinic. Admission and Anticipated Discharge Date Admission Date: January 03, 2023 Subjective The patient had an uneventful night and is anxious to go home. Review of Systems Review of Systems: Review of Systems: See HPI for pertinent positives. All other 10 point review of systems are negative. Physical Exam Physical Exam: General: no acute distress and stated age Head: normocephalic, no masses, lesions, tenderness or abnormalities Eyes: conjunctiva are pink and non-injected, sclera clear Neck: supple, no adenopathy, no bruits, normal jugular venous pulse, no hepatojugular reflux Chest: normal shape and normal respiratory effort Lungs: clear to auscultation and percussion Cardiac Exam: - irregular rate & rhythm, no murmurs gallops or rubs - normal S1, normal S2 Pulses: 2(+) throughout Abdomen: abdomen soft, non-tender, no abnormal masses and no hepatosplenomegaly Musculoskeletal: no gait disturbance, no joint inflammation, no deforming arthritis Extremities: Edema bilaterally lower extremity Neuro: grossly normal exam Results & Data Vital Signs (Past 12 Hours) Vital Signs Temp Pulse Resp BP BP Pulse Ox O2 Del Method 01/10/23 07:19 36.7 C 76 19 93/63 L 91 Room Air 01/10/23 03:51 36.7 C 86 19 104/66 91 Room Air 01/09/23 23:41 75 19 98/62 L 94 Room Air Laboratory Results Laboratory Results - last 24 hr 01/10/23 07:07 Sodium Pending Potassium Pending Chloride Pending Carbon Dioxide Pending Anion Gap Pending BUN Pending Creatinine Pending Est Cr Clr Drug Dosing Pending Est GFR ( Amer) Pending Est GFR (Non-Af Amer) Pending BUN/Creatinine Ratio Pending Glucose Pending Calcium Pending Medications Administered Current Inpatient Medications Apixaban (Apixaban 5 Mg Tablet) 5 mg PO BID [facility] Stop: 02/03/23 20:59 Last Admin: 01/10/23 08:25 Dose: 5 mg Aspirin (Aspirin 81 Mg Ectab) [facility] [place] Stop: 02/03/23 08:59 Last Admin: 01/10/23 08:25 Dose: 81 mg Atorvastatin Calcium (Atorvastatin 40 Mg Tab) 80 mg PO QDL [facility] Stop: 02/03/23 11:29 Last Admin: 01/09/23 12:10 Dose: 80 mg Folic Acid (Folic Acid 1 Mg Tab) 1 mg PO [facility] Stop: 02/04/23 08:59 Last Admin: 01/10/23 08:25 Dose: 1 mg Furosemide (Furosemide 40 Mg Tab) 40 mg PO DAILY [facility] Stop: 02/10/23 08:59 Lorazepam (Lorazepam 1 Mg Tab) 1 mg PO ONE PRN; Protocol PRN Reason: EtoH Withdrawal AWSS 6,7,8,9,10 Metoprolol Succinate (Metoprolol Succ 25mg Ext Rel Tab) 25 mg PO [facility] Stop: 02/03/23 08:59 Last Admin: 01/10/23 08:01 Dose: Not Given Sacubitril/Valsartan (Valsartan/Sacubitril 26/24mg Tab) 1 tab PO BID [facility] Stop: 02/07/23 12:29 Last Admin: 01/10/23 08:25 Dose: 1 tab Thiamine HCl (Thiamine Hcl 100 Mg Tab) [facility] [place] Stop: 02/04/23 08:59 Last Admin: 01/10/23 08:25 Dose: 100 mg
[2023-01-10 09:34] LABS: BUN Creatinine Ratio 16.5 (10-20); Creatinine Clr Calc Pharmacy 54.8 ml/min; Est GFR (African American) 44.4 ml/min; Est GFR (Non-African American) 38.3 ml/min; Potassium 4.3 mmol/L (3.5-5.1)
--- NOTE | 2023-01-10 11:12 | Discharge Summary ---
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 Pt said that for the last few weeks he has been having lower extremities edema. He said that in the last few days swelling got worst. He said that he can feels the fluid in the back of his legs that extended to his thighs area. He said that he feels a tingling in his left leg. Pt said that he has not been taking his coumadin for about 2 months and the entresto an metoprolol for more than 2 weeks. He said that he is very active and he is not having any SOB. He said that his main problem that he has is the swelling and that he is the reason he came. He said that he has been taking the Lasix daily. He said that he drinks a large cup of beer at the end of the day on his workday. His last alcohol drink was Tuesday. He said that he has been feeling depressed that is the reason he has not been taking care of his health. He said that he usually gets depressed every winter; then during summer time he is happy. Denies any history of alcohol withdrawal symptoms in the past. Denies any chest pain, palpitation, dizziness and SOB. Admission Exam Per Admitting Provider General: No acute distress, obese HEENT: PERRLA, EOMI, Heart: Irregular no carotid bruit, no JVD, no lower extremity edema Lungs: Diminished breath sound, no wheeze or rales Abdomen: Soft nontender, no organomegaly Extremity: +edema B/L Neuro: No focal neurological deficit normal speech, normal visual field, Psych: Alert awake oriented x3, normal affect Principal Diagnosis Follow-up with primary care physician and cardiology. The appointment with primary care doctor was scheduled for you for January 14. You will be contacted about the appointment with cardiology. Continue all your medications as prescribed. Discharge Exam General: No acute distress, obese HEENT: PERRLA, EOMI, Heart: Irregular Lungs: Diminished breath sounds at bases, no wheeze or rales Abdomen: Soft nontender, no organomegaly Extremity: +edema B/L (much improved) Neuro/psych: awake alert oriented, no facial asymmetry, speech fluent, moves extremities Discharge Data Allergies Allergy/AdvReac Type Severity Reaction Status Date / Time No Known Allergies Allergy Verified 01/03/23 19:08 Consultations 01/03/23 18:06 ED Decision to Admit Stat 01/03/23 21:12 Consult Cardiology Routine Ordered Studies 01/03/23 17:58 CT angio chest PE protocol Stat FINDINGS: CTA: Moderate cardiomegaly. Mural fibrofatty changes of the left ventricular apex suggestive of prior infarct. Extensive coronary artery calcifications. No pericardial effusion. Left subclavian pacer/AICD. Unfused from dilation of the ascending thoracic aorta, 4.3 cm. Mild to moderate associated atherosclerosis. Suboptimal opacification of the pulmonary artery secondary to contrast bolus timing. The majority of the contrast bolus is present within the SVC. No central filling defects identified. Opacified venous collaterals of the left chest wall. CT CHEST: No thyroid nodule or lymphadenopathy identified. Small right pleural effusion. Mild intralobular and bronchial wall thickening. Subsegmental dependent bibasilar atelectasis. 7 mm subpleural solid nodule in the right lung apex on image 237. Mild tracheobronchial secretions. No acute process of the imaged upper abdomen. Hepatic steatosis. Gynecomastia. Mild generalized body wall edema. No acute fracture. Degenerative changes of the shoulders and spine. IMPRESSION: 1. Cardiomegaly with mild pulmonary edema. 2. Small right pleural effusion with subsegmental bibasilar atelectasis. 3. Limited exam as above. No central pulmonary emboli identified. 4. Mild fusiform dilation of the ascending thoracic aorta, 4.3 cm. 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 Possible related to volume overload BNP 312 Received Lasix 40mg IV on admission Continued IV lasix 40mg BID -> switch to PO Monitor I's and O's, daily weight, volume status Hypoxia -resolved CHF exacerbation Denies any SOB CTA chest showed no evidence for PE. Cardiomegaly with mild pulmonary edema. Small right pleural effusion with subsegmental bibasilar atelectasis. Continue IV Lasix Currently on RA Cardiology consulted - device interrogation specifically to check KENY given lack of follow-up with device clinic Continue Monitor BMP while on IV lasix -> switch to PO Re-Started Entresto Chronic systolic CHF H/O Ischemic cardiomyopathy Chronic HFrEF (heart failure with reduced ejection fraction): S/P AICD Pt has not been taking the metoprolol and entresto for weeks Cardiology consult ECHO showed severe hypokinesis to akinesis of the anteroseptal and anterior and apical layne, otherwise moderate global hypokinesis Severe reduced LV systolic function with EF 20 to 25% Continued IV lasix 40mg BID -> now switch to PO -DC on home dose 40 mg daily Continue metoprolol Entresto on hold initially on IV lasix and recent contrast from CTA chest Resumed Entresto Elevated troponin Troponin on admission 62.9, then trending down to 40.3 EKG reviewed by me showed no acute ischemic changes Denies any chest pain ECHO showed severe hypokinesis to akinesis of the anteroseptal and anterior and apical layne, otherwise moderate global hypokinesis Continue metoprolol, aspirin and statin. Depression Patient said during winter season he feels depressed Denies any suicidal thoughts Discussed about starting on antidepressant med, but refused Not interested to start on any med since there is only 5 weeks left for the cold weather Alcohol abuse Patient said he only drinks 1 large cup of beer daily Denies any history of alcohol withdrawal or DT Continue monitor for sign of alcohol withdrawal Continue thiamine and folic acid Counseling on alcohol cessation CKD creatinine 1.6 on admission, baseline e between 1.5-1.6 Creatinine 1.7 H/O A. fib, DVT: Patient has not been taking coumadin for past few months rate control Continue metoprolol Case discussed with cardiology about transition to eliquis as pt is non compliant with coumadin and INR monitoring Started on Eliquis (pt also received coupon and mandujano check ~$47) Continue monitor in telemetry CAD (coronary artery disease): H/O SE to LAD Continue aspirin, Lipitor, metoprolol Pre-diabetes: Most recent Hba1c 6.1 Counseling on weight loss, diet and exercise Total Time Total Time Spent Total Time Spent (In Minutes): 40 Discharge Plan Discharge Items Patient Disposition: Home - Self-Care Reason For Visit: B/L LE EDEMA Discharge Diagnosis: CHF exacerbation B/l LE edema Activity: Per Instructions section Non-emergency contact: Primary Care Provider and Mold Engraver Call non-emergency contact if: you have any medication questions and your symptoms worsen Follow-up/Referrals: Rosalie Rosales DO [Primary Care Provider] - (Date & Time 01/14/2023 11:20 AM Provider Rosalie Rosales DO Department [facility] ) John Paul Torres DO [Mold Engraver] - (The cardiology office will call you with a follow up appointment.) Diet: Heart Healthy Kaya Attending Provider Instructions: Follow-up with primary care physician and cardiology. The appointment with primary care doctor was scheduled for you for January 14. You will be contacted about the appointment with cardiology. Continue all your medications as prescribed. Addtl Fisher Weir Provider Instructions: Call your Primary Care doctor if any of the following symptoms or problems start or get worse: * Shortness of breath or difficulty breathing * Wake up at night short of breath * Chest pain * Cough * Swelling of your hands, feet, or legs * More fatigued or tired with your normal activity * Palpitations - sudden fast heart beats WEIGHT * Weigh yourself every morning after using the bathroom. * Use the same scale. * Wear the same amount of clothing. * Write your weight down on a chart. * Call your Primary Care doctor if you gain more than 2-3 pounds in 1-2 days. MEDICATIONS * Use this discharge instruction sheet for medication instructions. * Take your medications at the time your doctor ordered. * Do not skip a dose of your medicines. * If you miss a dose of medicine, take it as soon as possible, but DO NOT DOUBLE A DOSE. * Read your medicine information when you get home. * Know all of the side effects of your medicine. If in doubt, ask your pharmacist * Call your Primary Care doctor's office if you have any side effects. * Be sure all of your doctors know what medicine and herbs you take (including cold, flu, and herbal medicine). Take the following with you to your follow-up doctor appointments: * Weight Chart * Medication List * List of questions Do not drink excessive alcohol, beer or wine. Pending Studies at Discharge: No Stand-Alone Forms: My [facility], Smoking Cessation Medications and DC Order Prescriptions: New Eliquis 5 mg Tablet 5 mg PO BID 30 Days Qty: 60 0RF metoprolol succinate 25 mg Tablet Extended Release 24 Hr 25 mg PO QAM Qty: 30 0RF Continued furosemide 40 mg tablet 40 mg PO QAM atorvastatin 80 mg tablet 80 mg PO QDL aspirin 81 mg Tablet,Delayed Release (Dr/Ec) 81 mg PO QAM triamcinolone acetonide 0.1 % cream 1 applic TOPICAL BID PRN (Reason: Skin Irritation) Rx Instructions: Apply to legs NEEDED Entresto 49-51 mg Tablet 1 tab PO QAM Discontinued warfarin 5 mg tablet 10 mg PO WK Patient Comments: MONDAYS ONLY 10 MG, ALL OTHER 6 DAYS 5 MG metoprolol succinate 25 mg tablet extended release 24 hr 25 mg PO QAM warfarin 5 mg Tablet 5 mg PO [id number] Patient Comments: EVERY DAY EXCEPT TUESDAY Discharge Orders: Discharge Order- CHF (Routine); Ordered 01/10/23 Ordered By: Shiv Delgado/Other Patient Handouts: Prediabetes, 5 Steps for Eating Healthier Admission Data Admit Date/Time: 01/03/23 18:59 Attending Provider: Shiv Mcdowell Admit Provider: Rose Mary Frazier Primary Care Provider: Rosalie Rosales Other Providers: Rose Mary Frazier ; John Paul Torres
[2023-01-10] MEDS: ATORVASTATIN 40 MG TAB PO SCH (12:17)
[2023-01-11] MEDS ORDERED: FUROSEMIDE 40 MG TAB PO SCH (09:00)
== END 2023-01-10 15:25 | disposition home or self-care (01) ==
LOC: ED 14:38 → EDINP 18:59 → SUATTDRO 18:59 → INTOOBSV 18:59 → 2S 21:12

== ENCOUNTER 2024-03-12 11:38 | Observation (INO) ==
--- NOTE | 2024-03-12 11:42 | ED Triage Note ---
Date of Service March 12, 2024 Provider in Triage Author: Hipolito Tavera History of Present Illness This patient was briefly evaluated while in triage. An abbreviated physical exam was performed. This patient is a 73-year-old Male who presents to the ED for evaluation of "severe back pain". [place] from beach. Tight chest, cough with production and worsening pain in back area. Hx of stage 3 kidney disease. Was on a blood thinner but not anymore (has been over a year). Also notes wound on right lower extremity. Went to urgent care in [facility]. Told has cellulitis. Written rx for antibiotic and cream. Notes swelling has improved. Physical Exam GENERAL: 73 year old male. In no acute distress. SKIN: No lesions or rashes. RLE edema noted. HEART: Regular rate and rhythm. LUNGS: Clear to auscultation. ABDOMEN: Bowel sounds normoactive. No guarding or rigidity. No tenderness of palpation. NEURO: Alert and oriented. No deficits. MUSCULOSKELETAL: No deformities to inspection of the extremities. PSYCH: Patient is pleasant and answers all questions appropriately. Initial orders for labs and / or imaging were placed and patient was placed in the waiting area until a bed is available. Please see further documentation for the full ED course.
[2024-03-12 12:36] LABS: Basophils # (auto) 0.03 K/uL (0.00-0.20); Basophils % (auto) 0.5 %; Eosinophils # (auto) 0.13 K/uL (0.00-0.50); Hemoglobin 14.9 g/dl (14.0-18.0); Immature Granulocytes # (auto) 0.03 K/uL (0.01-0.20); Immature Granulocytes % (auto) 0.5 %; Lymphocytes # (auto) 0.38 K/uL (1.20-3.40); Mean Corpuscular Hemoglobin 32.1 pg (25.0-34.0); Mean Corpuscular Hgb Conc 32.4 g/dL (32.0-36.0); Mean Corpuscular Volume 99.1 fL (80.0-100.0); Mean Platelet Volume 10.1 fL (9.4-12.4); Monocytes # (auto) 0.63 K/uL (0.11-0.59); Monocytes % (auto) 9.9 %; Neutrophils # (auto) 5.15 K/uL (1.40-6.50); Neutrophils % (auto) 81.1 %; Platelet Count 174 K/uL (130-400); RDW Coefficient of Variation 13.7 % (11.5-14.5); RDW Standard Deviation 49.9 fL (36.4-46.3); Red Blood Count 4.64 M/uL (4.70-6.10); White Blood Count 6.35 K/ul (4.8-10.8)
--- NOTE | 2024-03-12 12:46 | Emergency Department Note ---
Impression & Plan Chest tightness, Elevated troponin, Noncompliance with medications, Bilateral flank pain, Wheezing, Elevated liver enzymes, Pedal edema ED Provider Note NAME: DOUG LOPEZ AGE: 73 SEX: M : 1950 ARRIVES VIA: Walk-In INFORMANT: [Patient] ED PROVIDER(S): [Ismael Lyman MD] CHIEF COMPLAINT: Illness HISTORY OF PRESENT ILLNESS: The patient is a 73-year-old male who states that he was on vacation. He states that close to 10 days ago, he was told that he had a right leg cellulitis. He had been seen at urgent care. He had scratched open the skin on the leg. He was placed on what sounds like Bactrim. He has been on the medication now twice a day and has 1 day left. The leg is improved. Over the last few days, he has noticed some tightness in his chest and his flanks. He has felt mildly short of breath. He was concerned for issues with his kidneys, lungs or heart and presents for evaluation. Patient does have a history of being on a blood thinning agent. He stopped this about a year ago as there was some mixup with the pharmacy and has not talked with his doctor about starting something different. The patient was noted to be in atrial fibrillation in triage, he has no recollection of being told he had this diagnosis. He does see cardiology from [facility]. PMHx/PSHx/Social Hx: See Below PHYSICAL EXAM: GENERAL: Patient is in no acute distress. HEENT: No acute trauma, normocephalic atraumatic, mucous membranes moist, no nasal congestion. NECK: No stridor, no adenopathy, no meningismus, trachea is midline. LUNGS: Wheezing bilaterally, no respiratory distress, no crackles. HEART: Irregular rhythm, normal rate, no obvious murmur. ABDOMEN: Soft, nontender, no peritonitis. Obese. EXTREMITIES: No cyanosis. Bilateral pedal edema with chronic skin change, worse on the right. No drainage. NEUROLOGIC: Oriented x 3, no acute motor or sensory deficits, no focal weakness. SKIN: No jaundice, no diaphoresis. DIFFERENTIAL DIAGNOSIS: CHF, pneumonia, bronchitis, renal disease, dysrhythmia, anemia, NV, among others. EMERGENCY DEPARTMENT PROCEDURES: MEDICAL DECISION MAKING: There is no leukocytosis or anemia. There is a normal platelet count. No coagulopathy. Creatinine was elevated consistent with his history of chronic renal failure. No electrolyte abnormality in need of emergent correction. There were some diffuse liver enzyme elevations. Troponin was slightly elevated. This troponin elevation could be secondary to cardiac injury or potentially just mismatch. ECG shows what appears to be atrial fibrillation with baseline artifact. No ST elevation. There was no evidence for pancreatitis. The patient appeared to be in a euthyroid state. Urinalysis appears to show contamination. Chest film shows cardiomegaly, no CHF. Abdominal and pelvis CT not show any urinary or bowel obstruction. No acute surgical process. Bilateral lower extremity ultrasound results are pending. On exam, the patient was wheezing although he was not in respiratory distress. He had obvious pedal edema more so on the right. The patient presents with several complaints. He has a known cardiac history. He has been noncompliant with medications. He has been off of his Eliquis for around a year yet has underlying A-fib and a history of DVT and PE. He has traveled recently. He presents with some chest tightness and back tightness. I did call and speak with [facility]. Admission and further workup was felt warranted. The patient will require troponin trending, further care and workup. I spoke with the patient and case management, the on-call hospitalist was consulted. Prior/Outside records/notes reviewed: None ECG per my interpretation: Indication was tightness in the chest. ECG shows what appears to be atrial fibrillation with a PVC. The rate is 78. There is no acute ST elevation. QTc was 449. Poor R wave progression was noted. An old inferior infarct was noted. Compared to an ECG from 03 January 2023, PVCs are now present. Continuous Cardiac Monitoring per my interpretation: An order was placed for continuous cardiac monitoring. The monitor shows a rate of 78 with atrial fibrillation. Imaging/x-ray results per my interpretation: Chest x-ray shows cardiomegaly, I see no pneumonia or CHF. Chronic Medical/Social conditions affecting care: Advanced age, obesity. Care/Management discussed with: [facility]-Dr. Estrada. Case management and the on-call hospitalist. Level of care consideration(s): After review of the information above and other included data: --I believe the patient requires escalation of care to admission DISPOSITION: Admission Past Med/Surg History Problem List (Updated 03/12/24 @ 16:15 by Ismael Lyman MD) Pedal edema (Acute) Elevated liver enzymes (Acute) Wheezing (Acute) Bilateral flank pain (Acute) Noncompliance with medications (Acute) Elevated troponin (Acute) Chest tightness (Acute) Elevated liver function tests Shortness of breath CAD (coronary artery disease) 2018 - STEMI, s/p SE to LAD Bilateral edema of lower extremity (Acute) Noncompliance with medication regimen (Acute) Lymphedema (Chronic) Chronic deep vein thrombosis (DVT) Elevated troponin CHF exacerbation (Acute) Morbid obesity with BMI of 45.0-49.9, adult Medical History Poor historian Ischemic cardiomyopathy PT NOT SURE On anticoagulant therapy History of COVID-19 Permanent atrial fibrillation PT NOT SURE Chronic HFrEF (heart failure with reduced ejection fraction) PT REPORTS HEART FAILURE RESOLVED Pre-diabetes PT DENIES NSTEMI (non-ST elevated myocardial infarction) HX NV Peripheral vascular disease ? CKD (chronic kidney disease) stage 3, GFR 30-59 ml/min Chronic deep vein thrombosis (DVT) of right lower extremity ? 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 Elliott with 1 stent placed History of vitrectomy (~04/20/21) right Mass of kidney of unknown nature s/p 2010 excision, lupe- renal by report AICD (automatic cardioverter/defibrillator) present ? REASON...DECEMBER 2018 PLACED, FEW MONTHS AGO LAST CHECK History of colonoscopy with polypectomy adenomatous polyp, diverticulosis - Oct 2015 History of umbilical hernia repair History of orchiectomy R 2010 Family History Father Pulmonary embolism Sister Thyroid cancer Social History Smoking Status: Never smoker Second Hand Exposure: No; Do You Dip or Chew Tobacco: No; Hx Alcohol Use: Yes Alcohol type: beer Hx Substance Use: No Preferred Language: Burmese Communication Ability: Effective Compliance Reviewer Required: No Beliefs That Will Affect Care: None marital status: Current Living Situation: Alone current occupational status: employed Feels Safe at Home: Yes Assistive Devices: Denture - Upper and Glasses Allergies Allergies Allergy/AdvReac Type Severity Reaction Status Date / Time No Known Allergies Allergy Verified 01/03/23 19:08 Home Meds Home Medications Medication Instructions Recorded Confirmed aspirin 81 mg tablet,delayed 81 mg PO QAM 02/09/21 01/03/23 release atorvastatin 80 mg tablet 80 mg PO QDL 02/09/21 01/03/23 furosemide 40 mg tablet 40 mg PO QAM 02/09/21 01/03/23 triamcinolone acetonide 0.1 % 1 applic topical BID PRN Skin 06/22/21 01/03/23 topical cream Irritation sacubitril 49 mg-valsartan 51 mg 1 tab PO QAM 12/04/21 01/03/23 tablet (Entresto) Previous Rx's Medication Instructions Recorded metoprolol succinate 25 mg 25 mg PO QAM #30 tabs 01/10/23 tablet,extended release 24 hr Results & Data (ED) Vital Signs Vital Signs - 24 hr 03/12/24 11:39 03/12/24 12:32 03/12/24 12:33 Temperature 36.2 C L Temperature Source Temporal Artery Scan Pulse Rate 78 79 70 Pulse Rate from SpO2 Sensor 71 Respiratory Rate 22 22 Respiratory Effort / Characteristics Non-Labored Respiratory Depth Normal Blood Pressure 111/69 Blood Pressure [Right Arm] Blood Pressure Mean 83 Blood Pressure Mean [Right Arm] Pulse Oximetry 91 94 Oxygen Delivery Method Room Air Sepsis Recent Fever Within 48 Hours No Sepsis New/Unexplained Change in Mental Status No Sepsis Action Taken by Nursing No Action Required 03/12/24 13:06 03/12/24 13:30 03/12/24 13:30 Temperature Temperature Source Pulse Rate 69 62 Pulse Rate from SpO2 Sensor 76 70 Respiratory Rate 20 28 H Respiratory Effort / Characteristics Respiratory Depth Blood Pressure 106/74 Blood Pressure [Right Arm] Blood Pressure Mean 87 Blood Pressure Mean [Right Arm] Pulse Oximetry 93 94 Oxygen Delivery Method Sepsis Recent Fever Within 48 Hours Sepsis New/Unexplained Change in Mental Status Sepsis Action Taken by Nursing 03/12/24 13:39 03/12/24 13:48 03/12/24 14:16 Temperature Temperature Source Pulse Rate 66 Pulse Rate from SpO2 Sensor 88 Respiratory Rate 26 H Respiratory Effort / Characteristics Respiratory Depth Blood Pressure 112/78 Blood Pressure [Right Arm] Blood Pressure Mean 86 Blood Pressure Mean [Right Arm] Pulse Oximetry 94 95 Oxygen Delivery Method Room Air Sepsis Recent Fever Within 48 Hours Sepsis New/Unexplained Change in Mental Status Sepsis Action Taken by Nursing 03/12/24 14:21 03/12/24 14:30 03/12/24 14:57 Temperature Temperature Source Pulse Rate 76 69 79 Pulse Rate from SpO2 Sensor Respiratory Rate 25 H 25 H 17 Respiratory Effort / Characteristics Respiratory Depth Blood Pressure Blood Pressure [Right Arm] Blood Pressure Mean Blood Pressure Mean [Right Arm] Pulse Oximetry 95 Oxygen Delivery Method Sepsis Recent Fever Within 48 Hours Sepsis New/Unexplained Change in Mental Status Sepsis Action Taken by Nursing 03/12/24 15:01 03/12/24 15:06 03/12/24 16:06 Temperature Temperature Source Pulse Rate 72 Pulse Rate from SpO2 Sensor Respiratory Rate 17 20 Respiratory Effort / Characteristics Non-Labored Respiratory Depth Normal Blood Pressure 92/62 L Blood Pressure [Right Arm] 106/74 Blood Pressure Mean 76 Blood Pressure Mean [Right Arm] 84 Pulse Oximetry 94 Oxygen Delivery Method Room Air Sepsis Recent Fever Within 48 Hours Sepsis New/Unexplained Change in Mental Status Sepsis Action Taken by Shelter Medications Current Medication List: was personally reviewed by me Laboratory Data Attestation: I reviewed the patient's lab results. 03/12/24 12:15 03/12/24 12:15 Lab Results 03/12/24 03/12/24 Range/Units 12:15 14:14 WBC 6.35 (4.8-10.8) K/ul RBC 4.64 L (4.70-6.10) M/uL Hgb 14.9 (14.0-18.0) g/dl Hct 46.0 (42.0-52.0) % MCV 99.1 (80.0-100.0) fL MCH 32.1 (25.0-34.0) pg MCHC 32.4 (32.0-36.0) g/dL RDW Std Deviation 49.9 H (36.4-46.3) fL RDW Coeff of Juan 13.7 (11.5-14.5) % Plt Count 174 (130-400) K/uL MPV 10.1 (9.4-12.4) fL Immature Gran % (Auto) 0.5 % Neut % (Auto) 81.1 % Lymph % (Auto) 6.0 % [place] % (Auto) 9.9 % Eos % (Auto) 2.0 % Baso % (Auto) 0.5 % Neut # (Auto) 5.15 (1.40-6.50) K/uL Lymph # (Auto) 0.38 L (1.20-3.40) K/uL [place] # (Auto) 0.63 H (0.11-0.59) K/uL Eos # (Auto) 0.13 (0.00-0.50) K/uL Baso # (Auto) 0.03 (0.00-0.20) K/uL Immature Gran # (Auto) 0.03 (0.01-0.20) K/uL PT 11.4 (9.0-12.0) Seconds INR 1.1 (0.9-1.1) APTT 29 (21-31) Seconds PTT Ratio 1.1 Sodium 137 (136-145) mmol/L Potassium 4.5 (3.5-5.1) mmol/L Chloride 102 (98-107) mmol/L Carbon Dioxide 27 (21-32) mmol/L Anion Gap 8 (3-11) BUN 23 (6-23) mg/dl Creatinine 1.81 H (0.6-1.4) mg/dl Est Cr Clr Drug Dosing 50.0 ml/min Est GFR ( Amer) 42.6 ml/min Est GFR (Non-Af Amer) 36.8 ml/min BUN/Creatinine Ratio 12.7 (10-20) Glucose 123 H (70-99(Fasting)) mg/dl Calcium 9.0 (8.6-10.3) mg/dl Magnesium 1.9 (1.7-2.4) mg/dl Total Bilirubin 1.4 H (0.2-1.0) mg/dl AST 186 H (13-39) U/L ALT 164 H (7-52) U/L Alkaline Phosphatase 198 H (34-104) U/L Troponin I High Sens 32.0 H (0-20) pg/ml Total Protein 7.4 (6.0-8.3) gm/dl Albumin 3.5 (3.4-5.0) gm/dl Globulin 3.9 (2.5-4.0) gm/dl Albumin/Globulin Ratio 0.9 (0.9-2) Lipase 39 (11-82) U/L TSH 2.038 (0.300-4.500) uIu/ml Urine Color [place] Urine Appearance Cloudy A (Clear) Urine pH 5.5 (4.5-7.5) Ur Specific [place] 1.038 H (1.000-1.030) Urine Protein 2+ H (Negative) Urine Glucose (UA) Negative (Negative) Urine Ketones Trace H (Negative) Urine Blood Negative (Negative) Urine Nitrite Positive A (Negative) Urine Bilirubin 2+ H (Negative) Urine Urobilinogen Positive H (Negative) Ur Leukocyte Esterase 1+ H (Negative) Urine WBC (Auto) 6-10 H (0-5) /hpf Urine RBC (Auto) 0-2 (0-2) /hpf U Hyaline Cast (Auto) >20 H (0-2) /lpf U Epithel Cells (Auto) 6-10 H (0-2) /hpf Urine Bacteria (Auto) 1+ H (None Seen) Imaging Data Radiologist's Impression: Chest X-Ray 03/12/24 11:43 XR chest 1V portable HISTORY: 73 years-old Male Back pain and chest tightness COMPARISON: 01/03/2023 TECHNIQUE: AP view of the chest FINDINGS: Cardiac silhouette is enlarged. Left subclavian pacer/AICD. No pneumothorax, pleural effusion, airspace consolidation or pulmonary edema. Degenerative changes of the shoulders and spine. Nonspecific sclerosis of the right scapula. IMPRESSION: Cardiomegaly without acute process of the chest ACT 112: Negative or not required by law. The above report was generated using voice recognition software. It may contain grammatical, syntax or spelling errors. Electronically signed by: Heath Tabares M.D. 03/12/2024 12:57 PM Abdomen/Pelvis CT 03/12/24 13:[address] WITHOUT CONTRAST CT DOSE: 1282.24 mGy.cm HISTORY: flank pain, high creat TECHNIQUE: Multiaxial CT images of the abdomen and pelvis were performed without contrast. A dose lowering technique was utilized adhering to the principles of ALARA. COMPARISON STUDY: None. FINDINGS: Mild dependent changes seen at the lung bases. No pneumoperitoneum. No pneumatosis. No acute fractures. The heart is mildly enlarged. A pacemaker wire is noted. Scarlike density noted at the umbilicus. There is a small fat- containing left inguinal hernia. Osteitis pubis with a small amount of adjacent fluid. This is likely chronic. Degenerative changes within the lumbar spine. Lumbar subcutaneous edema is noted. There is a small diverticulum within the second portion of the duodenum. The unenhanced liver, spleen, adrenal glands, pancreas, and gallbladder are unremarkable. Retroperitoneal surgical clips are noted. Mild calcified plaque within the normal caliber abdominal aorta. There is an atrophic right kidney containing a 4 mm nonobstructing stone. Normal left kidney. No ureteral stones. No hydronephrosis. No retroperitoneal or pelvic lymphadenopathy. No pelvic free fluid. Bladder wall thickening. This could be due to underdistention. Suboptimal evaluation for bowel pathology due to the lack of intravenous and oral contrast. However, there is no definite bowel wall thickening or obstruction. Normal appendix. Colonic diverticulosis. No evidence for acute diverticulitis. IMPRESSION: 1. Right-sided nephrolithiasis. No ureteral stones. No hydronephrosis. 2. Colonic diverticulosis. No evidence for acute diverticulitis. 3. No definite bowel wall thickening or obstruction. 4. Bladder wall thickening. This may be due to underdistention. Recommend correlation with urinalysis to exclude a cystitis. 5. Additional findings as described above. ACT 112: Negative or not required by law. Electronically signed by: Jim Fierro M.D. 03/12/2024 2:12 PM Discharge Plan Visit Data Chief Complaint: Illness Stated Complaint: LOWER BACK PAIN, KIDNEY PAINS, COUGH ED Provider: Ismael Lyman Discharge Problem: Chest tightness, Elevated troponin, Noncompliance with medications, Bilateral flank pain, Wheezing, Elevated liver enzymes, Pedal edema Patient Disposition: Admitted As Inpatient Condition: Fair Forms Stand Alone Forms: [facility], Important Visit Information Prescriptions Prescriptions: No Action furosemide 40 mg tablet 40 mg PO QAM atorvastatin 80 mg tablet 80 mg PO QDL aspirin 81 mg Tablet,Delayed Release (Dr/Ec) 81 mg PO QAM triamcinolone acetonide 0.1 % cream 1 applic TOPICAL BID PRN (Reason: Skin Irritation) Rx Instructions: Apply to legs NEEDED Entresto 49-51 mg Tablet 1 tab PO QAM metoprolol succinate 25 mg Tablet Extended Release 24 Hr 25 mg PO QAM Qty: 30 0RF Referrals Referrals: Rosalie Rosales DO [Primary Care Provider] -
--- NOTE | 2024-03-12 12:58 | XRay Report ---
XR chest 1V portable HISTORY: 73 years-old Male Back pain and chest tightness COMPARISON: 01/03/2023 TECHNIQUE: AP view of the chest FINDINGS: Cardiac silhouette is enlarged. Left subclavian pacer/AICD. No pneumothorax, pleural effusion, airspa ce consolidation or pulmonary edema. Degenerative changes of the shoulders and spine. Nonspecific scl erosis of the right scapula. IMPRESSION: Cardiomegaly without acute process of the chest ACT 112: Negative or not required by law. The above report was generated using voice recognition software. It may contain grammatical, syntax o r spelling errors. Electronically signed by: Heath Tabares M.D. 03/12/2024 12:57 PM
[2024-03-12 13:02] LABS: Albumin Globulin Ratio 0.9 (0.9-2); Albumin Level 3.5 gm/dl (3.4-5.0); BUN Creatinine Ratio 12.7 (10-20); Bilirubin,Total 1.4 mg/dl (0.2-1.0); Est GFR (African American) 42.6 ml/min; Est GFR (Non-African American) 36.8 ml/min; Globulin 3.9 gm/dl (2.5-4.0); Magnesium 1.9 mg/dl (1.7-2.4); Potassium 4.5 mmol/L (3.5-5.1); Total Protein 7.4 gm/dl (6.0-8.3)
[2024-03-12 13:03] LABS: INR 1.1 (0.9-1.1); Partial Thromboplastin Ratio 1.1; Partial Thromboplastin Time 29 Seconds (21-31); Prothrombin Time 11.4 Seconds (9.0-12.0)
[2024-03-12 13:18] LABS: Thyroid Stimulating Hormone 2.038 uIu/ml (0.300-4.500)
--- NOTE | 2024-03-12 14:13 | CT Scan Report ---
ABDOMEN AND PELVIS CT WITHOUT CONTRAST CT DOSE: 1282.24 mGy.cm HISTORY: flank pain, high creat TECHNIQUE: Multiaxial CT images of the abdomen and pelvis were performed without contrast. A dose lo wering technique was utilized adhering to the principles of ALARA. COMPARISON STUDY: None. FINDINGS: Mild dependent changes seen at the lung bases. No pneumoperitoneum. No pneumatosis. No acut e fractures. The heart is mildly enlarged. A pacemaker wire is noted. Scarlike density noted at the u mbilicus. There is a small fat-containing left inguinal hernia. Osteitis pubis with a small amount of adjacent fluid. This is likely chronic. Degenerative changes within the lumbar spine. Lumbar subcuta neous edema is noted. There is a small diverticulum within the second portion of the duodenum. The un enhanced liver, spleen, adrenal glands, pancreas, and gallbladder are unremarkable. Retroperitoneal s urgical clips are noted. Mild calcified plaque within the normal caliber abdominal aorta. There is an atrophic right kidney containing a 4 mm nonobstructing stone. Normal left kidney. No ureteral stones . No hydronephrosis. No retroperitoneal or pelvic lymphadenopathy. No pelvic free fluid. Bladder wall thickening. This could be due to underdistention. Suboptimal evaluation for bowel pathology due to t he lack of intravenous and oral contrast. However, there is no definite bowel wall thickening or obst ruction. Normal appendix. Colonic diverticulosis. No evidence for acute diverticulitis. IMPRESSION: 1. Right-sided nephrolithiasis. No ureteral stones. No hydronephrosis. 2. Colonic diverticulosis. No evidence for acute diverticulitis. 3. No definite bowel wall thickening or obstruction. 4. Bladder wall thickening. This may be due to underdistention. Recommend correlation with urinalysis to exclude a cystitis. 5. Additional findings as described above. ACT 112: Negative or not required by law. Electronically signed by: Jim Fierro M.D. 03/12/2024 2:12 PM
[2024-03-12 14:46] LABS: Appearance Urine Cloudy (Clear); Bilirubin Urine 2+ (Negative); Blood Urine Negative (Negative); Cast Urine Automated >20 /lpf (0-2); Color Urine Orange; Glucose Urine UA Negative (Negative); Ketones Urine Trace (Negative); Leukocyte Esterase Urine 1+ (Negative); Nitrite Urine Positive (Negative); Protein Urine 2+ (Negative); RBC Urine Automated 0-2 /hpf (0-2); Specific Gravity Urine 1.038 (1.000-1.030); Urobilinogen Urine Positive (Negative); pH Urine 5.5 (4.5-7.5)
[2024-03-12 15:00] LABS: Bacteria Urine Automated 1+ (None Seen)
--- NOTE | 2024-03-12 15:17 | History & Physical Report ---
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 The etiology of his dyspnea is unclear at present but may be multifactorial. CXR negative, avoid CTA chest due to elevated creatinine/CKD. Bilateral LE venous duplexes ordered by ED provider and are pending. Pt is supposed to be on chronic AC with Eliquis due to atrial fibrillation and chronic DVT but has not been taking this for several months. He has a history of HF but has been taking Entresto and furosemide as prescribed but does have chronic VALENTINE. He notes cough for unspecific period of time with associated wheezing but no fevers or hemoptysis - suspect component of bronchitis, cannot r/o pneumonia and/or malignancy. He is not hypoxic at present. - Admit to PCU - Check D-dimer - if elevated, consider CT chest without contrast - Check BNP now - Update ECHO - Consult cardiology for additional recommendations - Continue Entresto and furosemide due to history of CHF - Empiric treatment for presumed bronchitis with antibiotics (ceftriaxone, doxycycline), oral prednisone, nebs, incentive spirometer, flutter valve, guaifenesin (2) Elevated liver function tests: Plan: New, appears acute - may be related to recent course of Bactrim as has a potential for hepatotoxicity and/or congestive hepatopathy. Pt also notes daily alcohol consumption of an unspecified amount of beer. CT abd/pel was reviewed - no gross abnormality in the liver seen. - Hold Bactrim - Trend LFTs - if worsening, consider additional imaging (US vs. MRCP) - Discussed with patient potential for alcohol to negatively affect the liver so would recommend avoiding alcohol, or at least cutting back - will order prn lorazepam protocol, add thiamine and folic acid (3) CAD (coronary artery disease): Plan: Chronic, stable Taking aspirin but stopped beta katelyn and statin on his own Defer changes in management to cardiology Echo as above (4) Bilateral edema of lower extremity: Plan: Chronic lymphedema Duplexes pending Continue furosemide (5) Noncompliance with medication regimen: Plan: Pt admits to not always taking medication as prescribed or attending all appointments as scheduled. Discussed importance of compliance with recommended treatment plan with patient. (6) Elevated troponin: Plan: EKG reviewed - no acute changes Will trend troponin but low suspicion for ACS at present time (7) UTI (urinary tract infection): Plan: Abnormal UA - positive for nitrite, leukocyte esterase, urobilinogen, bilirubin - urine culture pending Empiric ceftriaxone for now Plan Pt seen and reviewed with collaborating physician, Dr. Elliott. Plan of care discussed and as outlined above. 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 Pt was recently on vacation and developed redness in his leg as well as increased swelling. Seen at urgent care, diagnosed with cellulitis, and started on Bactrim (has one day left). His leg redness and swelling has improved but he feels poorly overall and came to the ED today to make sure his kidneys weren't "shutting down again." Pt was last admitted in January 2023 for respiratory difficulties. He has a history of chronic lymphedema, which is about at his baseline presently. Pt has a history of noncompliance and admits that he has not been taking all of his medications as prescribed, specifically stating that he has been off anticoagulation for the last year due to an issue with the script at the pharmacy. He also stopped his beta katelyn and statin. Review of his outpatient records in [facility] show multiple missed or canceled appointments. His ICD has not been interrogated recently although he does not recall any recent shocks. He has had a cough for "a while" that is intermittently productive of white to yellow sputum. He notes associated wheezing but is unclear if this started at the same time as the cough or if it started later. He denies smoking or occupational exposures such as asbestos, no prior dx of COPD or asthma. Allergies Allergy/AdvReac Type Severity Reaction Status Date / Time No Known Allergies Allergy Verified 03/12/24 16:46 Home Medications Medication Instructions Recorded Confirmed Type aspirin 81 mg tablet,delayed 81 mg PO QAM 02/09/21 03/12/24 History release furosemide 40 mg tablet 40 mg PO QAM 02/09/21 03/12/24 History sacubitril 49 mg-valsartan 51 mg 1 tab PO QAM 12/04/21 03/12/24 History tablet (Entresto) Past Med/Surg History Problem List UTI (urinary tract infection) Pedal edema (Acute) Elevated liver enzymes (Acute) Wheezing (Acute) Bilateral flank pain (Acute) Noncompliance with medications (Acute) Elevated troponin (Acute) Chest tightness (Acute) Elevated liver function tests Shortness of breath CAD (coronary artery disease) 2018 - STEMI, s/p SE to LAD Bilateral edema of lower extremity (Acute) Noncompliance with medication regimen (Acute) Lymphedema (Chronic) Chronic deep vein thrombosis (DVT) Elevated troponin CHF exacerbation (Acute) Morbid obesity with BMI of 45.0-49.9, adult Medical History Poor historian Ischemic cardiomyopathy PT NOT SURE On anticoagulant therapy History of COVID-19 Permanent atrial fibrillation PT NOT SURE Chronic HFrEF (heart failure with reduced ejection fraction) PT REPORTS HEART FAILURE RESOLVED Pre-diabetes PT DENIES NSTEMI (non-ST elevated myocardial infarction) HX ME Peripheral vascular disease ? CKD (chronic kidney disease) stage 3, GFR 30-59 ml/min Chronic deep vein thrombosis (DVT) of right lower extremity ? Mass of testicle (01/27/13) R testicular Germ cell tumor removed 2009 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) HX Surgical History History of heart artery stent (~10/2018) @ [facility] History of cardiac cath @ [facility] 10/[address] Elliott with 1 stent placed History of vitrectomy (~04/20/21) right Mass of kidney of unknown nature s/p 2010 excision, lupe- renal by report AICD (automatic cardioverter/defibrillator) present ? 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 Beliefs That Will Affect Care: None marital status: Current Living Situation: Alone current occupational status: employed Feels Safe at Home: Yes Assistive Devices: Denture - Upper and Glasses Review of Systems Review of Systems: All systems reviewed & are unremarkable except as noted in HPI & below Constitutional: no fever, no chills and no anorexia Ear, Nose, Mouth, Throat: no nasal congestion and no sore throat Respiratory: + cough and + wheezing; no hemoptysis Cardiovascular: + dyspnea on exertion, + lightheadedness and + edema; no chest pain, no paroxysmal nocturnal dyspnea and no syncope Gastrointestinal: no abdominal pain, no nausea, no vomiting, no diarrhea/loose stools and no blood in stools Genitourinary: no dysuria or no hematuria Musculoskeletal: + back pain Neurologic: no falls, no syncope, no headache(s) and no confusion Physical Exam Physical Exam: General: awake, alert, NAD, sitting OOB in the chair HEENT: no scleral icterus, moist oral mucosa Neck: trachea midline Heart: irregularly irregular Lungs: scattered wheezing throughout bilaterally with coarse BS Abdomen: soft, obese, +BS Extremities: chronic stasis changes bilaterally, +bilateral LE edema Neurologic: Ox3, no confusion, no dysarthria, moving all extremities Skin: no jaundice Results & Data Results & Data Vital Signs (Past 12 Hours) Vital Signs Temp Pulse Resp BP Pulse Ox O2 Del Method 03/12/24 14:21 76 25 H 95 03/12/24 14:16 112/78 03/12/24 13:48 95 Room Air 03/12/24 13:39 66 26 H 94 03/12/24 13:30 106/74 03/12/24 13:30 62 28 H 94 03/12/24 13:06 69 20 93 03/12/24 12:33 70 22 94 03/12/24 12:32 79 03/12/24 11:39 36.2 C L 78 22 111/69 91 Room Air Laboratory Results 03/12/24 03/12/24 Range/Units 14:14 12:15 WBC 6.35 (4.8-10.8) K/ul RBC 4.64 L (4.70-6.10) M/uL Hgb 14.9 (14.0-18.0) g/dl Hct 46.0 (42.0-52.0) % MCV 99.1 (80.0-100.0) fL MCH 32.1 (25.0-34.0) pg MCHC 32.4 (32.0-36.0) g/dL RDW Std Deviation 49.9 H (36.4-46.3) fL RDW Coeff of Juan 13.7 (11.5-14.5) % Plt Count 174 (130-400) K/uL MPV 10.1 (9.4-12.4) fL Immature Gran % (Auto) 0.5 % Neut % (Auto) 81.1 % Lymph % (Auto) 6.0 % [place] % (Auto) 9.9 % Eos % (Auto) 2.0 % Baso % (Auto) 0.5 % Neut # (Auto) 5.15 (1.40-6.50) K/uL Lymph # (Auto) 0.38 L (1.20-3.40) K/uL [place] # (Auto) 0.63 H (0.11-0.59) K/uL Eos # (Auto) 0.13 (0.00-0.50) K/uL Baso # (Auto) 0.03 (0.00-0.20) K/uL Immature Gran # (Auto) 0.03 (0.01-0.20) K/uL PT 11.4 (9.0-12.0) Seconds INR 1.1 (0.9-1.1) APTT 29 (21-31) Seconds PTT Ratio 1.1 Sodium 137 (136-145) mmol/L Potassium 4.5 (3.5-5.1) mmol/L Chloride 102 (98-107) mmol/L Carbon Dioxide 27 (21-32) mmol/L Anion Gap 8 (3-11) BUN 23 (6-23) mg/dl Creatinine 1.81 H (0.6-1.4) mg/dl Est Cr Clr Drug Dosing 50.0 ml/min Est GFR ( Amer) 42.6 ml/min Est GFR (Non-Af Amer) 36.8 ml/min BUN/Creatinine Ratio 12.7 (10-20) Glucose 123 H (70-99(Fasting)) mg/dl Calcium 9.0 (8.6-10.3) mg/dl Magnesium 1.9 (1.7-2.4) mg/dl Total Bilirubin 1.4 H (0.2-1.0) mg/dl AST 186 H (13-39) U/L ALT 164 H (7-52) U/L Alkaline Phosphatase 198 H (34-104) U/L Troponin I High Sens 32.0 H (0-20) pg/ml Total Protein 7.4 (6.0-8.3) gm/dl Albumin 3.5 (3.4-5.0) gm/dl Globulin 3.9 (2.5-4.0) gm/dl Albumin/Globulin Ratio 0.9 (0.9-2) Lipase 39 (11-82) U/L TSH 2.038 (0.300-4.500) uIu/ml Urine Color [place] Urine Appearance Cloudy A (Clear) Urine pH 5.5 (4.5-7.5) Ur Specific [place] 1.038 H (1.000-1.030) Urine Protein 2+ H (Negative) Urine Glucose (UA) Negative (Negative) Urine Ketones Trace H (Negative) Urine Blood Negative (Negative) Urine Nitrite Positive A (Negative) Urine Bilirubin 2+ H (Negative) Urine Urobilinogen Positive H (Negative) Ur Leukocyte Esterase 1+ H (Negative) Urine WBC (Auto) 6-10 H (0-5) /hpf Urine RBC (Auto) 0-2 (0-2) /hpf U Hyaline Cast (Auto) >20 H (0-2) /lpf U Epithel Cells (Auto) 6-10 H (0-2) /hpf Urine Bacteria (Auto) 1+ H (None Seen) Diagnostic Findings Chest X-Ray 03/12/24 11:43 XR chest 1V portable HISTORY: 73 years-old Male Back pain and chest tightness COMPARISON: 01/03/2023 TECHNIQUE: AP view of the chest FINDINGS: Cardiac silhouette is enlarged. Left subclavian pacer/AICD. No pneumothorax, pleural effusion, airspace consolidation or pulmonary edema. Degenerative changes of the shoulders and spine. Nonspecific sclerosis of the right scapula. IMPRESSION: Cardiomegaly without acute process of the chest ACT 112: Negative or not required by law. The above report was generated using voice recognition software. It may contain grammatical, syntax or spelling errors. Electronically signed by: Heath Tbaares M.D. 03/12/2024 12:57 PM Abdomen/Pelvis CT 03/12/24 13:[address] WITHOUT CONTRAST CT DOSE: 1282.24 mGy.cm HISTORY: flank pain, high creat TECHNIQUE: Multiaxial CT images of the abdomen and pelvis were performed without contrast. A dose lowering technique was utilized adhering to the principles of ALARA. COMPARISON STUDY: None. FINDINGS: Mild dependent changes seen at the lung bases. No pneumoperitoneum. No pneumatosis. No acute fractures. The heart is mildly enlarged. A pacemaker wire is noted. Scarlike density noted at the umbilicus. There is a small fat- containing left inguinal hernia. Osteitis pubis with a small amount of adjacent fluid. This is likely chronic. Degenerative changes within the lumbar spine. Lumbar subcutaneous edema is noted. There is a small diverticulum within the second portion of the duodenum. The unenhanced liver, spleen, adrenal glands, pancreas, and gallbladder are unremarkable. Retroperitoneal surgical clips are noted. Mild calcified plaque within the normal caliber abdominal aorta. There is an atrophic right kidney containing a 4 mm nonobstructing stone. Normal left kidney. No ureteral stones. No hydronephrosis. No retroperitoneal or pelvic lymphadenopathy. No pelvic free fluid. Bladder wall thickening. This could be due to underdistention. Suboptimal evaluation for bowel pathology due to the lack of intravenous and oral contrast. However, there is no definite bowel wall thickening or obstruction. Normal appendix. Colonic diverticulosis. No evidence for acute diverticulitis. IMPRESSION: 1. Right-sided nephrolithiasis. No ureteral stones. No hydronephrosis. 2. Colonic diverticulosis. No evidence for acute diverticulitis. 3. No definite bowel wall thickening or obstruction. 4. Bladder wall thickening. This may be due to underdistention. Recommend correlation with urinalysis to exclude a cystitis. 5. Additional findings as described above. ACT 112: Negative or not required by law. Electronically signed by: Jim Fierro M.D. 03/12/2024 2:12 PM Supervising Physician Co-Signing Physician Notes Attending Addendum: Case reviewed with the advanced practitioner. I have personally performed a history and physical examination on the patient. I have reviewed the advanced practitioner's documentation on the date of service referenced in note, and I agree with, and take responsibility for the plan of care. please refer to her notes for full details patient seen and examined, records reviewed by myself as well on exam, patient Seen sitting up in chair, comfortable, not in distress States he is somewhat improved compared to admission Has been having few day history of shortness of breath, cough no other symptoms VS noted and reviewed oriented x 3, not in distress, speaks in sentences with no effort nor accessory muscle use normal rate, regular rhythm, no murmurs (+) BL diffuse mild wheeze, rhonchi non distended, soft, nontender no bipedal edema, erythema, warmth no neuro deficits all labs, imaging noted and reviewed ASSESSMENT AND PLAN> Acute bronchitis BioFire: Negative CT chest: Bronchial wall thickening may represent infectious/inflammatory airways disease. Prednisone 40 mg p.o. daily Ceftriaxone plus doxycycline Nebs every 6 hours Hypertonic saline Mucinex History of DVT Has not been taking Eliquis for a while D-dimer elevated 4100 Doppler studies of the lower extremities: Negative Discussed with pulmonology Dr. Baez, does not recommend CT chest angiogram for now as patient is not hypoxic, and will be restarted on his usual Eliquis other diagnoses and plan of care as per advanced practitioner's notes Peter Elliott MD (3) CAD (coronary artery disease) Associated angina: unspecified whether angina present Coronary Disease- Associated Artery/Lesion type: [place] artery [place] vs. transplanted heart: [place] heart Qualified Code(s): I25.10 - Atherosclerotic heart disease of [place] coronary artery without angina pectoris (7) UTI (urinary tract infection) Hematuria presence: without hematuria Urinary tract infection type: acute cystitis Qualified Code(s): N30.00 - Acute cystitis without hematuria
[2024-03-12] MEDS: cefTRIAXone SODIUM 2,000 MG/50 ML BAG IV ONE (16:16)
[2024-03-12 16:18] LABS: D Dimer 4010 ug/L FEU (0-500)
--- NOTE | 2024-03-12 16:22 | Ultrasound Report ---
BILATERAL LOWER EXTREMITY VENOUS DOPPLER HISTORY: Acute pain and soluble legs . History of chronic nonocclusive thrombus in the right femoral vein poss dvt, hist of the same COMPARISON STUDY: 10/17/2017 FINDINGS: There is normal compressibility, flow, and augmentation within the bilateral lower extremit y deep venous systems. Patient body habitus limits this study. Subcutaneous edema. IMPRESSION: No DVT within the right or left lower extremity. ACT 112: Negative or not required by law. Electronically signed by: Heath Tabares M.D. 03/12/2024 4:21 PM
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
[2024-03-12 17:18] LABS: Troponin I High Sensitivity 30.3 pg/ml (0-20)
--- NOTE | 2024-03-12 17:25 | CT Scan Report ---
CT chest diagnostic wo con CLINICAL HISTORY: SOB, wheezing - ?pneumonia TECHNIQUE: Multidetector row helical CT of the chest was performed. Coronal and sagittal reformations were obtained. Automated dose lowering techniques and/or adjustment according to patient size were u tilized for this exam. CT DOSE: 980.82 mGy.cm Comparison: Comparison is made to CT chest 01/03/2023 FINDINGS: Lungs and pleura: Bronchial wall thickening is seen. Calcified granulomata are seen. Heart and pericardium: Heart size is normal. No pericardial effusion. Vessels: Severe atherosclerotic changes in the aorta and coronary arteries. Pulmonary trunk measures 35 mm in diameter. Ascending aortic aneurysm measures 44 mm. Mediastinum and alin: Subcentimeter lymph nodes are seen. Chest wall and lower neck: Gynecomastia is noted bilaterally. Abdomen: Unremarkable. Bones: Degenerative changes in the thoracic spine. IMPRESSION: 1. Bronchial wall thickening may represent infectious/inflammatory airways disease. 2. Cardiomegaly and pulmonary hypertension. 3. Stable ascending aortic aneurysm. ACT 112: Negative or not required by law. Electronically signed by: Mukesh Wallis M.D. 03/12/2024 5:22 PM
[2024-03-12] MEDS: LEVALBUTEROL 1.25 MG/3 ML NEB NEB SCH (18:39)
[2024-03-12] MEDS: SODIUM CHLOR 7% 4 ML NEB NEB SCH (18:39)
[2024-03-12] MEDS: IPRATROPIUM BROMIDE NEB SOLN 0.02% 0.5MG/2.5ML VIAL NEB SCH (18:39)
[2024-03-12] MEDS ORDERED: ACETAMINOPHEN 500 MG TAB PO PRN (18:42)
[2024-03-12] MEDS ORDERED: LORazepam 1 MG TAB PO PRN (18:42)
[2024-03-12 18:51] LABS: Adenovirus PCR Not Detected (NotDetected); Bordetella parapertussis PCR Not Detected (NotDetected); Bordetella pertussis PCR Not Detected (NotDetected); Chlamydia pneumoniae PCR Not Detected (NotDetected); Coronavirus 229E PCR Not Detected (NotDetected); Coronavirus CoV-2 (COVID19)PCR Not Detected (NotDetected); Coronavirus HKU1 PCR Not Detected (NotDetected); Coronavirus NL63 PCR Not Detected (NotDetected); Coronavirus OC43PCR Not Detected (NotDetected); Human Metapneumovirus PCR Not Detected (NotDetected); Influenza A PCR Not Detected (NotDetected); Influenza B PCR Not Detected (NotDetected); Mycoplasma pneumoniae PCR Not Detected (NotDetected); Parainfluenza Virus 1 PCR Not Detected (NotDetected); Parainfluenza Virus 2 PCR Not Detected (NotDetected); Parainfluenza Virus 3 PCR Not Detected (NotDetected); Parainfluenza Virus 4 PCR Not Detected (NotDetected); Respiratory Syncytial VirusPCR Not Detected (NotDetected); Rhinovirus/Enterovirus PCR Not Detected (NotDetected)
[2024-03-12] MEDS: predniSONE 20 MG TAB PO STA (19:46)
[2024-03-12] MEDS: APIXABAN 5 MG TABLET PO SCH (21:12)
[2024-03-12] MEDS: DOXYCYCLINE HYCLATE 100 MG CAP PO SCH (21:12)
[2024-03-12] MEDS: guaiFENesin 600 MG TABCR PO SCH (21:12)
--- OUTSIDE RECORDS SUMMARY | 2024-03-12 21:32 | External Medical Summary | Summary of Care ---
Author Name Unknown Organization [facility] Address [address] [place] [address] Phone [phone] Care Team Providers Care Record Producer Name Role Phone Rosalie Rosales DO Primary Care Provider Reason for Visit * Reason Onset Date Comments Test Results 08/12/2023 Encounter Details Date Type Department Care Team (Late st Contact Info) Description 08/12/2023 Telephone Cardiology, [facility] [address] [place] [id number] Lala Peralta PA-C [address] [place] [id number] Test Results Allergies No known active allergiesdocumented as of this encounter (statuses as of 11/11/2023) Medications Medication Sig Dispensed Refills Start Date End Date Status aspirin 81 MG chewable tablet Take 1 Tab by mouth daily. 100 Tab 3 10/18/2018 Active Multivitamin Gummies Adult Oral Tablet Chewable Take 1 Tablet by mouth in the morning. 0 Active Triamcinolone Acetonide 0.1 % External Cream (Aristocort)Indicatio ns:Lymphedema of leg,DVT (deep venous thrombosis) ([facility]),PVD (peripheral vascular disease) ([facility]) apply topically to affected area twice a day for 2 weeks PER MONTH as directed by prescriber 80 g 5 04/03/2021 Active Entresto 24-26 MG Oral Tablet (sacubitril-valsartan 24-26 mg per tab)Indications:Heart failure, systolic, due to CAD ([facility]),Coronary artery disease involving [place] coronary artery of [place] heart without angina pectoris,Ischemic cardiomyopathy take 1 tablet by mouth twice a day 60 Tablet 11 10/12/2022 Active Apixaban 5 MG Oral Tablet (Eliquis) Take 1 Tablet by mouth 2 times a day. 0 01/05/2023 Active Metoprolol Succinate ER 25 MG Oral Tablet Extended Release 24 Hour (toPROL XL) Take 1 Tablet by mouth in the morning. 0 Active Atorvastatin Calcium 80 MG Oral Tablet (Lipitor)Indications: Dyslipidemia, goal LDL below 70 TAKE 1 TABLET BY MOUTH EVERY DAY EVERY AFTERNOON 90 Tablet 3 06/16/2023 Active documented as of this encounter (statuses as of 11/11/2023) Active Problems Problem Noted Date Diagnosed Date HFrEF (heart failure with reduced ejection fract ion) 02/16/2023 Dyslipidemia, goal LDL below 70 02/16/2023 Chronic atrial fibrillation 02/16/2023 Chronic kidney disease, stage 3a 08/17/2021 Overview: Per CKD protocol Ischemic cardiomyopathy 07/02/2021 Presence of automatic cardioverter/defibrillator (AICD) 07/02/2021 Chronic deep vein thrombosis (DVT) of right lower extremity, unspecified vein 04/17/2021 Morbid obesity with body mass index of 40.0-44.9 in adult 10/23/2018 Cardiomyopathy 10/23/2018 Type 2 diabetes mellitus without complications 0 10/23/2018 Nocturnal hypoxia 10/17/2018 CAD (coronary artery disease) 10/14/2018 Heart failure, systolic, due to CAD 10/14/2018 History of malignant germ cell neoplasm of testi cherri 11/07/2017 Chronic deep vein thrombosis (DVT) of right lowe r extremity 11/07/2017 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 0 02/02/2013 Overview: ICD-10 update of inactive term PVD (peripheral vascular disease) Overview: right, arterial doppler Erectile dysfunction documented as of this encounter (statuses as of 11/11/2023) Resolved Problems Problem Noted Date Diagnosed Date Resolved Date Stage 3a chronic kidney disease 05/21/2021 07/23/2021 NSTEMI (non-ST elevated myoc ardial infarction) 11/22/2018 02/19/2021 Prediabetes 11/20/2018 12/19/2018 Overview: Per Prediabetes protocol #1 Type 2 diabetes mellitus wit h chronic kidney disease 10/23/2018 02/19/2021 H/O deep venous thrombosis 07/19/2017 0 11/07/2017 Body mass index (BMI) of 40. 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 Overview: chemo x 4, no radiation, surgery Intra-abdominal tumor 2017 DVT (deep venous thrombosis) 11/07/2017 Overview: Lovenox, off x 1 year, recurrent Cellulitis 03/17/2017 PVD (peripheral vascular disease) 11/07/2017 Overview: right, arterial doppler Intra-abdominal tumor 2017 DVT (deep venous thrombosis) 11/07/2017 Overview: Lovenox, off x 1 year, recurrent Cellulitis 03/17/2017 Erectile dysfunction 017 documented as of this encounter (statuses as of 11/11/2023) Immunizations Name Administration Dates Next Due Pneumococcal Polysaccharide PPV23 (Pneumovax) Seasonal Influenza Virus Vac cine, Unspecified Formulation 10/23/2018 Seasonal Influenza, PF, 6 M & above, IM , (FluLaval or Fluzone) 10/23/2018 TDAP (age 10 and older)(Boostrix) 02/09/2013 documented as of this encounter Social History Tobacco Use Types Packs/Day Years Used Date Smoking Tobacco: Never Smokeless Tobacco: Never Alcohol Use Standard Drinks/Week Comments Yes 4 (1 standard drink = 0.6 oz pur e alcohol) AUDIT-C Answer Date Recorded Frequency of Alcohol Consumption Never 10/23/2018 Average Number of Drinks Not on file 019 Frequency of Binge Drinking Not on file 10/10 PHQ-2 Answer Date Recorded PHQ-2 Score 2 08/13/2018 Sex and Gender Information Value Date Recorded Sex Assigned at Not on file Gender Identity Not on file Sexual Orientation Not on file Job Start Date Occupation Industry Not on file Not on file Not on file documented as of this encounter Functional Status Functional Status Response Date of Assess ment Are you deaf or do you have serious difficulty hearing? No 10/14/2018 Are you blind or do you have serious difficulty seeing, even when wearing glasses? No 10/14/19 19 Do you have serious difficul ty walking or climbing stairs? (5 years old or older) Yes-Due to Right Leg 10/14/2018 Do you have difficulty dress ing or bathing? (5 years old or older) No 10/14/2018 Because of a physical, menta l, or emotional condition, do you have difficulty doing errands alone such as visiting a doctor s office or shopping? (15 years old or older) No 10/14/19 19 Cognitive Status Response Date of Assessm ent Because of a physical, menta l, or emotional condition, do you have serious difficulty concentrating, remembering, or making decisions? (5 years old or older) No 10/14/2018 documented as of this encounter Miscellaneous Notes * Telephone Encounter - Esequiel Campos LPN - 08/12/2023 12:55 PM EDT Called patient and left a message for a return call on an unidentified voicemail to make aware. ----- Message from Lala Peralta PA-C sent at 08/12/2023 8:21 AM EDT ----- Total cholesterol and LDL (bad cholesterol) trending significantly higher. Please verify compliance with atorvastatin 80 mg daily? If taking regularly, recommend adding Zetia 10 mg daily and improve diet/exercise. Repeat lipids in 3 months Mild renal insufficiency but improved. Normal potassium. Normal liver function documented in this encounter Plan of Treatment Upcoming Encounters Date Type Department Care Team (Late st Contact Info) Description 04/13/2024 11:00 AM EDT Cardiac Studies Cardiology, [facility] [address] [facility] [place] [address] [facility] [address] [place] [id number] Scheduled Procedures Name Priority Associated Diagnoses Date/Ti me COLONOSCOPY FLEXIBLE PROXIMAL DIAGNOSTIC Recall History of colon polyps Health Maintenance Due Date Last Done Comments COVID-19 Vaccine (#1) 1952 Diabetic Foot Exam 1970 Hepatitis C Screening 1970 Zoster Vaccines (1 of 2) 2002 Hepatitis B (1 of 3 - Risk 3-dose series) 2012 Albumin/Creatinine Ratio 09/29/2018 09/29/2017 Depression Screening 10/24/2018 10/24/2017 Pneumococcal Vaccine: 65+ Years (2 - PCV) 10/23/2019 10/23/2018 COLONOSCOPY-EVERY 5 YRS AGES 18-100 11/05/2020 11/05/2015, 11/05/2015 Diabetic Eye Exam 04/17/2022 04/17/2021, , 04/17/2021, Additional history exists DTaP,Tdap,and Td Vaccines (2 - Td or Tdap) 02/09/2023 02/09/2013 Influenza Vaccine (FLU shot) (#1) 2023 10/23/2018, 10/23/2018 GFR 02/09/2024 08/11/2023, 06/11, 05/21/2021, Additional history exists HbA1c 02/09/2024 08/11/2023, 02/08, 10/30/2018, Additional history exists CKD HGB USE SMARTSET 55798 08/11/202408/11, 05/21/2021, 12/28/2018, Additional history exists CKD PHOS USE SMARTSET 76534 08/11/2024 110 11/2022, 10/14/2018, 09/29/2017, Additional history exists GARDASIL-HPV IMMUNIZATION SERIES Aged Out No longer eligible based on patient's age to complete this topic MENINGOCOCCAL (MENACTRA/MENVEO) Aged Out No longer eligible based on patient's age to complete this topic documented as of this encounter Medical Devices Not on filedocumented as of this encounter Advance Directives Latest Code Status on File Code Status Date Activated Date Inactivated Comments Full Code 10/14/2018 12:07 AM 10/17/2018 8:33 PM This o rder reflects the patients wishes and were consensually agreed upon. Care Teams Record Producer Relationship Specialty Start Date End Date Rosalie Rosales DO [address] [place] [address] PCP - General Family Medicine 02/05/13 documented as of this encounter
[2024-03-13 07:01] LABS: Basophils # (auto) 0.01 K/uL (0.00-0.20); Basophils % (auto) 0.2 %; Eosinophils # (auto) 0.01 K/uL (0.00-0.50); Eosinophils % (auto) 0.2 %; Hemoglobin 14.6 g/dl (14.0-18.0); Immature Granulocytes # (auto) 0.03 K/uL (0.01-0.20); Immature Granulocytes % (auto) 0.7 %; Lymphocytes # (auto) 0.19 K/uL (1.20-3.40); Lymphocytes % (auto) 4.4 %; Mean Corpuscular Hemoglobin 31.5 pg (25.0-34.0); Mean Corpuscular Hgb Conc 31.7 g/dL (32.0-36.0); Mean Corpuscular Volume 99.4 fL (80.0-100.0); Mean Platelet Volume 10.2 fL (9.4-12.4); Monocytes % (auto) 4.6 %; Neutrophils # (auto) 3.91 K/uL (1.40-6.50); Neutrophils % (auto) 89.9 %; Platelet Count 167 K/uL (130-400); RDW Coefficient of Variation 13.5 % (11.5-14.5); RDW Standard Deviation 49.7 fL (36.4-46.3); Red Blood Count 4.63 M/uL (4.70-6.10); White Blood Count 4.35 K/ul (4.8-10.8)
[2024-03-13 07:18] LABS: Albumin Level 3.3 gm/dl (3.4-5.0); BUN Creatinine Ratio 14.2 (10-20); Bilirubin Direct 0.4 mg/dl (0-0.2); Calcium 8.6 mg/dl (8.6-10.3); Creatinine Clr Calc Pharmacy 52.2 ml/min; Est GFR (African American) 46.3 ml/min
[2024-03-13 07:35] LABS: Bilirubin,Total 0.9 mg/dl (0.2-1.0); Potassium 4.9 mmol/L (3.5-5.1); Total Protein 7.2 gm/dl (6.0-8.3)
[2024-03-13] MEDS: ASPIRIN 81 MG ECTAB PO SCH (08:27)
[2024-03-13] MEDS: METOPROLOL SUCC 25MG EXT REL TAB PO SCH (08:27)
[2024-03-13] MEDS: FUROSEMIDE 40 MG TAB PO SCH (08:27)
[2024-03-13] MEDS: FOLIC ACID 1 MG TAB PO SCH (08:27)
[2024-03-13] MEDS: VALSARTAN/SACUBITRIL 26/24MG TAB PO SCH (08:27)
[2024-03-13] MEDS: THIAMINE HCL 100 MG TAB PO SCH (08:27)
[2024-03-13] MEDS: predniSONE 20 MG TAB PO SCH (08:27)
--- NOTE | 2024-03-13 10:37 | Cardiology Progress Note ---
Date of Service March 13, 2024 Assessment & Plan (1) Acute bronchitis, complicated: (2) Shortness of breath: (3) Elevated liver enzymes: (4) Noncompliance with medications: (5) Elevated troponin: (6) Chest tightness: (7) CAD (coronary artery disease): Plan Shortness of breath. + Acute bronchitis. Treatment as per [facility]. Ischemic cardiomyopathy. Volume status: Normovolemic. Continue oral furosemide. Beta-katelyn therapy resumed. Continue Entresto and aspirin. No statin for now, RE: abnormal LFTs. No spironolactone, RE: Borderline potassium. No Empagliflozin, CKD, concern for infection. Status post primary prevention ICD. Quick look device interrogation demonstrates an appropriately functioning Medtronic Visia single lead defibrillator with backup pacemaker set VVI 40 bpm; serial number [id number]. Estimated remaining longevity: 4.9 years. 18 episodes of NSVT and 2 episodes of VF since March 2023 (? August and again in December) - 1 aborted shock, 1 shock delivered. Paced 2.7% of the time. Longstanding noncompliance with beta-katelyn therapy noted and discussed. Metoprolol succinate resumed this admission. Permanent atrial fibrillation. Continue rate control with metoprolol succinate. Eliquis anticoagulation resumed this admission. Benefits and risks discussed. I spent a total of 25 minutes on the date of service in preparation, delivery, and documentation of the care provided to this patient excluding any time spent in the performance of separately billed services. This visit was a split-shared visit with the substantive portion of the medical decision making performed by the supervising tip puncher/billing provider. Admission and Anticipated Discharge Date Admission Date: March 12, 2024 Supervising Physician Co-Signing Physician Notes Attending attestation: Case reviewed with the advanced practitioner. I have personally performed a history and physical examination on the patient. I have reviewed the advanced practitioner's documentation on the date of service referenced in note, and I agree with, and take responsibility for the plan of care. Subjective:Patient states he feels subjectively improved. Exam: Cardiovascular: Irregular rhythm, no murmurs, 1+ right lower extremity edema Pulmonary: Mild inspiratory wheezing Data: Echocardiogram reveals severe global left ventricular hypokinesis, LVEF in the range of 5%, relatively unchanged compared to 2022. Rate controlled atrial fibrillation noted on telemetry Liver function tests trending toward improvement Impression/ Plan: As noted above.Patient with longstanding history of ischemic cardiomyopathy, nonadherence to medications, significant regular alcohol intake noted as well. Previously prescribed cardiac medications resumed. I agree with antibiotic therapy for treatment of complicated bronchitis versus community-acquired pneumonia. I spent a total of 20 minutes coordinating, documenting, and providing care for this patient excluding time spent in the performance of separately billed services or time spent by another provider. Sriram Estrada, Subjective Patient seen and examined. Chart, medications, telemetry reviewed. Feeling better, less shortness of breath and congestion. Review of Systems Review of Systems: Complete Review of Systems is as stated above, negative, or noncontributory. Physical Exam Physical Exam: General: A&Ox3. NAD. HENT: Normocephalic. Atraumatic. Eyes: PER. Conjunctiva pink, sclera injected Neck: No carotid bruits. No JVD. No HJR. Heart: Irregularly irregular at 80 bpm. No murmur appreciated. Lungs: Diminished. Less rhonchorous. No wheeze. Abdomen: +BS. Soft. Nontender. No masses or organomegaly. Extremities: Lymphedematous changes on the right. Mild edema on the right. Stasis changes. No significant edema on the left. No clubbing. No cyanosis Limited neurological examination is without focal deficits. Pulses: radial=2/4, posterior tibial=0/4. Results & Data Vital Signs (Past 12 Hours) Vital Signs Temp Pulse Pulse Pulse Resp BP Pulse Ox 03/13/24 08:00 83 03/13/24 07:25 36.5 C 71 18 104/81 96 03/13/24 03:45 36.4 C L 87 18 96/61 L 94 03/13/24 03:03 03/13/24 01:48 18 95 03/12/24 23:11 87 03/12/24 22:59 37.2 C 89 18 149/78 H 95 O2 Del Method O2 Flow Rate 03/13/24 08:00 03/13/24 07:25 Room Air 03/13/24 03:45 Nasal Cannula 2 03/13/24 03:03 Nasal Cannula 2 03/13/24 01:48 Nasal Cannula 2 03/12/24 23:11 03/12/24 22:59 Nasal Cannula 2 Laboratory Results Cardiac Enzymes 03/12/24 03/12/24 03/13/24 Range/Units 12:15 16:41 05:56 AST 186 H 123 H (13-39) U/L Troponin I High Sens 32.0 H 30.3 H (0-20) pg/ml B-Natriuretic Peptide 286 H (0-100) pg/ml Coagulation 03/12/24 Range/Units 12:15 PT 11.4 (9.0-12.0) Seconds APTT 29 (21-31) Seconds B-Natriuretic Peptide 286 H (0-100) pg/ml CBC 03/12/24 03/13/24 Range/Units 12:15 05:56 WBC 6.35 4.35 L (4.8-10.8) K/ul RBC 4.64 L 4.63 L (4.70-6.10) M/uL Hgb 14.9 14.6 (14.0-18.0) g/dl Hct 46.0 46.0 (42.0-52.0) % Plt Count 174 167 (130-400) K/uL Neut # (Auto) 5.15 3.91 (1.40-6.50) K/uL Lymph # (Auto) 0.38 L 0.19 L (1.20-3.40) K/uL [place] # (Auto) 0.63 H 0.20 (0.11-0.59) K/uL Eos # (Auto) 0.13 0.01 (0.00-0.50) K/uL Baso # (Auto) 0.03 0.01 (0.00-0.20) K/uL Comprehensive Metabolic Panel 03/12/24 03/13/24 Range/Units 12:15 05:56 Sodium 137 136 (136-145) mmol/L Potassium 4.5 4.9 (3.5-5.1) mmol/L Chloride 102 103 (98-107) mmol/L Carbon Dioxide 27 27 (21-32) mmol/L BUN 23 24 H (6-23) mg/dl Creatinine 1.81 H 1.69 H (0.6-1.4) mg/dl Glucose 123 H 159 H (70-99(Fasting)) mg/dl Calcium 9.0 8.6 (8.6-10.3) mg/dl Direct Bilirubin 0.4 H (0-0.2) mg/dl AST 186 H 123 H (13-39) U/L ALT 164 H 140 H (7-52) U/L Alkaline Phosphatase 198 H 205 H (34-104) U/L Total Protein 7.4 7.2 (6.0-8.3) gm/dl Albumin 3.5 3.3 L (3.4-5.0) gm/dl Intake and Output 03/12/24 03/13/24 03/13/24 22:59 06:59 14:59 Intake Total 50 / 50 0 / 50 Balance 50 / 50 0 / 50 Intake: IV 50 / 50 cefTRIAXone SODIUM 2,000 mg In 50 / 50 50 ml @ 100 mls/hr IV NOW ONE Rx#:[id number] Oral 0 / 0 Other: Weight 120.5 kg Weight Measurement Method Built in [facility] Diagnostic Findings Telemetry: Atrial fibrillation with heart rates predominantly in the 70s to 90s TTE completed, pending interpretation. (7) CAD (coronary artery disease) Associated angina: unspecified whether angina present Coronary Disease- Associated Artery/Lesion type: [place] artery [place] vs. transplanted heart: [place] heart Qualified Code(s): I25.10 - Atherosclerotic heart disease of [place] coronary artery without angina pectoris
--- NOTE | 2024-03-13 13:13 | Hospitalist Progress Note ---
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 The etiology of his dyspnea is unclear at present but may be multifactorial. CXR negative, CT chest concerning for infectious process. Bilateral LE venous duplexes neg for dvt. Pt is supposed to be on chronic AC with Eliquis due to atrial fibrillation and chronic DVT but has not been taking this for several months. He has a history of HF but has been taking Entresto and furosemide as prescribed but does have chronic VALENTINE. He notes cough for unspecific period of time with associated wheezing at presentation but no fevers or hemoptysis - suspect component of bronchitis vs pneumonia - BNP 286 - ECHO w/ EF of 20-25%; severe global hypokinesis of the LV. - C/w entresto and lasix; C/w Rocephin and Doxy. DC steroid after 5 days course. c/w nebs. - Cardio optimizing GDMT (2) Elevated liver function tests: Plan: New, appears acute - may be related to recent course of Bactrim (as OP) as has a potential for hepatotoxicity and/or congestive hepatopathy. Pt also notes daily alcohol consumption of an unspecified amount of beer. CT abd/pel was reviewed - no gross abnormality in the liver seen. - Hold Bactrim - Trend LFTs - if worsening, consider additional imaging (US vs. MRCP) -- improving today. - Discussed with patient potential for alcohol to negatively affect the liver so would recommend avoiding alcohol, or at least cutting back - prn lorazepam protocol, c/w thiamine and folic acid - Defer resuming statin now give elevated LFTs. (3) CAD (coronary artery disease): Plan: Chronic, stable Taking aspirin but stopped beta katelyn and statin on his own Cardio optimizing meds. Echo as above (4) Bilateral edema of lower extremity: Plan: Chronic lymphedema Duplexes neg for dvt Continue furosemide, c/w compression stockings. (5) Noncompliance with medication regimen: Plan: Pt admits to not always taking medication as prescribed or attending all appointments as scheduled. Discussed importance of compliance with recommended treatment plan with patient. (6) Elevated troponin: Plan: EKG reviewed - no acute changes Trop trends flat (7) UTI (urinary tract infection): Plan: Abnormal UA - positive for nitrite, leukocyte esterase, urobilinogen, bilirubin - urine culture pending Pt on antibiotic for pulm coverage. Pt reports improivng urinaary symptoms Plan Code status: Full code DVT Prophylaxis: resuming Eliquis Dispo: med telemetry Admission and Anticipated Discharge Date Admission Date: March 12, 2024 Subjective Patient seen and examined. Chart, medications, telemetry reviewed. Feeling better, less shortness of breath and congestion. Pain and burning with passing urine improved. Reports eating okay and moving bowels okay, reports feeling significantly better. Physical Exam Physical Exam: General: awake, alert, NAD, sitting OOB in the chair HEENT: no scleral icterus, moist oral mucosa Neck: trachea midline Heart: irregularly irregular Lungs: b/l crackles Abdomen: soft, obese, +BS Extremities: chronic stasis changes bilaterally, +bilateral LE edema [ho rle lymphedema] Neurologic: Ox3, no confusion, no dysarthria, moving all extremities Skin: no jaundice Results & Data Results & Data Vital Signs (Past 12 Hours) Vital Signs Temp Pulse Pulse Pulse Resp BP Pulse Ox 03/13/24 11:24 36.8 C 75 18 121/77 94 03/13/24 10:43 73 18 91 03/13/24 08:00 83 03/13/24 07:25 36.5 C 71 18 104/81 96 03/13/24 03:45 36.4 C L 87 18 96/61 L 94 03/13/24 03:03 03/13/24 01:48 18 95 O2 Del Method O2 Flow Rate 03/13/24 11:24 Room Air 03/13/24 10:43 Room Air 03/13/24 08:00 03/13/24 07:25 Room Air 03/13/24 03:45 Nasal Cannula 2 03/13/24 03:03 Nasal Cannula 2 03/13/24 01:48 Nasal Cannula 2 (3) CAD (coronary artery disease) Coronary Disease-Associated Artery/Lesion type: [place] artery [place] vs. transplanted heart: [place] heart Associated angina: unspecified whether angina present Qualified Code(s): I25.10 - Atherosclerotic heart disease of [place] coronary artery without angina pectoris (7) UTI (urinary tract infection) Urinary tract infection type: acute cystitis Hematuria presence: without hematuria Qualified Code(s): N30.00 - Acute cystitis without hematuria
[2024-03-13] MEDS: cefTRIAXone SODIUM 2,000 MG/50 ML BAG IV SCH (16:15)
--- NOTE | 2024-03-14 06:07 | Electrocardiogram Report ---
Test Reason : Blood Pressure : / mmHG Vent. Rate : 078 BPM Atrial Rate : 000 BPM P-R Int : 000 ms QRS Dur : 104 ms QT Int : 394 ms P-R-T Axes : 000 -64 054 degrees QTc Int : 449 ms Atrial fibrillation with premature ventricular or aberrantly conducted complexes Left axis deviation Low voltage QRS Inferior infarct (cited on or before 11-OCT-2018) Anterior infarct (cited on or before 11-OCT-2018) Abnormal ECG When compared with ECG of 03-JAN-2023 16:07, No significant change was found Confirmed by Jarvis Olmedo ([id number]) on 03/14/2024 6:07:31 AM Referred By: REFERRED SELF Confirmed By:Jarvis Olmedo
[2024-03-14 06:42] LABS: Hematocrit (blood only) 43.7 % (42.0-52.0); Hemoglobin 14.1 g/dl (14.0-18.0); Mean Corpuscular Hemoglobin 31.5 pg (25.0-34.0); Mean Corpuscular Hgb Conc 32.3 g/dL (32.0-36.0); Mean Corpuscular Volume 97.8 fL (80.0-100.0); Platelet Count 187 K/uL (130-400); RDW Coefficient of Variation 13.5 % (11.5-14.5); RDW Standard Deviation 49.5 fL (36.4-46.3); Red Blood Count 4.47 M/uL (4.70-6.10); White Blood Count 7.15 K/ul (4.8-10.8)
[2024-03-14 07:18] LABS: Alanine Aminotransferase 156 U/L (7-52); Albumin Level 3.1 gm/dl (3.4-5.0); Alkaline Phosphatase 190 U/L (34-104); Anion Gap 6 (3-11); Aspartate Aminotransferase 139 U/L (13-39); BUN Creatinine Ratio 18.7 (10-20); Bilirubin,Total 0.6 mg/dl (0.2-1.0); Blood Urea Nitrogen 36 mg/dl (6-23); Calcium 8.6 mg/dl (8.6-10.3); Carbon Dioxide 27 mmol/L (21-32); Chloride 103 mmol/L (98-107); Chol HDL Ratio 2.9 (0-5); Cholesterol 162 mg/dl (0-200); Creatinine Clr Calc Pharmacy 44.8 ml/min; Est GFR (African American) 39.5 ml/min; Glucose 126 mg/dl (70-99(Fasting)); HDL Cholesterol 56 mg/dl; LDL Cholesterol Calculated 89 mg/dl; Phosphorus 4.3 mg/dl (2.5-4.9); Potassium 5.1 mmol/L (3.5-5.1); Sodium 136 mmol/L (136-145); Total Protein 6.9 gm/dl (6.0-8.3); Triglycerides 84 mg/dl (0-150); VLDL Cholesterol 17 mg/dl (0-30)
--- NOTE | 2024-03-14 10:42 | Ultrasound Report ---
ABDOMINAL ULTRASOUND, RIGHT UPPER QUADRANT HISTORY: Elevated LFT. Assess liver/Gall bladder/biliary. COMPARISON: Abdomen and pelvis CT 03/12/2024 FINDINGS: Pancreas: Obscured by overlying bowel gas. Liver: Unremarkable. Gallbladder: No gallbladder wall thickening. No gallstones. CBD: 5 mm. Right kidney: Atrophic. No hydronephrosis. IMPRESSION: 1. Normal gallbladder. No gallstones. 2. Atrophic right kidney. No hydronephrosis. 3. The pancreas was obscured by overlying bowel gas. ACT 112: Negative or not required by law. Electronically signed by: Jim Fierro M.D. 03/14/2024 10:41 AM
--- NOTE | 2024-03-14 10:55 | Hospitalist Progress Note ---
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 CXR negative CT chest concerning for infectious process/bronchitis. Bilateral LE venous duplexes neg for dvt. BNP 286 ECHO w/ EF of 20-25%; severe global hypokinesis of the LV. Bronchitis Vs pneumonia Poor medication adherence Pt is supposed to be on chronic AC with Eliquis due to atrial fibrillation and chronic DVT but has not been taking this for several months. He has a history of HF. Reported he has been taking Entresto and furosemide as prescribed but does have chronic VALENTINE. Continue ceftriaxone and Doxycycine On 5 day prednisone course Cardiology recs noted Counseled patient regarding need for med compliance Continue entresto and lasix Metoprolol succinate started inpatient Eliquis resumed (Need prescription on discharge) Needs to follow up with Cardio outpatient (2) Elevated liver function tests: Plan: New, appears acute May be related to recent course of Bactrim (as OP) as has a potential for hepatotoxicity and/or congestive hepatopathy. Pt also notes daily alcohol consumption of an unspecified amount of beer. CT abd/pel was reviewed - no gross abnormality in the liver seen. CT abd/Pelvis reviewed. Was unremarkable but without contrast due to CKD3 Liver USS done today unremarkable Monitor LFT Counseled regarding alcohol cessation (3) CAD (coronary artery disease): Plan: Chronic, stable Taking aspirin but stopped beta katelyn and statin on his own Cardio optimizing meds. Echo as above (4) Bilateral edema of lower extremity: Plan: Chronic lymphedema Duplexes neg for dvt Continue furosemide, c/w compression stockings. (5) Noncompliance with medication regimen: Plan: Pt admits to not always taking medication as prescribed or attending all ap pointments as scheduled. Counseled regarding these (6) Elevated troponin: Plan: EKG reviewed - no acute changes Trop trends flat (7) UTI (urinary tract infection): Plan: Abnormal UA - positive for nitrite, leukocyte esterase, urobilinogen, bilirubin - urine culture pending No growth on Urine culture Will be covered with current antibiotics Plan Code status: Full code DVT Prophylaxis: Hair Dispo: med telemetry I spent a total of 45 minutes coordinating, documenting and providing care for this patient excluding time spent in performance of separately billed services Admission and Anticipated Discharge Date Admission Date: March 12, 2024 Subjective Patient seen and examined. Reports cough, occasionally productive of sputum. Denies any chest pain, dizziness, nausea, vomiting, abdominal pain, diarrhea. Reports chronic right leg swelling. Reports feeling better. Physical Exam Constitutional: + well hydrated and + obese; no acute di stress Eyes: PERRL, conjunctivae normal, anicteric sclerae ENMT: external ear and nose normal, oropharynx normal Respiratory: normal respiratory effort, lungs clear to auscultation Cardiovascular: Irregularly irregular S1 S2 Gastrointestinal (Abdomen): normal bowel sounds, soft, nontender, no hepatosplenomegaly Musculoskeletal: Right LE lymphedema. Stasis changes Neurologic: PERRL, EOMI, accommodation nl, no face palsy, no dysarthria Psychiatric: A+Ox3, euthymic affect Results & Data Results & Data Vital Signs (Past 12 Hours) Vital Signs Temp Pulse Pulse Resp BP Pulse Ox O2 Del Method 03/14/24 07:51 Room Air 03/14/24 07:44 36.6 C 76 18 117/85 90 Room Air 03/14/24 07:31 60 16 95 Room Air 03/14/24 07:25 64 03/14/24 04:00 36.5 C 84 18 103/65 96 Room Air 03/13/24 23:00 36.8 C 79 18 103/65 93 Room Air Laboratory Results Abnormal lab results 03/14/24 Range/Units 06:17 RBC 4.47 L (4.70-6.10) M/uL RDW Std Deviation 49.5 H (36.4-46.3) fL BUN 36 H (6-23) mg/dl Creatinine 1.93 H (0.6-1.4) mg/dl Glucose 126 H (70-99(Fasting)) mg/dl AST 139 H (13-39) U/L ALT 156 H (7-52) U/L Alkaline Phosphatase 190 H (34-104) U/L Albumin 3.1 L (3.4-5.0) gm/dl (3) CAD (coronary artery disease) Coronary Disease-Associated Artery/Lesion type: [place] artery [place] vs. transplanted heart: [place] heart Associated angina: unspecified whether angina present Qualified Code(s): I25.10 - Atherosclerotic heart disease of [place] coronary artery without angina pectoris (7) UTI (urinary tract infection) Urinary tract infection type: acute cystitis Hematuria presence: without hematuria Qualified Code(s): N30.00 - Acute cystitis without hematuria
--- NOTE | 2024-03-14 10:57 | Cardiology Progress Note ---
Date of Service March 14, 2024 Assessment & Plan (1) Acute bronchitis, complicated: (2) Shortness of breath: (3) Elevated liver enzymes: (4) Noncompliance with medications: (5) Elevated troponin: (6) Chest tightness: (7) CAD (coronary artery disease): Plan Shortness of breath. + Acute bronchitis. Treatment as per [facility]. Ischemic cardiomyopathy. Volume status: Normovolemic. Continue oral furosemide. Continue metoprolol succinate, Entresto and aspirin. No statin for now, RE: abnormal LFTs. No spironolactone, RE: Borderline potassium. No Empagliflozin, CKD, concern for infection. Status post primary prevention ICD. Quick look device interrogation this admission demonstrated an appropriately functioning Medtronic Visia single lead defibrillator with backup pacemaker set VVI 40 bpm; serial number [id number]. Estimated remaining longevity: 4.9 years. 18 episodes of NSVT and 2 episodes of VF since March 2023 (? August and again in December) - 1 aborted shock, 1 shock delivered. Ventricular paced 2.7% of the time. Longstanding noncompliance with beta-katelyn therapy noted and discussed. Metoprolol succinate resumed this admission. QRS duration notably narrow. Permanent atrial fibrillation. Continue rate control with metoprolol succinate. Eliquis anticoagulation resumed this admission. Benefits and risks discussed. Recommend outpatient cardiology follow-up at [facility]. Message sent to [facility] to help explore Pace/Pacenet/Healthwell karolina/CHF management, hopefully with improved compliance. I spent a total of 33 minutes on the date of service in preparation, delivery, and documentation of the care provided to this patient excluding any time spent in the performance of separately billed services. This visit was a split-shared visit with the substantive portion of the medical decision making performed by the supervising crane ladle person/billing provider. Admission and Anticipated Discharge Date Admission Date: March 12, 2024 Supervising Physician Co-Signing Physician Notes Attending attestation: Case reviewed with the advanced practitioner. I have personally performed a history and physical examination on the patient. I have reviewed the advanced practitioner's documentation on the date of service referenced in note, and I agree with, and take responsibility for the plan of care. I spent a total of 20 minutes coordinating, documenting, and providing care for this patient excluding time spent in the performance of separately billed services or time spent by another provider. Sriram Estrada DO Subjective Patient seen and examined. Chart, medications, and telemetry reviewed. Feeling better. No chest pain, palpitations, increased shortness of breath, orthopnea, PND, or worsening edema. No fevers or chills. Telemetry: Atrial fibrillation in the 60's to 80's. Review of Systems Review of Systems: Complete Review of Systems is as stated above, negative, or noncontributory. Physical Exam Physical Exam: General: A&Ox3. NAD. HENT: Normocephalic. Atraumatic. Eyes: PER. Conjunctiva pink, sclera injected Neck: No JVD. Heart: Irregularly irregular at 70 bpm. No murmur appreciated. Lungs: Clear. No wheeze. no rhonchi. Abdomen: +BS. Soft. Nontender. No masses or organomegaly. Extremities: Lymphedematous changes on the right. Mild edema on the right. Stasis changes. No significant edema on the left. No clubbing. No cyanosis Limited neurological examination is without focal deficits. Pulses: radial=2/4, posterior tibial=0/4. Results & Data Vital Signs (Past 12 Hours) Vital Signs Temp Pulse Pulse Resp BP Pulse Ox O2 Del Method 03/14/24 07:51 Room Air 03/14/24 07:44 36.6 C 76 18 117/85 90 Room Air 03/14/24 07:31 60 16 95 Room Air 03/14/24 07:25 64 03/14/24 04:00 36.5 C 84 18 103/65 96 Room Air 03/13/24 23:00 36.8 C 79 18 103/65 93 Room Air Laboratory Results Cardiac Enzymes 03/14/24 Range/Units 06:17 AST 139 H (13-39) U/L Lipids 03/14/24 Range/Units 06:17 Triglycerides 84 (0-150) mg/dl Cholesterol 162 (0-200) mg/dl HDL Cholesterol 56 mg/dl Cholesterol/HDL Ratio 2.9 (0-5) CBC 03/14/24 Range/Units 06:17 WBC 7.15 (4.8-10.8) K/ul RBC 4.47 L (4.70-6.10) M/uL Hgb 14.1 (14.0-18.0) g/dl Hct 43.7 (42.0-52.0) % Plt Count 187 (130-400) K/uL Comprehensive Metabolic Panel 03/14/24 Range/Units 06:17 Sodium 136 (136-145) mmol/L Potassium 5.1 (3.5-5.1) mmol/L Chloride 103 (98-107) mmol/L Carbon Dioxide 27 (21-32) mmol/L BUN 36 H (6-23) mg/dl Creatinine 1.93 H (0.6-1.4) mg/dl Glucose 126 H (70-99(Fasting)) mg/dl Calcium 8.6 (8.6-10.3) mg/dl Direct Bilirubin TNP AST 139 H (13-39) U/L ALT 156 H (7-52) U/L Alkaline Phosphatase 190 H (34-104) U/L Total Protein 6.9 (6.0-8.3) gm/dl Albumin 3.1 L (3.4-5.0) gm/dl Intake and Output 03/13/24 03/14/24 03/14/24 22:59 06:59 14:59 Intake Total 270 / 1265 220 / 1265 Balance 270 / 1265 220 / 1265 Intake: IV 50 / 50 cefTRIAXone SODIUM 2,000 mg In 50 / 50 50 ml @ 100 mls/hr IV Q24H [facility] Rx#:[id number] Oral 220 / 1215 220 / 1215 Other: Weight 116.1 kg Weight Measurement Method Built in [facility] (7) CAD (coronary artery disease) Associated angina: unspecified whether angina present Coronary Disease- Associated Artery/Lesion type: [place] artery [place] vs. transplanted heart: [place] heart Qualified Code(s): I25.10 - Atherosclerotic heart disease of [place] coronary artery without angina pectoris
[2024-03-14] MEDS ORDERED: IPRATROPIUM BROMIDE NEB SOLN 0.02% 0.5MG/2.5ML VIAL NEB PRN (12:33)
[2024-03-14] MEDS ORDERED: SODIUM CHLOR 7% 4 ML NEB NEB PRN (12:34)
[2024-03-14] MEDS ORDERED: LEVALBUTEROL 1.25 MG/3 ML NEB NEB PRN (12:34)
[2024-03-15 07:22] LABS: Albumin Level 3.4 gm/dl (3.4-5.0); Bilirubin Direct 0.2 mg/dl (0-0.2); Calcium 9.2 mg/dl (8.6-10.3); Creatinine Clr Calc Pharmacy 48.9 ml/min; Est GFR (African American) 43.8 ml/min; Est GFR (Non-African American) 37.8 ml/min; Potassium 4.7 mmol/L (3.5-5.1)
[2024-03-15 07:30] LABS: Bilirubin,Total 0.6 mg/dl (0.2-1.0); Phosphorus 4.6 mg/dl (2.5-4.9); Total Protein 7.6 gm/dl (6.0-8.3)
[2024-03-15 07:40] LABS: Hematocrit (blood only) 50.7 % (42.0-52.0); Mean Corpuscular Hemoglobin 31.7 pg (25.0-34.0); Mean Corpuscular Hgb Conc 31.6 g/dL (32.0-36.0); Mean Corpuscular Volume 100.6 fL (80.0-100.0); Mean Platelet Volume 10.2 fL (9.4-12.4); Platelet Count 237 K/uL (130-400); RDW Coefficient of Variation 13.6 % (11.5-14.5); Red Blood Count 5.04 M/uL (4.70-6.10); White Blood Count 6.78 K/ul (4.8-10.8)
--- NOTE | 2024-03-15 10:09 | Discharge Summary ---
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 Pt was recently on vacation and developed redness in his leg as well as increased swelling. Seen at urgent care, diagnosed with cellulitis, and started on Bactrim (has one day left). His leg redness and swelling has improved but he feels poorly overall and came to the ED today to make sure his kidneys weren't "shutting down again." Pt was last admitted in January 2023 for respiratory difficulties. He has a history of chronic lymphedema, which is about at his baseline presently. Pt has a history of noncompliance and admits that he has not been taking all of his medications as prescribed, specifically stating that he has been off anticoagulation for the last year due to an issue with the script at the pharmacy. He also stopped his beta katelyn and statin. [facility] show multiple missed or canceled appointments. His ICD has not been interrogated recently although he does not recall any recent shocks. He has had a cough for "a while" that is intermittently productive of white to yellow sputum. He notes associated wheezing but is unclear if this started at the same time as the cough or if it started later. He denies smoking or occupational exposures such as asbestos, no prior dx of COPD or asthma. Admission Exam Per Admitting Provider General: awake, alert, NAD, sitting OOB in the chair HEENT: no scleral icterus, moist oral mucosa Neck: trachea midline Heart: irregularly irregular Lungs: scattered wheezing throughout bilaterally with coarse BS Abdomen: soft, obese, +BS Extremities: chronic stasis changes bilaterally, +bilateral LE edema Neurologic: Ox3, no confusion, no dysarthria, moving all extremities Skin: no jaundice Principal Diagnosis Acute Bronchitis Elevated Liver enzymes Non compliance with medications Discharge Exam Constitutional + well hydrated and + obese; no acute distress Eyes PERRL, conjunctivae normal, anicteric sclerae ENMT external ear and nose normal, oropharynx normal Respiratory normal respiratory effort, lungs clear to auscultation Cardiovascular Rate/Rhythm: + irregularly irregular S1 S2 Gastrointestinal (Abdomen) normal bowel sounds, soft, nontender, no hepatosplenomegaly Musculoskeletal Right LE lymphedema. Stasis changes Neurologic PERRL, EOMI, accommodation nl, no face palsy, no dysarthria Psychiatric A+Ox3, euthymic affect Discharge Data Allergies Allergy/AdvReac Type Severity Reaction Status Date / Time No Known Allergies Allergy Verified 03/12/24 16:46 Consultations 03/12/24 14:58 ED Decision to Admit Stat 03/12/24 18:42 Consult Cardiology Routine Ordered Studies 03/12/24 13:24 CT abd pelvis wo con Stat 03/12/24 14:38 US venous doppler LE BI Stat 03/12/24 16:44 CT chest diagnostic wo con Urgent 03/14/24 08:07 US RUQ [US liver] Urgent Hospital Course (1) Shortness of breath: 73 y/o male with history of CAD, ischemic cardiomyopathy, AICD in place, permanent atrial fibrillation, supposed to be on chronic AC, history of chronic right lower extremity DVT, CKD stage III, right lower extremity lymphedema, 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 CXR negative CT chest concerning for infectious process/bronchitis. Bilateral LE venous duplexes neg for dvt. BNP 286 ECHO w/ EF of 20-25%; severe global hypokinesis of the LV. Bronchitis Vs pneumonia Poor medication adherence Pt is supposed to be on chronic AC with Eliquis due to atrial fibrillation and chronic DVT but has not been taking this for several months. He has a history of HF. Reported he has been taking Entresto and furosemide as prescribed but does have chronic VALENTINE. Was treated with ceftriaxone and Doxycycline inpatient Discharged on another day of antibiotics outpatient to complete treatment 2 step today did not show any oxygen requirement Cardiology evaluated while inpatient Counseled patient regarding need for med compliance Continue entresto and lasix Metoprolol succinate started inpatient Eliquis resumed Prescriptions sent to patient's preferred pharm Needs to follow up with Cardio outpatient (2) Elevated liver function tests: New, appears acute May be related to recent course of Bactrim (as OP) as has a potential for hepatotoxicity and/or congestive hepatopathy. Pt also notes daily alcohol consumption of an unspecified amount of beer. CT abd/pel was reviewed - no gross abnormality in the liver seen. CT abd/Pelvis reviewed. Was unremarkable but without contrast due to CKD3 Liver USS done unremarkable AST/ALT/Alk P still elevated at 119/177/201 respectively today Tbil iproved from 1.4 on admission to 0.6 today PCP to recheck LFT on follow up Counseled regarding alcohol cessation (3) CAD (coronary artery disease): Chronic, stable Taking aspirin but stopped beta katelyn and statin on his own Echo as above PCP/Cardio to reassess resuming statin once LFT improves (4) Bilateral edema of lower extremity: Chronic lymphedema Duplexes neg for dvt Continue furosemide, c/w compression stockings. (5) Noncompliance with medication regimen: Pt admits to not always taking medication as prescribed or attending all appointments as scheduled. Counseled regarding these (6) Elevated troponin: EKG reviewed - no acute changes Trop trends flat (7) UTI (urinary tract infection): Abnormal UA - positive for nitrite, leukocyte esterase, urobilinogen, bilirubin - urine culture pending No growth on Urine culture Will be covered with current antibiotics Total Time Total Time Spent Total Time Spent (In Minutes): 40 Total Time Includes: Examination of the Patient, Discharge Planning, Medication Reconciliation and Communication With Other Providers Discharge Plan Discharge Items Patient Disposition: Home - Self-Care Reason For Visit: SHORTNESS OF BREATH Discharge Diagnosis: Acute Bronchitis Elevated Liver enzymes Condition on Discharge: Fair Activity: Resume your previous activity Non-emergency contact: Primary Care Provider and Wool Handler Call non-emergency contact if: you have any medication questions and your symptoms worsen Follow-up/Referrals: Rosalie Rosales DO [Primary Care Provider] - (Date & Time 03/20/2024 7:00 AM Provider Demian Vasquez DO Department General Internal Medicine [facility] ) Diet: Heart Healthy and Low Sodium (2gm) Addtl Attending Provider Instructions: Mr Odell You came to the hospital with cough and shortness of breath. You were evaluated and managed for these. It is very important that you take your medications as prescribed. You were started on metoprolol and your eliquis resumed. It is very important that you quit alcohol use Please ensure follow up with your Primary Doctor who will monitor your liver function. Please ensure follow up with Cardiology as we discussed. It was a pleasure taking care of you. Pending Studies at Discharge: No Stand-Alone Forms: My [facility], Smoking Cessation Medications and DC Order Prescriptions: New doxycycline hyclate 100 mg Capsule 100 mg PO BID Qty: 3 0RF prednisone 20 mg Tablet 40 mg PO DAILY 1 Days Qty: 2 0RF metoprolol succinate 25 mg Tablet Extended Release 24 Hr 25 mg PO QAM Qty: 30 0RF Eliquis 5 mg Tablet 5 mg PO BID Qty: 60 0RF guaifenesin [Mucinex] 600 mg Tablet Extended Release 12hr 600 mg PO Q12 Qty: 10 0RF folic acid 1 mg Tablet 1 mg PO QAM Qty: 30 0RF thiamine HCl (vitamin B1) 100 mg Tablet 100 mg PO QAM Qty: 30 0RF cefpodoxime 200 mg tablet 200 mg PO BID 2 Days Qty: 4 0RF Rx Instructions: must administer with a meal/food Continued furosemide 40 mg tablet 40 mg PO QAM aspirin 81 mg Tablet,Delayed Release (Dr/Ec) 81 mg PO QAM Entresto 49-51 mg Tablet 1 tab PO QAM Discharge Orders: Discharge Order (Routine); Ordered 03/15/24 Ordered By: Mariela Nielsen Admission Data Admit Date/Time: 03/12/24 15:38 Attending Provider: Mariela Nielsen I. Admit Provider: Peter Elliott Primary Care Provider: Rosalie Rosales Other Providers: Peter Elliott; Sriram Estrada; Jp Chung Other Interventions: Discharge Summary Assessment (RN) Last Done: 03/15/24 11:29
--- NOTE | 2024-03-15 11:41 | Cardiology Progress Note ---
Date of Service March 15, 2024 Assessment & Plan (1) Acute bronchitis, complicated: (2) Shortness of breath: (3) Elevated liver enzymes: (4) Noncompliance with medications: (5) Elevated troponin: (6) Chest tightness: (7) CAD (coronary artery disease): Plan Shortness of breath. + Acute bronchitis. Treatment as per [facility] Service. Ischemic cardiomyopathy. Volume status: Normovolemic. Continue oral furosemide. Continue metoprolol succinate, Entresto and aspirin. No statin for now, RE: abnormal LFTs. No spironolactone, RE: Borderline potassium. Would not add Empagliflozin, RE: concern for infection, CKD. Status post primary prevention ICD. Quick look device interrogation this admission demonstrated an appropriately functioning Medtronic Visia single lead defibrillator with backup pacemaker set VVI 40 bpm; serial number [id number]. Estimated remaining longevity: 4.9 years. 18 episodes of NSVT and 2 episodes of VF since March 2023 (? August and again in December) - 1 aborted shock, 1 shock delivered. Ventricular paced 2.7% of the time. Longstanding noncompliance with beta-katelyn therapy noted and discussed. Metoprolol succinate resumed this admission, importance of said therapy discussed. QRS duration notably narrow. Permanent atrial fibrillation. Continue rate control with metoprolol succinate. Eliquis anticoagulation resumed this admission; benefits and risks discussed. Recommend outpatient cardiology follow-up at [facility]. Message sent to [facility] to help explore Pace/Pacenet/[employer] karolina/CHF management, hopefully with improved compliance. I spent a total of 16 minutes on the date of service in preparation, delivery, and documentation of the care provided to this patient excluding any time spent in the performance of separately billed services. This visit was a split-shared visit with the substantive portion of the medical decision making performed by the supervising waste elimination/billing provider. Admission and Anticipated Discharge Date Admission Date: March 12, 2024 Supervising Physician Co-Signing Physician Notes Attending attestation: Case reviewed with the advanced practitioner. Agree with Mr Moura's findings and plan as documented. Pt discharged prior to me having the opportunity to examine him. Sriram Estrada, DO Subjective Patient seen and examined. Chart, medications, and telemetry reviewed. Cough productive to white phlegm. No chest pain. No breathing difficulty. No palpitations. Looking forward to working at [employer] tomorrow and going to [employer]. Telemetry: Atrial fibrillation in the 60's to 80's. Review of Systems Review of Systems: Complete Review of Systems is as stated above, negative, or noncontributory. Physical Exam Physical Exam: General: A&Ox3. NAD. HENT: Normocephalic. Atraumatic. Eyes: PER. Conjunctiva pink, sclera injected Neck: No JVD. Heart: Irregularly irregular at 70 bpm. No murmur appreciated. Lungs: Left upper lobe expiratory wheeze/rhonchi. Otherwise clear. Abdomen: +BS. Soft. Nontender. No masses or organomegaly. Extremities: Lymphedematous changes on the right. Mild edema on the right. Stasis changes. No significant edema on the left. No clubbing. No cyanosis Limited neurological examination is without focal deficits. Pulses: radial=2/4, posterior tibial=0/4. Results & Data Vital Signs (Past 12 Hours) Vital Signs Temp Pulse Pulse Pulse Resp Resp Resp 03/15/24 09:15 104 H 69 21 17 03/15/24 09:00 03/15/24 08:17 36.3 C L 77 20 03/15/24 04:00 36.8 C 59 L 18 03/15/24 01:35 03/14/24 23:55 36.6 C 65 18 BP BP Pulse Ox Pulse Ox Pulse Ox O2 Del Method 03/15/24 09:15 88 L 92 03/15/24 09:00 Room Air 03/15/24 08:17 109/71 97 Room Air 03/15/24 04:00 116/73 91 Room Air 03/15/24 01:35 Room Air 03/14/24 23:55 101/79 91 Room Air Laboratory Results Cardiac Enzymes 03/15/24 Range/Units 06:25 AST 119 H (13-39) U/L CBC 03/15/24 Range/Units 06:25 WBC 6.78 (4.8-10.8) K/ul RBC 5.04 (4.70-6.10) M/uL Hgb 16.0 (14.0-18.0) g/dl Hct 50.7 (42.0-52.0) % Plt Count 237 (130-400) K/uL Comprehensive Metabolic Panel 03/15/24 Range/Units 06:25 Sodium 136 (136-145) mmol/L Potassium 4.7 (3.5-5.1) mmol/L Chloride 102 (98-107) mmol/L Carbon Dioxide 29 (21-32) mmol/L BUN 39 H (6-23) mg/dl Creatinine 1.77 H (0.6-1.4) mg/dl Glucose 117 H (70-99(Fasting)) mg/dl Calcium 9.2 (8.6-10.3) mg/dl Direct Bilirubin 0.2 (0-0.2) mg/dl AST 119 H (13-39) U/L ALT 177 H (7-52) U/L Alkaline Phosphatase 201 H (34-104) U/L Total Protein 7.6 (6.0-8.3) gm/dl Albumin 3.4 (3.4-5.0) gm/dl Intake and Output 03/14/24 03/15/24 03/15/24 22:59 06:59 14:59 Intake Total 270 / 1770 1500 / 1770 Balance 270 / 1770 1500 / 1770 Intake: IV 50 / 50 cefTRIAXone SODIUM 2,000 mg In 50 / 50 50 ml @ 100 mls/hr IV Q24H [facility] Rx#:[id number] Oral 220 / 1720 1500 / 1720 Other: Weight 116.4 kg 116.4 kg Weight Measurement Method Built in [facility] Patient Weight 03/16/24 06:59 Weight 116.4 kg (7) CAD (coronary artery disease) Associated angina: unspecified whether angina present Coronary Disease- Associated Artery/Lesion type: [place] artery Teller vs. transplanted heart: [place] heart Qualified Code(s): I25.10 - Atherosclerotic heart disease of [place] coronary artery without angina pectoris
--- NOTE | 2024-03-16 06:07 | Electrocardiogram Report ---
Test Reason : Blood Pressure : / mmHG Vent. Rate : 079 BPM Atrial Rate : 208 BPM P-R Int : 000 ms QRS Dur : 122 ms QT Int : 404 ms P-R-T Axes : 000 -68 071 degrees QTc Int : 463 ms Atrial fibrillation Left axis deviation Inferior infarct (cited on or before 11-OCT-2018) Anterior infarct (cited on or before 11-OCT-2018) Abnormal ECG When compared with ECG of 12-MAR-2024 12:09, No significant change Confirmed by Jarvis Olmedo ([id number]) on 03/16/2024 6:07:03 AM Referred By: REFERRED SELF Confirmed By:Jarvis Olmedo
[2024-03-16 16:22] LABS: Babesia microti DNA Not Detected (Not Detected)
== END 2024-03-15 13:24 | disposition home or self-care (01) | DRG 202 ==
LOC: ED 11:38 → EDINP 15:38 → INTOOBSV 15:38 → SUATTDRO 15:38 → 2N 18:42

== ENCOUNTER 2024-11-20 15:43 | Inpatient (IN) ==
[2024-11-20 17:11] LABS: Basophils # (auto) 0.03 K/uL (0.00-0.20); Basophils % (auto) 0.5 %; Eosinophils # (auto) 0.09 K/uL (0.00-0.50); Eosinophils % (auto) 1.4 %; Hematocrit (blood only) 46.9 % (42.0-52.0); Immature Granulocytes # (auto) 0.02 K/uL (0.01-0.20); Immature Granulocytes % (auto) 0.3 %; Lymphocytes # (auto) 0.55 K/uL (1.20-3.40); Lymphocytes % (auto) 8.7 %; Mean Corpuscular Hemoglobin 32.8 pg (25.0-34.0); Mean Corpuscular Volume 102.6 fL (80.0-100.0); Mean Platelet Volume 9.9 fL (9.4-12.4); Monocytes # (auto) 0.53 K/uL (0.11-0.59); Monocytes % (auto) 8.4 %; Neutrophils # (auto) 5.09 K/uL (1.40-6.50); Neutrophils % (auto) 80.7 %; Platelet Count 124 K/uL (130-400); RDW Coefficient of Variation 12.8 % (11.5-14.5); Red Blood Count 4.57 M/uL (4.70-6.10); White Blood Count 6.31 K/ul (4.8-10.8)
[2024-11-20 17:29] LABS: Albumin Globulin Ratio 1.3 (0.9-2); BUN Creatinine Ratio 16.8 (10-20); Bilirubin,Total 1.1 mg/dl (0.2-1.0); Calcium 9.2 mg/dl (8.6-10.3); Creatinine Clr Calc Pharmacy 67.1 ml/min; Globulin 3.1 gm/dl (2.5-4.0); Potassium 4.3 mmol/L (3.5-5.1); Total Protein 7.1 gm/dl (6.0-8.3)
[2024-11-20 17:43] LABS: INR 1.1 (0.9-1.1); Partial Thromboplastin Time 27 Seconds (21-31); Prothrombin Time 11.8 Seconds (9.0-12.0)
--- NOTE | 2024-11-20 19:10 | XRay Report ---
Exam: One view chest Reason for exam: Chest pain COMPARISON: 03/12/2024. FINDINGS: Left-sided pacemaker is again seen. Heart remains moderately enlarged without acute CHF. Lungs are free of active infiltrate, collapse or edema and no pleural effusion is seen. IMPRESSION: Stable moderate cardiomegaly. Otherwise, no acute disease seen at this time. Electronically signed by Dakota Bridges 11-20-2024 7:10 PM
[2024-11-20] MEDS: FUROSEMIDE 40 MG/4 ML VIAL IV ONE (19:17)
--- NOTE | 2024-11-20 20:04 | History & Physical Report ---
Date of Service November 20, 2024 Assessment & Plan (1) Acute on chronic systolic heart failure: Plan: Lasix 80 mg BID Daily wts and I&Os Monitor electrolytes, keep K < 4 and Magnesium > 2 Check echocardiogram Consult cardiology (2) Anasarca: Plan: Lasix as directed Monitor intake and output watch renal fxn. Stable on admission at 1.3 (3) CAD (coronary artery disease): Plan: Restart home meds that he was supposed to be taking Reviewed with cardiology (4) Noncompliance with medications: Plan: Restart medications as directed (5) Elevated troponin: Plan: Suspect this is demand ischemia Coordinate care with cardiology Check echocardiogram Trend labs (6) Shortness of breath: Plan: Probably secondary to heart failure exacerbation Will check a D-dimer and if elevated will check CT PE study in light of the fact that he is not on his Eliquis (7) Permanent atrial fibrillation: Plan Surprisingly he is rate is controlled off the metoprolol Restart metoprolol Monitor pulse and blood pressure Patient is a full code VTE prophylaxis: Restart apixaban History of Present Illness Chief Complaint: SOB Primary Care Provider: Rosalie Rosales DO Clint Odell is a 73 y/o male with a previous history of CAD, ischemic cardiomyopathy, AICD in place, permanent atrial fibrillation, supposed to be on chronic AC (apixaban), history of chronic right lower extremity DVT, CKD stage III, right lower extremity lymphedema, 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 States he has gained 20 pounds in the last month and 5 pounds since yesterday. He is not taking most of his medications but states he is taking his furosemide. He is not hypoxic at present. He denies chest pain. Chest x-ray is basically clear. There is no infiltrate or evidence of pleural effusions. His white count is not elevated. He is not anemic. EKG shows an atrial fibrillation with a controlled rate despite being off his metoprolol. Troponin is elevated at 62 and repeat 61 respectively. His BNP is 302 and essentially normal per his age. Allergies Allergy/AdvReac Type Severity Reaction Status Date / Time No Known Allergies Allergy Verified 11/20/24 19:21 Home Medications Medication Instructions Recorded Confirmed Type aspirin 81 mg tablet,delayed 81 mg PO QAM 02/09/21 11/20/24 History release furosemide 40 mg tablet 40 mg PO QAM 02/09/21 11/20/24 History sacubitril 49 mg-valsartan 51 mg 1 tab PO QAM 12/04/21 11/20/24 History tablet (Entresto) apixaban 5 mg tablet (Eliquis) 5 mg PO BID #60 tabs 03/15/24 11/20/24 Rx folic acid 1 mg tablet 1 mg PO QAM #30 tabs 03/15/24 11/20/24 Rx Past Med/Surg History Problem List (Updated 11/20/24 @ 20:13 by Shorty Goldberg DO) Anasarca Acute on chronic systolic heart failure UTI (urinary tract infection) Pedal edema (Acute) Elevated liver enzymes (Acute) Wheezing (Acute) Bilateral flank pain (Acute) Noncompliance with medications (Acute) Elevated troponin (Acute) Chest tightness (Acute) Elevated liver function tests Shortness of breath CAD (coronary artery disease) 2018 - STEMI, s/p SE to LAD Bilateral edema of lower extremity (Acute) Noncompliance with medication regimen (Acute) Lymphedema (Chronic) Chronic deep vein thrombosis (DVT) Elevated troponin CHF exacerbation (Acute) Morbid obesity with BMI of 45.0-49.9, adult Medical History Poor historian Ischemic cardiomyopathy PT NOT SURE On anticoagulant therapy History of COVID-19 Permanent atrial fibrillation PT NOT SURE Chronic HFrEF (heart failure with reduced ejection fraction) PT REPORTS HEART FAILURE RESOLVED Pre-diabetes PT DENIES NSTEMI (non-ST elevated myocardial infarction) HX [place] Peripheral vascular disease ? CKD (chronic kidney disease) stage 3, GFR 30-59 ml/min Chronic deep vein thrombosis (DVT) of right lower extremity ? Mass of testicle (01/27/13) R testicular Germ cell tumor removed 2009 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) HX Surgical History History of heart artery stent (~10/2018) @ [facility] History of cardiac cath @ [facility] 10/[address] Elliott with 1 stent placed History of vitrectomy (~04/20/21) right Mass of kidney of unknown nature s/p 2010 excision, lupe- renal by report AICD (automatic cardioverter/defibrillator) present ? REASON...DECEMBER 2018 PLACED, FEW MONTHS AGO LAST CHECK History of colonoscopy with polypectomy adenomatous polyp, diverticulosis - Oct 2015 History of umbilical hernia repair History of orchiectomy R 2010 Family History Father Pulmonary embolism Sister Thyroid cancer Social History Smoking Status: Never smoker Second Hand Exposure: No; Do You Dip or Chew Tobacco: No; Hx Alcohol Use: Yes Alcohol type: beer Alcohol Intake Frequency: 4 or More x per/Week Hx Substance Use: No Preferred Language: Maori Communication Ability: Effective Motor Mechanic Required: No Beliefs That Will Affect Care: None marital status: Current Living Situation: Alone current occupational status: employed Feels Safe at Home: Yes Assistive Devices: None Review of Systems Review of Systems: Constitutional- no fever; positive weight gain Eyes- no acute visual changes ENT- no sinus drainage; no pharyngitis Pulmonary- no cough, no wheezing, Positive shortness of breath Cardiac- no chest pain, no palpitations, has orthopnea and dependent edema to abdomen GI- no nausea, no vomiting, no diarrhea, no melena, no hematochezia - no dysuria, no hematuria Musculoskeletal- no new arthralgias, no myalgias Derm- no rashes, no new skin lesions, no changing skin lesions Hematologic- no unusual bruising, no unusual bleeding Lymphatics- no adenopathy Neuro- no headaches, no focal neurologic symptoms Psych- no anxiety, some depression, no suicidal ideations. Physical Exam Physical Exam: General- adult male with chronic ill appearance Head- atraumatic Eyes- PERRL, EOMI, anicteric ENT- oropharynx clear Neck- supple, mild JVD, no adenopathy, no thyromegaly; Lungs- Mild crackles in the bases Heart- irregularly irregular at 84 bpm. Monitor shows atrial fibrillation with a controlled rate Abdomen- normal bowel sounds, soft, nontender, distended, no masses or hepatosplenomegaly Extremities-evidence of bilateral lymphedema Neuro- alert, oriented x 3; PERRL, EOMI; no facial palsy; no dysarthria; motor 5/5 bilaterally; no cogwheel rigidity; patellar DTRs +2/2; Skin- warm & dry Results & Data Results & Data Vital Signs (Past 12 Hours) Vital Signs Temp Pulse Pulse Resp BP BP Pulse Ox 11/20/24 18:43 77 11/20/24 18:37 36.5 C 78 18 139/92 88 L 11/20/24 16:26 36.3 C L 84 22 151/84 H 92 O2 Del Method 11/20/24 18:43 11/20/24 18:37 Room Air 11/20/24 16:26 Room Air Diagnostic Findings Laboratory Results WBC 6.31 K/ul (4.8-10.8) 11/20/24 16:55 RBC 4.57 M/uL (4.70-6.10) L 11/20/24 16:55 Hgb 15.0 g/dl (14.0-18.0) 11/20/24 16:55 Hct 46.9 % (42.0-52.0) 11/20/24 16:55 MCV 102.6 fL (80.0-100.0) H 11/20/24 16:55 MCH 32.8 pg (25.0-34.0) 11/20/24 16:55 MCHC 32.0 g/dL (32.0-36.0) 11/20/24 16:55 RDW Std Deviation 49.0 fL (36.4-46.3) H 11/20/24 16:55 RDW Coeff of Juan 12.8 % (11.5-14.5) 11/20/24 16:55 Plt Count 124 K/uL (130-400) L 11/20/24 16:55 MPV 9.9 fL (9.4-12.4) 11/20/24 16:55 Immature Gran % (Auto) 0.3 % 11/20/24 16:55 Neut % (Auto) 80.7 % 11/20/24 16:55 Lymph % (Auto) 8.7 % 11/20/24 16:55 Heard % (Auto) 8.4 % 11/20/24 16:55 Eos % (Auto) 1.4 % 11/20/24 16:55 Baso % (Auto) 0.5 % 11/20/24 16:55 Neut # (Auto) 5.09 K/uL (1.40-6.50) 11/20/24 16:55 Lymph # (Auto) 0.55 K/uL (1.20-3.40) L 11/20/24 16:55 Heard # (Auto) 0.53 K/uL (0.11-0.59) 11/20/24 16:55 Eos # (Auto) 0.09 K/uL (0.00-0.50) 11/20/24 16:55 Baso # (Auto) 0.03 K/uL (0.00-0.20) 11/20/24 16:55 Immature Gran # (Auto) 0.02 K/uL (0.01-0.20) 11/20/24 16:55 PT 11.8 Seconds (9.0-12.0) 11/20/24 16:55 INR 1.1 (0.9-1.1) 11/20/24 16:55 APTT 27 Seconds (21-31) 11/20/24 16:55 PTT Ratio 1.0 11/20/24 16:55 Sodium 143 mmol/L (136-145) 11/20/24 16:55 Potassium 4.3 mmol/L (3.5-5.1) 11/20/24 16:55 Chloride 103 mmol/L (98-107) 11/20/24 16:55 Carbon Dioxide 34 mmol/L (21-32) H 11/20/24 16:55 Anion Gap 6 (3-11) 11/20/24 16:55 BUN 23 mg/dl (6-23) 11/20/24 16:55 Creatinine 1.37 mg/dl (0.6-1.4) 11/20/24 16:55 Est Cr Clr Drug Dosing 67.1 ml/min 11/20/24 16:55 eGFR 54.81 11/20/24 16:55 BUN/Creatinine Ratio 16.8 (10-20) 11/20/24 16:55 Glucose 102 mg/dl (70-99(Fasting)) H 11/20/24 16:55 Calcium 9.2 mg/dl (8.6-10.3) 11/20/24 16:55 Total Bilirubin 1.1 mg/dl (0.2-1.0) H 11/20/24 16:55 AST 21 U/L (13-39) 11/20/24 16:55 ALT 20 U/L (7-52) 11/20/24 16:55 Alkaline Phosphatase 62 U/L (34-104) 11/20/24 16:55 Troponin I High Sens 61.0 pg/ml (0-20) H* 11/20/24 19:03 B-Natriuretic Peptide 302 pg/ml (0-100) H 11/20/24 16:55 Total Protein 7.1 gm/dl (6.0-8.3) 11/20/24 16:55 Albumin 4.0 gm/dl (3.4-5.0) 11/20/24 16:55 Globulin 3.1 gm/dl (2.5-4.0) 11/20/24 16:55 Albumin/Globulin Ratio 1.3 (0.9-2) 11/20/24 16:55 Impressions Chest X-Ray 11/20/24 16:30 Exam: One view chest Reason for exam: Chest pain COMPARISON: 03/12/2024. FINDINGS: Left-sided pacemaker is again seen. Heart remains moderately enlarged without acute CHF. Lungs are free of active infiltrate, collapse or edema and no pleural effusion is seen. IMPRESSION: Stable moderate cardiomegaly. Otherwise, no acute disease seen at this time. Electronically signed by Dakota Bridges 11-20-2024 7:10 PM Code Status & VTE Plan Code Status Full code (3) CAD (coronary artery disease) Coronary Disease-Associated Artery/Lesion type: [place] artery [place] vs. transplanted heart: [place] heart Associated angina: unspecified whether angina present Qualified Code(s): I25.10 - Atherosclerotic heart disease of [place] coronary artery without angina pectoris
[2024-11-20 21:23] LABS: D Dimer 3040 ug/L FEU (0-500)
[2024-11-20] MEDS ORDERED: ONDANSETRON INJ 2 MG/ML 2 ML VIAL IV PRN (21:32)
[2024-11-20] MEDS ORDERED: MAGNESIUM HYDROXIDE SUSP 30 ML UDC PO PRN (21:32)
[2024-11-20] MEDS ORDERED: POLYETHYLENE (MIRALAX) 17 GM PACK PO PRN (21:32)
[2024-11-20] MEDS ORDERED: NITROGLYCERIN SL 0.4 MG/TAB TAB SL PRN (21:32)
[2024-11-20 22:00] LABS: Hematocrit (blood only) 47.2 % (42.0-52.0); Hemoglobin 14.7 g/dl (14.0-18.0); Mean Corpuscular Hemoglobin 31.5 pg (25.0-34.0); Mean Corpuscular Hgb Conc 31.1 g/dL (32.0-36.0); Mean Corpuscular Volume 101.3 fL (80.0-100.0); Mean Platelet Volume 9.8 fL (9.4-12.4); Platelet Count 119 K/uL (130-400); RDW Coefficient of Variation 13.2 % (11.5-14.5); RDW Standard Deviation 48.9 fL (36.4-46.3); Red Blood Count 4.66 M/uL (4.70-6.10)
[2024-11-20 22:15] LABS: BUN Creatinine Ratio 14.9 (10-20); Calcium 9.2 mg/dl (8.6-10.3); Creatinine Clr Calc Pharmacy 61.4 ml/min; Magnesium 1.9 mg/dl (1.7-2.4); Potassium 4.1 mmol/L (3.5-5.1)
[2024-11-20] MEDS: FUROSEMIDE 40 MG/4 ML VIAL IV SCH (22:23)
[2024-11-20] MEDS: APIXABAN 5 MG TABLET PO SCH (22:23)
[2024-11-20 22:27] LABS: Troponin I High Sensitivity 58.9 pg/ml (0-20)
[2024-11-20] MEDS: OPTIRAY 320 125ml IV ONE (23:04)
--- NOTE | 2024-11-21 00:17 | CT Scan Report ---
Exam(s): CTA CHEST IV Amt: 119ml optiray 320 EXAM: CT Angiography Chest With Intravenous Contrast CLINICAL HISTORY: Reason for exam: PE. TECHNIQUE: Axial computed tomographic angiography images of the chest with intravenous contrast. CTDI is 26.12 mGy and DLP is 1000.28 mGy-cm. Automated exposure control was utilized for the study. A dose lowering technique was utilized adhering to the principles of ALARA. MIP reconstructed images were created and reviewed. COMPARISON: CT chest: 03/12/2024 FINDINGS: Pulmonary arteries: Unremarkable. No pulmonary artery embolism. No CTA evidence of right heart strain. Pulmonary arteries are normal caliber. Aorta: There are scattered thoracic aortic calcifications. There are extensive coronary artery arthritic calcifications noted in the right coronary and left anterior descending coronary artery distributions. No thoracic aortic aneurysm. Lungs: There is mild patchy heterogeneous pulmonary attenuation suggestive of air trapping. There is minimal bibasilar linear subsegmental atelectasis/scarring. No mass. Pleural space: Unremarkable. No significant effusion. No pneumothorax. Heart: There is cardiomegaly with biatrial enlargement, right greater than left.. Bones/joints: See above. Soft tissues: Unremarkable. Lymph nodes: Unremarkable. No enlarged lymph nodes. IMPRESSION: 1. No pulmonary artery embolism. 2. Cardiomegaly with biatrial enlargement. 3. There is suggestion of patchy bilateral pulmonary air trapping which may be related to underlying asthma and/or COPD. Clinical correlation. Electronically signed by: Jd Britt MD 11/21/24 00:16 AM
--- OUTSIDE RECORDS SUMMARY | 2024-11-21 04:42 | External Medical Summary | Summary of Care ---
Author Name Unknown Organization [facility] Address [address] [place] [address] Phone [phone] Care Team Providers Care Leaf Stripper Name Role Phone Rosalie Rosales DO Primary Care Provider Reason for Visit * Reason Onset Date Comments Med Request 02/29/2024 Possible Celluli tis Encounter Details Date Type Department Care Team (Late st Contact Info) Description 02/29/2024 Telephone Family Practice [facility] Kera Odell [address] [facility] [place] [id number] Rosalie Rosales DO [address] [facility] [place] [id number] Med Request (Possible Cellulitis) Allergies No known active allergiesdocumented as of this encounter (statuses as of 05/30/2024) Medications Medication Sig Dispensed Refills Start Date End Date Status aspirin 81 MG chewable tablet Take 1 Tab by mouth daily. 100 Tab 3 9 Active Multivitamin Gummies Adult Oral Tablet Chewable Take 1 Tablet by mouth in the morning. Active Triamcinolone Acetonide 0.1 % External Cream (Aristocort)Indicat ions:Lymphedema of leg,DVT (deep venous thrombosis) ([facility]),PVD (peripheral vascular disease) ([facility]) apply topically to affected area twice a day for 2 weeks PER MONTH as directed by prescriber 80 g 5 1 Active Apixaban 5 MG Oral Tablet (Eliquis) Take 1 Tablet by mouth 2 times a day. 3 Active Metoprolol Succinate ER 25 MG Oral Tablet Extended Release 24 Hour (toPROL XL) Take 1 Tablet by mouth in the morning. Active Atorvastatin Calcium 80 MG Oral Tablet (Lipitor)Indication s:Dyslipidemia, goal LDL below 70 TAKE 1 TABLET BY MOUTH EVERY DAY EVERY AFTERNOON 90 Tablet 3 3 Active Furosemide 40 MG Oral Tablet (Lasix) Take 1 Tablet by mouth in the morning. 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 0 02/02/2013 Overview: ICD-10 update of inactive term PVD (peripheral vascular disease) Overview: right, arterial doppler Erectile dysfunction documented as of this encounter (statuses as of 05/30/2024) Resolved Problems Problem Noted Date Diagnosed Date [...] Germ cell carcinoma of testicle 03/17/2017 11/07/2017 long-term current use of ant icoagulant therapy 08/10/2015 [...] as of this encounter (statuses as of 05/30/2024) Immunizations Name Administration Dates Next Due Pneumococcal [...] Answer Date Recorded PHQ-2 Score 2 08/13/2018 Utilities Answer Date Recorded Do you have trouble paying y our heating, water, or electric bill? (Adult - for ages 18 years and over) Not on file 03/27/2024 Is your family able to pay t he heat, water, or electric bill? (Household - for ages 0-17 years) Not on file 03/27/2024 Does your family have access to good internet? (Household - for ages 0-17 years) Not on file 03/27/2024 Social Connections Answer Date Recorded How often do you feel lonely or isolated from those around you? (Adult - for ages 18 years and over) Not on file 03/27/2024 Sex and Gender Information Value Date Recorded [...] encounter Miscellaneous Notes * Telephone Encounter - Rosalie Rosales DO - 03/01/2024 1:31 PM EDT Agree, TY * Telephone Encounter - Neva Villa LPN - 03/01/2024 12:31 PM EDT Spoke with patient making him aware of below, we have no appointments available in the area until Tuesday. Recommended urgent care or a visit on Tuesday, ER if severe. Patient states he's going to the [facility] tomorrow with family and won't be back until March 10. I recommended he go to a walkin urgent care clinic today. Patient said he can't go today because he has too much to do and other appointments already scheduled. I told him to go to an urgent care clinic when he gets to the [facility]. He said he doesn't know if they have one there. I told him they have several and he needs obdulio seen. Patient asked for a visit in one of our offices when he returns. First available was 03/20 at 7 am. I told patient he CAN NOT wait until 03/20 to be seen for possible cellulitis. Patient said he'd go to an urgent care in [place] and follow up with us when he gets back to [facility]. I scheduled him to be seen on 03/[address] Vasquez and told the patient again that he MUST be evaluated before that time for possible cellulitis. Patient verbalized understanding. NICOLLE Rosales. * Telephone Encounter - Rosalie Rosales DO - 03/01/2024 12:10 PM EDT Must be seen in person- go to ER if severe Rosalie Rosales DO * Telephone Encounter - Zulma Mcintosh RN - 02/29/2024 4:10 PM EDT Left message for pt to call back. Pt needs to be seen to get appropriate medication. Please make appt pradip or go to urgent care. * Telephone Encounter - Josette Lazo OSA - 02/29/2024 3:31 PM EDT An order was requested for this patient. Name of Requesting Provider: The Pt Order Requested: Medication for cellulitis Diagnosis/Reason for Request: Cellulitis on right lower leg and angle, due to open wound infection If order request is for Mammogram: Is the patient having any breast symptoms? N/A Is there a chance of ? N/A Has the patient had any breast problems in the past? NA What location AND department does the patient wish to have their order completed at? Na Fax Number, if applicable: Na If the caller is not a current patient, please advise the patient to call their current PCP to havethe order's prior to being seen in our office. The patient was informed that our providers would not order anything (medication, labs, etc.) prior to being seen. documented in this encounter Plan of Treatment Scheduled Procedures Name Priority Associated Diagnoses Date/Ti me COLONOSCOPY FLEXIBLE PROXIMAL DIAGNOSTIC Recall History of colon polyps Health Maintenance Due Date Last Done Comments Diabetic Foot Exam 1970 Hepatitis C Screening 1970 Cologuard 1997 Fecal Occult Blood Test 1997 Sigmoidoscopy 1997 Zoster Vaccines (1 of 2) 2002 Adult Wellness Visit 2018 Albumin/Creatinine Ratio 09/29/2018 09/29/2017 Depression Screening 10/24/2018 10/24/2017 Pneumococcal Vaccine: 65+ Years (2 of 2 - PCV) 10/23/2019 10/23/2018 Colonoscopy 11/05/2020 11/05/2015, 11/05/2015 Colorectal Cancer Screening 11/05/2020 Diabetic Eye Exam 04/17/2022 04/17/2021, , 04/17/2021, Additional history exists DTaP,Tdap,and Td Vaccines (2 - Td or Tdap) 02/09/2023 02/09/2013 COVID-19 Vaccine ( - 2022-24 season) 2023 GFR 02/09/2024 08/11/2023, 06/11, 05/21/2021, Additional history exists HbA1c 02/09/2024 08/11/2023, 02/08, 10/30/2018, Additional history exists Influenza Vaccine (FLU shot) (#1) 2024 10/23/2018, 10/23/2018 CKD HGB USE SMARTSET 78160 08/11/202408/11, 05/21/2021, 12/28/2018, Additional history exists CKD PHOS USE SMARTSET 52760 08/11/202411/2022, 10/14/2018, 09/29/2017, Additional history exists RETIRED - COLONOSCOPY-EVERY 5 YRS AGES 18-100 Discontinued 11/05/2015, 11/05/2015 HPV (Gardasil) Vaccine Aged Out No lo nger eligible based on patient's age to complete this topic Hepatitis B Vaccine Aged Out No longe r eligible based on patient's age to complete this topic MENINGOCOCCAL (MENACTRA/MENVEO) Aged Out No longer eligible based on patient's age to complete this topic documented as of this encounter Medical Devices Not on filedocumented as of this encounter Advance Directives * Full Code (Latest Code Status on File) Date Activated Date Inactivated Comments 10/14/2018 12:07 AM 10/17/2018 8:33 PM This order re flects the patients wishes and were consensually agreed upon. Care Teams Leaf Stripper Relationship Specialty Start Date End Date Rosalie Rosales DO [address] [place] [address] PCP - General Family Medicine 02/05/13 documented as of this encounter
--- OUTSIDE RECORDS SUMMARY | 2024-11-21 04:42 | External Medical Summary | Summary of Care ---
Author Name Unknown Organization [facility] Address [address] [place] [address] Phone [phone] Care Team Providers Care Allocation Analyst Name Role Phone Rosalie Rosales DO Primary Care Provider Reason for Visit * Reason Onset Date Comments FYI 06/06/2024 Encounter Details Date Type Department Care Team (Late st Contact Info) Description 06/06/2024 Telephone Cardiology, [facility] [address] [place] [id number] Lala Peralta PA-C [address] [place] [id number] FYI Allergies No known active allergiesdocumented as of this encounter (statuses as of 06/07/2024) Medications Medication Sig Dispensed Refills Start Date End Date Status aspirin 81 MG chewable tablet Take 1 Tab by mouth daily. 100 Tab 3 10/18/2018 Active Multivitamin Gummies Adult Oral Tablet Chewable Take 1 Tablet by mouth in the morning. Active Triamcinolone Acetonide 0.1 % External Cream (Aristocort)Indicatio ns:Lymphedema of leg,DVT (deep venous thrombosis) ([facility]),PVD (peripheral vascular disease) ([facility]) apply topically to affected area twice a day for 2 weeks PER MONTH as directed by prescriber 80 g 5 04/03/2021 Active Apixaban 5 MG Oral Tablet (Eliquis) Take 1 Tablet by mouth 2 times a day. 01/05/2023 Active Metoprolol Succinate ER 25 MG Oral Tablet Extended Release 24 Hour (toPROL XL) Take 1 Tablet by mouth in the morning. Active Atorvastatin Calcium 80 MG Oral Tablet (Lipitor)Indications: Dyslipidemia, goal LDL below 70 TAKE 1 TABLET BY MOUTH EVERY DAY EVERY AFTERNOON 90 Tablet 3 06/16/2023 Active Furosemide 40 MG Oral Tablet (Lasix) Take 1 Tablet by mouth in the morning. 90 Tablet 3 09/05/2023 Active Entresto 24-26 MG Oral Tablet (sacubitril-valsartan 24-26 mg per tab)Indications:Heart failure, systolic, due to CAD (HCC),Coronary artery disease involving [place] coronary artery of [place] heart without angina pectoris,Ischemic cardiomyopathy Take 1 Tablet by mouth in the morning and 1 Tablet before bedtime. 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 Awaiting call back. * Telephone Encounter - Lala Peralta PA-C - 06/07/2024 12:14 PM EDT Noted. See why patient stopped medication. See if he is willing to restart atorvastatin 80 mg daily Repeat lipid panel in 3 months after resuming therapy * Telephone Encounter - Esequiel Campos LPN - 06/07/2024 10:23 AM EDT Called pharmacy and patient has not been picking up atorvastatin. * Telephone Encounter - Lala Peralta PA-C - 06/06/2024 4:28 PM EDT Noted. Need to see if he is taking. Maybe we can call his pharmacy and see when he last picked up medication and how many tablets as well * Telephone Encounter - Neva Lacey CMA - 06/06/2024 1:06 PM EDT Called patient. No answer. Left generic voicemail requesting return call. Upon return call, please ask patient if he has been taking Atorvastatin/how he has been taking thismedication. * Telephone Encounter - Neva Lacey CMA - 06/06/2024 1:02 PM EDT Anastasia from [employer] calling -- states they are doing proactive reach outs regarding certain medications and she notes they have not received any claims for patient for statins in the past year despite pt's history of atherosclerosis. Review of patient's chart indicates he should be taking Atorvastatin 80 mg daily. Pt not seen since 01-27-2023. Will call pt to discuss. documented in this encounter Plan of Treatment [...] 04/17/2022 04/17/2021, , 04/17/2021, Additional history exists DTap/Tdap Vaccines (2 - Td or Tdap) 02/09/2023 02/09/2013 COVID-19 Vaccine ( - 2022- season) 2023 GFR 02/09/2024 08/11/2023, 06/11, 05/21/2021, Additional history exists HbA1c 02/09/2024 08/11/2023, 02/08, 10/30/2018, Additional history exists Influenza Vaccine (FLU shot) (#1) 2024 10/23/2018, 10/23/2018 CKD HGB USE SMARTSET 57698 08/11/202408/11, 05/21/2021, 12/28/2018, Additional history exists CKD PHOS USE SMARTSET 63892 08/11/2024 1111/2022, 10/14/2018, 09/29/2017, Additional history exists RETIRED - [...] and were consensually agreed upon. Care Teams Allocation Analyst Relationship Specialty Start Date End Date Rosalie Rosales DO [address] [place] [id number] PCP - General Family Medicine 02/05/13 documented as of this encounter
--- OUTSIDE RECORDS SUMMARY | 2024-11-21 04:43 | External Medical Summary | Summary of Care ---
Author Name Unknown Organization [facility] Address [address] [place] [address] Phone [phone] Care Team Providers Care Upper Leather Sorter Name Role Phone Rosalie Rosales DO Primary Care Provider Encounter Details Date Type Department Care Team (Late st Contact Info) Description 05/27/2024 Result Scan Unspecified Department Swapna Ann DO [address] [place] [address] <No scans attached> Allergies No known active allergiesdocumented as of this encounter (statuses as of 05/27/2024) Medications Medication Sig Dispensed Refills Start Date End Date Status aspirin 81 MG chewable tablet Take 1 Tab by mouth daily. 100 Tab 3 10/18/2018 Active Multivitamin Gummies Adult Oral Tablet Chewable Take 1 Tablet by mouth in the morning. Active Triamcinolone Acetonide 0.1 % External Cream (Aristocort)Indicatio ns:Lymphedema of leg,DVT (deep venous thrombosis) ([facility]),PVD (peripheral vascular disease) ([facility]) apply topically to affected area twice a [...] due to CAD (HCC),Coronary artery disease involving [place] coronary artery of [place] heart without angina pectoris,Ischemic cardiomyopathy Take 1 Tablet by mouth in the morning and 1 Tablet before bedtime. 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 No 10/14/19 Do you have serious difficul ty walking [...] No 10/14/2018 documented as of this encounter Plan of Treatment Scheduled Procedures [...] 2024 10/23/2018, 10/23/2018 CKD HGB USE SMARTSET 40036 08/11/202408/11, 05/21/2021, 12/28/2018, Additional history exists CKD PHOS USE SMARTSET 40725 08/11/202411/2022, 10/14/2018, 09/29/2017, Additional history exists RETIRED [...] Not on filedocumented as of this encounter Procedures Procedure Name Priority Date/Time Associated Diagnosis Comments CARDIOLOGY SCANNED RESULT 05/27/2024 documented in this encounter Results * CARDIOLOGY SCANNED RESULT (05/27/2024) 05/27/2024 Swapna Ann DO OTHER documented in this encounter Advance Directives * Full Code (Latest Code Status on File) Date Activated Date Inactivated Comments 10/14/2018 12:07 AM 10/17/2018 8:33 PM This order re flects the patients wishes and were consensually agreed upon. Care Teams Upper Leather Sorter Relationship Specialty Start Date End Date Rosalie Rosales DO [address] [place] [address] PCP - General Family Medicine 02/05/13 documented as of this encounter
[2024-11-21 08:09] LABS: Hematocrit (blood only) 46.4 % (42.0-52.0); Hemoglobin 14.3 g/dl (14.0-18.0); Mean Corpuscular Hemoglobin 31.6 pg (25.0-34.0); Mean Corpuscular Hgb Conc 30.8 g/dL (32.0-36.0); Mean Corpuscular Volume 102.4 fL (80.0-100.0); Mean Platelet Volume 9.9 fL (9.4-12.4); Platelet Count 120 K/uL (130-400); RDW Coefficient of Variation 13.2 % (11.5-14.5); RDW Standard Deviation 50.1 fL (36.4-46.3); Red Blood Count 4.53 M/uL (4.70-6.10); White Blood Count 6.04 K/ul (4.8-10.8)
[2024-11-21] MEDS: ASPIRIN 81 MG ECTAB PO SCH (08:15)
[2024-11-21] MEDS: VALSARTAN/SACUBITRIL 51/49 MG TAB PO SCH (08:15)
[2024-11-21] MEDS: FOLIC ACID 1 MG TAB PO SCH (08:15)
[2024-11-21] MEDS: ACETAMINOPHEN 325 MG TAB PO PRN (08:19)
[2024-11-21 08:28] LABS: Calcium 8.8 mg/dl (8.6-10.3); Creatinine Clr Calc Pharmacy 63.5 ml/min; Magnesium 1.8 mg/dl (1.7-2.4); Potassium 3.9 mmol/L (3.5-5.1)
[2024-11-21 08:41] LABS: Troponin I High Sensitivity 60.2 pg/ml (0-20)
[2024-11-21 08:45] LABS: Phosphorus 4.9 mg/dl (2.5-4.9)
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
[2024-11-21] MEDS: METOPROLOL SUCC 25MG EXT REL TAB PO SCH (11:23)
--- NOTE | 2024-11-21 12:41 | Electrocardiogram Report ---
Test Reason : Blood Pressure : */* mmHG Vent. Rate : 79 BPM Atrial Rate : * BPM P-R Int : * ms QRS Dur : 94 ms QT Int : 372 ms P-R-T Axes : * -73 94 degrees QTcB Int : 426 ms Atrial fibrillation with premature ventricular or aberrantly conducted complexes Left axis deviation Inferior infarct (cited on or before 11-Oct-2018) Anterolateral infarct (cited on or before 11-Oct-2018) Abnormal ECG When compared with ECG of 13-Mar-2024 06:17, QRS duration has decreased Confirmed by Ambrocio Aleman ([id number]) on 11/21/2024 12:40:53 PM Referred By: Confirmed By: Ambrocio Aleman
--- NOTE | 2024-11-21 14:19 | Emergency Department Note ---
Impression & Plan Hypoxia, Elevated troponin, Noncompliance with medications, SOB (shortness of breath), Pedal edema ED Provider Note NAME: DOUG LOPEZ AGE: 74 SEX: M : 1950 ARRIVES VIA: Walk-In INFORMANT: [Patient] ED PROVIDER(S): [Ismael Lyman MD] CHIEF COMPLAINT: Short of breath. HISTORY OF PRESENT ILLNESS: The patient is a 74-year-old male who states that he has had weeks of increasing leg swelling and some dyspnea, especially with exertion. He admits that he has been off a lot of his medications lately, he states that there was a mixup with his insurance and the pharmacy. He has had at least a 5 pound weight gain. There has been no chest pain, no vomiting or diarrhea, no fever. The patient states that as things continued to escalate/worsen, he decided to come to the ER for evaluation. Of note, the patient was found to be slightly hypoxic by the nursing staff. He was placed on nasal cannula O2. PMHx/PSHx/Social Hx: See Below PHYSICAL EXAM: GENERAL: Patient is in no acute distress. HEENT: No acute trauma, normocephalic atraumatic, mucous membranes moist, no nasal congestion. NECK: No stridor, no adenopathy, no meningismus, trachea is midline. LUNGS: Diminished breath sounds bilaterally, no wheezing or respiratory distress. HEART: Somewhat irregular rhythm, normal rate, no murmurs. ABDOMEN: Soft, nontender, no peritonitis. EXTREMITIES: No cyanosis, full range of motion of all the joints without pain or difficulty. Moderate bilateral pedal edema. NEUROLOGIC: Oriented x 3, no acute motor or sensory deficits, no focal weakness. SKIN: No jaundice, no diaphoresis. DIFFERENTIAL DIAGNOSIS: Medication noncompliance, CHF, NH, anemia, electrolyte imbalance, among others. EMERGENCY DEPARTMENT PROCEDURES: MEDICAL DECISION MAKING: There is no leukocytosis or worrisome anemia. Platelet count somewhat low but not in need of emergent correction. No coagulopathy. No renal failure or significant electrolyte abnormality. No concerning liver enzyme elevation. ECG shows atrial fibrillation, no obvious ischemia. Cardiac enzyme testing is somewhat elevated, this elevation could be secondary to cardiac injury or just mismatch given his dyspnea/hypoxia. Chest x-ray shows cardiomegaly, no concerning CHF. BNP was elevated consistent with some fluid overload. On exam, the patient did have moderate bilateral pedal edema. He was somewhat hypoxic without O2 supplementation. The patient presents with increasing fluid overload, weight gain. He has been dyspneic on exertion and was found to be slightly hypoxic. He will require a hospital stay. He requires diuresis and the restart of his typical medications. Patient was given IV Lasix, 60 mg. I spoke with the patient and case management, the on-call hospitalist was consulted. Prior/Outside records/notes reviewed: None ECG per my interpretation: Indication was shortness of breath. The ECG shows atrial fibrillation with a rate of 79. There is baseline artifact. There is no acute ST elevation. There appears to be an old inferior infarct and a potential old anterior infarct. No PVCs. QTc is 426. Continuous Cardiac Monitoring per my interpretation: An order was placed for continuous cardiac monitoring. The monitor shows a rate of 88 with atrial fibrillation.. Imaging/x-ray results per my interpretation: Chest x-ray shows some cardiomegaly, no concerning CHF, no pneumonia. Chronic Medical/Social conditions affecting care: Medication noncompliance. Care/Management discussed with: Case management, the on-call hospitalist. Level of care consideration(s): After review of the information above and other included data: --I believe the patient requires escalation of care to admission DISPOSITION: Admission Past Med/Surg History Problem List (Updated 11/21/24 @ 14:19 by Ismael Lyman MD) Pedal edema (Acute) SOB (shortness of breath) (Acute) Noncompliance with medications (Acute) Elevated troponin (Acute) Hypoxia (Acute) Atrial fibrillation with controlled ventricular rate Anasarca Acute on chronic systolic heart failure UTI (urinary tract infection) Pedal edema (Acute) Elevated liver enzymes (Acute) Wheezing (Acute) Bilateral flank pain (Acute) Noncompliance with medications (Acute) Elevated troponin (Acute) Chest tightness (Acute) Elevated liver function tests Shortness of breath CAD (coronary artery disease) 2018 - STEMI, s/p SE to LAD Bilateral edema of lower extremity (Acute) Noncompliance with medication regimen (Acute) Lymphedema (Chronic) Chronic deep vein thrombosis (DVT) Elevated troponin CHF exacerbation (Acute) Morbid obesity with BMI of 45.0-49.9, adult Medical History Poor historian Ischemic cardiomyopathy PT NOT SURE On anticoagulant therapy History of COVID-19 Permanent atrial fibrillation PT NOT SURE Chronic HFrEF (heart failure with reduced ejection fraction) PT REPORTS HEART FAILURE RESOLVED Pre-diabetes PT DENIES NSTEMI (non-ST elevated myocardial infarction) HX NH Peripheral vascular disease ? CKD (chronic kidney disease) stage 3, GFR 30-59 ml/min Chronic deep vein thrombosis (DVT) of right lower extremity ? 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 Elliott with 1 stent placed History of vitrectomy (~04/20/21) right Mass of kidney of unknown nature s/p 2010 excision, lupe- renal by report AICD (automatic cardioverter/defibrillator) present ? REASON...DECEMBER 2018 PLACED, FEW MONTHS AGO LAST CHECK History of colonoscopy with polypectomy adenomatous polyp, diverticulosis - Oct 2015 History of umbilical hernia repair History of orchiectomy R 2010 Family History Father Pulmonary embolism Sister Thyroid cancer Social History Smoking Status: Never smoker Second Hand Exposure: No; Do You Dip or Chew Tobacco: No; Hx Alcohol Use: Yes Alcohol type: beer Alcohol Intake Frequency: 4 or More x per/Week Hx Substance Use: No Preferred Language: Venezuelan Communication Ability: Effective Brick Pointer Required: No Beliefs That Will Affect Care: None marital status: Current Living Situation: Alone current occupational status: employed Feels Safe at Home: Yes Safety Concerns: Feels Safe At This Time Assistive Devices: None Allergies Allergies Allergy/AdvReac Type Severity Reaction Status Date / Time No Known Allergies Allergy Verified 11/20/24 19:21 Home Meds Home Medications Medication Instructions Recorded Confirmed aspirin 81 mg tablet,delayed 81 mg PO QAM 02/09/21 11/20/24 release furosemide 40 mg tablet 40 mg PO QAM 02/09/21 11/20/24 sacubitril 49 mg-valsartan 51 mg 1 tab PO QAM 12/04/21 11/20/24 tablet (Entresto) Previous Rx's Medication Instructions Recorded apixaban 5 mg tablet (Eliquis) 5 mg PO BID #60 tabs 03/15/24 folic acid 1 mg tablet 1 mg PO QAM #30 tabs 03/15/24 Results & Data (ED) Vital Signs Vital Signs - 24 hr 11/20/24 16:26 11/20/24 18:37 11/20/24 18:43 Temperature 36.3 C L 36.5 C Temperature Source Skin Oral Pulse Rate 84 77 Pulse Rate [Apical] 78 Pulse Rhythm [Apical] Regular Pulse Strength [Apical] Normal Respiratory Rate 22 18 Respiratory Effort / Characteristics Spontaneous Short of Breath Non-Labored Spontaneous Respiratory Depth Normal Normal Respiratory Pattern Regular Regular Blood Pressure 151/84 H Blood Pressure [Right Arm] 139/92 Blood Pressure Mean 106 Blood Pressure Mean [Right Arm] 107 Blood Pressure Position [Right Arm] Pulse Oximetry 92 88 L Oxygen Delivery Method Room Air Room Air Oxygen Flow Rate Sepsis Recent Fever Within 48 Hours No Sepsis New/Unexplained Change in Mental Status N/A Sepsis Action Taken by Nursing No Action Required 11/20/24 20:00 Temperature Temperature Source Pulse Rate Pulse Rate [Apical] 80 Pulse Rhythm [Apical] Pulse Strength [Apical] Respiratory Rate 18 Respiratory Effort / Characteristics Non-Labored Spontaneous Respiratory Depth Respiratory Pattern Blood Pressure Blood Pressure [Right Arm] 121/99 Blood Pressure Mean Blood Pressure Mean [Right Arm] 106 Blood Pressure Position [Right Arm] Sitting Pulse Oximetry 94 Oxygen Delivery Method Nasal Cannula Oxygen Flow Rate 2 Sepsis Recent Fever Within 48 Hours Sepsis New/Unexplained Change in Mental Status Sepsis Action Taken by Shelter Medications Current Medication List: was personally reviewed by me Laboratory Data Attestation: I reviewed the patient's lab results. 11/21/24 07:27 11/21/24 07:27 Lab Results 11/20/24 11/20/24 11/20/24 Range/Units 16:55 19:03 20:32 WBC 6.31 (4.8-10.8) K/ul RBC 4.57 L (4.70-6.10) M/uL Hgb 15.0 (14.0-18.0) g/dl Hct 46.9 (42.0-52.0) % MCV 102.6 H (80.0-100.0) fL MCH 32.8 (25.0-34.0) pg MCHC 32.0 (32.0-36.0) g/dL RDW Std Deviation 49.0 H (36.4-46.3) fL RDW Coeff of Juan 12.8 (11.5-14.5) % Plt Count 124 L (130-400) K/uL MPV 9.9 (9.4-12.4) fL Immature Gran % (Auto) 0.3 % Neut % (Auto) 80.7 % Lymph % (Auto) 8.7 % [place] % (Auto) 8.4 % Eos % (Auto) 1.4 % Baso % (Auto) 0.5 % Neut # (Auto) 5.09 (1.40-6.50) K/uL Lymph # (Auto) 0.55 L (1.20-3.40) K/uL [place] # (Auto) 0.53 (0.11-0.59) K/uL Eos # (Auto) 0.09 (0.00-0.50) K/uL Baso # (Auto) 0.03 (0.00-0.20) K/uL Immature Gran # (Auto) 0.02 (0.01-0.20) K/uL PT 11.8 (9.0-12.0) Seconds INR 1.1 (0.9-1.1) APTT 27 (21-31) Seconds PTT Ratio 1.0 D-Dimer 3040 H* (0-500) ug/L FEU Sodium 143 (136-145) mmol/L Potassium 4.3 (3.5-5.1) mmol/L Chloride 103 (98-107) mmol/L Carbon Dioxide 34 H (21-32) mmol/L Anion Gap 6 (3-11) BUN 23 (6-23) mg/dl Creatinine 1.37 (0.6-1.4) mg/dl Est Cr Clr Drug Dosing 67.1 ml/min eGFR 54.81 BUN/Creatinine Ratio 16.8 (10-20) Glucose 102 H (70-99(Fasting)) mg/dl Calcium 9.2 (8.6-10.3) mg/dl Total Bilirubin 1.1 H (0.2-1.0) mg/dl AST 21 (13-39) U/L ALT 20 (7-52) U/L Alkaline Phosphatase 62 (34-104) U/L Troponin I High Sens 62.0 H* 61.0 H* (0-20) pg/ml B-Natriuretic Peptide 302 H (0-100) pg/ml Total Protein 7.1 (6.0-8.3) gm/dl Albumin 4.0 (3.4-5.0) gm/dl Globulin 3.1 (2.5-4.0) gm/dl Albumin/Globulin Ratio 1.3 (0.9-2) Administered Medications Acetaminophen (Acetaminophen 325 Mg Tab) 650 mg PO Q4H PRN PRN Reason: Pain or Fever Stop: 12/20/24 21:31 Last Admin: 11/21/24 08:19 Dose: 650 mg Documented By: LETTYR Apixaban (Apixaban 5 Mg Tablet) 5 mg PO BID [facility] Stop: 12/20/24 21:31 Last Admin: 11/21/24 08:15 Dose: 5 mg Documented By: Admin: 11/20/24 22:23 Dose: 5 mg Documented By: MARLYS Aspirin (Aspirin 81 Mg Ectab) 81 mg PO [facility] Stop: 12/21/24 08:59 Last Admin: 11/21/24 08:15 Dose: 81 mg Documented By: LETTYR Folic Acid (Folic Acid 1 Mg Tab) 1 mg PO [facility] Stop: 12/21/24 08:59 Last Admin: 11/21/24 08:15 Dose: 1 mg Documented By: LETTYR Furosemide (Furosemide 40 Mg/4 Ml Vial) 80 mg IV BID [facility] Stop: 12/20/24 21:31 Last Admin: 11/21/24 08:56 Dose: 80 mg Documented By: Admin: 11/20/24 22:23 Dose: 80 mg Documented By: MARLYS Metoprolol Succinate (Metoprolol Succ 25mg Ext Rel Tab) 25 mg PO [facility] Stop: 12/21/24 10:14 Last Admin: 11/21/24 11:23 Dose: 25 mg Documented By: ARELI Sacubitril/Valsartan (Valsartan/Sacubitril 51/49 Mg Tab) 1 tab PO [facility] Stop: 12/21/24 08:59 Last Admin: 11/21/24 08:15 Dose: 1 tab Documented By: DLR Discontinued Medications Furosemide (Furosemide 40 Mg/4 Ml Vial) 60 mg IV ONE ONE Stop: 11/20/24 19:03 Last Admin: 11/20/24 19:17 Dose: 60 mg Documented By: GALEN Ioversol (Optiray 320 125ml) 119 ml IV ONCE ONE Stop: 11/20/24 23:05 Last Admin: 11/20/24 23:04 Dose: 119 ml Documented By: EAB Discharge Plan Visit Data Chief Complaint: Swelling/Edema to Extremity Stated Complaint: SWELLING OF EXTREMITIES, HAS PACE [employer]. ED Provider: Ismael Lyman Discharge Problem: Hypoxia, Elevated troponin, Noncompliance with medications, SOB (shortness of breath), Pedal edema Patient Disposition: Admitted As Inpatient Condition: Fair Discharge Instructions Interventions: ED Discharge Assessment Last Done: 11/20/24 21:15
--- NOTE | 2024-11-21 16:31 | Hospitalist Progress Note ---
Date of Service November 21, 2024 Assessment & Plan (1) Acute on chronic systolic heart failure: Plan: Lasix 80 mg BID Daily wts and I&Os Monitor electrolytes, keep K < 4 and Magnesium > 2 Echocardiogram obtained - EF 20-25%, severe global hypokinesis, severe biatrial enlargement Cardiology consulted - pt's meds resumed, cont. diuresis (2) Anasarca: Plan: Lasix as directed Monitor intake and output watch renal fxn. Stable on admission at 1.3 (3) CAD (coronary artery disease): Plan: Restarted home meds that he was supposed to be taking cardiology following (4) Noncompliance with medications: Plan: Restarted medications as directed (5) Elevated troponin: Plan: Suspect this is demand ischemia cardiology following (6) Shortness of breath: Plan: Probably secondary to heart failure exacerbation D-dimer elevated and CT PE study obtained - no PE (7) Permanent atrial fibrillation: Plan rate is controlled off the metoprolol Restarted metoprolol Monitor pulse and blood pressure Patient is a full code VTE prophylaxis: Restarted apixaban Admission and Anticipated Discharge Date Admission Date: November 20, 2024 Subjective Pt seen in follow up of hypoxia, acute on chronic CHF Currently sitting up in chair in [facility], on suppl. O2 Reports feeling somewhat better since admission Denies chest pain. no abd pain, n/v. Speaks in full sentences Reports having poor diet Review of Systems Review of Systems: All systems reviewed & are unremarkable except as noted in Subjective Physical Exam Physical Exam: General- obese M, chronically ill appearing, on suppl. O2 Head- atraumatic Eyes- PERRL, EOMI Neck- supple Lungs- Mild crackles in the bases Heart- irregularly irregular, syst. murmur Abdomen- soft, nontender, + obese, + bowel sounds Extremities- + bilateral lymphedema Neuro- alert, oriented, EOMI; no facial palsy; no dysarthria; moves extremities Skin- warm & dry Results & Data Results & Data Vital Signs (Past 12 Hours) Vital Signs Temp Pulse Pulse Resp BP Pulse Ox O2 Del Method 11/21/24 15:30 52 L 11/21/24 15:30 62 11/21/24 10:53 37 C 70 17 104/71 91 Nasal Cannula 11/21/24 08:08 Room Air 11/21/24 07:42 36.4 C L 78 19 128/80 93 Room Air O2 Flow Rate 11/21/24 15:30 11/21/24 15:30 11/21/24 10:53 2 11/21/24 08:08 11/21/24 07:42 Laboratory Results 11/21/24 11/20/24 11/20/24 Range/Units 07:27 21:42 20:32 WBC 6.04 7.50 (4.8-10.8) K/ul RBC 4.53 L 4.66 L (4.70-6.10) M/uL Hgb 14.3 14.7 (14.0-18.0) g/dl Hct 46.4 47.2 (42.0-52.0) % MCV 102.4 H 101.3 H (80.0-100.0) fL MCH 31.6 31.5 (25.0-34.0) pg MCHC 30.8 L 31.1 L (32.0-36.0) g/dL RDW Std Deviation 50.1 H 48.9 H (36.4-46.3) fL RDW Coeff of Juan 13.2 13.2 (11.5-14.5) % Plt Count 120 L 119 L (130-400) K/uL MPV 9.9 9.8 (9.4-12.4) fL Immature Gran % (Auto) % Neut % (Auto) % Lymph % (Auto) % [place] % (Auto) % Eos % (Auto) % Baso % (Auto) % Neut # (Auto) (1.40-6.50) K/uL Lymph # (Auto) (1.20-3.40) K/uL [place] # (Auto) (0.11-0.59) K/uL Eos # (Auto) (0.00-0.50) K/uL Baso # (Auto) (0.00-0.20) K/uL Immature Gran # (Auto) (0.01-0.20) K/uL PT (9.0-12.0) Seconds INR (0.9-1.1) APTT (21-31) Seconds PTT Ratio D-Dimer 3040 H* (0-500) ug/L FEU Sodium 143 142 (136-145) mmol/L Potassium 3.9 4.1 (3.5-5.1) mmol/L Chloride 101 102 (98-107) mmol/L Carbon Dioxide 35 H 34 H (21-32) mmol/L Anion Gap 7 6 (3-11) BUN 22 23 (6-23) mg/dl Creatinine 1.47 H 1.54 H (0.6-1.4) mg/dl Est Cr Clr Drug Dosing 63.5 61.4 ml/min eGFR 50.36 47.63 BUN/Creatinine Ratio 15.0 14.9 (10-20) Glucose 93 135 H (70-99(Fasting)) mg/dl Calcium 8.8 9.2 (8.6-10.3) mg/dl Phosphorus 4.9 (2.5-4.9) mg/dl Magnesium 1.8 1.9 (1.7-2.4) mg/dl Total Bilirubin (0.2-1.0) mg/dl AST (13-39) U/L ALT (7-52) U/L Alkaline Phosphatase (34-104) U/L Troponin I High Sens 60.2 H* 58.9 H* (0-20) pg/ml B-Natriuretic Peptide (0-100) pg/ml Total Protein (6.0-8.3) gm/dl Albumin (3.4-5.0) gm/dl Globulin (2.5-4.0) gm/dl Albumin/Globulin Ratio (0.9-2) 11/20/24 11/20/24 Range/Units 19:03 16:55 WBC 6.31 (4.8-10.8) K/ul RBC 4.57 L (4.70-6.10) M/uL Hgb 15.0 (14.0-18.0) g/dl Hct 46.9 (42.0-52.0) % MCV 102.6 H (80.0-100.0) fL MCH 32.8 (25.0-34.0) pg MCHC 32.0 (32.0-36.0) g/dL RDW Std Deviation 49.0 H (36.4-46.3) fL RDW Coeff of Juan 12.8 (11.5-14.5) % Plt Count 124 L (130-400) K/uL MPV 9.9 (9.4-12.4) fL Immature Gran % (Auto) 0.3 % Neut % (Auto) 80.7 % Lymph % (Auto) 8.7 % [place] % (Auto) 8.4 % Eos % (Auto) 1.4 % Baso % (Auto) 0.5 % Neut # (Auto) 5.09 (1.40-6.50) K/uL Lymph # (Auto) 0.55 L (1.20-3.40) K/uL [place] # (Auto) 0.53 (0.11-0.59) K/uL Eos # (Auto) 0.09 (0.00-0.50) K/uL Baso # (Auto) 0.03 (0.00-0.20) K/uL Immature Gran # (Auto) 0.02 (0.01-0.20) K/uL PT 11.8 (9.0-12.0) Seconds INR 1.1 (0.9-1.1) APTT 27 (21-31) Seconds PTT Ratio 1.0 D-Dimer (0-500) ug/L FEU Sodium 143 (136-145) mmol/L Potassium 4.3 (3.5-5.1) mmol/L Chloride 103 (98-107) mmol/L Carbon Dioxide 34 H (21-32) mmol/L Anion Gap 6 (3-11) BUN 23 (6-23) mg/dl Creatinine 1.37 (0.6-1.4) mg/dl Est Cr Clr Drug Dosing 67.1 ml/min eGFR 54.81 BUN/Creatinine Ratio 16.8 (10-20) Glucose 102 H (70-99(Fasting)) mg/dl Calcium 9.2 (8.6-10.3) mg/dl Phosphorus (2.5-4.9) mg/dl Magnesium (1.7-2.4) mg/dl Total Bilirubin 1.1 H (0.2-1.0) mg/dl AST 21 (13-39) U/L ALT 20 (7-52) U/L Alkaline Phosphatase 62 (34-104) U/L Troponin I High Sens 61.0 H* 62.0 H* (0-20) pg/ml B-Natriuretic Peptide 302 H (0-100) pg/ml Total Protein 7.1 (6.0-8.3) gm/dl Albumin 4.0 (3.4-5.0) gm/dl Globulin 3.1 (2.5-4.0) gm/dl Albumin/Globulin Ratio 1.3 (0.9-2) Medications Administered Current Inpatient Medications Acetaminophen (Acetaminophen 325 Mg Tab) 650 mg PO Q4H PRN PRN Reason: Pain or Fever Stop: 12/20/24 21:31 Last Admin: 11/21/24 08:19 Dose: 650 mg Apixaban (Apixaban 5 Mg Tablet) 5 mg PO BID [facility] Stop: 12/20/24 21:31 Last Admin: 11/21/24 08:15 Dose: 5 mg Aspirin ([facility] 81 Mg [facility]ctab) [facility] Stop: 12/21/24 08:59 Last Admin: 11/21/24 08:15 Dose: 81 mg Atorvastatin Calcium (Atorvastatin 40 Mg Tab) 80 mg PO QPM [facility] Stop: 12/21/24 20:59 Folic Acid (Folic Acid 1 Mg Tab) [facility] Stop: 12/21/24 08:59 Last Admin: 11/21/24 08:15 Dose: 1 mg Furosemide (Furosemide 40 Mg/4 Ml Vial) 80 mg IV BID [facility] Stop: 12/20/24 21:31 Last Admin: 11/21/24 08:56 Dose: 80 mg Magnesium Hydroxide (Magnesium Hydroxide Susp 30 Ml Udc) 30 ml PO Q12H PRN PRN Reason: Constipation Stop: 12/20/24 21:31 Magnesium Oxide (Magnesium Oxide 400 Mg Tab) 400 mg PO BID [facility] Stop: 12/21/24 16:34 Metoprolol Succinate (Metoprolol Succ 25mg Ext Rel Tab) 25 mg PO QAM [facility] Stop: 12/21/24 10:14 Last Admin: 11/21/24 11:23 Dose: 25 mg Nitroglycerin (Nitroglycerin Sl 0.4 Mg/Tab Tab) 0.4 mg SL Q5M PRN PRN Reason: Chest Pain Stop: 12/20/24 21:31 Ondansetron HCl (Ondansetron Inj 2 Mg/Ml 2 Ml Vial) 4 mg IV Q6H PRN PRN Reason: Nausea Stop: 12/20/24 21:31 Polyethylene Glycol (Polyethylene (Miralax) 17 Gm Pack) 17 gm PO DAILY PRN PRN Reason: Constipation Stop: 12/20/24 21:31 Sacubitril/Valsartan (Valsartan/Sacubitril 51/49 Mg Tab) 1 tab PO [facility] Stop: 12/21/24 08:59 Last Admin: 11/21/24 08:15 Dose: 1 tab (3) CAD (coronary artery disease) Associated angina: unspecified whether angina present Coronary Disease-Associ ated Artery/Lesion type: [place] artery [place] vs. transplanted heart: [place] heart Qualified Code(s): I25.10 - Atherosclerotic heart disease of [place] coronary artery without angina pectoris
[2024-11-21] MEDS: MAGNESIUM OXIDE 400 MG TAB PO SCH (17:40)
[2024-11-21] MEDS: ATORVASTATIN 40 MG TAB PO SCH (19:50)
[2024-11-21] MEDS ORDERED: ROSUVASTATIN CALCIUM 10 MG TAB PO SCH (21:00)
--- NOTE | 2024-11-22 07:17 | Hospitalist Progress Note ---
Date of Service November 22, 2024 Assessment & Plan (1) Acute on chronic systolic heart failure: Plan: Lasix 80 mg BID -> will decrease now to 60 IV daily (BP has been on lower side) Daily wts and I&Os Monitor electrolytes, keep K < 4 and Magnesium > 2 Echocardiogram obtained - EF 20-25%, severe global hypokinesis, severe biatrial enlargement Cardiology consulted - pt's meds resumed, cont. diuresis. Discussed, will decrease lasix as above NSVT also noted yesterday PM, pt asymptomatic (2) Anasarca: Plan: Lasix as directed Monitor intake and output watch renal fxn. Stable on admission at 1.3 (3) CAD (coronary artery disease): Plan: Restarted home meds that he was supposed to be taking cardiology following (4) Noncompliance with medications: Plan: Restarted medications as directed (5) Elevated troponin: Plan: Suspect this is demand ischemia cardiology following (6) Shortness of breath: Plan: Probably secondary to heart failure exacerbation D-dimer elevated and CT PE study obtained - no PE (7) Permanent atrial fibrillation: Plan rate is controlled off the metoprolol Restarted metoprolol Monitor pulse and blood pressure cardiology following Patient is a full code VTE prophylaxis: Restarted apixaban Admission and Anticipated Discharge Date Admission Date: November 20, 2024 Subjective Pt seen in follow up of hypoxia, acute on chronic CHF Currently sitting up in chair in NAD, on suppl. O2, eating lunch Reports feeling somewhat better since admission Denies chest pain. no abd pain, n/v. Speaks in full sentences Discussed w/ cardiology -> will decrease lasix to 60 iv daily, BP has been on lower side. Also NSVT noted yesterday late PM Review of Systems Review of Systems: All systems reviewed & are unremarkable except as noted in Subjective Physical Exam Physical Exam: General- obese M, chronically ill appearing, on suppl. O2 Head- atraumatic Eyes- PERRL, EOMI Neck- supple Lungs- Mild crackles b/l Heart- irregularly irregular, syst. murmur Abdomen- soft, nontender, + obese, + bowel sounds Extremities- + bilateral lymphedema Neuro- alert, oriented, EOMI; no facial palsy; no dysarthria; moves extremities Skin- warm & dry Results & Data Results & Data Vital Signs (Past 12 Hours) Vital Signs Temp Pulse Pulse Resp BP Pulse Ox O2 Del Method 11/22/24 03:17 36.8 C 72 18 113/78 96 Room Air 11/21/24 22:50 50 L 11/21/24 22:22 36.6 C 54 L 18 108/75 96 Nasal Cannula 11/21/24 20:05 96/59 L 11/21/24 19:45 36.5 C 46 L 18 100/62 98 Nasal Cannula 11/21/24 19:42 Nasal Cannula O2 Flow Rate 11/22/24 03:17 11/21/24 22:50 11/21/24 22:22 2 11/21/24 20:05 11/21/24 19:45 2 11/21/24 19:42 2 Laboratory Results 11/21/24 Range/Units 07:27 WBC 6.04 (4.8-10.8) K/ul RBC 4.53 L (4.70-6.10) M/uL Hgb 14.3 (14.0-18.0) g/dl Hct 46.4 (42.0-52.0) % MCV 102.4 H (80.0-100.0) fL MCH 31.6 (25.0-34.0) pg MCHC 30.8 L (32.0-36.0) g/dL RDW Std Deviation 50.1 H (36.4-46.3) fL RDW Coeff of Juan 13.2 (11.5-14.5) % Plt Count 120 L (130-400) K/uL MPV 9.9 (9.4-12.4) fL Sodium 143 (136-145) mmol/L Potassium 3.9 (3.5-5.1) mmol/L Chloride 101 (98-107) mmol/L Carbon Dioxide 35 H (21-32) mmol/L Anion Gap 7 (3-11) BUN 22 (6-23) mg/dl Creatinine 1.47 H (0.6-1.4) mg/dl Est Cr Clr Drug Dosing 63.5 ml/min eGFR 50.36 BUN/Creatinine Ratio 15.0 (10-20) Glucose 93 (70-99(Fasting)) mg/dl Calcium 8.8 (8.6-10.3) mg/dl Phosphorus 4.9 (2.5-4.9) mg/dl Magnesium 1.8 (1.7-2.4) mg/dl Troponin I High Sens 60.2 H* (0-20) pg/ml Medications Administered Current Inpatient Medications Acetaminophen (Acetaminophen 325 Mg Tab) 650 mg PO Q4H PRN PRN Reason: Pain or Fever Stop: 12/20/24 21:31 Last Admin: 11/21/24 08:19 Dose: 650 mg Apixaban (Apixaban 5 Mg Tablet) 5 mg PO BID [facility] Stop: 12/20/24 21:31 Last Admin: 11/21/24 19:50 Dose: 5 mg Aspirin (Aspirin 81 Mg Ectab) [facility] [place] Stop: 12/21/24 08:59 Last Admin: 11/21/24 08:15 Dose: 81 mg Atorvastatin Calcium (Atorvastatin 40 Mg Tab) 80 mg PO QPM [facility] Stop: 12/21/24 20:59 Last Admin: 11/21/24 19:50 Dose: 80 mg Folic Acid (Folic Acid 1 Mg Tab) [facility] [place] Stop: 12/21/24 08:59 Last Admin: 11/21/24 08:15 Dose: 1 mg Furosemide (Furosemide 40 Mg/4 Ml Vial) 80 mg IV BID [facility] Stop: 12/20/24 21:31 Last Admin: 11/21/24 21:19 Dose: Not Given Magnesium Hydroxide (Magnesium Hydroxide Susp 30 Ml Udc) 30 ml PO Q12H PRN PRN Reason: Constipation Stop: 12/20/24 21:31 Magnesium Oxide (Magnesium Oxide 400 Mg Tab) 400 mg PO BID [facility] Stop: 12/21/24 16:34 Last Admin: 11/21/24 19:50 Dose: 400 mg Metoprolol Succinate (Metoprolol Succ 25mg Ext Rel Tab) 25 mg PO QAM [facility] Stop: 12/21/24 10:14 Last Admin: 11/21/24 11:23 Dose: 25 mg Nitroglycerin (Nitroglycerin Sl 0.4 Mg/Tab Tab) 0.4 mg SL Q5M PRN PRN Reason: Chest Pain Stop: 12/20/24 21:31 Ondansetron HCl (Ondansetron Inj 2 Mg/Ml 2 Ml Vial) 4 mg IV Q6H PRN PRN Reason: Nausea Stop: 12/20/24 21:31 Polyethylene Glycol (Polyethylene (Miralax) 17 Gm Pack) 17 gm PO DAILY PRN PRN Reason: Constipation Stop: 12/20/24 21:31 Sacubitril/Valsartan (Valsartan/Sacubitril 51/49 Mg Tab) 1 tab PO QAM [facility] Stop: 12/21/24 08:59 Last Admin: 11/21/24 08:15 Dose: 1 tab (3) CAD (coronary artery disease) Associated angina: unspecified whether angina present Coronary Disease- Associated Artery/Lesion type: [place] artery [place] vs. transplanted heart: [place] heart Qualified Code(s): I25.10 - Atherosclerotic heart disease of [place] coronary artery without angina pectoris
[2024-11-22 08:23] LABS: Hematocrit (blood only) 46.9 % (42.0-52.0); Hemoglobin 14.8 g/dl (14.0-18.0); Mean Corpuscular Hemoglobin 32.5 pg (25.0-34.0); Mean Corpuscular Hgb Conc 31.6 g/dL (32.0-36.0); Mean Corpuscular Volume 103.1 fL (80.0-100.0); Mean Platelet Volume 10.2 fL (9.4-12.4); Platelet Count 133 K/uL (130-400); RDW Coefficient of Variation 12.8 % (11.5-14.5); RDW Standard Deviation 49.1 fL (36.4-46.3); Red Blood Count 4.55 M/uL (4.70-6.10); White Blood Count 6.64 K/ul (4.8-10.8)
[2024-11-22 08:31] LABS: Albumin Globulin Ratio 1.2 (0.9-2); Albumin Level 3.5 gm/dl (3.4-5.0); BUN Creatinine Ratio 17.3 (10-20); Bilirubin,Total 1.2 mg/dl (0.2-1.0); Calcium 8.6 mg/dl (8.6-10.3); Creatinine Clr Calc Pharmacy 55.4 ml/min; Globulin 2.9 gm/dl (2.5-4.0); Phosphorus 3.7 mg/dl (2.5-4.9); Potassium 4.1 mmol/L (3.5-5.1); Total Protein 6.4 gm/dl (6.0-8.3)
--- NOTE | 2024-11-22 14:18 | Cardiology Progress Note ---
Date of Service November 22, 2024 Assessment & Plan (1) Acute on chronic systolic heart failure: (2) Noncompliance with medications: (3) CAD (coronary artery disease): (4) Atrial fibrillation with controlled ventricular rate: Plan 11/21/24 Patient admitted with acute on chronic HFrEF after non compliance with home medications and diet over the last few months. Long history of ischemic cardiomyopathy, known severe LVEF 20-25% per last echo 6 months ago, s/p primary prevention ICD, chronic afib with controlled rates and non compliance with medications and follow up appointments. Patient started on IV furosemide 80 mg BID on admission. Continue current dose. Good urine outputs thus far. Monitor I+O's Daily weight with standing scale Monitor renal function and electrolytes In regards to atrial fibrillation - Resume Eliquis 5 mg BID and metoprolol succinate 25 mg daily. Will send message to [facility] clinic, as patient thinks his karolina for coverage "ran out". He previously had 0 copay for his medications. Known CAD/ischemic cardiomyopathy with LVEF 20-25%. ICD in place. -no anginal complaints -HS troponin minimally elevated, consistent with acute HFrEF exacerbation. Not indicative of ACS. -continue ASA -Resume atorvastatin 80 mg daily -Resume Entresto -resume metoprolol 11/22/24: Patient diuresing over the last 24 hours. Negative 5.3 L since admission. weight trending downward. He has been slightly hypotensive. Diuretics reduced to furosemide 60 mg IV daily. continue to monitor I+O's renal function relatively table. Consider resumption of oral diuretics tomorrow. Previously on furosemide 40 mg daily. May need higher dose as outpatient. Per review of outpatient med list, patient was taking Entresto 24-26 BID previously Placed on higher dose on admission, possibly contributing to his hypotension Reduce to 24-26 mg dose tonight. Continue metoprolol succinate 25 mg daily History of non sustained VT. Has ICD in place Continue metoprolol. monitor electrolytes Chronic afib - continue Eliquis and metoprolol Long discussion today with patient about compliance with medications and follow up appts. Case discussed with Dr. Estrada I spent a total of 30 minutes on the date of service in preparation, delivery, and documentation of the care provided to this patient, excluding any time spent in the performance of separately billed services. Lala Peralta PA-C Department of Cardiology, [facility] This chart was completed in part utilizing Speech Voice Recognition Software. Grammatical errors, random word insertions, pronoun errors, and incomplete sentences are an occasional consequence of this system due to software limi tations, ambient noise, and hardware issues. Any formal questions or concerns about the content, text, or information contained within the body of this dictation should be directly addressed to the provider for clarification. Admission and Anticipated Discharge Date Admission Date: November 20, 2024 Supervising Physician Co-Signing Physician Notes Attending attestation: Case reviewed with the advanced practitioner. I have personally performed a history and physical examination on the patient. I have reviewed the advanced practitioner's documentation on the date of service referenced in note, and I agree with, and take responsibility for the plan of care. I spent a total of 20 minutes coordinating, documenting, and providing care for this patient excluding time spent in the performance of separately billed services or time spent by another provider. Sriram Estrada, DO Subjective Patient ambulating in room without issue. Reports his breathing has improved but not yet at baseline. He thinks he is still up about 10 lbs above his baseline weight. Diuresing well. No chest pain. Yesterday he had episode of hypotension, but was asymptomatic. he also had 18 beat run of non sustained VT around 16:21 and was asymptomatic. Review of Systems Review of Systems: All systems reviewed & are unremarkable except as noted in HPI & below Physical Exam Constitutional: WD/WN, vitals as above no acute distress Neck: + thick neck Respiratory: no respiratory distress Auscultation: + diminished lung sounds; no crackles and no rales Cardiovascular: Rate/Rhythm: + irregularly irregular Heart Sounds: + murmur (II/ systolic murmur) Vessels: no JVD Extremities: + edema (2+ LE edema with chronic venous stasis) Gastrointestinal (Abdomen): normal bowel sounds, soft, nontender, no hepatosplenomegaly Neurologic: PERRL, EOMI, accommodation nl, no face palsy, no dysarthria Results & Data Vital Signs (Past 12 Hours) Vital Signs Temp Pulse Resp BP Pulse Ox O2 Del Method O2 Flow Rate 11/22/24 10:50 36.6 C 62 18 99/57 L 90 Nasal Cannula 4 11/22/24 08:00 Nasal Cannula 2 11/22/24 07:46 36.7 C 66 18 100/65 93 Nasal Cannula 11/22/24 03:17 36.8 C 72 18 113/78 96 Room Air Laboratory Results Cardiac Enzymes 11/22/24 Range/Units 07:58 AST 17 (13-39) U/L CBC 11/22/24 Range/Units 07:58 WBC 6.64 (4.8-10.8) K/ul RBC 4.55 L (4.70-6.10) M/uL Hgb 14.8 (14.0-18.0) g/dl Hct 46.9 (42.0-52.0) % Plt Count 133 (130-400) K/uL Comprehensive Metabolic Panel 11/22/24 Range/Units 07:58 Sodium 142 (136-145) mmol/L Potassium 4.1 (3.5-5.1) mmol/L Chloride 100 (98-107) mmol/L Carbon Dioxide 37 H (21-32) mmol/L BUN 29 H (6-23) mg/dl Creatinine 1.68 H (0.6-1.4) mg/dl Glucose 140 H (70-99(Fasting)) mg/dl Calcium 8.6 (8.6-10.3) mg/dl AST 17 (13-39) U/L ALT 15 (7-52) U/L Alkaline Phosphatase 58 (34-104) U/L Total Protein 6.4 (6.0-8.3) gm/dl Albumin 3.5 (3.4-5.0) gm/dl Intake and Output 11/21/24 11/22/24 11/22/24 22:59 06:59 14:59 Intake Total 240 / 240 Output Total 2150 / 2450 300 / 2450 Balance -2150 / -2210 -60 / -2210 Intake: Oral 240 / 240 Output: Urine 2150 / 2450 300 / 2450 Other: Weight 136.8 kg Weight Measurement Method Standing Scale Diagnostic Findings Telemetry reviewed: Afib wiht controlled rates. Intermittent ventricular pacing. 18 beat run of non sustained VT at 16:21 yesterday. Patient was asymptomatic according to nurses Medications Administered Current Inpatient Medications Acetaminophen (Acetaminophen 325 Mg Tab) 650 mg PO Q4H PRN PRN Reason: Pain or Fever Stop: 12/20/24 21:31 Last Admin: 11/21/24 08:19 Dose: 650 mg Apixaban (Apixaban 5 Mg Tablet) 5 mg PO BID [facility] Stop: 12/20/24 21:31 Last Admin: 11/22/24 08:12 Dose: 5 mg Aspirin (Aspirin 81 Mg Ectab) 81 mg PO QAM [facility] Stop: 12/21/24 08:59 Last Admin: 11/22/24 08:12 Dose: 81 mg Atorvastatin Calcium (Atorvastatin 40 Mg Tab) 80 mg PO QPM [facility] Stop: 12/21/24 20:59 Last Admin: 11/21/24 19:50 Dose: 80 mg Folic Acid (Folic Acid 1 Mg Tab) [facility] Stop: 12/21/24 08:59 Last Admin: 11/22/24 08:13 Dose: 1 mg Furosemide (Furosemide 40 Mg/4 Ml Vial) 60 mg IV DAILY [facility] Stop: 12/23/24 08:59 Magnesium Hydroxide (Magnesium Hydroxide Susp 30 Ml Udc) 30 ml PO Q12H PRN PRN Reason: Constipation Stop: 12/20/24 21:31 Magnesium Oxide (Magnesium Oxide 400 Mg Tab) 400 mg PO BID [facility] Stop: 12/21/24 16:34 Last Admin: 11/22/24 08:13 Dose: 400 mg Metoprolol Succinate (Metoprolol Succ 25mg Ext Rel Tab) 25 mg PO [facility] Stop: 12/21/24 10:14 Last Admin: 11/22/24 08:13 Dose: 25 mg Nitroglycerin (Nitroglycerin Sl 0.4 Mg/Tab Tab) 0.4 mg SL Q5M PRN PRN Reason: Chest Pain Stop: 12/20/24 21:31 Ondansetron HCl (Ondansetron Inj 2 Mg/Ml 2 Ml Vial) 4 mg IV Q6H PRN PRN Reason: Nausea Stop: 12/20/24 21:31 Polyethylene Glycol (Polyethylene (Miralax) 17 Gm Pack) 17 gm PO DAILY PRN PRN Reason: Constipation Stop: 12/20/24 21:31 Sacubitril/Valsartan (Valsartan/Sacubitril 51/49 Mg Tab) 1 [facility] Stop: 12/21/24 08:59 Last Admin: 11/22/24 08:13 Dose: 1 tab (3) CAD (coronary artery disease) Associated angina: unspecified whether angina present Coronary Disease- Associated Artery/Lesion type: [place] artery [place] vs. transplanted heart: [place] heart Qualified Code(s): I25.10 - Atherosclerotic heart disease of [place] coronary artery without angina pectoris
--- NOTE | 2024-11-22 14:50 | Electrocardiogram Report ---
Test Reason : Blood Pressure : */* mmHG Vent. Rate : 57 BPM Atrial Rate : * BPM P-R Int : * ms QRS Dur : 108 ms QT Int : 484 ms P-R-T Axes : * -71 40 degrees QTcB Int : 471 ms Atrial fibrillation with slow ventricular response Left axis deviation Inferior infarct (cited on or before 11-Oct-2018) Anterolateral infarct (cited on or before 11-Oct-2018) Abnormal ECG When compared with ECG of 20-Nov-2024 16:34, No significant change Confirmed by Ambrocio Aleman [id number]) on 11/22/2024 2:50:36 PM Referred By: REFERRED SELF Confirmed By: Ambrocio Aleman
[2024-11-22] MEDS: VALSARTAN/SACUBITRIL 26/24MG TAB PO SCH (20:08)
[2024-11-22] MEDS: MELATONIN 3 MG TAB PO PRN (23:01)
[2024-11-23 07:29] LABS: Hematocrit (blood only) 46.4 % (42.0-52.0); Hemoglobin 14.4 g/dl (14.0-18.0); Mean Corpuscular Hemoglobin 32.1 pg (25.0-34.0); Mean Corpuscular Volume 103.3 fL (80.0-100.0); Mean Platelet Volume 10.2 fL (9.4-12.4); Platelet Count 121 K/uL (130-400); RDW Coefficient of Variation 12.8 % (11.5-14.5); RDW Standard Deviation 49.2 fL (36.4-46.3); Red Blood Count 4.49 M/uL (4.70-6.10); White Blood Count 6.24 K/ul (4.8-10.8)
[2024-11-23 07:49] LABS: BUN Creatinine Ratio 18.8 (10-20); Calcium 8.7 mg/dl (8.6-10.3); Creatinine Clr Calc Pharmacy 48.5 ml/min; Magnesium 2.2 mg/dl (1.7-2.4); Phosphorus 3.7 mg/dl (2.5-4.9); Potassium 4.4 mmol/L (3.5-5.1)
--- NOTE | 2024-11-23 08:25 | Hospitalist Progress Note ---
Date of Service November 23, 2024 Assessment & Plan (1) Acute on chronic systolic heart failure: Plan: Lasix 80 mg BID -> decreased to 60 IV daily (BP has been on lower side). IV lasix stopped, plan to resume PO tmrw Daily wts and I&Os Monitor electrolytes, keep K > 4 and Magnesium > 2 Echocardiogram obtained - EF 20-25%, severe global hypokinesis, severe biatrial enlargement Cardiology consulted - pt's meds resumed, switch to home po lasix tmrw. Repeated CXR today - w/o vasc. congestion -> likely copd component NSVT - pt asymptomatic - has ICD - cont. metoprolol Poss. COPD exacerb. - CXR today repeated, discussed w/ cardiology, pt still hypoxic, lungs w/o vasc. congestion - pt seems euvolemic at this time - will start steroid and azithromycin for poss. copd exacer. - pt will need 2 step prior to DC (2) Anasarca: Plan: Lasix as above, now pt seems euvolemic Monitor intake and output watch renal fxn. Stable on admission at 1.3 (3) CAD (coronary artery disease): Plan: Restarted home meds that he was supposed to be taking cardiology following (4) Noncompliance with medications: Plan: Restarted medications as directed (5) Elevated troponin: Plan: Suspect this is demand ischemia cardiology following (6) Shortness of breath: Plan: Probably secondary to heart failure exacerbation, as above component of copd exacerb. D-dimer elevated and CT PE study obtained - no PE (7) Permanent atrial fibrillation: Plan rate is controlled off the metoprolol Restarted metoprolol Monitor pulse and blood pressure cardiology following Patient is a full code VTE prophylaxis: Restarted apixaban Admission and Anticipated Discharge Date Admission Date: November 20, 2024 Subjective Pt seen in follow up of hypoxia, acute on chronic CHF, poss. copd exacerb as well Currently laying in bed in NAD, on suppl. O2 Reports feeling somewhat better since admission Denies chest pain. no abd pain, n/v. Speaks in full sentences Discussed w/ cardiology -> stopping iv lasix and resuming po tmrw, BP has been on lower side Repeated CXR today - w/o vasc. congestion - may have copd component Review of Systems Review of Systems: All systems reviewed & are unremarkable except as noted in Subjective Physical Exam Physical Exam: General- obese M, chronically ill appearing, on suppl. O2 Head- atraumatic Eyes- PERRL, EOMI Neck- supple Lungs- Mild crackles b/l Heart- irregularly irregular, syst. murmur Abdomen- soft, nontender, + obese, + bowel sounds Extremities- + bilateral lymphedema (chronic) Neuro- alert, oriented, EOMI; no facial palsy; no dysarthria; moves extremities Skin- warm & dry Results & Data Results & Data Vital Signs (Past 12 Hours) Vital Signs Temp Pulse Pulse Resp BP Pulse Ox O2 Del Method 11/23/24 07:40 36.8 C 85 21 106/71 92 Nasal Cannula 11/23/24 03:24 36.8 C 77 18 111/64 94 Room Air 11/22/24 22:48 36.7 C 65 18 105/73 94 Room Air 11/22/24 21:46 52 L 11/22/24 20:49 100/68 O2 Flow Rate 11/23/24 07:40 4 11/23/24 03:24 11/22/24 22:48 11/22/24 21:46 11/22/24 20:49 Laboratory Results 11/23/24 11/22/24 Range/Units 06:40 07:58 WBC 6.24 (4.8-10.8) K/ul RBC 4.49 L (4.70-6.10) M/uL Hgb 14.4 (14.0-18.0) g/dl Hct 46.4 (42.0-52.0) % MCV 103.3 H (80.0-100.0) fL MCH 32.1 (25.0-34.0) pg MCHC 31.0 L (32.0-36.0) g/dL RDW Std Deviation 49.2 H (36.4-46.3) fL RDW Coeff of Juan 12.8 (11.5-14.5) % Plt Count 121 L (130-400) K/uL MPV 10.2 (9.4-12.4) fL Sodium 142 142 (136-145) mmol/L Potassium 4.4 4.1 (3.5-5.1) mmol/L Chloride 100 100 (98-107) mmol/L Carbon Dioxide 36 H 37 H (21-32) mmol/L Anion Gap 6 5 (3-11) BUN 36 H 29 H (6-23) mg/dl Creatinine 1.92 H 1.68 H (0.6-1.4) mg/dl Est Cr Clr Drug Dosing 48.5 55.4 ml/min eGFR 36.56 42.91 BUN/Creatinine Ratio 18.8 17.3 (10-20) Glucose 122 H 140 H (70-99(Fasting)) mg/dl Calcium 8.7 8.6 (8.6-10.3) mg/dl Phosphorus 3.7 3.7 D (2.5-4.9) mg/dl Magnesium 2.2 2.0 (1.7-2.4) mg/dl Total Bilirubin 1.2 H (0.2-1.0) mg/dl AST 17 (13-39) U/L ALT 15 (7-52) U/L Alkaline Phosphatase 58 (34-104) U/L Total Protein 6.4 (6.0-8.3) gm/dl Albumin 3.5 (3.4-5.0) gm/dl Globulin 2.9 (2.5-4.0) gm/dl Albumin/Globulin Ratio 1.2 (0.9-2) Medications Administered Current Inpatient Medications Acetaminophen (Acetaminophen 325 Mg Tab) 650 mg PO Q4H PRN PRN Reason: Pain or Fever Stop: 12/20/24 21:31 Last Admin: 11/21/24 08:19 Dose: 650 mg Apixaban (Apixaban 5 Mg Tablet) 5 mg PO BID [facility] Stop: 12/20/24 21:31 Last Admin: 11/22/24 20:44 Dose: 5 mg Aspirin (Aspirin 81 Mg Ectab) 81 mg PO QAM [facility] Stop: 12/21/24 08:59 Last Admin: 11/22/24 08:12 Dose: 81 mg Atorvastatin Calcium (Atorvastatin 40 Mg Tab) 80 mg PO QPM [facility] Stop: 12/21/24 20:59 Last Admin: 11/22/24 20:43 Dose: 80 mg Folic Acid (Folic Acid 1 Mg Tab) 1 mg PO QAM [facility] Stop: 12/21/24 08:59 Last Admin: 11/22/24 08:13 Dose: 1 mg Furosemide (Furosemide 40 Mg/4 Ml Vial) 60 mg IV DAILY [facility] Stop: 12/23/24 08:59 Magnesium Hydroxide (Magnesium Hydroxide Susp 30 Ml Udc) 30 ml PO Q12H PRN PRN Reason: Constipation Stop: 12/20/24 21:31 Magnesium Oxide (Magnesium Oxide 400 Mg Tab) 400 mg PO BID [facility] Stop: 12/21/24 16:34 Last Admin: 11/22/24 20:43 Dose: 400 mg Melatonin (Melatonin 3 Mg Tab) 3 mg PO HS PRN PRN Reason: Sleep Stop: 12/22/24 22:50 Last Admin: 11/22/24 23:01 Dose: 3 mg Metoprolol Succinate (Metoprolol Succ 25mg Ext Rel Tab) 25 mg PO QAM [facility] Stop: 12/21/24 10:14 Last Admin: 11/22/24 08:13 Dose: 25 mg Nitroglycerin (Nitroglycerin Sl 0.4 Mg/Tab Tab) 0.4 mg SL Q5M PRN PRN Reason: Chest Pain Stop: 12/20/24 21:31 Ondansetron HCl (Ondansetron Inj 2 Mg/Ml 2 Ml Vial) 4 mg IV Q6H PRN PRN Reason: Nausea Stop: 12/20/24 21:31 Polyethylene Glycol (Polyethylene (Miralax) 17 Gm Pack) 17 gm PO DAILY PRN PRN Reason: Constipation Stop: 12/20/24 21:31 Sacubitril/Valsartan (Valsartan/Sacubitril 26/24mg Tab) 1 tab PO BID [facility] Stop: 12/22/24 20:59 Last Admin: 11/22/24 20:08 Dose: Not Given (3) CAD (coronary artery disease) Associated angina: unspecified whether angina present Coronary Disease- Associated Artery/Lesion type: [place] artery [place] vs. transplanted heart: [place] heart Qualified Code(s): I25.10 - Atherosclerotic heart disease of [place] coronary artery without angina pectoris
[2024-11-23] MEDS ORDERED: FUROSEMIDE 40 MG/4 ML VIAL IV SCH (09:00)
--- NOTE | 2024-11-23 09:39 | XRay Report ---
XR chest 2V PA/lateral HISTORY: 74 years-old Male follow up hypoxia acute shortness of breath COMPARISON: CT chest 11/20/2024 TECHNIQUE: AP view the chest FINDINGS: Cardiac silhouette is enlarged. Left subclavian pacer/ICD. No pneumothorax, pleural effusion or pulmo nary edema. Mild lateral left mid lung atelectasis/scarring. Bones appear grossly intact. Upper abdom inal surgical clips. IMPRESSION: Cardiomegaly without acute process. ACT 112: Negative or not required by law. The above report was generated using voice recognition software. It may contain grammatical, syntax o r spelling errors. Electronically signed by: Heath Tabares M.D. 11/23/2024 9:38 AM
--- NOTE | 2024-11-23 12:58 | Cardiology Progress Note ---
Date of Service November 23, 2024 Assessment & Plan (1) Acute on chronic systolic heart failure: (2) Noncompliance with medications: (3) CAD (coronary artery disease): (4) Atrial fibrillation with controlled ventricular rate: Plan 11/21/24 Patient admitted with acute on chronic HFrEF after non compliance with home medications and diet over the last few months. Long history of ischemic cardiomyopathy, known severe LVEF 20-25% per last echo 6 months ago, s/p primary prevention ICD, chronic afib with controlled rates and non compliance with medications and follow up appointments. Patient started on IV furosemide 80 mg BID on admission. Continue current dose. Good urine outputs thus far. Monitor I+O's Daily weight with standing scale Monitor renal function and electrolytes In regards to atrial fibrillation - Resume Eliquis 5 mg BID and metoprolol succinate 25 mg daily. Will send message to [facility] clinic, as patient thinks his karolina for coverage "ran out". He previously had 0 copay for his medications. Known CAD/ischemic cardiomyopathy with LVEF 20-25%. ICD in place. -no anginal complaints -HS troponin minimally elevated, consistent with acute HFrEF exacerbation. Not indicative of ACS. -continue ASA -Resume atorvastatin 80 mg daily -Resume Entresto -resume metoprolol 11/22/24: Patient diuresing over the last 24 hours. Negative 5.3 L since admission. weight trending downward. He has been slightly hypotensive. Diuretics reduced to furosemide 60 mg IV daily. continue to monitor I+O's renal function relatively table. Consider resumption of oral diuretics tomorrow. Previously on furosemide 40 mg daily. May need higher dose as outpatient. Per review of outpatient med list, patient was taking Entresto 24-26 BID previously Placed on higher dose on admission, possibly contributing to his hypotension Reduce to 24-26 mg dose tonight. Continue metoprolol succinate 25 mg daily History of non sustained VT. Has ICD in place Continue metoprolol. monitor electrolytes Chronic afib - continue Eliquis and metoprolol Long discussion today with patient about compliance with medications and follow up appts. 11/23/24: Patient has diuresed over the last several days. Unfortunately creatinine has risen each day, now 1.9. He is also having intermittent hypotension. His lungs are clear and chest xray is clear without pulm edema/pleural effusions. IV diuretics held today He appears euvolemic at this time. Transition back to oral furosemide tomorrow. He was taking furosemide 40 mg daily and will resume on discharge. Long discussion today about dietary indiscretions, daily weight and taking an additional furosemide as needed for weight gain of 3-5 lbs overnight Ongoing hypoxia noted. He has underlying COPD and apparently was told several years ago he needed oxygen but refused. He reports he will refuse oxygen on discharge this time as well. At this time, no further cardiac testing or treatment recommended. Will sign off. 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 Case discussed with Dr. Estrada I spent a total of 30 minutes on the date of service in preparation, delivery, and documentation of the care provided to this patient, excluding any time spent in the performance of separately billed services. Lala Peralta PA-C Department of Cardiology, [facility] This chart was completed in part utilizing Speech Voice Recognition Software. Grammatical errors, random word insertions, pronoun errors, and incomplete sentences are an occasional consequence of this system due to software limitations, ambient noise, and hardware issues. Any formal questions or concerns about the content, text, or information contained within the body of this dictation should be directly addressed to the provider for clarification. Admission and Anticipated Discharge Date Admission Date: November 20, 2024 Supervising Physician Co-Signing Physician Notes Attending attestation: Case reviewed with the advanced practitioner. I have personally performed a history and physical examination on the patient. I have reviewed the advanced practitioner's documentation on the date of service referenced in note, and I agree with, and take responsibility for the plan of care. Resume oral furosemide 40 mg daily tomorrow. Efforts underway to help patient obtain Entresto as outpatient. I spent a total of 20 minutes coordinating, documenting, and providing care for this patient excluding time spent in the performance of separately billed services or time spent by another provider. Sriram Estrada, DO Subjective Patient resting in bed comfortably. SOB at baseline. Edema improved. No chest pain. Patient had recurrent hypotension last night and this morning after IV diuresis. His creatinine is also climbing. repeat chest xray this morning was clear. Review of Systems Review of Systems: All systems reviewed & are unremarkable except as noted in HPI & below Physical Exam Constitutional: WD/WN, vitals as above no acute distress Neck: + thick neck Respiratory: no respiratory distress Auscultation: + diminished lung sounds; no crackles and no rales Cardiovascular: Rate/Rhythm: + irregularly irregular Heart Sounds: + murmur (II/ systolic murmur) Vessels: no JVD Extremities: + edema (No s ignificant pitting edema chronic venous stasis) Gastrointestinal (Abdomen): normal bowel sounds, soft, nontender, no hepatosplenomegaly Neurologic: PERRL, EOMI, accommodation nl, no face palsy, no dysarthria Results & Data Vital Signs (Past 12 Hours) Vital Signs Temp Pulse Resp BP Pulse Ox O2 Del Method O2 Flow Rate 11/23/24 11:18 36.3 C L 63 22 108/72 93 Nasal Cannula 4 11/23/24 08:00 Nasal Cannula 11/23/24 07:40 36.8 C 85 21 106/71 92 Nasal Cannula 4 11/23/24 03:24 36.8 C 77 18 111/64 94 Room Air Laboratory Results CBC 11/23/24 Range/Units 06:40 WBC 6.24 (4.8-10.8) K/ul RBC 4.49 L (4.70-6.10) M/uL Hgb 14.4 (14.0-18.0) g/dl Hct 46.4 (42.0-52.0) % Plt Count 121 L (130-400) K/uL Comprehensive Metabolic Panel 11/23/24 Range/Units 06:40 Sodium 142 (136-145) mmol/L Potassium 4.4 (3.5-5.1) mmol/L Chloride 100 (98-107) mmol/L Carbon Dioxide 36 H (21-32) mmol/L BUN 36 H (6-23) mg/dl Creatinine 1.92 H (0.6-1.4) mg/dl Glucose 122 H (70-99(Fasting)) mg/dl Calcium 8.7 (8.6-10.3) mg/dl Intake and Output 11/22/24 11/23/24 11/23/24 22:59 06:59 14:59 Output Total 100 / 1101 601 / 1101 150 / 150 Balance -100 / -421 -601 / -421 -150 / -150 Output: Urine 100 / 1100 600 / 1100 150 / 150 # Bowel Movements Other: Weight 137 kg Weight Measurement Method Standing Scale Diagnostic Findings Telemetry reviewed: Atrial fib, with controlled rates. Intermittent ventricular pacing. Chest xray reviewed from this morning: Clear Medications Administered Current Inpatient Medications Acetaminophen (Acetaminophen 325 Mg Tab) 650 mg PO Q4H PRN PRN Reason: Pain or Fever Stop: 12/20/24 21:31 Last Admin: 11/21/24 08:19 Dose: 650 mg Apixaban (Apixaban 5 Mg Tablet) 5 mg PO BID [facility] Stop: 12/20/24 21:31 Last Admin: 11/23/24 08:55 Dose: 5 mg Aspirin (Aspirin 81 Mg Ectab) 81 mg PO QAM [facility] Stop: 12/21/24 08:59 Last Admin: 11/23/24 08:55 Dose: 81 mg Atorvastatin Calcium (Atorvastatin 40 Mg Tab) 80 mg PO QPM [facility] Stop: 12/21/24 20:59 Last Admin: 11/22/24 20:43 Dose: 80 mg Folic Acid (Folic Acid 1 Mg Tab) 1 mg PO QAM [facility] Stop: 12/21/24 08:59 Last Admin: 11/23/24 08:55 Dose: 1 mg Furosemide (Furosemide 40 Mg/4 Ml Vial) 60 mg IV DAILY [facility] Stop: 12/23/24 08:59 Magnesium Hydroxide (Magnesium Hydroxide Susp 30 Ml Udc) 30 ml PO Q12H PRN PRN Reason: Constipation Stop: 12/20/24 21:31 Magnesium Oxide (Magnesium Oxide 400 Mg Tab) 400 mg PO BID [facility] Stop: 12/21/24 16:34 Last Admin: 11/23/24 08:55 Dose: 400 mg Melatonin (Melatonin 3 Mg Tab) 3 mg PO HS PRN PRN Reason: Sleep Stop: 12/22/24 22:50 Last Admin: 11/22/24 23:01 Dose: 3 mg Metoprolol Succinate (Metoprolol Succ 25mg Ext Rel Tab) 25 mg PO QAM [facility] Stop: 12/21/24 10:14 Last Admin: 11/23/24 08:55 Dose: 25 mg Nitroglycerin (Nitroglycerin Sl 0.4 Mg/Tab Tab) 0.4 mg SL Q5M PRN PRN Reason: Chest Pain Stop: 12/20/24 21:31 Ondansetron HCl (Ondansetron Inj 2 Mg/Ml 2 Ml Vial) 4 mg IV Q6H PRN PRN Reason: Nausea Stop: 12/20/24 21:31 Polyethylene Glycol (Polyethylene (Miralax) 17 Gm Pack) 17 gm PO DAILY PRN PRN Reason: Constipation Stop: 12/20/24 21:31 Sacubitril/Valsartan (Valsartan/Sacubitril 26/24mg Tab) 1 tab PO BID [facility] Stop: 12/22/24 20:59 Last Admin: 11/23/24 08:56 Dose: 1 tab (3) CAD (coronary artery disease) Associated angina: unspecified whether angina present Coronary Disease- Associated Artery/Lesion type: [place] artery [place] vs. transplanted heart: [place] heart Qualified Code(s): I25.10 - Atherosclerotic heart disease of [place] coronary artery without angina pectoris
[2024-11-23] MEDS ORDERED: methylPREDNISolone 125 MG/2 ML VIAL IV ONE (13:35)
[2024-11-23] MEDS: AZITHROMYCIN 250 MG TAB PO SCH (14:35)
[2024-11-23] MEDS: methylPREDNISolone 40 MG in SYRINGE 0 ML IV ONE (14:35)
[2024-11-24] MEDS: FUROSEMIDE 40 MG TAB PO SCH (07:51)
[2024-11-24 08:12] LABS: Hematocrit (blood only) 48.1 % (42.0-52.0); Hemoglobin 14.8 g/dl (14.0-18.0); Mean Corpuscular Hgb Conc 30.8 g/dL (32.0-36.0); Mean Corpuscular Volume 104.1 fL (80.0-100.0); Mean Platelet Volume 10.4 fL (9.4-12.4); Platelet Count 137 K/uL (130-400); RDW Coefficient of Variation 12.6 % (11.5-14.5); Red Blood Count 4.62 M/uL (4.70-6.10); White Blood Count 5.99 K/ul (4.8-10.8)
[2024-11-24 08:33] LABS: BUN Creatinine Ratio 22.9 (10-20); Calcium 8.9 mg/dl (8.6-10.3); Creatinine Clr Calc Pharmacy 53.5 ml/min; Magnesium 2.4 mg/dl (1.7-2.4); Phosphorus 3.7 mg/dl (2.5-4.9); Potassium 4.6 mmol/L (3.5-5.1)
[2024-11-24] MEDS ORDERED: methylPREDNISolone 125 MG/2 ML VIAL IV ONE (09:19)
[2024-11-24] MEDS: ALBUT/IPRATROP 3MG/0.5MG NEB 3 ML VIAL NEB SCH (10:55)
[2024-11-24] MEDS: methylPREDNISolone 40 MG in SYRINGE 0 ML IV ONE (10:58)
[2024-11-24] MEDS: FAMOTIDINE 20 MG TAB PO SCH (10:59)
--- NOTE | 2024-11-24 12:04 | Hospitalist Progress Note ---
Date of Service November 24, 2024 Assessment & Plan (1) Acute on chronic systolic heart failure: Plan: Lasix 80 mg BID -> decreased to 60 IV daily (BP has been on lower side). IV lasix stopped, resumed PO 40 mg daily Daily wts and I&Os Monitor electrolytes, keep K > 4 and Magnesium > 2 Echocardiogram obtained - EF 20-25%, severe global hypokinesis, severe biatrial enlargement Cardiology consulted - pt's meds resumed, switched to home po lasix now Repeated CXR - w/o vasc. congestion -> likely copd component NSVT - pt asymptomatic - has ICD - cont. metoprolol Poss. COPD exacerb. - CXR repeated, discussed w/ cardiology, pt still hypoxic, lungs w/o vasc. congestion - pt seems euvolemic at this time - started steroid and azithromycin for poss. copd exacer. - pt will need 2 step prior to DC (2) Anasarca: Plan: Lasix as above, now pt seems euvolemic Monitor intake and output watch renal fxn. Stable on admission at 1.3 (3) CAD (coronary artery disease): Plan: Restarted home meds that he was supposed to be taking cardiology following (4) Noncompliance with medications: Plan: Restarted medications as directed (5) Elevated troponin: Plan: Suspect this is demand ischemia cardiology following (6) Shortness of breath: Plan: Probably secondary to heart failure exacerbation, as above component of copd exacerb. D-dimer elevated and CT PE study obtained - no PE (7) Permanent atrial fibrillation: Plan rate is controlled off the metoprolol Restarted metoprolol Monitor pulse and blood pressure cardiology following Patient is a full code VTE prophylaxis: Restarted apixaban Admission and Anticipated Discharge Date Admission Date: November 20, 2024 Subjective Pt seen in follow up of hypoxia, acute on chronic CHF, poss. copd exacerb as well Currently laying in bed in NAD, on suppl. O2 Reports feeling better since admission Denies chest pain., abd pain, n/v. Speaks in full sentences Discussed w/ RN, and CM, will likely need O2 on DC. Plan for 2 step tmrw Review of Systems Review of Systems: All systems reviewed & are unremarkable except as noted in Subjective Physical Exam Physical Exam: General- obese M, chronically ill appearing, on suppl. O2 Head- atraumatic Eyes- PERRL, EOMI Neck- supple Lungs- Mild crackles b/l Heart- irregularly irregular, syst. murmur Abdomen- soft, nontender, + obese, + bowel sounds Extremities- + bilateral lymphedema (chronic) Neuro- alert, oriented, EOMI; no facial palsy; no dysarthria; moves extremities Skin- warm & dry Results & Data Results & Data Vital Signs (Past 12 Hours) Vital Signs Temp Pulse Pulse Pulse Pulse Pulse Resp 11/24/24 11:36 93 H 85 54 L 53 L 11/24/24 10:55 76 16 11/24/24 07:52 36.6 C 64 19 11/24/24 07:30 11/24/24 03:43 36.7 C 67 18 Resp Resp Resp Resp BP Pulse Ox Pulse Ox 11/24/24 11:36 18 18 15 15 87 L 11/24/24 10:55 94 11/24/24 07:52 118/72 94 11/24/24 07:30 11/24/24 03:43 138/70 93 Pulse Ox Pulse Ox Pulse Ox O2 Del Method O2 Flow Rate O2 Flow Rate O2 Flow Rate 11/24/24 11:36 90 90 84 L 3 4 11/24/24 10:55 Nasal Cannula 3 11/24/24 07:52 Nasal Cannula 3 11/24/24 07:30 Nasal Cannula 3 11/24/24 03:43 Nasal Cannula O2 Flow Rate 11/24/24 11:36 3 11/24/24 10:55 11/24/24 07:52 11/24/24 07:30 11/24/24 03:43 Laboratory Results 11/24/24 Range/Units 07:21 WBC 5.99 (4.8-10.8) K/ul RBC 4.62 L (4.70-6.10) M/uL Hgb 14.8 (14.0-18.0) g/dl Hct 48.1 (42.0-52.0) % MCV 104.1 H (80.0-100.0) fL MCH 32.0 (25.0-34.0) pg MCHC 30.8 L (32.0-36.0) g/dL RDW Std Deviation 49.0 H (36.4-46.3) fL RDW Coeff of [place] 12.6 (11.5-14.5) % Plt Count 137 (130-400) K/uL MPV 10.4 (9.4-12.4) fL Sodium 142 (136-145) mmol/L Potassium 4.6 (3.5-5.1) mmol/L Chloride 100 (98-107) mmol/L Carbon Dioxide 38 H (21-32) mmol/L Anion Gap 4 (3-11) BUN 40 H (6-23) mg/dl Creatinine 1.75 H (0.6-1.4) mg/dl Est Cr Clr Drug Dosing 53.5 ml/min eGFR 40.86 BUN/Creatinine Ratio 22.9 H (10-20) Glucose 131 H (70-99(Fasting)) mg/dl Calcium 8.9 (8.6-10.3) mg/dl Phosphorus 3.7 (2.5-4.9) mg/dl Magnesium 2.4 (1.7-2.4) mg/dl Medications Administered Current Inpatient Medications Acetaminophen (Acetaminophen 325 Mg Tab) 650 mg PO Q4H PRN PRN Reason: Pain or Fever Stop: 12/20/24 21:31 Last Admin: 11/21/24 08:19 Dose: 650 mg Albuterol (Albut/Ipratrop 3mg/0.5mg Neb 3 Ml Vial) 3 ml NEB QIDR [facility]; Protocol Stop: 12/24/24 10:59 Last Admin: 11/24/24 10:55 Dose: 3 ml Apixaban (Apixaban 5 Mg Tablet) 5 mg PO BID [facility] Stop: 12/20/24 21:31 Last Admin: 11/24/24 07:50 Dose: 5 mg Aspirin (Aspirin 81 Mg Ectab) 81 mg PO [facility] Stop: 12/21/24 08:59 Last Admin: 11/24/24 07:50 Dose: 81 mg Atorvastatin Calcium (Atorvastatin 40 Mg Tab) 80 mg PO QPM [facility] Stop: 12/21/24 20:59 Last Admin: 11/23/24 19:39 Dose: 80 mg Azithromycin (Azithromycin 250 Mg Tab) 250 mg PO [facility] Stop: 11/25/24 13:44 Last Admin: 11/24/24 07:49 Dose: 250 mg Famotidine (Famotidine 20 Mg Tab) 20 mg PO [facility] Stop: 12/24/24 09:29 Last Admin: 11/24/24 10:59 Dose: 20 mg Folic Acid (Folic Acid 1 Mg Tab) 1 mg PO QAM [facility] Stop: 12/21/24 08:59 Last Admin: 11/24/24 07:50 Dose: 1 mg Furosemide (Furosemide 40 Mg Tab) 40 mg PO QAM [facility] Stop: 12/24/24 08:59 Last Admin: 11/24/24 07:51 Dose: 40 mg Magnesium Hydroxide (Magnesium Hydroxide Susp 30 Ml Udc) 30 ml PO Q12H PRN PRN Reason: Constipation Stop: 12/20/24 21:31 Magnesium Oxide (Magnesium Oxide 400 Mg Tab) 400 mg PO BID [facility] Stop: 12/21/24 16:34 Last Admin: 11/24/24 07:50 Dose: 400 mg Melatonin (Melatonin 3 Mg Tab) 3 mg PO HS PRN PRN Reason: Sleep Stop: 12/22/24 22:50 Last Admin: 11/22/24 23:01 Dose: 3 mg Metoprolol Succinate (Metoprolol Succ 25mg Ext Rel Tab) 25 mg PO QAM [facility] Stop: 12/21/24 10:14 Last Admin: 11/24/24 07:50 Dose: 25 mg Nitroglycerin (Nitroglycerin Sl 0.4 Mg/Tab Tab) 0.4 mg SL Q5M PRN PRN Reason: Chest Pain Stop: 12/20/24 21:31 Ondansetron HCl (Ondansetron Inj 2 Mg/Ml 2 Ml Vial) 4 mg IV Q6H PRN PRN Reason: Nausea Stop: 12/20/24 21:31 Polyethylene Glycol (Polyethylene (Miralax) 17 Gm Pack) 17 gm PO DAILY PRN PRN Reason: Constipation Stop: 12/20/24 21:31 Sacubitril/Valsartan (Valsartan/Sacubitril 26/24mg Tab) 1 tab PO BID [facility] Stop: 12/22/24 20:59 Last Admin: 11/24/24 07:50 Dose: 1 tab (3) CAD (coronary artery disease) Coronary Disease-Associated Artery/Lesion type: [place] artery [place] vs. transplanted heart: [place] heart Associated angina: unspecified whether angina present Qualified Code(s): I25.10 - Atherosclerotic heart disease of [place] coronary artery without angina pectoris
[2024-11-25] MEDS ORDERED: methylPREDNISolone 125 MG/2 ML VIAL IV ONE (07:20)
[2024-11-25] MEDS: methylPREDNISolone 125 MG in SYRINGE 0 ML IV ONE (07:47)
[2024-11-25 08:39] LABS: Hematocrit (blood only) 50.2 % (42.0-52.0); Hemoglobin 15.4 g/dl (14.0-18.0); Mean Corpuscular Hemoglobin 31.7 pg (25.0-34.0); Mean Corpuscular Hgb Conc 30.7 g/dL (32.0-36.0); Mean Corpuscular Volume 103.3 fL (80.0-100.0); Mean Platelet Volume 10.1 fL (9.4-12.4); Platelet Count 140 K/uL (130-400); RDW Coefficient of Variation 12.7 % (11.5-14.5); RDW Standard Deviation 48.8 fL (36.4-46.3); Red Blood Count 4.86 M/uL (4.70-6.10); White Blood Count 8.63 K/ul (4.8-10.8)
[2024-11-25 09:27] LABS: BUN Creatinine Ratio 28.7 (10-20); Calcium 9.4 mg/dl (8.6-10.3); Creatinine Clr Calc Pharmacy 54.7 ml/min; Magnesium 2.5 mg/dl (1.7-2.4); Phosphorus 2.6 mg/dl (2.5-4.9); Potassium 4.3 mmol/L (3.5-5.1)
[2024-11-25] MEDS: FUROSEMIDE INJ 20 MG/2 ML VIAL IV ONE (11:55)
[2024-11-25] MEDS ORDERED: APIXABAN 5 MG TABLET PO SCH (12:15)
--- NOTE | 2024-11-25 12:45 | Discharge Summary ---
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 States he has gained 20 pounds in the last month and 5 pounds since yesterday. He is not taking most of his medications but states he is taking his furosemide. He is not hypoxic at present. He denies chest pain. Chest x-ray is basically clear. There is no infiltrate or evidence of pleural effusions. His white count is not elevated. He is not anemic. EKG shows an atrial fibrillation with a controlled rate despite being off his metoprolol. Troponin is elevated at 62 and repeat 61 respectively. His BNP is 302 and essentially normal per his age. Admission Exam Per Admitting Provider General- adult male with chronic ill appearance Head- atraumatic Eyes- PERRL, EOMI, anicteric ENT- oropharynx clear Neck- supple, mild JVD, no adenopathy, no thyromegaly; Lungs- Mild crackles in the bases Heart- irregularly irregular at 84 bpm. Monitor shows atrial fibrillation with a controlled rate Abdomen- normal bowel sounds, soft, nontender, distended, no masses or hepatosplenomegaly Extremities-evidence of bilateral lymphedema Neuro- alert, oriented x 3; PERRL, EOMI; no facial palsy; no dysarthria; motor 5/5 bilaterally; no cogwheel rigidity; patellar DTRs +2/2; Skin- warm & dry Principal Diagnosis Acute on chronic HF rEF Acute resp. failure w/ hypoxia Poss. COPD exacerbation Discharge Exam General- obese M, chronically ill appearing, on suppl. O2 Head- atraumatic Eyes- PERRL, EOMI Neck- supple Lungs- Mild crackles b/l Heart- irregularly irregular, syst. murmur Abdomen- soft, nontender, + obese, + bowel sounds Extremities- + bilateral lymphedema (chronic) Neuro- alert, oriented, EOMI; no facial palsy; no dysarthria; moves extremities Skin- warm & dry Discharge Data Allergies Allergy/AdvReac Type Severity Reaction Status Date / Time No Known Allergies Allergy Verified 11/20/24 19:21 Consultations 11/20/24 19:06 ED Decision to Admit Stat 11/20/24 21:32 Consult Cardiology Routine Ordered Studies 11/20/24 22:21 CT angio chest PE protocol Stat FINDINGS: Pulmonary arteries: Unremarkable. No pulmonary artery embolism. No CTA evidence of right heart strain. Pulmonary arteries are normal caliber. Aorta: There are scattered thoracic aortic calcifications. There are extensive coronary artery arthritic calcifications noted in the right coronary and left anterior descending coronary artery distributions. No thoracic aortic aneurysm. Lungs: There is mild patchy heterogeneous pulmonary attenuation suggestive of air trapping. There is minimal bibasilar linear subsegmental atelectasis/scarring. No mass. Pleural space: Unremarkable. No significant effusion. No pneumothorax. Heart: There is cardiomegaly with biatrial enlargement, right greater than left.. Bones/joints: See above. Soft tissues: Unremarkable. Lymph nodes: Unremarkable. No enlarged lymph nodes. IMPRESSION: 1. No pulmonary artery embolism. 2. Cardiomegaly with biatrial enlargement. 3. There is suggestion of patchy bilateral pulmonary air trapping which may be related to underlying asthma and/or COPD. Clinical correlation. Hospital Course (1) Acute on chronic systolic heart failure: Patient left AMA Acute on chronic syst. HF Lasix 80 mg BID -> decreased to 60 IV daily (BP has been on lower side). IV lasix stopped, resumed PO 40 mg daily - discussed w/ cardiology Daily wts and I&Os Monitor electrolytes, keep K > 4 and Magnesium > 2 Echocardiogram obtained - EF 20-25%, severe global hypokinesis, severe biatrial enlargement Cardiology consulted - pt's meds resumed, switched to home po lasix Repeated CXR - w/o vasc. congestion -> likely copd component NSVT - pt asymptomatic - has ICD - cont. metoprolol Poss. COPD exacerb. - CXR repeated, discussed w/ cardiology, pt still hypoxic, lungs w/o vasc. congestion - pt seems euvolemic at this time - started steroid and azithromycin for poss. copd exacer. - Pt insists on discharge. Underwent 2 step and requires oxygen 3L at rest and 4L w/ ambulation. government program manager involved in helping providing oxygen and also in obtaining his meds. !! Update: Patient refuses to leave with oxygen. Had a prolonged conversation with myself and with the sample case porter. Patient tells me "if I I " and "I can call 911". I also contacted patient's son and left a message on his phone. I then contacted patient's sister Tania. She told me she is aware of him being in the hospital and that he wants to leave without oxygen. She was trying to persuade him against this. She tells me she will talk to him again and will also talk to his son. Updated by RN that patient left and would not wait for oxygen to be delivered. (2) Anasarca: Lasix as above, now pt seems euvolemic Monitor intake and output watch renal fxn. Stable on admission at 1.3 Currently little elevated at 1.7 - will need outpt follow up (3) CAD (coronary artery disease): Restarted home meds that he was supposed to be taking cardiology following (4) Noncompliance with medications: Restarted medications as directed (5) Elevated troponin: Suspect this is demand ischemia cardiology following (6) Shortness of breath: Probably secondary to heart failure exacerbation, as above component of copd exacerb. 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 failure w/ hypoxia, Poss. COPD exacerbation Follow up with your primary care doctor and manager of sales. Resume taking your medications as prescribed. You will be sent with Eliquis pills. Call your primary care office/ cardiology outpatient office to see if they can further assist you. You will also need to finish course of antibiotic and prednisone. You will need a sleeping study. It is not recommended that you exert yourself at this time as you need to use oxygen. Call your Primary Care doctor if any of the following symptoms or problems start or get worse: * Shortness of breath or difficulty breathing * Wake up at night short of breath * Chest pain * Cough * Swelling of your hands, feet, or legs * More fatigued or tired with your normal activity * Palpitations - sudden fast heart beats WEIGHT * Weigh yourself every morning after using the bathroom. * Use the same scale. * Wear the same amount of clothing. * Write your weight down on a chart. * Call your Primary Care doctor if you gain more than 2-3 pounds in 1-2 days. MEDICATIONS * Use this discharge instruction sheet for medication instructions. * Take your medications at the time your doctor ordered. * Do not skip a dose of your medicines. * If you miss a dose of medicine, take it as soon as possible, but DO NOT DOUBLE A DOSE. * Read your medicine information when you get home. * Know all of the side effects of your medicine. If in doubt, ask your pharmacist * Call your Primary Care doctor's office if you have any side effects. * Be sure all of your doctors know what medicine and herbs you take (including cold, flu, and herbal medicine). Take the following with you to your follow-up doctor appointments: * Weight Chart * Medication List * List of questions Do not drink excessive alcohol, beer or wine. Pending Studies at Discharge: No Stand-Alone Forms: My Your Style Unzipped, Smoking Cessation Medications and DC Order Prescriptions: New Eliquis 5 mg Tablet 5 mg PO BID Qty: 60 0RF metoprolol succinate 25 mg Tablet Extended Release 24 Hr 25 mg PO QAM Qty: 30 0RF sacubitril-valsartan [Entresto] 24-26 mg Tablet 1 tab PO BID Qty: 60 0RF furosemide 40 mg Tablet 40 mg PO QAM Qty: 30 0RF aspirin 81 mg Tablet,Delayed Release (Dr/Ec) 81 mg PO QAM Qty: 60 0RF albuterol sulfate [Ventolin HFA] 90 mcg/actuation HFA aerosol inhaler 1 inh inhalation QID PRN (Reason: shortness of breath or wheezing) Qty: 8.5 0RF azithromycin 250 mg Tablet 250 mg PO QAM Qty: 3 0RF famotidine 20 mg Tablet 20 mg PO QAM Qty: 10 0RF prednisone 20 mg tablet 40 mg PO DAILY 3 Days Qty: 6 0RF Continued furosemide 40 mg tablet 40 mg PO QAM Eliquis 5 mg Tablet 5 mg PO BID Qty: 60 0RF folic acid 1 mg Tablet 1 mg PO QAM Qty: 30 0RF Discontinued aspirin 81 mg Tablet,Delayed Release (Dr/Ec) 81 mg PO QAM sacubitril-valsartan [Entresto] 49-51 mg Tablet 1 tab PO QAM Discharge Orders: Left Against Medical Advice (Routine); Ordered 11/25/24 Ordered By: Shiv Mcdowell Admission Data Admit Date/Time: 11/20/24 20:35 Attending Provider: Shiv Mcdowell Admit Provider: Shorty Goldberg Primary Care Provider: Rosalie Rosales Other Providers: Sandro Jeffers; Fabi Santana; Sriram Estrada; Tito Bryant; Timbo Soriano; John Paul Torres; Jamil Moura; Lala Peralta; Swapna Ann; Kasey King; Fabi Covarrubias; Carl Paul; Nick Angeles; Tayler Coffey; Deepali Cramer; Sis Pineda; Tisha Scott; Gene Hopson; Farnaz Harden; Claire Rodriguez; Shorty Goldberg
[2024-11-25 15:33] VITALS: BP 132/79; PULSE 86; RESP 20; TEMP 97.7; O2SAT 92
== END 2024-11-25 16:25 | disposition left against medical advice (07) | DRG 291 ==
LOC: ED 15:43 → 2S 20:35 → SUATTDRO 20:35 → 2S 21:15